=== PATIENT | female | born 1995 | race Caucasian/White ===

== ENCOUNTER 2017-03-03 12:48 | Emergency (ER) | payer MEDICAID, OTHER ==
[~2017-03-03] VITALS: Ht 162.6 cm; Wt 66.7 kg
[2017-03-03] MEDS ORDERED: DOXY1TAB3 PO (13:20)
--- NOTE | 2017-03-03 13:27 | ED GU-Female ---
General Chief Complaint: -Female Stated Complaint: DECREASED BABY HEART RATE 16 WKS PREG Nursing Triage Note: pt reports she was [facility]/v and told her fht were 110. pt reports at her previous ob visits they always ran 140-150. pt reports she felt anxious and worried about it today and decided to have it checked out. pt reports she is inbetween ob drs currently and has an appointment with dr guevara tomorrow. Nursing Sepsis Screen: No Definite Risk Source: patient Exam Limitations: no limitations History of Present Illness Time seen by provider: 13:00 Initial Comments This 21-year-old young lady presents to the emergency room at approximately 16 weeks gestational age with concerns about decreased heart tones. She has been treated intermittently throughout her at [facility] for hyperemesis gravidarum. She had just been treated there prior to her visit here. She reports at that visit heart tones were noted to be 110 and difficult to locate at [facility]. They were eventually located by ultrasound. She has become quite concerned about this and would like to be reevaluated. She has not yet felt movement during this . She has been seeing Dr. Barker for her care but has an appointment to change care to Dr. Guevara tomorrow. Allergies and Home Medications Allergies Coded Allergies: No Known Drug Allergies (Unverified , 03/03/17) Home Medications Doxylamine/Pyridoxine HCl 1 Each Tablet., 1 EACH PO, (Reported) Constitutional: no symptoms reported EENTM: no symptoms reported Respiratory: no symptoms reported Cardiovascular: no symptoms reported Gastrointestinal: see HPI Genitourinary: see HPI : Yes Musculoskeletal: no symptoms reported Skin: no symptoms reported Psychiatric/Neurological: No Symptoms Reported Endocrine: No Symptoms Reported Hematologic/Lymphatic: No Symptoms Reported Past Taftuph-Yyvnet-Khrlin Hx Patient Social History Alcohol Use: Denies Use Recreational Drug Use: No Smoking Status: Never a Smoker Recent Foreign Travel: No Contact w/Someone Who Travel: No Recent Infectious Disease Expo: No Recent Hopitalizations: No Physical Abuse: No Sexual Abuse: No Mistreated: No Fear: No Surgeries History of Surgeries: No Respiratory History of Respiratory Disorde: No Cardiovascular History of Cardiac Disorders: No Neurological History of Neurological Disord: No Reproductive System : Yes Hx : 3 Hx Para: 2 Genitourinary History of Genitourinary Disor: No Gastrointestinal History of Gastrointestinal Di: Yes (hyperemesis gravidarum) Musculoskeletal History of Musculoskeletal Dis: No Endocrine History of Endocrine Disorders: No HEENT History of HEENT Disorders: No Cancer History of Cancer: No Psychosocial History of Psychiatric Problem: No Suicide Risk Score: 0 Integumentary History of Skin or Integumenta: No Blood Transfusions History of Blood Disorders: No Physical Exam Vital Signs Vital Sign - Last 12Hours 03/03/17 13:10 Temp 96.8 Pulse 86 Resp 18 B/P (MAP) 115/69 Pulse Ox 100 Capillary Refill : Less Than 3 Seconds General Appearance: WD/WN, no apparent distress HEENT: PERRL/EOMI, normal ENT inspection Neck: normal inspection Cardiovascular: regular rate, rhythm, no edema, no murmur Respiratory: lungs clear, normal breath sounds, no respiratory distress, no accessory muscle use Gastrointestinal: normal bowel sounds, non tender, soft, other ( heart tones 130s to 140s) 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 By my evaluation Doppler heart tones were consistently in the 130s and 140s. Patient was provided reassurance and dismissed. Departure Impression Impression: Primary Impression: Abnormal heart rate Disposition: 01 HOME, SELF-CARE Condition: Stable Departure-Patient Inst. Decision time for Depature: 13:15 Referrals: NO,LOCAL PHYSICIAN (PCP/Family) Primary Care Physician Patient Instructions: NO INSTRUCTIONS GIVEN Add. Discharge Instructions: Your heart tones in the emergency room ranged from the 130s to 140s. This is a very reassuring heart rate. heart rates may vary greatly depending on activity. Keep your appointment with Dr. Guevara tomorrow. Return to care if you have any further concerns. You may continue taking Diclegis for nausea and vomiting. All discharge instructions reviewed with patient and/or family. Voiced understanding. GENNARO FELIX MD Mar 03, 2017 1:27 pm
[2017-03-03 13:30] VITALS: BP 126/70
== END 2017-03-03 13:30 | disposition home or self-care (01) ==
LOC: ER 12:53
DX: O76 Abnormality in fetal heart rate and rhythm complicating labor and delivery (principal); Z3A.16 16 weeks gestation of pregnancy; Z87.19 Personal history of other diseases of the digestive system
CPT/HCPCS: 99283

== ENCOUNTER 2017-03-23 01:11 | Outpatient (CLI) | payer MEDICAID ==
[~2017-03-23] VITALS: Ht 162.6 cm; Wt 69.6 kg
[~2017-03-23 01:11] MED LIST: DOXY1TAB3 PO
[2017-03-23 01:30] VITALS: BP 107/58
[2017-03-23 02:04] VITALS: BP 107/58
--- NOTE | 2017-03-24 14:40 | Physician Query-Final Dx ---
NICK GRIMALDO 03/24/17 1440: Clinic Account Progress/Dx Physician Query: Please give diagnosis Date of Service Mar 23, 2017 at 01:11 SPENCER STARKEY MD 03/24/17 1746: Clinic Account Progress/Dx DIAGNOSIS: Diagnosis false labor NICK GRIMALDO Mar 24, 2017 14:40 SPENCER STARKEY MD Mar 24, 2017 17:46
== END 2017-03-23 02:00 | disposition home or self-care (01) ==
LOC: WSo 01:11 → LDRP 01:11 → WSo 02:00
PROVIDERS: ATTEND Obstetrics & Gynecology
DX: O47.02 False labor before 37 completed weeks of gestation, second trimester (principal); Z3A.18 18 weeks gestation of pregnancy
CPT/HCPCS: 99213

== ENCOUNTER 2017-03-29 05:50 | Emergency (ER) | payer MEDICAID ==
[~2017-03-29] VITALS: Ht 162.6 cm; Wt 69.6 kg
[2017-03-29] MEDS ORDERED: NITR100C10 (06:05)
[2017-03-29] MEDS ORDERED: ONDA8TAB13 (06:05)
[2017-03-29 06:27] LABS: BILIRUBIN,URINE NEGATIVE (NEGATIVE); KETONES,URINE NEGATIVE (NEGATIVE); LEUKOCYTE ESTERASE ,URINE 3+ (NEGATIVE); NITRITE,URINE NEGATIVE (NEGATIVE); PH,URINE 8 (5-9); PROTEIN,URINE NEGATIVE (NEGATIVE); UROBILINOGEN,URINE NORMAL (NORMAL)
[2017-03-29] MEDS ORDERED: NS IV 1000 ML 1,000 ML IV ONE (06:57)
[2017-03-29 07:12] LABS: BASOPHILS % (AUTO) 0 % (0-10); EOSINOPHILS # (AUTO) 0.2 10^3/uL (0.0-0.3); EOSINOPHILS % (AUTO) 2 % (0-10); LYMPHOCYTES # (AUTO) 2.3 X 10^3 (1.0-4.0); LYMPHOCYTES % (AUTO) 19 % (12-44); MEAN CORPUSCULAR HEMOGLOBIN 29 PG (25-34); MEAN CORPUSCULAR HGB CONC 34 G/DL (32-36); MEAN CORPUSCULAR VOLUME 85 FL (80-99); MEAN PLATELET VOLUME 11.1 FL (7.4-10.4); MONOCYTES # (AUTO) 0.9 X 10^3 (0.0-1.0); MONOCYTES % (AUTO) 7 % (0-12); NEUTROPHILS # (AUTO) 8.8 X 10^3 (1.8-7.8); NEUTROPHILS % (AUTO) 72 % (42-75); PLATELET COUNT 201 10^3/uL (130-400); RED BLOOD COUNT 3.54 10^6/uL (4.35-5.85); WHITE BLOOD COUNT 12.2 10^3/uL (4.3-11.0)
[2017-03-29 07:30] LABS: ALANINE AMINOTRANSFERASE 10 U/L (0-55); ALBUMIN 3.2 GM/DL (3.2-4.5); ANION GAP 7 MMOL/L (5-14); ASPARTATE AMINO TRANSFERASE 15 U/L (5-34); BILIRUBIN,TOTAL 0.2 MG/DL (0.1-1.0); BLOOD UREA NITROGEN 5 MG/DL (7-18); BUN/CREATININE RATIO 8; CALCIUM 8.5 MG/DL (8.5-10.1); CARBON DIOXIDE 22 MMOL/L (21-32); CHLORIDE 109 MMOL/L (98-107); CREATININE SERUM 0.65 MG/DL (0.60-1.30); GFR ESTIMATED > 60; GLUCOSE 83 MG/DL (70-105); LIPASE 13 U/L (8-78); POTASSIUM 3.6 MMOL/L (3.6-5.0); SODIUM 138 MMOL/L (135-145); TOTAL PROTEIN 6.1 GM/DL (6.4-8.2)
--- NOTE | 2017-03-29 07:33 | ED GU-Female ---
General Chief Complaint: -Female Stated Complaint: CRAMPING,CONTRACTIONS,UTI,ABD & BACK PAIN,19 WKS P Nursing Triage Note: 19 WEEKS , ABDOMINAL CRAMPING Nursing Sepsis Screen: No Definite Risk Source: patient Exam Limitations: no limitations History of Present Illness Time seen by provider: 06:20 Initial Comments Here with report of overall abdominal cramping. She reports that she is 19 weeks . She has been seen earlier this week for abdominal cramping with a diagnosis of fall slaver and urinary tract infection. She was apparently initiated on nitrofurantoin she has been on that since Friday. States symptoms are getting better in fact are getting worse. Overall feels bad with continued cramping. She has some right upper quadrant abdominal pain that radiates to her back as well. Has had some nausea. Overall not affected by food per report and states nothing really makes it better or worse. She has tried to increase her fluids. This is her third . Timing/Duration: week, getting worse Severity/Quality: moderate, cramping Location: generalized flank, other (right upper quadrant) Radiation: back, other (right shoulder) Activities at Onset: none Sexual Ramsay History: less than 2 months ago, single partner Modifying Factors: Improves With Other (known) Associated Symptoms: abdominal pain, No diaphoresis, dysuria, No fever/chills, No urinary frequency Allergies and Home Medications Allergies Coded Allergies: No Known Drug Allergies (Unverified , 03/03/17) Home Medications Doxylamine/Pyridoxine HCl 1 Each Tablet.dr, 1 EACH PO, (Reported) Nitrofurantoin Monohyd/M-Cryst 100 Mg Capsule, (Reported) Ondansetron 8 Mg Tab.rapdis, (Reported) Constitutional: see HPI, No chills, No fever EENTM: no symptoms reported Respiratory: no symptoms reported Cardiovascular: No chest pain, palpitations Gastrointestinal: abdominal pain, No diarrhea, nausea Genitourinary: see HPI Expected Date of Delivery: Aug 21, 2017 Musculoskeletal: see HPI, back pain Skin: no symptoms reported All Other Systemes Reviewed Negative Unless Noted: Yes Past Mqbppyr-Qebhvp-Qqohzh Hx Patient Social History Alcohol Use: Denies Use Recreational Drug Use: No Smoking Status: Never a Smoker 2nd Hand Smoke Exposure: No Recent Foreign Travel: No Contact w/Someone Who Travel: No Recent Infectious Disease Expo: No Recent Hopitalizations: No Immunizations Up To Date Tetanus Booster (TDap): Unknown Seasonal Allergies Seasonal Allergies: No Surgeries History of Surgeries: No Respiratory History of Respiratory Disorde: No Cardiovascular History of Cardiac Disorders: No Neurological History of Neurological Disord: No Reproductive System : Yes Expected Date of Delivery: Aug 21, 2017 Last Menstrual Period: November 14, 2016 Hx : 1 Hx Para: 0 Genitourinary History of Genitourinary Disor: No Gastrointestinal History of Gastrointestinal Di: Yes (hyperemesis gravidarum) Musculoskeletal History of Musculoskeletal Dis: No Endocrine History of Endocrine Disorders: No HEENT History of HEENT Disorders: No Cancer History of Cancer: No Psychosocial History of Psychiatric Problem: No Integumentary History of Skin or Integumenta: No Blood Transfusions History of Blood Disorders: No Reviewed Nursing Assessment Reviewed/Agree w Nursing PMH: Yes Family Medical History Significant Family History: No Pertinent Family Hx Physical Exam Vital Signs Vital Sign - Last 12Hours 03/29/17 06:05 Temp 96.9 Pulse 80 Resp 16 B/P (MAP) 107/79 Pulse Ox 98 O2 Delivery Room Air Capillary Refill : Less Than 3 Seconds General Appearance: WD/WN, no apparent distress HEENT: PERRL/EOMI, pharynx normal Neck: full range of motion, supple Cardiovascular: regular rate, rhythm, no murmur Respiratory: lungs clear, normal breath sounds Gastrointestinal: soft, tenderness (mild diffuse and right upper quadrant tenderness noted.) Back: normal inspection, no CVA tenderness, no vertebral tenderness Extremities: non-tender, normal inspection Neurologic/Psychiatric: alert, oriented x 3 Skin: normal color, warm/dry Progress/Results/Core Measures Results/Orders Lab Results Laboratory Tests Test 03/29/17 06:10 03/29/17 07:05 Range/Units Urine Color YELLOW Urine Clarity CLEAR Urine pH 8 5-9 Urine Specific [place] 1.015 L 1.016-1.022 Urine Protein NEGATIVE NEGATIVE Urine Glucose (UA) NEGATIVE NEGATIVE Urine Ketones NEGATIVE NEGATIVE Urine Nitrite NEGATIVE NEGATIVE Urine Bilirubin NEGATIVE NEGATIVE Urine Urobilinogen NORMAL NORMAL MG/DL Urine Leukocyte Esterase 3+ H NEGATIVE Urine RBC (Auto) NEGATIVE NEGATIVE Urine RBC NONE /HPF Urine WBC 5-10 H /HPF Urine Squamous Epithelial Cells 10-25 H /HPF Urine Crystals NONE /LPF Urine Bacteria FEW H /HPF Urine Casts NONE /LPF Urine Mucus NEGATIVE /LPF Urine Culture Indicated YES White Blood Count 12.2 H 4.3-11.0 10^3/uL Red Blood Count 3.54 L 4.35-5.85 10^6/uL Hemoglobin 10.1 L 11.5-16.0 G/DL Hematocrit 30 L 35-52 % Mean Corpuscular Volume 85 80-99 FL Mean Corpuscular Hemoglobin 29 25-34 PG Mean Corpuscular Hemoglobin Concent 34 32-36 G/DL Red Cell Distribution Width 14.0 10.0-14.5 % Platelet Count 201 130-400 10^3/uL Mean Platelet Volume 11.1 H 7.4-10.4 FL Neutrophils (%) (Auto) 72 42-75 % Lymphocytes (%) (Auto) 19 12-44 % Monocytes (%) (Auto) 7 0-12 % Eosinophils (%) (Auto) 2 0-10 % Basophils (%) (Auto) 0 0-10 % Neutrophils # (Auto) 8.8 H 1.8-7.8 X 10^3 Lymphocytes # (Auto) 2.3 1.0-4.0 X 10^3 Monocytes # (Auto) 0.9 0.0-1.0 X 10^3 Eosinophils # (Auto) 0.2 0.0-0.3 10^3/uL Basophils # (Auto) 0.0 0.0-0.1 10^3/uL Sodium Level 138 135-145 MMOL/L Potassium Level 3.6 3.6-5.0 MMOL/L Chloride Level 109 H 98-107 MMOL/L Carbon Dioxide Level 22 21-32 MMOL/L Anion Gap 7 5-14 MMOL/L Blood Urea Nitrogen 5 L 7-18 MG/DL Creatinine 0.65 0.60-1.30 MG/DL Estimat Glomerular Filtration Rate > 60 BUN/Creatinine Ratio 8 Glucose Level 83 70-105 MG/DL Calcium Level 8.5 8.5-10.1 MG/DL Total Bilirubin 0.2 0.1-1.0 MG/DL Aspartate Amino Transf (AST/SGOT) 15 5-34 U/L Alanine Aminotransferase (ALT/SGPT) 10 0-55 U/L Alkaline Phosphatase 61 40-136 U/L Total Protein 6.1 L 6.4-8.2 GM/DL Albumin 3.2 3.2-4.5 GM/DL Lipase 13 8-78 U/L My Orders Orders - DWAYNE EDGAR MD Cbc With Automated Diff (03/29/17 06:57) Comprehensive Metabolic Panel (03/29/17 06:57) Lipase (03/29/17 06:57) Saline Lock/Iv-Start (03/29/17 06:57) Ns Iv 1000 Ml (Sodium Chloride 0.9%) (03/29/17 06:57) Us Gallbladder [id number] (03/29/17 06:57) Ceftriaxone Injection (Rocephin Injectio (03/29/17 07:45) Medications Given in ED Current Medications Medications Dose Ordered Sig/Gayla Route Start Time Stop Time Status Last Admin Dose Admin Ceftriaxone Sodium 1000 mg/ Sodium Chloride 50 ml @ 100 mls/hr ONCE ONCE IV 03/29/17 07:45 03/29/17 08:14 DC 03/29/17 07:42 100 MLS/HR Sodium Chloride 1,000 ml @ 0 mls/hr Q0M ONCE IV 03/29/17 06:57 03/29/17 06:59 DC 03/29/17 07:17 0 MLS/HR Vital Signs/I&O Vital Sign - Last 12Hours 03/29/17 06:05 Temp 96.9 Pulse 80 Resp 16 B/P (MAP) 107/79 Pulse Ox 98 O2 Delivery Room Air Blood Pressure Mean: 88 Progress Note : Progress Note Seen and evaluated. Bedside ultrasound done. Heart rate noted to be 135 by ultrasound. Positive movement. Femur length at 21 weeks by measurement. 19-2/7 by last menstrual period. Right upper quadrant ultrasound at bedside shows patient has some mild pain in that area. There was a question of stone but appears to be artifact. She does appear to have sludge. Formal ultrasound ordered. 0715: UA positive for UTI. Patient appears to be not improving on outpatient antibiotics. No culture available from previous UA. Will likely need to change antibiotics. Labs and normal saline 1 L bolus ordered. Monitor patient. Rocephin 1 g IV ordered. 0830: Formal ultrasound for gallbladder ordered and completed. No concerning findings noted on preliminary read. I did discuss the case with Dr. Dowling. 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 This was discussed with Dr. Dowling. Findings of UTI noted but may be contamination from vaginal discharge. We will change antibiotic to Keflex this point and she will follow-up with him for further evaluation. Cultures will help identify vaginal contaminant versus urinary tract infection. All of this was explained to the patient and family who agreed. Discharged home with return precautions. Patient verbalize understanding instructions and agreement with plan. Diagnostic Imaging Diagonstic Imaging: Ultrasound Plain Films/CT/US/NM/MRI: abdomen Comments Gallbladder ultrasound does not show any stones or sludge on preliminary read. Departure Impression Impression: Primary Impression: Urinary tract infection Qualified Codes: N30.00 - Acute cystitis without hematuria Disposition: HOME, SELF-CARE Condition: Improved Departure-Patient Inst. Referrals: NO,LOCAL PHYSICIAN (PCP/Family) Primary Care Physician Patient Instructions: Urinary Tract Infection, Adult (DC) Add. Discharge Instructions: All discharge instructions reviewed with patient and/or family. Voiced understanding. Take medications as directed. You may stop the nitrofurantoin. He may take Tylenol 1000 mg every 6 or 8 hours as needed for pain. Drink plenty of fluids. Follow-up with Dr. Dowling earlier this week for recheck and further evaluation including possible pelvic exam as indicated. Return for worse pain, fever, vomiting, weakness, breathing problems or other concerns as needed. Scripts Cephalexin (Cephalexin) 500 Mg Tablet 500 MG PO BID, #12 TAB 0 Refills Prov: DWAYNE EDGAR MD 03/29/17 Copy Copies To 1: SPENCER DOWLING MD, TIMOTHY D MD Mar 29, 2017 07:32
[2017-03-29] MEDS ORDERED: cefTRIAXone INJECTION 1,000 MG in NS (IVPB) 50 ML IV ONE (07:45)
[2017-03-29] MEDS ORDERED: CEPH500T PO (08:36)
[2017-03-29 08:40] VITALS: BP 111/82
--- NOTE | 2017-03-29 08:48 | Diagnostic Imaging Report ---
PROCEDURE: US Gallbladder. TECHNIQUE: Multiple real-time grayscale images were obtained over the right upper quadrant in various projections. INDICATION: Right upper quadrant pain. 20 weeks . FINDINGS: The liver demonstrates no evidence of a focal intrahepatic abnormality. There is no evidence of intrahepatic biliary dilatation. The gallbladder is nondistended. There is no sonographic demonstration of gallstones. No gallbladder wall thickening or pericholecystic fluid. The common bile duct is normal in caliber at 3 mm. Visualized portion of the pancreas is normal. The right kidney demonstrates a mild degree of prominence of the right renal pelvis and calyces. There is no perinephric fluid. There is no ascites evident. IMPRESSION: 1. There appears to be mild right-sided hydronephrosis. This may relate to a current gestation. The possibility of a ureteral calculus cannot be completely excluded based on this exam. Consider correlation with urinalysis. 2. Right upper quadrant sonogram, otherwise is unremarkable. Dictated by: Dictated on workstation # [id number]
[2017-05-06] MEDS ORDERED: NITR-65 PO (18:02)
== END 2017-03-29 08:40 | disposition home or self-care (01) ==
LOC: EDUNIT# 05:50 → ER 05:53
DX: O23.42 Unspecified infection of urinary tract in pregnancy, second trimester (principal); Z87.19 Personal history of other diseases of the digestive system; Z3A.19 19 weeks gestation of pregnancy
CPT/HCPCS: 36415; 76705; 80053; 81000; 83690; 85025; 87088; 96361; 96365

== ENCOUNTER 2017-05-05 22:06 | Outpatient (CLI) | payer MEDICAID ==
[~2017-05-05] VITALS: Ht 162.6 cm; Wt 72.7 kg
[~2017-05-05 22:06] MED LIST changes: +CEPH500T PO; +NITR100C10; +ONDA8TAB13
[2017-05-05 22:27] VITALS: BP 105/55
[2017-05-05] MEDS ORDERED: MULT1TAB69 PO (22:40)
--- NOTE | 2017-05-06 09:26 | Physician Query-Final Dx ---
NICK GRIMALDO 05/06/17 0926: Clinic Account Progress/Dx Physician Query: Please give diagnosis Date of Service May 05, 2017 at 22:06 SPENCER STARKEY MD 05/08/17 0740: Clinic Account Progress/Dx DIAGNOSIS: Diagnosis false LABOR NICK GRIMALDO May 06, 2017 09:26 SPENCER STARKEY MD May 08, 2017 07:40
[2017-05-06] MEDS ORDERED: NITR-65 PO ×2 (18:02)
== END 2017-05-05 22:53 | disposition home or self-care (01) ==
LOC: LDRP 22:06 → WSo 22:06
PROVIDERS: ATTEND Obstetrics & Gynecology
DX: O47.02 False labor before 37 completed weeks of gestation, second trimester (principal); Z3A.24 24 weeks gestation of pregnancy
CPT/HCPCS: 99212

== ENCOUNTER 2017-05-06 15:43 | Outpatient (CLI) | payer MEDICAID ==
[~2017-05-06] VITALS: Ht 162.6 cm; Wt 71.2 kg
[~2017-05-06 15:43] MED LIST changes: +MULT1TAB69 PO
[2017-05-06] MEDS ORDERED: INFLUENZA TRIvalent 2017-2018 0.5 ML/45 MCG SYR IM ONE (16:30)
[2017-05-06 17:26] LABS: MEAN CORPUSCULAR HEMOGLOBIN 29 PG (25-34); MEAN CORPUSCULAR HGB CONC 33 G/DL (32-36); MEAN CORPUSCULAR VOLUME 85 FL (80-99); MEAN PLATELET VOLUME 10.6 FL (7.4-10.4); PLATELET COUNT 211 10^3/uL (130-400); RED BLOOD COUNT 3.65 10^6/uL (4.35-5.85); RED CELL DISTRIBUTION WIDTH 13.2 % (10.0-14.5); WHITE BLOOD COUNT 14.5 10^3/uL (4.3-11.0)
[2017-05-06 17:27] LABS: BASOPHILS % (AUTO) 0 % (0-10); EOSINOPHILS # (AUTO) 0.2 10^3/uL (0.0-0.3); EOSINOPHILS % (AUTO) 1 % (0-10); LYMPHOCYTES # (AUTO) 1.8 X 10^3 (1.0-4.0); LYMPHOCYTES % (AUTO) 12 % (12-44); MONOCYTES % (AUTO) 7 % (0-12); NEUTROPHILS # (AUTO) 11.5 X 10^3 (1.8-7.8); NEUTROPHILS % (AUTO) 80 % (42-75)
[2017-05-06 17:31] LABS: BILIRUBIN,URINE NEGATIVE (NEGATIVE); KETONES,URINE 3+ (NEGATIVE); LEUKOCYTE ESTERASE ,URINE NEGATIVE (NEGATIVE); NITRITE,URINE NEGATIVE (NEGATIVE); PH,URINE 6 (5-9); PROTEIN,URINE NEGATIVE (NEGATIVE); UROBILINOGEN,URINE NORMAL (NORMAL)
[2017-05-06 17:54] LABS: BAND NEUTROPHILS 2 %; BASOPHILS % (MANUAL) 0 %; EOSINOPHILS % (MANUAL) 1 %; LYMPHOCYTES % (MANUAL) 9 %; NEUTROPHILS % (MANUAL) 83 %
[2017-05-06] MEDS ORDERED: NITR-65 PO ×2 (18:02)
--- NOTE | 2017-05-07 13:49 | Physician Query-Final Dx ---
NICK GRIMALDO 05/07/17 1349: Clinic Account Progress/Dx Physician Query: Please give diagnosis Date of Service May 06, 2017 at 15:43 SPENCER STARKEY MD 05/08/17 0741: Clinic Account Progress/Dx DIAGNOSIS: Diagnosis recurrent false labor NICK GRIMALDO May 07, 2017 13:49 SPENCER STARKEY MD May 08, 2017 07:41
== END 2017-05-06 18:15 | disposition home or self-care (01) ==
LOC: WSo 15:43 → LDRP 15:43 → WSo 18:15
PROVIDERS: ATTEND Obstetrics & Gynecology
DX: O47.02 False labor before 37 completed weeks of gestation, second trimester (principal); Z3A.24 24 weeks gestation of pregnancy
CPT/HCPCS: 36415; 81000; 85007; 85027; 87088; 87210; 90471; 99214

== ENCOUNTER 2017-05-14 12:52 | Observation (INO) | payer MEDICAID ==
[~2017-05-14] VITALS: Ht 162.6 cm; Wt 73.1 kg
[~2017-05-14 12:52] MED LIST changes: +NITR-65 PO
[2017-05-14 13:15] VITALS: BP 120/72
[2017-05-14 13:43] LABS: BILIRUBIN,URINE NEGATIVE (NEGATIVE); KETONES,URINE NEGATIVE (NEGATIVE); LEUKOCYTE ESTERASE ,URINE 1+ (NEGATIVE); NITRITE,URINE NEGATIVE (NEGATIVE); PH,URINE 7 (5-9); PROTEIN,URINE NEGATIVE (NEGATIVE); UROBILINOGEN,URINE 1 MG/DL (NORMAL)
[2017-05-14 14:08] LABS: SQUAMOUS EPITHELIAL CELL,UR 0-2 /HPF; WBC,URINE 0-2 /HPF
[2017-05-14 14:15] VITALS: BP 103/62
[2017-05-14] MEDS ORDERED: ONDANSETRON 4 MG/2 ML (SDV) Z0FRAN IVP ONE ×2 (14:30→18:15)
[2017-05-14] MEDS ORDERED: D5 LR IV SOLUTION 1,000 ML IV ONE ×2 (14:30→16:15)
[2017-05-14] MEDS ORDERED: INDOMETHACIN 25 MG (INDOCIN) CAP PO NR (16:15)
[2017-05-14 17:20] VITALS: BP 109/65
[2017-05-14] MEDS ORDERED: ONDANSETRON 4 MG/2 ML (SDV) Z0FRAN ONE (18:01)
[2017-05-14] MEDS ORDERED: BETAMETHASONE ACE/NA PHOS 6 MG/ML (CELESTONE SOLUSPAN) ONE (18:01)
--- NOTE | 2017-05-14 18:05 | History & Physical ---
History and Physical Date Seen by Provider: May 14, 2017 Time Seen by Provider: 18:02 this patient is a 21-year-old white female currently at 25 weeks gestation. She has had persistent contractions for the last several weeks. Today they have increased in intensity. She is also suffering persistent nausea and vomiting dizziness or lightheadedness. She denies rupture membranes or bleeding she denies diarrhea or constipation. She has not eaten since 5 p.m. yesterday due to the nausea. She feels only minimally better with the hydration and antiemetic she received today. Allergies are none Medications are vitamins Medical history, past surgical history, obstetric history, family history, social histories are per the antepartum record HEENT exam is normal although the patient does appear ill Neck is supple with no lymphadenopathy no thyromegaly abdomen is gravid soft nontender nondistended Extreme show no clubbing cyanosis. There is no Homans sign. Pelvic exam per the labor and delivery nurse shows a long closed cervix with no change on serial exams monitor shows contractions about every 12-16 minutes persistently. Heart rate pattern is normal and reassuring. Laboratory Tests Test 05/14/17 13:00 Range/Units Urine Color YELLOW Urine Clarity CLEAR Urine pH 7 5-9 Urine Specific [place] 1.010 L 1.016-1.022 Urine Protein NEGATIVE NEGATIVE Urine Glucose (UA) NEGATIVE NEGATIVE Urine Ketones NEGATIVE NEGATIVE Urine Nitrite NEGATIVE NEGATIVE Urine Bilirubin NEGATIVE NEGATIVE Urine Urobilinogen 1 NORMAL MG/DL Urine Leukocyte Esterase 1+ H NEGATIVE Urine RBC (Auto) NEGATIVE NEGATIVE Urine RBC NONE /HPF Urine WBC 0-2 /HPF Urine Squamous Epithelial Cells 0-2 /HPF Urine Crystals NONE /LPF Urine Amorphous Sediment MOD HERMINIA URATES H /LPF Urine Bacteria NEGATIVE /HPF Urine Casts NONE /LPF Urine Mucus NEGATIVE /LPF Urine Culture Indicated NO Urine is essentially normal Vital Signs Date Time Temp Pulse Resp B/P (MAP) Pulse Ox O2 Delivery O2 Flow Rate FiO2 05/14/17 14:15 97 18 103/62 Room Air 05/14/17 13:15 98.5 100 18 120/72 Room Air I & O 05/15/17 07:00 Intake Total 1000 ml Balance 1000 ml patient is afebrile. Assessment and plan hospital day 1 the patient at 25 weeks gestation likely has a viral syndrome contributing to her causing her hyperemesis gravidarum. We 'll continue her IV fluids were had with antiemetics and plan give the first injection of betamethasone. Continue supportive care until she improves and is ready for discharge. hyperemesis gravidarum/viral gastroenteritis Allergies and Home Medications Allergies Coded Allergies: No Known Drug Allergies (Unverified , 03/03/17) Home Medications Multivitamin 1 Each Tablet, 1 EACH PO DAILY, (Reported) SPENCER STARKEY MD May 14, 2017 6:05 pm
[2017-05-14] MEDS: BETAMETHASONE ACE/NA PHOS 6 MG/ML (CELESTONE SOLUSPAN) IM SCH (18:14)
[2017-05-14 18:15] VITALS: BP 112/68
[2017-05-14] MEDS ORDERED: ONDANSETRON 4 MG/2 ML (SDV) Z0FRAN IVP PRN (18:15)
[2017-05-14 18:25] LABS: BASOPHILS % (AUTO) 0 % (0-10); EOSINOPHILS % (AUTO) 0 % (0-10); LYMPHOCYTES # (AUTO) 1.9 X 10^3 (1.0-4.0); LYMPHOCYTES % (AUTO) 16 % (12-44); MEAN CORPUSCULAR HEMOGLOBIN 28 PG (25-34); MEAN CORPUSCULAR HGB CONC 33 G/DL (32-36); MEAN CORPUSCULAR VOLUME 85 FL (80-99); MEAN PLATELET VOLUME 10.4 FL (7.4-10.4); MONOCYTES % (AUTO) 8 % (0-12); NEUTROPHILS # (AUTO) 9.1 X 10^3 (1.8-7.8); NEUTROPHILS % (AUTO) 76 % (42-75); PLATELET COUNT 198 10^3/uL (130-400); RED BLOOD COUNT 3.29 10^6/uL (4.35-5.85); RED CELL DISTRIBUTION WIDTH 12.8 % (10.0-14.5)
[2017-05-14] MEDS: D5 LR IV SOLUTION 1,000 ML IV SCH (19:00)
[2017-05-14 19:38] VITALS: BP 114/56
[2017-05-15 02:31] VITALS: BP 93/40
[2017-05-15] MEDS: D5 LR IV SOLUTION 1,000 ML IV SCH (02:31)
--- NOTE | 2017-05-15 06:38 | Progress Note-Standard ---
Standard Progress Note Progress Notes/Assess & Plan Date Seen by Provider: May 15, 2017 Time Seen by Provider: 06:36 Progress/Assessment & Plan patient complains of persistent contractions although they seem to have lessened some. They had not progressed any at all. The cervix is shown no change on serial exams. Patient's nausea has improved to the point where she is tolerating oral intake now. She is voiding well. She feel baby moving. She denies rupture membranes or bleeding. Laboratory Tests Test 05/14/17 13:00 05/14/17 18:15 Range/Units Urine Color YELLOW Urine Clarity CLEAR Urine pH 7 5-9 Urine Specific [place] 1.010 L 1.016-1.022 Urine Protein NEGATIVE NEGATIVE Urine Glucose (UA) NEGATIVE NEGATIVE Urine Ketones NEGATIVE NEGATIVE Urine Nitrite NEGATIVE NEGATIVE Urine Bilirubin NEGATIVE NEGATIVE Urine Urobilinogen 1 NORMAL MG/DL Urine Leukocyte Esterase 1+ H NEGATIVE Urine RBC (Auto) NEGATIVE NEGATIVE Urine RBC NONE /HPF Urine WBC 0-2 /HPF Urine Squamous Epithelial Cells 0-2 /HPF Urine Crystals NONE /LPF Urine Amorphous Sediment MOD HERMINIA URATES H /LPF Urine Bacteria NEGATIVE /HPF Urine Casts NONE /LPF Urine Mucus NEGATIVE /LPF Urine Culture Indicated NO White Blood Count 12.0 H 4.3-11.0 10^3/uL Red Blood Count 3.29 L 4.35-5.85 10^6/uL Hemoglobin 9.2 L 11.5-16.0 G/DL Hematocrit 28 L 35-52 % Mean Corpuscular Volume 85 80-99 FL Mean Corpuscular Hemoglobin 28 25-34 PG Mean Corpuscular Hemoglobin Concent 33 32-36 G/DL Red Cell Distribution Width 12.8 10.0-14.5 % Platelet Count 198 130-400 10^3/uL Mean Platelet Volume 10.4 7.4-10.4 FL Neutrophils (%) (Auto) 76 H 42-75 % Lymphocytes (%) (Auto) 16 12-44 % Monocytes (%) (Auto) 8 0-12 % Eosinophils (%) (Auto) 0 0-10 % Basophils (%) (Auto) 0 0-10 % Neutrophils # (Auto) 9.1 H 1.8-7.8 X 10^3 Lymphocytes # (Auto) 1.9 1.0-4.0 X 10^3 Monocytes # (Auto) 1.0 0.0-1.0 X 10^3 Eosinophils # (Auto) 0.0 0.0-0.3 10^3/uL Basophils # (Auto) 0.0 0.0-0.1 10^3/uL Vital Signs Date Time Temp Pulse Resp B/P (MAP) Pulse Ox O2 Delivery O2 Flow Rate FiO2 05/15/17 02:31 98.5 85 18 93/40 97 Room Air 05/14/17 19:38 98.7 84 18 114/56 Room Air 05/14/17 18:15 97.9 89 18 112/68 Room Air 05/14/17 17:20 93 18 109/65 Room Air 05/14/17 14:15 97 18 103/62 Room Air 05/14/17 13:15 98.5 100 18 120/72 Room Air vital signs are stable. Patient is afebrile. Her lab work shows a mildly elevated white count otherwise is normal. The abdomen is gravid and nontender.fundus is appropriate for gestational age and nontender. Extremities show no clubbing cyanosis. There is no Homans sign. Assessment and plan hospital day 2 with hyperemesis gravidarum likely associated with a viral syndrome. Patient has had contractions/ labor but does not really appear to be threatening to deliver. Plan is for continued observation until she is tolerating oral intake well and then allowed discharge home with follow-up in clinic next week Final Diagnosis hyperemesis gravidarum/ labor SPENCER STARKEY MD May 15, 2017 6:38 am
[2017-05-15] MEDS ORDERED: ONDA8TAB9 PO (06:40)
--- NOTE | 2017-05-15 06:42 | Discharge Instructions ---
Discharge Instructions Discharge Medications New, Converted or Re-Newed RX: Other Patient Instructions Patient Instructions: as directed Return to The Hospital For: as directed Activity & Diet Discharge Diet: No Restrictions Activity as Tolerated: Yes Orders-Post D/C & Referrals Call to make follow up appt. for ALEKSEY patient in 1 weeks. Please call in rx to patient pharmacy return to clinic promptly for any signs symptoms and indications of labor Return to clinic for persistent recurrent nausea vomiting SPENCER STARKEY MD May 15, 2017 6:42 am
[2017-05-15 07:30] VITALS: BP 110/69
[2017-05-15] MEDS ORDERED: METOCLOPRAMIDE INJ 10 MG/2 ML (REGLAN) IVP NR (08:00)
[2017-05-15] MEDS ORDERED: ONDANSETRON 8 MG (ZOFRAN) ORAL DISSOLVE TAB PO NR (08:00)
[2017-05-15] MEDS ORDERED: FAMOTIDINE 20MG/2ML IV (PEPCID) IVP SCH (09:00)
[2017-05-15 12:50] VITALS: BP 90/46
[2017-05-15] MEDS: BETAMETHASONE ACE/NA PHOS 6 MG/ML (CELESTONE SOLUSPAN) IM SCH (15:15)
== END 2017-05-15 18:46 | disposition home or self-care (01) ==
LOC: WSo 12:52 → LDRP 12:53 → WSo 17:54 → LDRP 17:54
PROVIDERS: ADMIT Obstetrics & Gynecology; ATTEND Obstetrics & Gynecology
DX: O60.02 Preterm labor without delivery, second trimester (principal); O21.8 Other vomiting complicating pregnancy; Z3A.25 25 weeks gestation of pregnancy
CPT/HCPCS: 36415; 81000; 85025; 87088; 96361; 96372; 96374; 96375; 96376; 99211; G0378

== ENCOUNTER 2017-05-17 22:59 | Outpatient (CLI) | payer MEDICAID ==
[~2017-05-17] VITALS: Ht 162.6 cm; Wt 73.9 kg
[~2017-05-17 22:59] MED LIST changes: +ONDA8TAB9 PO
[2017-05-17 23:20] VITALS: BP 108/58
[2017-05-17 23:28] LABS: BILIRUBIN,URINE NEGATIVE (NEGATIVE); KETONES,URINE NEGATIVE (NEGATIVE); LEUKOCYTE ESTERASE ,URINE NEGATIVE (NEGATIVE); NITRITE,URINE NEGATIVE (NEGATIVE); PH,URINE 8 (5-9); PROTEIN,URINE NEGATIVE (NEGATIVE); UROBILINOGEN,URINE NORMAL (NORMAL)
[2017-05-17 23:39] LABS: SQUAMOUS EPITHELIAL CELL,UR 0-2 /HPF
[2017-05-18] MEDS ORDERED: PROMETHAZINE 25 MG (PHENERGAN) TAB PO ONE (00:45)
--- NOTE | 2017-05-19 08:12 | Physician Query-Final Dx ---
ANGIE WISDOM 05/19/17 0812: Clinic Account Progress/Dx Physician Query: Please give diagnosis Date of Service May 17, 2017 at 22:59 BETTINA IRWIN DO 06/03/17 1101: Clinic Account Progress/Dx DIAGNOSIS: Diagnosis emesis , 26 weeks ANGIE WISDOM May 19, 2017 08:12 BETTINA IRWIN DO Jun 03, 2017 11:01
== END 2017-05-18 00:53 | disposition home or self-care (01) ==
LOC: WSo 22:59 → LDRP 23:00 → WSo 05-18 00:53
PROVIDERS: ATTEND Obstetrics & Gynecology
DX: O21.2 Late vomiting of pregnancy (principal); Z3A.26 26 weeks gestation of pregnancy
CPT/HCPCS: 81000; 99212

== ENCOUNTER 2017-06-10 09:51 | Observation (INO) | payer MEDICAID ==
[~2017-06-10] VITALS: Ht 162.6 cm; Wt 74.4 kg
[2017-06-10 10:08] VITALS: BP 101/62
[2017-06-10 10:46] LABS: BASOPHILS # (AUTO) 0.1 10^3/uL (0.0-0.1); BASOPHILS % (AUTO) 0 % (0-10); BILIRUBIN,URINE NEGATIVE (NEGATIVE); EOSINOPHILS # (AUTO) 0.2 10^3/uL (0.0-0.3); EOSINOPHILS % (AUTO) 1 % (0-10); KETONES,URINE NEGATIVE (NEGATIVE); LEUKOCYTE ESTERASE ,URINE NEGATIVE (NEGATIVE); LYMPHOCYTES # (AUTO) 1.9 X 10^3 (1.0-4.0); LYMPHOCYTES % (AUTO) 11 % (12-44); MEAN CORPUSCULAR HEMOGLOBIN 26 PG (25-34); MEAN CORPUSCULAR HGB CONC 32 G/DL (32-36); MEAN CORPUSCULAR VOLUME 82 FL (80-99); MEAN PLATELET VOLUME 10.2 FL (7.4-10.4); MONOCYTES # (AUTO) 1.4 X 10^3 (0.0-1.0); MONOCYTES % (AUTO) 8 % (0-12); NEUTROPHILS # (AUTO) 13.5 X 10^3 (1.8-7.8); NEUTROPHILS % (AUTO) 79 % (42-75); NITRITE,URINE NEGATIVE (NEGATIVE); PH,URINE 8 (5-9); PLATELET COUNT 208 10^3/uL (130-400); PROTEIN,URINE NEGATIVE (NEGATIVE); RED BLOOD COUNT 3.52 10^6/uL (4.35-5.85); RED CELL DISTRIBUTION WIDTH 13.1 % (10.0-14.5); UROBILINOGEN,URINE NORMAL (NORMAL); WHITE BLOOD COUNT 17.1 10^3/uL (4.3-11.0)
[2017-06-10] MEDS: ceFAZolin INJECTION 1,000 MG in NS (IVPB) 50 ML IV SCH ×3 (10:50→22:42)
[2017-06-10] MEDS: D5 LR IV SOLUTION 1,000 ML IV SCH ×3 (10:50→21:17)
[2017-06-10] MEDS ORDERED: FERR-84 PO (10:53)
[2017-06-10 11:09] LABS: BAND NEUTROPHILS 2 %; BASOPHILS % (MANUAL) 0 %; EOSINOPHILS % (MANUAL) 2 %; LYMPHOCYTES % (MANUAL) 11 %; METAMYELOCYTES % 3 %; NEUTROPHILS % (MANUAL) 76 %
[2017-06-10] MEDS ORDERED: BUTORPHANOL INJ 2 MG/ML (STADOL) VIAL ONE (13:42)
[2017-06-10] MEDS ORDERED: BUTORPHANOL INJ 2 MG/ML (STADOL) VIAL IV ONE ×2 (14:00→17:45)
[2017-06-10 14:01] VITALS: BP 101/56
--- NOTE | 2017-06-10 14:32 | Diagnostic Imaging Report ---
EXAMINATION: Ultrasound appendix. INDICATION: Abdominal pain. Findings: The right lower quadrant demonstrate no definite fluid collection or abnormality. The appendix however is not seen. The patient is . IMPRESSION: The appendix is not seen. Correlate clinically. Dictated by: Dictated on workstation # [id number]
--- NOTE | 2017-06-10 14:34 | Diagnostic Imaging Report ---
PROCEDURE: US abdomen complete. TECHNIQUE: Multiple real-time grayscale images were obtained over the abdomen in various projections. INDICATION: Abdominal pain. The patient is 30 weeks FINDINGS: The pancreas appears unremarkable. The liver is fairly homogeneous with no focal lesion seen. Hepatopetal flow in the portal vein is noted. The gallbladder demonstrates no stones or wall thickening. Sonographic Mcdermott sign is reportedly negative. The CBD is 4 mm in caliber. The spleen is 11.9 CM in length. The right kidney is 11.9 and the left kidney is 11.2 CM. No hydronephrosis. The visualized portions of the IVC and abdominal aorta appear unremarkable. The urinary bladder appears unremarkable. At the time of the exam the left ureteric jet is seen. The right ureteric jet is not identified. No fluid collection is seen. IMPRESSION: No definite abnormality. Dictated by: Dictated on workstation # [id number]
[2017-06-10] MEDS ORDERED: ONDANSETRON 4 MG/2 ML (SDV) Z0FRAN IVP ONE (16:00)
[2017-06-10 17:56] VITALS: BP 99/57
[2017-06-10 20:00] VITALS: BP 106/63
[2017-06-10] MEDS ORDERED: RX-OSELTAMIVIR 75 MG (TAMIFLU) BOX OF 10 PO ONE (20:29)
--- NOTE | 2017-06-10 20:37 | History & Physical ---
History and Physical Date Seen by Provider: Jun 10, 2017 Time Seen by Provider: 10:00 this patient is a 19-year-old white female with a due date of August 21, 2017. She is now just short of 30 weeks gestation. Her has been complicated by fairly diffuse abdominal low pelvic and back pain. Uterus itself is nontender. Patient denies rupture membranes or bleeding. Patient has been afebrile. Did not have pain or symptoms similar to this in any manner her prior pregnancies. Her reports that numerous family members have been ill over the last 2-3 weeks. Patient is experiencing intermittent nausea. She had a cough for the first part of this week that seemed to be better now. She does feel baby moving and has only a rare contraction. It is of concern that her white blood cell count has been elevated to 17 to 18, 000 over the last several days. she was sent to labor and delivery for my clinic on this day 1 her white count was found to be persistently elevated. Appeared acutely ill, although was not obtunded or incapacitated.. Patient has been treated through the day with IV hydration and IV antiemetics with good effect. she has also been treated with IV analgesics for pain also to good effect. an ultrasound of the abdomen and noted the pelvis including the appendix has been negative. There was note of not noticing specifically the ureteral jet on the right. However there was no sign of hydronephrosis or hydroureter noted. Through the day the patient reports that she does feel minimally improved. He looks less acutely ill to me this evening. He has tolerated some oral intake. She is voiding well. Allergies are none Medications prior to admission with likely just Zofran and vitamins as she could tolerate obstetric history and past medical history, past surgical history, family history, and social histories are per the antepartum record lab work is as follows Laboratory Tests Test 06/10/17 10:32 Range/Units White Blood Count 17.1 H 4.3-11.0 10^3/uL Red Blood Count 3.52 L 4.35-5.85 10^6/uL Hemoglobin 9.3 L 11.5-16.0 G/DL Hematocrit 29 L 35-52 % Mean Corpuscular Volume 82 80-99 FL Mean Corpuscular Hemoglobin 26 25-34 PG Mean Corpuscular Hemoglobin Concent 32 32-36 G/DL Red Cell Distribution Width 13.1 10.0-14.5 % Platelet Count 208 130-400 10^3/uL Mean Platelet Volume 10.2 7.4-10.4 FL Neutrophils (%) (Auto) 79 H 42-75 % Lymphocytes (%) (Auto) 11 L 12-44 % Monocytes (%) (Auto) 8 0-12 % Eosinophils (%) (Auto) 1 0-10 % Basophils (%) (Auto) 0 0-10 % Neutrophils # (Auto) 13.5 H 1.8-7.8 X 10^3 Lymphocytes # (Auto) 1.9 1.0-4.0 X 10^3 Monocytes # (Auto) 1.4 H 0.0-1.0 X 10^3 Eosinophils # (Auto) 0.2 0.0-0.3 10^3/uL Basophils # (Auto) 0.1 0.0-0.1 10^3/uL Neutrophils % (Manual) 76 % Lymphocytes % (Manual) 11 % Monocytes % (Manual) 6 % Eosinophils % (Manual) 2 % Basophils % (Manual) 0 % Metamyelocytes % 3 % Band Neutrophils 2 % Blood Morphology Comment NORMAL Urine Color YELLOW Urine Clarity CLEAR Urine pH 8 5-9 Urine Specific [place] 1.015 L 1.016-1.022 Urine Protein NEGATIVE NEGATIVE Urine Glucose (UA) NEGATIVE NEGATIVE Urine Ketones NEGATIVE NEGATIVE Urine Nitrite NEGATIVE NEGATIVE Urine Bilirubin NEGATIVE NEGATIVE Urine Urobilinogen NORMAL NORMAL MG/DL Urine Leukocyte Esterase NEGATIVE NEGATIVE Urine RBC (Auto) NEGATIVE NEGATIVE Urine RBC NONE /HPF Urine WBC NONE /HPF Urine Squamous Epithelial Cells NONE /HPF Urine Crystals NONE /LPF Urine Amorphous Sediment LARGE HERMINIA PHOSPHATE H /LPF Urine Bacteria NEGATIVE /HPF Urine Casts NONE /LPF Urine Mucus NEGATIVE /LPF Urine Culture Indicated NO vital signs are as follows Vital Signs Date Time Temp Pulse Resp B/P (MAP) Pulse Ox O2 Delivery O2 Flow Rate FiO2 06/10/17 17:56 98.5 81 16 99/57 Room Air 06/10/17 14:01 97.8 100 16 101/56 Room Air 06/10/17 10:08 98.0 109 18 101/62 Room Air ultrasound report is on the chart and has been reviewed - there were no specific abnormal findings noted Gen. the patient is a tired generally ill appearing white female. She currently is in no evidence distress but she does not appear well. HEENT exam is normal. Patient is slightly pale Neck is supple with no lymphadenopathy no thyromegaly Heart has regular rhythm and no murmur Chest is clear to auscultation bilaterally with occasional rhonchi. Abdomen is gravid soft nontender nondistended except for the right side to clinic and the right anterior superior iliac crest area. Patient is nontender at the suprapubic pubis There is very mild right CVA tenderness. There is no paraspinal rigidity. There is no clubbing cyanosis or edema Pelvic exam is deferred monitor shows a reactive NST with no contractions and noted D cells Assessment and plan near 30 week with leukocytosis diffuse mid body pain exposure to likely respiratory influenza and possibly viral gastroenteritis. With the patient's white blood cell count persistently elevated and a notable left shift she has been started empirically on Ancef IV and that will continue for the time being. We will recheck a white count in the morning. We'll ahead and start Tamiflu this evening. We'll obtain an OB ultrasound tomorrow. Should she show significant improvement then we will entertain discharge home on oral antibiotics with follow-up in clinic Should she show deterioration of her condition and/or a persistently elevating white blood cell count in spite of antibiotics and supportive care and we will consider further evaluation which could include amniocentesis, further evaluation of her appendix, consideration for transfer to the care of a high- risk OB. acute pain of unsure etiology a notable leukocytosis Allergies and Home Medications Allergies Coded Allergies: No Known Drug Allergies (Unverified , 03/03/17) Home Medications Ferrous Sulfate 325 Mg Tablet, 325 MG PO DAILY, (Reported) Multivitamin 1 Each Tablet, 1 EACH PO DAILY, (Reported) SPENCER STARKEY MD Jun 10, 2017 8:37 pm
[2017-06-10] MEDS: OSELTAMIVIR 75 MG (TAMIFLU) BOX OF 10 PO SCH (21:15)
[2017-06-10] MEDS: BUTORPHANOL INJ 2 MG/ML (STADOL) VIAL IV PRN (21:49)
[2017-06-11] VITALS (7 sets, daily range): BP systolic 92–109; BP diastolic 53–63
[2017-06-11] MEDS: ceFAZolin INJECTION 1,000 MG in NS (IVPB) 50 ML IV SCH ×4 (04:42→20:06)
[2017-06-11] MEDS: BUTORPHANOL INJ 2 MG/ML (STADOL) VIAL IV PRN ×3 (05:00→13:12)
[2017-06-11 06:19] LABS: BASOPHILS % (AUTO) 0 % (0-10); EOSINOPHILS # (AUTO) 0.2 10^3/uL (0.0-0.3); EOSINOPHILS % (AUTO) 1 % (0-10); LYMPHOCYTES # (AUTO) 2.5 X 10^3 (1.0-4.0); LYMPHOCYTES % (AUTO) 16 % (12-44); MEAN CORPUSCULAR HEMOGLOBIN 26 PG (25-34); MEAN CORPUSCULAR HGB CONC 31 G/DL (32-36); MEAN CORPUSCULAR VOLUME 83 FL (80-99); MEAN PLATELET VOLUME 10.6 FL (7.4-10.4); MONOCYTES # (AUTO) 1.3 X 10^3 (0.0-1.0); MONOCYTES % (AUTO) 8 % (0-12); NEUTROPHILS # (AUTO) 11.5 X 10^3 (1.8-7.8); NEUTROPHILS % (AUTO) 74 % (42-75); PLATELET COUNT 201 10^3/uL (130-400); RED BLOOD COUNT 3.19 10^6/uL (4.35-5.85); WHITE BLOOD COUNT 15.4 10^3/uL (4.3-11.0)
--- NOTE | 2017-06-11 08:05 | Progress Note-Standard ---
Standard Progress Note Progress Notes/Assess & Plan Date Seen by Provider: Jun 11, 2017 Time Seen by Provider: 08:02 Progress/Assessment & Plan patient reports feeling somewhat better. She denies ruptured membranes or bleeding. She has only a rare contraction. She does feel baby moving. Her appetite is suppressed but she has tolerated some oral intake. She is voiding well. Pain is generally tolerable I'll O she has received IV analgesic several times through the night. Patient currently denies nausea. The pain has become somewhat more episodically when it is present is more right side and right lower quadrant. Laboratory Tests Test 06/10/17 10:32 06/11/17 05:35 Range/Units White Blood Count 17.1 H 15.4 H 4.3-11.0 10^3/uL Red Blood Count 3.52 L 3.19 L 4.35-5.85 10^6/uL Hemoglobin 9.3 L 8.3 L 11.5-16.0 G/DL Hematocrit 29 L 27 L 35-52 % Mean Corpuscular Volume 82 83 80-99 FL Mean Corpuscular Hemoglobin 26 26 25-34 PG Mean Corpuscular Hemoglobin Concent 32 31 L 32-36 G/DL Red Cell Distribution Width 13.1 13.0 10.0-14.5 % Platelet Count 208 201 130-400 10^3/uL Mean Platelet Volume 10.2 10.6 H 7.4-10.4 FL Neutrophils (%) (Auto) 79 H 74 42-75 % Lymphocytes (%) (Auto) 11 L 16 12-44 % Monocytes (%) (Auto) 8 8 0-12 % Eosinophils (%) (Auto) 1 1 0-10 % Basophils (%) (Auto) 0 0 0-10 % Neutrophils # (Auto) 13.5 H 11.5 H 1.8-7.8 X 10^3 Lymphocytes # (Auto) 1.9 2.5 1.0-4.0 X 10^3 Monocytes # (Auto) 1.4 H 1.3 H 0.0-1.0 X 10^3 Eosinophils # (Auto) 0.2 0.2 0.0-0.3 10^3/uL Basophils # (Auto) 0.1 0.0 0.0-0.1 10^3/uL Neutrophils % (Manual) 76 % Lymphocytes % (Manual) 11 % Monocytes % (Manual) 6 % Eosinophils % (Manual) 2 % Basophils % (Manual) 0 % Metamyelocytes % 3 % Band Neutrophils 2 % Blood Morphology Comment NORMAL Urine Color YELLOW Urine Clarity CLEAR Urine pH 8 5-9 Urine Specific [place] 1.015 L 1.016-1.022 Urine Protein NEGATIVE NEGATIVE Urine Glucose (UA) NEGATIVE NEGATIVE Urine Ketones NEGATIVE NEGATIVE Urine Nitrite NEGATIVE NEGATIVE Urine Bilirubin NEGATIVE NEGATIVE Urine Urobilinogen NORMAL NORMAL MG/DL Urine Leukocyte Esterase NEGATIVE NEGATIVE Urine RBC (Auto) NEGATIVE NEGATIVE Urine RBC NONE /HPF Urine WBC NONE /HPF Urine Squamous Epithelial Cells NONE /HPF Urine Crystals NONE /LPF Urine Amorphous Sediment LARGE HERMINIA PHOSPHATE H /LPF Urine Bacteria NEGATIVE /HPF Urine Casts NONE /LPF Urine Mucus NEGATIVE /LPF Urine Culture Indicated NO Blood cell count has decrease slightly. Hemoglobin likewise has decreased this is a dilutional effect rather than a legitimate anemia The abdomen is gravid nontender and benign. Extremities show clubbing cyanosis there is no Homans sign. assessment and plan hospital day 2 for patient at 30 weeks' gestation with leukocytosis and diffuse pain of unclear etiology. It is quite light this patient does have an occult infection that is responding to the Ancef. We will continue that through the day continue her supportive care. Obstetric ultrasound is to be performed today we'll reevaluate this evening. SPENCER STARKEY MD Jun 11, 2017 8:05 am
[2017-06-11] MEDS: OSELTAMIVIR 75 MG (TAMIFLU) BOX OF 10 PO SCH ×2 (09:04→20:57)
[2017-06-11] MEDS ORDERED: ONDANSETRON 4 MG/2 ML (SDV) Z0FRAN ONE (11:26)
[2017-06-11] MEDS ORDERED: ONDANSETRON 4 MG/2 ML (SDV) Z0FRAN IVP ONE (11:45)
--- NOTE | 2017-06-11 11:55 | Diagnostic Imaging Report ---
INDICATION: IUGR, assess amniotic fluid volume. TECHNIQUE: Multiple real-time grayscale images were obtained over the gravid uterus. COMPARISON: None. FINDINGS: A elias gestation is in cephalic position. The amniotic fluid index is 9.7, the largest vertical pocket of fluid 4.2 cm. The placenta is anterior and eccentric to the left with no abruption or previa. The biometrical measurements are congruent and overall correlate with an average age 30 weeks 3 days. IMPRESSION: Elias gestation measuring 30 weeks 3 days today with WIN of 9.7. Cephalic position. Anterior placenta is normal. Biometrical measurements are as follows: Biparietal 7.6 cm, age 30 weeks 3 days. Head circumference 27.1 cm, age 29 weeks 4 days. Abdominal circumference 27.7 cm, age 31 weeks 6 days. Femur length 5.7 cm, age 29 weeks 6 days. Sonographic estimate age: 30 weeks 3 days. Sonographic estimated date of delivery: 08/17/17. Estimated Weight: 1647 gm (+/- 240 gm). LMP percentile: 72%. heart rate: 139 beats per minute. number: 1 of 1. Dictated by: Dictated on workstation # [id number]
[2017-06-11] MEDS: D5 LR IV SOLUTION 1,000 ML IV SCH (14:18)
--- NOTE | 2017-06-11 16:21 | Progress Note-Standard ---
Standard Progress Note Progress Notes/Assess & Plan Date Seen by Provider: Jun 11, 2017 Time Seen by Provider: 16:20 Progress/Assessment & Plan patient reports feeling somewhat better. She denies ruptured membranes or bleeding. She has only a rare contraction. She does feel baby moving. Her appetite is suppressed but she has tolerated some oral intake. She is voiding well. Pain is generally tolerable I'll O she has received IV analgesic several times through the night. Patient currently denies nausea. The pain has become somewhat more episodically when it is present is more right side and right lower quadrant. Laboratory Tests Test 06/10/17 10:32 06/11/17 05:35 Range/Units White Blood Count 17.1 H 15.4 H 4.3-11.0 10^3/uL Red Blood Count 3.52 L 3.19 L 4.35-5.85 10^6/uL Hemoglobin 9.3 L 8.3 L 11.5-16.0 G/DL Hematocrit 29 L 27 L 35-52 % Mean Corpuscular Volume 82 83 80-99 FL Mean Corpuscular Hemoglobin 26 26 25-34 PG Mean Corpuscular Hemoglobin Concent 32 31 L 32-36 G/DL Red Cell Distribution Width 13.1 13.0 10.0-14.5 % Platelet Count 208 201 130-400 10^3/uL Mean Platelet Volume 10.2 10.6 H 7.4-10.4 FL Neutrophils (%) (Auto) 79 H 74 42-75 % Lymphocytes (%) (Auto) 11 L 16 12-44 % Monocytes (%) (Auto) 8 8 0-12 % Eosinophils (%) (Auto) 1 1 0-10 % Basophils (%) (Auto) 0 0 0-10 % Neutrophils # (Auto) 13.5 H 11.5 H 1.8-7.8 X 10^3 Lymphocytes # (Auto) 1.9 2.5 1.0-4.0 X 10^3 Monocytes # (Auto) 1.4 H 1.3 H 0.0-1.0 X 10^3 Eosinophils # (Auto) 0.2 0.2 0.0-0.3 10^3/uL Basophils # (Auto) 0.1 0.0 0.0-0.1 10^3/uL Neutrophils % (Manual) 76 % Lymphocytes % (Manual) 11 % Monocytes % (Manual) 6 % Eosinophils % (Manual) 2 % Basophils % (Manual) 0 % Metamyelocytes % 3 % Band Neutrophils 2 % Blood Morphology Comment NORMAL Urine Color YELLOW Urine Clarity CLEAR Urine pH 8 5-9 Urine Specific [place] 1.015 L 1.016-1.022 Urine Protein NEGATIVE NEGATIVE Urine Glucose (UA) NEGATIVE NEGATIVE Urine Ketones NEGATIVE NEGATIVE Urine Nitrite NEGATIVE NEGATIVE Urine Bilirubin NEGATIVE NEGATIVE Urine Urobilinogen NORMAL NORMAL MG/DL Urine Leukocyte Esterase NEGATIVE NEGATIVE Urine RBC (Auto) NEGATIVE NEGATIVE Urine RBC NONE /HPF Urine WBC NONE /HPF Urine Squamous Epithelial Cells NONE /HPF Urine Crystals NONE /LPF Urine Amorphous Sediment LARGE HERMINIA PHOSPHATE H /LPF Urine Bacteria NEGATIVE /HPF Urine Casts NONE /LPF Urine Mucus NEGATIVE /LPF Urine Culture Indicated NO Blood cell count has decrease slightly. Hemoglobin likewise has decreased this is a dilutional effect rather than a legitimate anemia The abdomen is gravid nontender and benign. Extremities show clubbing cyanosis there is no Homans sign. assessment and plan hospital day 2 for patient at 30 weeks' gestation with leukocytosis and diffuse pain of unclear etiology. It is quite light this patient does have an occult infection that is responding to the Ancef. We will continue that through the day continue her supportive care. Obstetric ultrasound is to be performed today we'll reevaluate this evening. June 11, 2017 at 1620 Patient reports feeling somewhat better. He has had pain medication on occasion through the day. She denies ruptured membranes or bleeding and does feel baby moving. She denies contractions. Her nausea has improved. She has tolerated some oral intake. She has remained afebrile. Vital Signs Date Time Temp Pulse Resp B/P (MAP) Pulse Ox O2 Delivery O2 Flow Rate FiO2 06/11/17 13:10 97.8 77 18 97/53 Room Air 06/11/17 04:47 99.0 88 18 102/54 98 Room Air 06/11/17 00:00 96.6 78 18 92/61 98 Room Air 06/10/17 20:00 97.5 81 18 106/63 98 Room Air 06/10/17 17:56 98.5 81 16 99/57 Room Air the abdomen is benign. The extremity exam is unchanged. Pelvic exam is deferred. Assessment and plan as above patient has improved somewhat we will continue the current management and recheck her white count in the morning if her condition is stable or improving and her white count is decreasing we will change to oral antibiotics and discharged home with follow-up in clinic. SPENCER STARKEY MD Jun 11, 2017 4:21 pm
[2017-06-11] MEDS ORDERED: oxyCODONE/APAP 5/325MG (PERCOCET 5) TABLET PO PRN (18:00)
[2017-06-12 04:00] VITALS: BP 86/46
[2017-06-12] MEDS: ceFAZolin INJECTION 1,000 MG in NS (IVPB) 50 ML IV SCH (04:54)
[2017-06-12 06:13] LABS: BASOPHILS % (AUTO) 0 % (0-10); EOSINOPHILS # (AUTO) 0.2 10^3/uL (0.0-0.3); EOSINOPHILS % (AUTO) 1 % (0-10); LYMPHOCYTES # (AUTO) 2.4 X 10^3 (1.0-4.0); LYMPHOCYTES % (AUTO) 16 % (12-44); MEAN CORPUSCULAR HEMOGLOBIN 26 PG (25-34); MEAN CORPUSCULAR HGB CONC 32 G/DL (32-36); MEAN CORPUSCULAR VOLUME 83 FL (80-99); MEAN PLATELET VOLUME 10.1 FL (7.4-10.4); MONOCYTES # (AUTO) 1.3 X 10^3 (0.0-1.0); MONOCYTES % (AUTO) 9 % (0-12); NEUTROPHILS # (AUTO) 11.2 X 10^3 (1.8-7.8); NEUTROPHILS % (AUTO) 74 % (42-75); PLATELET COUNT 190 10^3/uL (130-400); RED BLOOD COUNT 3.07 10^6/uL (4.35-5.85); RED CELL DISTRIBUTION WIDTH 12.9 % (10.0-14.5); WHITE BLOOD COUNT 15.2 10^3/uL (4.3-11.0)
--- NOTE | 2017-06-12 07:44 | Progress Note-Standard ---
Standard Progress Note Progress Notes/Assess & Plan Date Seen by Provider: Jun 12, 2017 Time Seen by Provider: 07:40 Progress/Assessment & Plan patient reports feeling somewhat better. She denies ruptured membranes or bleeding. She has only a rare contraction. She does feel baby moving. Her appetite is suppressed but she has tolerated some oral intake. She is voiding well. Pain is generally tolerable I'll O she has received IV analgesic several times through the night. Patient currently denies nausea. The pain has become somewhat more episodically when it is present is more right side and right lower quadrant. Laboratory Tests Test 06/10/17 10:32 06/11/17 05:35 Range/Units White Blood Count 17.1 H 15.4 H 4.3-11.0 10^3/uL Red Blood Count 3.52 L 3.19 L 4.35-5.85 10^6/uL Hemoglobin 9.3 L 8.3 L 11.5-16.0 G/DL Hematocrit 29 L 27 L 35-52 % Mean Corpuscular Volume 82 83 80-99 FL Mean Corpuscular Hemoglobin 26 26 25-34 PG Mean Corpuscular Hemoglobin Concent 32 31 L 32-36 G/DL Red Cell Distribution Width 13.1 13.0 10.0-14.5 % Platelet Count 208 201 130-400 10^3/uL Mean Platelet Volume 10.2 10.6 H 7.4-10.4 FL Neutrophils (%) (Auto) 79 H 74 42-75 % Lymphocytes (%) (Auto) 11 L 16 12-44 % Monocytes (%) (Auto) 8 8 0-12 % Eosinophils (%) (Auto) 1 1 0-10 % Basophils (%) (Auto) 0 0 0-10 % Neutrophils # (Auto) 13.5 H 11.5 H 1.8-7.8 X 10^3 Lymphocytes # (Auto) 1.9 2.5 1.0-4.0 X 10^3 Monocytes # (Auto) 1.4 H 1.3 H 0.0-1.0 X 10^3 Eosinophils # (Auto) 0.2 0.2 0.0-0.3 10^3/uL Basophils # (Auto) 0.1 0.0 0.0-0.1 10^3/uL Neutrophils % (Manual) 76 % Lymphocytes % (Manual) 11 % Monocytes % (Manual) 6 % Eosinophils % (Manual) 2 % Basophils % (Manual) 0 % Metamyelocytes % 3 % Band Neutrophils 2 % Blood Morphology Comment NORMAL Urine Color YELLOW Urine Clarity CLEAR Urine pH 8 5-9 Urine Specific [place] 1.015 L 1.016-1.022 Urine Protein NEGATIVE NEGATIVE Urine Glucose (UA) NEGATIVE NEGATIVE Urine Ketones NEGATIVE NEGATIVE Urine Nitrite NEGATIVE NEGATIVE Urine Bilirubin NEGATIVE NEGATIVE Urine Urobilinogen NORMAL NORMAL MG/DL Urine Leukocyte Esterase NEGATIVE NEGATIVE Urine RBC (Auto) NEGATIVE NEGATIVE Urine RBC NONE /HPF Urine WBC NONE /HPF Urine Squamous Epithelial Cells NONE /HPF Urine Crystals NONE /LPF Urine Amorphous Sediment LARGE HERMINIA PHOSPHATE H /LPF Urine Bacteria NEGATIVE /HPF Urine Casts NONE /LPF Urine Mucus NEGATIVE /LPF Urine Culture Indicated NO Blood cell count has decrease slightly. Hemoglobin likewise has decreased this is a dilutional effect rather than a legitimate anemia The abdomen is gravid nontender and benign. Extremities show clubbing cyanosis there is no Homans sign. assessment and plan hospital day 2 for patient at 30 weeks' gestation with leukocytosis and diffuse pain of unclear etiology. It is quite light this patient does have an occult infection that is responding to the Ancef. We will continue that through the day continue her supportive care. Obstetric ultrasound is to be performed today we'll reevaluate this evening. June 11, 2017 at 1620 Patient reports feeling somewhat better. He has had pain medication on occasion through the day. She denies ruptured membranes or bleeding and does feel baby moving. She denies contractions. Her nausea has improved. She has tolerated some oral intake. She has remained afebrile. Vital Signs Date Time Temp Pulse Resp B/P (MAP) Pulse Ox O2 Delivery O2 Flow Rate FiO2 06/11/17 13:10 97.8 77 18 97/53 Room Air 06/11/17 04:47 99.0 88 18 102/54 98 Room Air 06/11/17 00:00 96.6 78 18 92/61 98 Room Air 06/10/17 20:00 97.5 81 18 106/63 98 Room Air 06/10/17 17:56 98.5 81 16 99/57 Room Air the abdomen is benign. The extremity exam is unchanged. Pelvic exam is deferred. Assessment and plan as above patient has improved somewhat we will continue the current management and recheck her white count in the morning if her condition is stable or improving and her white count is decreasing we will change to oral antibiotics and discharged home with follow-up in clinic. June 12, 2017 Patient is without complaint this morning. She reports continuing to feel improvement. Her aches and pains have decreased although still wax and wane to some extent. She denies nausea and is able to tolerate by mouth area she does occasionally require pain medication for her right lower quadrant and back pain. She denies rupture membranes or bleeding. Patient denies contraction. She does feel baby moving. Vital Signs Date Time Temp Pulse Resp B/P (MAP) Pulse Ox O2 Delivery O2 Flow Rate FiO2 06/12/17 04:00 97.3 68 16 86/46 06/11/17 21:10 86 18 99/63 06/11/17 21:00 98.1 90 18 109/54 06/11/17 14:18 99.2 86 18 99/63 98 Room Air 06/11/17 13:10 97.8 77 18 97/53 Room Air 06/11/17 08:15 98.6 77 18 99/54 Room Air Vital signs are stable. Patient is afebrile and has remained so. Laboratory Tests 06/12/17 05:55 Blood cell count is essentially stable. Her hemoglobin has decreased some of this suspect this is primarily due to dilutional effect The abdomen is gravid nontender. There is minimal right lower quadrant tenderness on palpation. Extremities show no clubbing cyanosis. There is no Homans sign. Back is nontender. There is no CVA tenderness. assessment and plan 30 week with leukocytosis of undetermined etiology. I do suspect this patient has an occult infection. We will continue close attention to her signs and symptoms if the process progresses and eventually will declare itself. If it resolves than the exact etiology may never be known. we will convert to an oral antibiotic and continue empiric coverage. We will use Percocet sparingly for pain control and plan follow-up in clinic in a week. Final Diagnosis leukocytosis, myalgia SPENCER STARKEY MD Jun 12, 2017 7:44 am
[2017-06-12] MEDS ORDERED: CEPH-507 PO (07:46)
[2017-06-12] MEDS ORDERED: OXYC-471 PO (07:46)
--- NOTE | 2017-06-12 07:47 | Discharge Instructions ---
Discharge Instructions Discharge Medications New, Converted or Re-Newed RX: RX on Chart Patient Instructions Patient Instructions: as directed Return to The Hospital For: as directed Activity & Diet Discharge Diet: No Restrictions Activity as Tolerated: Yes Orders-Post D/C & Referrals return to clinic as scheduled return to clinic promptly for any signs symptoms and indications of labor, unrelenting nausea or vomiting, temperature about 101 or higher, progressive persistent pain Please call in rx to patient pharmacy SPENCER STARKEY MD Jun 12, 2017 7:47 am
[2017-06-12 07:50] VITALS: BP 101/52
[2017-06-12 08:13] VITALS: BP 101/52
[2017-06-12 09:00] VITALS: BP 101/52
[2017-06-12] MEDS: OSELTAMIVIR 75 MG (TAMIFLU) BOX OF 10 PO SCH (09:00)
== END 2017-06-12 07:46 | disposition home or self-care (01) ==
LOC: WSo 09:51 → LDRP 09:52 → WSo 09:52 → LDRP 09:55 → UNDOADMOB 09:55 → LDRP 17:39 → UNDODISOB 06-12 09:00 → LDRP 06-12 09:00 → WSo 06-12 09:00 → EDSTATUS 06-12 13:05
PROVIDERS: ADMIT Obstetrics & Gynecology; ATTEND Obstetrics & Gynecology
DX: O99.89 Other specified diseases and conditions complicating pregnancy, childbirth and the puerperium (principal); D72.829 Elevated white blood cell count, unspecified; M79.1 Myalgia; Z3A.30 30 weeks gestation of pregnancy
CPT/HCPCS: 36415; 76700; 76705; 76805; 81000; 85007; 85025; 85027; 87088; 96361; 96374; 96375; 96376; 99211; G0378

== ENCOUNTER 2017-06-20 09:22 | Outpatient (CLI) | payer MEDICAID ==
[~2017-06-20] VITALS: Ht 162.6 cm; Wt 74.4 kg
[~2017-06-20 09:22] MED LIST changes: +CEPH-507 PO; +FERR-84 PO; +OXYC-471 PO
[2017-06-20 09:50] VITALS: BP 102/55
--- NOTE | 2017-06-23 07:43 | Physician Query-Final Dx ---
ANGIE WISDOM 06/23/17 0743: Clinic Account Progress/Dx Physician Query: Please give diagnosis Date of Service Jun 20, 2017 at 09:22 SPENCER STARKEY MD 06/23/17 2223: Clinic Account Progress/Dx DIAGNOSIS: Diagnosis threatened labor ANGIE WISDOM Jun 23, 2017 07:43 SPENCER STARKEY MD Jun 23, 2017 22:23
== END 2017-06-20 12:44 | disposition home or self-care (01) ==
LOC: WSo 09:22 → LDRP 09:23 → WSo 12:44
PROVIDERS: ATTEND Obstetrics & Gynecology
DX: O47.03 False labor before 37 completed weeks of gestation, third trimester (principal); Z3A.31 31 weeks gestation of pregnancy
CPT/HCPCS: 99213

== ENCOUNTER 2017-07-01 10:52 | Outpatient (CLI) | payer MEDICAID ==
[~2017-07-01] VITALS: Ht 162.6 cm; Wt 74.4 kg
[2017-07-01 11:13] VITALS: BP 103/59
--- NOTE | 2017-07-03 11:45 | Physician Query-Final Dx ---
ANGIE WISDOM 07/03/17 1145: Clinic Account Progress/Dx Physician Query: Please give diagnosis Date of Service Jul 01, 2017 at 10:52 SPENCER STARKEY MD 07/03/17 2015: Clinic Account Progress/Dx DIAGNOSIS: Diagnosis false labor ALYX,ANGIE Jul 03, 2017 11:45 SPENCER STARKEY MD Jul 03, 2017 20:15
[2017-07-04] MEDS ORDERED: Hydrocodone Bit/Acetaminophen PO (16:25)
[2017-07-04] MEDS ORDERED: ACET-789 PO (16:25)
[2017-07-04] MEDS ORDERED: ONDA8TAB9 PO (16:25)
== END 2017-07-01 12:15 | disposition home or self-care (01) ==
LOC: WSo 10:52 → LDRP 10:52 → WSo 12:15
PROVIDERS: ATTEND Obstetrics & Gynecology
DX: O47.03 False labor before 37 completed weeks of gestation, third trimester (principal); Z3A.32 32 weeks gestation of pregnancy
CPT/HCPCS: 99213

== ENCOUNTER 2017-07-13 20:41 | Outpatient (CLI) | payer MEDICAID ==
[~2017-07-13] VITALS: Ht 162.6 cm; Wt 75.4 kg
[~2017-07-13 20:41] MED LIST changes: +ACET-789 PO; +Hydrocodone Bit/Acetaminophen PO
[2017-07-13 21:20] VITALS: BP 119/60
[2017-07-13 21:28] VITALS: BP 119/71
[2017-07-13] MEDS ORDERED: D5 LR IV SOLUTION 1,000 ML IV ONE (21:34)
[2017-07-13] MEDS: D5 LR IV SOLUTION 1,000 ML IV SCH (22:00)
[2017-07-13 22:19] VITALS: BP 99/55
[2017-07-13 22:19] LABS: BASOPHILS % (AUTO) 0 % (0-10); EOSINOPHILS # (AUTO) 0.2 10^3/uL (0.0-0.3); EOSINOPHILS % (AUTO) 1 % (0-10); HEMATOCRIT 28 % (35-52); HEMOGLOBIN 8.9 G/DL (11.5-16.0); LYMPHOCYTES # (AUTO) 2.7 X 10^3 (1.0-4.0); LYMPHOCYTES % (AUTO) 16 % (12-44); MEAN CORPUSCULAR HEMOGLOBIN 25 PG (25-34); MEAN CORPUSCULAR HGB CONC 31 G/DL (32-36); MEAN CORPUSCULAR VOLUME 78 FL (80-99); MONOCYTES # (AUTO) 1.5 X 10^3 (0.0-1.0); MONOCYTES % (AUTO) 9 % (0-12); NEUTROPHILS # (AUTO) 12.7 X 10^3 (1.8-7.8); NEUTROPHILS % (AUTO) 74 % (42-75); PLATELET COUNT 246 10^3/uL (130-400); RED BLOOD COUNT 3.62 10^6/uL (4.35-5.85); RED CELL DISTRIBUTION WIDTH 14.4 % (10.0-14.5); WHITE BLOOD COUNT 17.2 10^3/uL (4.3-11.0)
[2017-07-13 22:34] LABS: BILIRUBIN,URINE NEGATIVE (NEGATIVE); CLARITY,URINE CLEAR; COLOR,URINE YELLOW; GLUCOSE, URINE (UA) NEGATIVE (NEGATIVE); KETONES,URINE 2+ (NEGATIVE); LEUKOCYTE ESTERASE ,URINE NEGATIVE (NEGATIVE); NITRITE,URINE NEGATIVE (NEGATIVE); PH,URINE 7 (5-9); PROTEIN,URINE NEGATIVE (NEGATIVE); UROBILINOGEN,URINE NORMAL (NORMAL)
[2017-07-13 22:39] LABS: ALANINE AMINOTRANSFERASE 10 U/L (0-55); ALBUMIN 3.4 GM/DL (3.2-4.5); ALKALINE PHOSPHATASE 119 U/L (40-136); BILIRUBIN,TOTAL 0.5 MG/DL (0.1-1.0); BUN/CREATININE RATIO 9; CALCIUM 8.9 MG/DL (8.5-10.1); CARBON DIOXIDE 19 MMOL/L (21-32); CHLORIDE 106 MMOL/L (98-107); CREATININE SERUM 0.57 MG/DL (0.60-1.30); GFR ESTIMATED > 60; GLUCOSE 87 MG/DL (70-105); POTASSIUM 3.6 MMOL/L (3.6-5.0); SODIUM 136 MMOL/L (135-145); TOTAL PROTEIN 6.7 GM/DL (6.4-8.2)
[2017-07-13 22:40] LABS: BACTERIA,URINE TRACE /HPF; CALCIUM OXALATE CRYSTALS,UR MODERATE /LPF; SQUAMOUS EPITHELIAL CELL,UR 0-2 /HPF; WBC,URINE RARE /HPF
[2017-07-13 22:45] LABS: BAND NEUTROPHILS 3 %; NEUTROPHILS % (MANUAL) 70 %
[2017-07-13 22:46] LABS: BASOPHILS % (MANUAL) 0 %; ELLIPT/OVALOCYTES SLIGHT; EOSINOPHILS % (MANUAL) 0 %; LYMPHOCYTES % (MANUAL) 23 %; MICROCYTOSIS SLIGHT; MONOCYTES % (MANUAL) 4 %
--- NOTE | 2017-07-13 22:51 | History & Physical ---
History and Physical Date Seen by Provider: Jul 13, 2017 Time Seen by Provider: 22:47 this patient is a 21-year-old white female with a due date of August 21, 2017. She presented with complaint of contractions 3-4 minutes. She denies rupture membranes or bleeding. She also complains of shortness of breath. She has had frequent episodes of the same complaints. She has been georgina with some regularity for the last several weeks at the very least and potentially for over 2 months. She is not making cervical car changer this period of time. She complains also constipation. Allergies are none Medications are vitamins, Lorcet when necessary Medical social and surgical obstetric histories are per the antepartum record HEENT exam is normal. The patient does appear short of breath. Neck is supple no lymphadenopathy Abdomen is gravid soft nontender nondistended Extreme show no clubbing or cyanosis. There is no Homans sign. Pelvic exam per the nurse shows a cervix 1 cm dilated and very long the sinus she has been for the past several months monitor shows irregular sporadic contractions. There is a normal heart rate pattern. Laboratory Tests Test 07/13/17 21:00 07/13/17 22:00 Range/Units Urine Color YELLOW Urine Clarity CLEAR Urine pH 7 5-9 Urine Specific [place] 1.015 L 1.016-1.022 Urine Protein NEGATIVE NEGATIVE Urine Glucose (UA) NEGATIVE NEGATIVE Urine Ketones 2+ H NEGATIVE Urine Nitrite NEGATIVE NEGATIVE Urine Bilirubin NEGATIVE NEGATIVE Urine Urobilinogen NORMAL NORMAL MG/DL Urine Leukocyte Esterase NEGATIVE NEGATIVE Urine RBC (Auto) NEGATIVE NEGATIVE Urine RBC NONE /HPF Urine WBC RARE /HPF Urine Squamous Epithelial Cells 0-2 /HPF Urine Crystals PRESENT H /LPF Urine Calcium Oxalate Crystals MODERATE H /LPF Urine Bacteria TRACE /HPF Urine Casts NONE /LPF Urine Mucus MODERATE H /LPF Urine Culture Indicated NO White Blood Count 17.2 H 4.3-11.0 10^3/uL Red Blood Count 3.62 L 4.35-5.85 10^6/uL Hemoglobin 8.9 L 11.5-16.0 G/DL Hematocrit 28 L 35-52 % Mean Corpuscular Volume 78 L 80-99 FL Mean Corpuscular Hemoglobin 25 25-34 PG Mean Corpuscular Hemoglobin Concent 31 L 32-36 G/DL Red Cell Distribution Width 14.4 10.0-14.5 % Platelet Count 246 130-400 10^3/uL Mean Platelet Volume 11.0 H 7.4-10.4 FL Neutrophils (%) (Auto) 74 42-75 % Lymphocytes (%) (Auto) 16 12-44 % Monocytes (%) (Auto) 9 0-12 % Eosinophils (%) (Auto) 1 0-10 % Basophils (%) (Auto) 0 0-10 % Neutrophils # (Auto) 12.7 H 1.8-7.8 X 10^3 Lymphocytes # (Auto) 2.7 1.0-4.0 X 10^3 Monocytes # (Auto) 1.5 H 0.0-1.0 X 10^3 Eosinophils # (Auto) 0.2 0.0-0.3 10^3/uL Basophils # (Auto) 0.0 0.0-0.1 10^3/uL Neutrophils % (Manual) 70 % Lymphocytes % (Manual) 23 % Monocytes % (Manual) 4 % Eosinophils % (Manual) 0 % Basophils % (Manual) 0 % Band Neutrophils 3 % Microcytosis SLIGHT Elliptocytes SLIGHT Sodium Level 136 135-145 MMOL/L Potassium Level 3.6 3.6-5.0 MMOL/L Chloride Level 106 98-107 MMOL/L Carbon Dioxide Level 19 L 21-32 MMOL/L Anion Gap 11 5-14 MMOL/L Blood Urea Nitrogen 5 L 7-18 MG/DL Creatinine 0.57 L 0.60-1.30 MG/DL Estimat Glomerular Filtration Rate > 60 BUN/Creatinine Ratio 9 Glucose Level 87 70-105 MG/DL Calcium Level 8.9 8.5-10.1 MG/DL Total Bilirubin 0.5 0.1-1.0 MG/DL Aspartate Amino Transf (AST/SGOT) 16 5-34 U/L Alanine Aminotransferase (ALT/SGPT) 10 0-55 U/L Alkaline Phosphatase 119 40-136 U/L Total Protein 6.7 6.4-8.2 GM/DL Albumin 3.4 3.2-4.5 GM/DL patient's white blood cell count is mildly elevated. Urine is mildly concentrated.patient does demonstrate ketonuria O2 sats on room air 100 percent Assessment and plan labor in a patient with chronic pain at least partially due to intolerance of . Symptoms might be worsening now by her use of narcotics over the period of time causing constipation. We will give cathartics until her bowels moved. Pain medication and IV fluids and supportive care otherwise. Plan for discharge home and patient has improved her last she labors. As she is now past 34 weeks we will not plan tocolyse's for labor. labor Allergies and Home Medications Allergies Coded Allergies: No Known Drug Allergies (Unverified , 03/03/17) Home Medications Acetaminophen with Codeine 1 Each Tablet, 1 EACH PO every 4 hours, #30 Prescribed by: SPENCER MTZ on 07/04/17 1625 Ferrous Sulfate 325 Mg Tablet, 325 MG PO DAILY, (Reported) Multivitamin 1 Each Tablet, 1 EACH PO DAILY, (Reported) Ondansetron 8 Mg Tab.rapdis, 8 MG PO every 6 hours PRN for when necessary nausea , #20 Prescribed by: SPENCER MTZ on 07/04/17 1625 [Hydrocodone Bit/Acetaminophen] 1 EA TABLET, 1-2 EA PO Q4H PRN for PAIN-MODERATE , #30 Prescribed by: SPENCER MTZ on 07/04/17 1625 SPENCER STARKEY MD Jul 13, 2017 10:51 pm
[2017-07-13] MEDS: BUTORPHANOL INJ 2 MG/ML (STADOL) VIAL IV PRN (22:54)
[2017-07-13] MEDS: POLYETHYLENE GLYCOL 17 GM (MIRALAX) PACK PO SCH (23:08)
[2017-07-14] MEDS: POLYETHYLENE GLYCOL 17 GM (MIRALAX) PACK PO SCH ×9 (00:06→06:34)
[2017-07-14] MEDS: D5 LR IV SOLUTION 1,000 ML IV SCH ×2 (01:07→05:09)
[2017-07-14 04:42] VITALS: BP 95/48
[2017-07-14] MEDS: BUTORPHANOL INJ 2 MG/ML (STADOL) VIAL IV PRN (04:59)
[2017-07-14] MEDS ORDERED: hydrOXYzine (VISTARIL) 25 MG CAP PO ONE (05:00)
[2017-07-14 08:15] VITALS: BP 90/52
[2017-07-14] MEDS ORDERED: BISACODYL 10 MG SUPP (DULCOLAX) PR ONE (08:15)
[2017-07-14] MEDS ORDERED: ACETAMINOPHEN 500 MG TAB (TYLENOL) PO PRN (09:00)
[2017-07-14] MEDS ORDERED: oxyCODONE/APAP 5/325MG (PERCOCET 5) TABLET PO PRN (09:15)
[2017-07-14] MEDS ORDERED: HYDROcodone/APAP 5 MG/325 MG (LORTAB) TAB PO PRN (09:30)
[2017-07-14 09:38] LABS: BASOPHILS % (AUTO) 0 % (0-10); EOSINOPHILS # (AUTO) 0.1 10^3/uL (0.0-0.3); EOSINOPHILS % (AUTO) 1 % (0-10); HEMATOCRIT 27 % (35-52); HEMOGLOBIN 8.2 G/DL (11.5-16.0); LYMPHOCYTES # (AUTO) 2.5 X 10^3 (1.0-4.0); LYMPHOCYTES % (AUTO) 17 % (12-44); MEAN CORPUSCULAR HEMOGLOBIN 24 PG (25-34); MEAN CORPUSCULAR HGB CONC 31 G/DL (32-36); MEAN CORPUSCULAR VOLUME 80 FL (80-99); MEAN PLATELET VOLUME 10.4 FL (7.4-10.4); MONOCYTES # (AUTO) 1.4 X 10^3 (0.0-1.0); MONOCYTES % (AUTO) 10 % (0-12); NEUTROPHILS # (AUTO) 10.2 X 10^3 (1.8-7.8); NEUTROPHILS % (AUTO) 72 % (42-75); PLATELET COUNT 231 10^3/uL (130-400); RED BLOOD COUNT 3.36 10^6/uL (4.35-5.85); RED CELL DISTRIBUTION WIDTH 14.4 % (10.0-14.5); WHITE BLOOD COUNT 14.3 10^3/uL (4.3-11.0)
--- NOTE | 2017-07-14 09:43 | Progress Note-Standard ---
Standard Progress Note Progress Notes/Assess & Plan Date Seen by Provider: Jul 14, 2017 Time Seen by Provider: 09:37 Progress/Assessment & Plan patient status is essentially unchanged. her contractions have essentially resolved. Her constipation has resolved with narcotics through the night. He continues to complain of pain in her pelvis in her back and her sides. This pain as been present for several months now and essentially is unchanged. She sometimes gets relief with hydrocodone. She does feel baby moving. She feels occasional contractions. She does indicate that she feels like she is in labor however monitor does not support that and her cervix is unchanged over the last 6 or 8 weeks or more there is no evidence of rupture of the membranes and there has been no bleeding. Monitoring has been reassuring. Lab work has been essentially stable. Patient feels that her only relief. Her history is delivery she understands that at 34+ weeks that is not an option. We will entertain induction of labor promote delivery when she obtains 37 weeks gestation. Should she experience labor we will not employed tocolytics. on presentation last evening patient complained of dyspnea and shortness of breath. That has resolved Vital Signs Date Time Temp Pulse Resp B/P (MAP) Pulse Ox O2 Delivery O2 Flow Rate FiO2 07/14/17 04:42 97.6 78 18 95/48 (64) 100 Room Air 07/13/17 22:19 90 18 99/55 (70) Room Air 07/13/17 21:37 109 18 99 Room Air 07/13/17 21:28 110 18 119/71 (87) 100 Room Air 07/13/17 21:20 98.0 104 18 119/60 (79) Room Air I & O 07/14/17 07:00 Intake Total 2000 ml Balance 2000 ml Vital signs are stable. Patient is afebrile. Laboratory Tests Test 07/13/17 21:00 07/13/17 22:00 07/14/17 09:30 Range/Units Urine Color YELLOW Urine Clarity CLEAR Urine pH 7 5-9 Urine Specific [place] 1.015 L 1.016-1.022 Urine Protein NEGATIVE NEGATIVE Urine Glucose (UA) NEGATIVE NEGATIVE Urine Ketones 2+ H NEGATIVE Urine Nitrite NEGATIVE NEGATIVE Urine Bilirubin NEGATIVE NEGATIVE Urine Urobilinogen NORMAL NORMAL MG/DL Urine Leukocyte Esterase NEGATIVE NEGATIVE Urine RBC (Auto) NEGATIVE NEGATIVE Urine RBC NONE /HPF Urine WBC RARE /HPF Urine Squamous Epithelial Cells 0-2 /HPF Urine Crystals PRESENT H /LPF Urine Calcium Oxalate Crystals MODERATE H /LPF Urine Bacteria TRACE /HPF Urine Casts NONE /LPF Urine Mucus MODERATE H /LPF Urine Culture Indicated NO White Blood Count 17.2 H 4.3-11.0 10^3/uL Red Blood Count 3.62 L 4.35-5.85 10^6/uL Hemoglobin 8.9 L 11.5-16.0 G/DL Hematocrit 28 L 35-52 % Mean Corpuscular Volume 78 L 80-99 FL Mean Corpuscular Hemoglobin 25 25-34 PG Mean Corpuscular Hemoglobin Concent 31 L 32-36 G/DL Red Cell Distribution Width 14.4 10.0-14.5 % Platelet Count 246 130-400 10^3/uL Mean Platelet Volume 11.0 H 7.4-10.4 FL Neutrophils (%) (Auto) 74 42-75 % Lymphocytes (%) (Auto) 16 12-44 % Monocytes (%) (Auto) 9 0-12 % Eosinophils (%) (Auto) 1 0-10 % Basophils (%) (Auto) 0 0-10 % Neutrophils # (Auto) 12.7 H 1.8-7.8 X 10^3 Lymphocytes # (Auto) 2.7 1.0-4.0 X 10^3 Monocytes # (Auto) 1.5 H 0.0-1.0 X 10^3 Eosinophils # (Auto) 0.2 0.0-0.3 10^3/uL Basophils # (Auto) 0.0 0.0-0.1 10^3/uL Neutrophils % (Manual) 70 % Lymphocytes % (Manual) 23 % Monocytes % (Manual) 4 % Eosinophils % (Manual) 0 % Basophils % (Manual) 0 % Band Neutrophils 3 % Microcytosis SLIGHT Elliptocytes SLIGHT Sodium Level 136 135-145 MMOL/L Potassium Level 3.6 3.6-5.0 MMOL/L Chloride Level 106 98-107 MMOL/L Carbon Dioxide Level 19 L 21-32 MMOL/L Anion Gap 11 5-14 MMOL/L Blood Urea Nitrogen 5 L 7-18 MG/DL Creatinine 0.57 L 0.60-1.30 MG/DL Estimat Glomerular Filtration Rate > 60 BUN/Creatinine Ratio 9 Glucose Level 87 70-105 MG/DL Calcium Level 8.9 8.5-10.1 MG/DL Total Bilirubin 0.5 0.1-1.0 MG/DL Aspartate Amino Transf (AST/SGOT) 16 5-34 U/L Alanine Aminotransferase (ALT/SGPT) 10 0-55 U/L Alkaline Phosphatase 119 40-136 U/L Total Protein 6.7 6.4-8.2 GM/DL Albumin 3.4 3.2-4.5 GM/DL repeat CBC is pending the abdomen is gravid. There is no guarding rebound or rigidity.. Bowel sounds are present. extremities show no clubbing or cyanosis. There is no Homans sign. Pelvic exam shows no cervical change she is 1 cm dilated and thick. Assessment and plan labor resolved, intolerance of persists we have been using narcotics sparingly we will continue that with the Lorcet. We will add a low-dose Xanax primarily for the muscle relaxation benefit and try to get this patient through the next 2-1/2 weeks until she can be induced at 37 weeks gestation Final Diagnosis labor/intolerance of SPENCER STARKEY MD Jul 14, 2017 9:42 am
[2017-07-14] MEDS ORDERED: ALPRAZolam 0.25 MG (XANAX) TAB PO PRN (09:45)
[2017-07-14] MEDS ORDERED: ALPR0.25 PO (09:47)
--- NOTE | 2017-07-14 09:48 | Discharge Instructions ---
Discharge Instructions Discharge Medications New, Converted or Re-Newed RX: RX on Chart Patient Instructions Patient Instructions: as directed Return to The Hospital For: as instructed Activity & Diet Discharge Diet: No Restrictions Activity as Tolerated: Yes Orders-Post D/C & Referrals return to clinic as scheduled Return to clinic promptly for any signs symptoms and indications of labor SPENCER STARKEY MD Jul 14, 2017 9:48 am
[2017-07-14] MEDS ORDERED: ALPRAZolam 0.25 MG (XANAX) TAB ONE (09:54)
== END 2017-07-14 10:30 | disposition home or self-care (01) ==
LOC: LDRP 20:41 → WSo 20:41
PROVIDERS: ATTEND Obstetrics & Gynecology
DX: O60.03 Preterm labor without delivery, third trimester (principal); O26.893 Other specified pregnancy related conditions, third trimester; Z3A.34 34 weeks gestation of pregnancy
CPT/HCPCS: 36415; 80053; 81000; 85007; 85025; 85027; 96361; 96374; 96376; 99213

== ENCOUNTER 2017-07-22 22:30 | Outpatient (CLI) | payer MEDICAID ==
[~2017-07-22] VITALS: Ht 162.6 cm; Wt 74.9 kg
[~2017-07-22 22:30] MED LIST changes: +ALPR0.25 PO
[2017-07-22 22:45] VITALS: BP 118/60
[2017-07-22 23:10] LABS: BILIRUBIN,URINE NEGATIVE (NEGATIVE); CLARITY,URINE CLEAR; COLOR,URINE YELLOW; GLUCOSE, URINE (UA) NEGATIVE (NEGATIVE); KETONES,URINE NEGATIVE (NEGATIVE); LEUKOCYTE ESTERASE ,URINE 1+ (NEGATIVE); NITRITE,URINE NEGATIVE (NEGATIVE); PH,URINE 7 (5-9); PROTEIN,URINE NEGATIVE (NEGATIVE); UROBILINOGEN,URINE NORMAL (NORMAL)
[2017-07-22 23:23] LABS: BASOPHILS % (AUTO) 0 % (0-10); EOSINOPHILS # (AUTO) 0.2 10^3/uL (0.0-0.3); EOSINOPHILS % (AUTO) 1 % (0-10); HEMATOCRIT 27 % (35-52); HEMOGLOBIN 8.3 G/DL (11.5-16.0); LYMPHOCYTES # (AUTO) 3.1 X 10^3 (1.0-4.0); LYMPHOCYTES % (AUTO) 16 % (12-44); MEAN CORPUSCULAR HEMOGLOBIN 24 PG (25-34); MEAN CORPUSCULAR HGB CONC 31 G/DL (32-36); MEAN CORPUSCULAR VOLUME 78 FL (80-99); MEAN PLATELET VOLUME 10.7 FL (7.4-10.4); MONOCYTES # (AUTO) 2.2 X 10^3 (0.0-1.0); MONOCYTES % (AUTO) 12 % (0-12); NEUTROPHILS # (AUTO) 13.3 X 10^3 (1.8-7.8); NEUTROPHILS % (AUTO) 71 % (42-75); PLATELET COUNT 284 10^3/uL (130-400); RED BLOOD COUNT 3.44 10^6/uL (4.35-5.85); RED CELL DISTRIBUTION WIDTH 14.5 % (10.0-14.5); WHITE BLOOD COUNT 18.8 10^3/uL (4.3-11.0)
[2017-07-22 23:32] LABS: BAND NEUTROPHILS 7 %; BASOPHILS % (MANUAL) 0 %; EOSINOPHILS % (MANUAL) 0 %; LYMPHOCYTES % (MANUAL) 25 %; MONOCYTES % (MANUAL) 3 %; NEUTROPHILS % (MANUAL) 65 %; RBC MORPH NORMAL
[2017-07-22] MEDS ORDERED: APAP 300 MG/CODEINE 30 MG (TYLENOL #3) TAB PO ONE (23:50)
[2017-07-23] MEDS ORDERED: APAP 300 MG/CODEINE 30 MG (TYLENOL #3) TAB PO ONE
[2017-07-23 00:44] VITALS: BP 97/57
--- NOTE | 2017-07-23 09:40 | Physician Query-Final Dx ---
ANGIE WISDOM 07/23/17 0940: Clinic Account Progress/Dx Physician Query: Please give diagnosis Date of Service Jul 22, 2017 at 22:30 SPENCER STARKEY MD 07/24/17 0738: Clinic Account Progress/Dx DIAGNOSIS: Diagnosis false labor ANGIE WISDOM Jul 23, 2017 09:40 SPENCER STARKEY MD Jul 24, 2017 07:38
== END 2017-07-23 01:07 | disposition home or self-care (01) ==
LOC: WSo 22:30 → LDRP 22:30 → WSo 07-23 01:07
PROVIDERS: ATTEND Obstetrics & Gynecology
DX: O47.03 False labor before 37 completed weeks of gestation, third trimester (principal); Z3A.35 35 weeks gestation of pregnancy
CPT/HCPCS: 36415; 81000; 85007; 85027; 99213

== ENCOUNTER 2017-07-26 15:45 | Outpatient (CLI) | payer MEDICAID ==
[~2017-07-26] VITALS: Ht 162.6 cm; Wt 73.5 kg
[2017-07-26 16:09] VITALS: BP 108/58
--- NOTE | 2017-07-28 15:35 | Physician Query-Final Dx ---
ANGIE WISDOM 07/28/17 1535: Clinic Account Progress/Dx Physician Query: Please give diagnosis Date of Service Jul 26, 2017 at 15:45 SPENCER STARKEY MD 07/30/17 0812: Clinic Account Progress/Dx DIAGNOSIS: Diagnosis false labor ANGIE WISDOM Jul 28, 2017 15:35 SPENCER STARKEY MD Jul 30, 2017 08:12
== END 2017-07-26 16:40 | disposition home or self-care (01) ==
LOC: WSo 15:45 → LDRP 15:47 → WSo 16:40
PROVIDERS: ATTEND Obstetrics & Gynecology
DX: O47.03 False labor before 37 completed weeks of gestation, third trimester (principal); Z3A.36 36 weeks gestation of pregnancy
CPT/HCPCS: 99213

== ENCOUNTER 2017-07-30 19:48 | Inpatient (IN) | payer MEDICAID ==
[~2017-07-30] VITALS: Ht 162.6 cm; Wt 74.1 kg
[2017-07-30 20:00] VITALS: BP 100/60
[2017-07-30] MEDS ORDERED: MINERAL OIL CONCENTRATE 99.9% 15 ML UDC TOP PRN (20:45)
[2017-07-30 21:19] LABS: BASOPHILS # (AUTO) 0.1 10^3/uL (0.0-0.1); BASOPHILS % (AUTO) 0 % (0-10); EOSINOPHILS # (AUTO) 0.2 10^3/uL (0.0-0.3); EOSINOPHILS % (AUTO) 1 % (0-10); HEMATOCRIT 28 % (35-52); HEMOGLOBIN 8.6 G/DL (11.5-16.0); LYMPHOCYTES # (AUTO) 2.9 X 10^3 (1.0-4.0); LYMPHOCYTES % (AUTO) 13 % (12-44); MEAN CORPUSCULAR HEMOGLOBIN 24 PG (25-34); MEAN CORPUSCULAR HGB CONC 31 G/DL (32-36); MEAN CORPUSCULAR VOLUME 77 FL (80-99); MEAN PLATELET VOLUME 10.3 FL (7.4-10.4); MONOCYTES # (AUTO) 1.8 X 10^3 (0.0-1.0); MONOCYTES % (AUTO) 8 % (0-12); NEUTROPHILS # (AUTO) 18.5 X 10^3 (1.8-7.8); NEUTROPHILS % (AUTO) 79 % (42-75); PLATELET COUNT 309 10^3/uL (130-400); RED BLOOD COUNT 3.63 10^6/uL (4.35-5.85); RED CELL DISTRIBUTION WIDTH 15.1 % (10.0-14.5); WHITE BLOOD COUNT 23.5 10^3/uL (4.3-11.0)
[2017-07-30 21:45] VITALS: BP 95/55
[2017-07-30 21:46] LABS: BILIRUBIN,URINE NEGATIVE (NEGATIVE); CLARITY,URINE CLEAR; COLOR,URINE YELLOW; GLUCOSE, URINE (UA) NEGATIVE (NEGATIVE); KETONES,URINE 3+ (NEGATIVE); LEUKOCYTE ESTERASE ,URINE 1+ (NEGATIVE); NITRITE,URINE NEGATIVE (NEGATIVE); PH,URINE 6.5 (5-9); PROTEIN,URINE NEGATIVE (NEGATIVE); UROBILINOGEN,URINE NORMAL (NORMAL)
[2017-07-30 21:50] LABS: BAND NEUTROPHILS 8 %; BASOPHILS % (MANUAL) 0 %; EOSINOPHILS % (MANUAL) 2 %; LYMPHOCYTES % (MANUAL) 10 %; METAMYELOCYTES % 1 %; MONOCYTES % (MANUAL) 1 %; NEUTROPHILS % (MANUAL) 78 %; RBC MORPH NORMAL
[2017-07-30 21:52] LABS: SQUAMOUS EPITHELIAL CELL,UR 0-2 /HPF; WBC,URINE 0-2 /HPF
[2017-07-30] MEDS: D5 LR IV SOLUTION 1,000 ML IV SCH (22:00)
[2017-07-30] MEDS: CATHETER FLUSH 10 ML SYR IV SCH (22:09)
[2017-07-30] MEDS ORDERED: BUTORPHANOL INJ 2 MG/ML (STADOL) VIAL IV ONE (22:45)
[2017-07-31] VITALS (72 sets, daily range): BP systolic 70–126; BP diastolic 34–85
[2017-07-31] MEDS: D5 LR IV SOLUTION 1,000 ML IV SCH ×2 (05:34→14:34)
[2017-07-31] MEDS ORDERED: AMPICILLIN INJECTION 2,000 MG in NS (IVPB) 50 ML IV SCH (06:00)
[2017-07-31] MEDS: CATHETER FLUSH 10 ML SYR IV SCH (06:05)
--- NOTE | 2017-07-31 07:48 | History & Physical ---
History and Physical Date Seen by Provider: Jul 31, 2017 Time Seen by Provider: 07:42 this patient is a 21-year-old white female with a due date of August 21, 2017 patient was admitted last evening after having fallen on the ice was having an occasional contraction. Her management plan had included admission on this date for induction of labor secondary to oligohydramnios. further complicated by persistent leukocytosis of unknown etiology. White blood cell count had been anywhere from 17-23 thousand. No specific etiology for her leukocytosis has been determined patient denies rupture membranes or bleeding. She does feel baby moving. is further complicated by a positive GBS culture of the urine during this patient has been observed through the night and had only an irregular contraction. heart rate was normal and reassuring. Allergies are none Medications are likely olayinka and Danny Past medical history, past surgical history, obstetric history, family history, social histories are per the antepartum record HEENT exam is normal Neck supple no lymphadenopathy no thyromegaly Abdomen is gravid soft and minimally tender nondistended Back shows no CVA tenderness. There is no paraspinal rigidity. Pelvic exam is pending monitor shows heart rate normal variability, and reactive pattern. There are irregular occasional contraction Lab work is as follows Laboratory Tests Test 07/30/17 20:10 07/30/17 21:05 Range/Units Urine Color YELLOW Urine Clarity CLEAR Urine pH 6.5 5-9 Urine Specific [place] 1.015 L 1.016-1.022 Urine Protein NEGATIVE NEGATIVE Urine Glucose (UA) NEGATIVE NEGATIVE Urine Ketones 3+ H NEGATIVE Urine Nitrite NEGATIVE NEGATIVE Urine Bilirubin NEGATIVE NEGATIVE Urine Urobilinogen NORMAL NORMAL MG/DL Urine Leukocyte Esterase 1+ H NEGATIVE Urine RBC (Auto) NEGATIVE NEGATIVE Urine RBC NONE /HPF Urine WBC 0-2 /HPF Urine Squamous Epithelial Cells 0-2 /HPF Urine Crystals NONE /LPF Urine Bacteria NONE /HPF Urine Casts NONE /LPF Urine Mucus NEGATIVE /LPF Urine Culture Indicated NO White Blood Count 23.5 H 4.3-11.0 10^3/uL Red Blood Count 3.63 L 4.35-5.85 10^6/uL Hemoglobin 8.6 L 11.5-16.0 G/DL Hematocrit 28 L 35-52 % Mean Corpuscular Volume 77 L 80-99 FL Mean Corpuscular Hemoglobin 24 L 25-34 PG Mean Corpuscular Hemoglobin Concent 31 L 32-36 G/DL Red Cell Distribution Width 15.1 H 10.0-14.5 % Platelet Count 309 130-400 10^3/uL Mean Platelet Volume 10.3 7.4-10.4 FL Neutrophils (%) (Auto) 79 H 42-75 % Lymphocytes (%) (Auto) 13 12-44 % Monocytes (%) (Auto) 8 0-12 % Eosinophils (%) (Auto) 1 0-10 % Basophils (%) (Auto) 0 0-10 % Neutrophils # (Auto) 18.5 H 1.8-7.8 X 10^3 Lymphocytes # (Auto) 2.9 1.0-4.0 X 10^3 Monocytes # (Auto) 1.8 H 0.0-1.0 X 10^3 Eosinophils # (Auto) 0.2 0.0-0.3 10^3/uL Basophils # (Auto) 0.1 0.0-0.1 10^3/uL Neutrophils % (Manual) 78 % Lymphocytes % (Manual) 10 % Monocytes % (Manual) 1 % Eosinophils % (Manual) 2 % Basophils % (Manual) 0 % Metamyelocytes % 1 % Band Neutrophils 8 % Blood Morphology Comment NORMAL assessment and plan hospital day 2 patient at 37 weeks gestation with oligohydramnios and persistent leukocytosis. Plan is for induction of labor with Pitocin today cover of Abx for GBS prophylaxis. anticipation is for vaginal delivery. term with oligohydramnios and leukocytosis Allergies and Home Medications Allergies Coded Allergies: No Known Drug Allergies (Unverified , 03/03/17) Home Medications Acetaminophen with Codeine 1 Each Tablet, 1 EACH PO every 4 hours, #30 Prescribed by: SPENCER MTZ on 07/04/17 1625 Multivitamin 1 Each Tablet, 1 EACH PO DAILY, (Reported) Ondansetron 8 Mg Tab.rapdis, 8 MG PO every 6 hours PRN for when necessary nausea , #20 Prescribed by: SPENCER MTZ on 07/04/17 1625 Clinical Quality Measures DVT/VTE Risk/Contraindication: Risk Factor Score Per Nursin RFS Level Per Nursing on Admit: 1=Low/No VTE PPX SPENCER STARKEY MD Jul 31, 2017 7:47 am
[2017-07-31 08:09] LABS: BASOPHILS % (AUTO) 0 % (0-10); EOSINOPHILS # (AUTO) 0.2 10^3/uL (0.0-0.3); EOSINOPHILS % (AUTO) 1 % (0-10); HEMATOCRIT 25 % (35-52); HEMOGLOBIN 7.6 G/DL (11.5-16.0); LYMPHOCYTES # (AUTO) 2.5 X 10^3 (1.0-4.0); LYMPHOCYTES % (AUTO) 16 % (12-44); MEAN CORPUSCULAR HEMOGLOBIN 23 PG (25-34); MEAN CORPUSCULAR HGB CONC 30 G/DL (32-36); MEAN CORPUSCULAR VOLUME 77 FL (80-99); MEAN PLATELET VOLUME 10.5 FL (7.4-10.4); MONOCYTES # (AUTO) 1.5 X 10^3 (0.0-1.0); MONOCYTES % (AUTO) 9 % (0-12); NEUTROPHILS # (AUTO) 11.7 X 10^3 (1.8-7.8); NEUTROPHILS % (AUTO) 74 % (42-75); PLATELET COUNT 277 10^3/uL (130-400); RED BLOOD COUNT 3.27 10^6/uL (4.35-5.85); RED CELL DISTRIBUTION WIDTH 14.9 % (10.0-14.5); WHITE BLOOD COUNT 15.9 10^3/uL (4.3-11.0)
[2017-07-31] MEDS ORDERED: SUFENTA 0.6MCG/ML BUPIVA 0.125 100 ML ONE (08:19)
[2017-07-31] MEDS ORDERED: fentaNYL INJECTION 100 MCG/2 ML AMP ONE (09:00)
[2017-07-31] MEDS: OXYTOCIN/NORMAL SALINE 500 ML IV SCH (09:28)
[2017-07-31] MEDS: AMPICILLIN INJECTION 1,000 MG in NS (IVPB) 50 ML IV SCH ×2 (10:09→13:56)
[2017-07-31] MEDS ORDERED: LACTATED RINGERS 1,000 ML IV SCH (10:39)
[2017-07-31] MEDS ORDERED: ONDANSETRON 4 MG/2 ML (SDV) Z0FRAN IV PRN (10:45)
[2017-07-31] MEDS ORDERED: EPIDURAL (SUFENTA 0.6MCG/ML BUPIVA 0.125%) 100 ML BAG EPI PRN (10:45)
[2017-07-31] MEDS ORDERED: METOCLOPRAMIDE INJ 10 MG/2 ML (REGLAN) IV PRN (10:45)
[2017-07-31] MEDS ORDERED: diphenhydrAMINE 50 MG/ML INJ (BENADRYL) IV PRN (10:45)
[2017-07-31] MEDS ORDERED: NALOXONE 0.4 MG/ML 1 ML (NARCAN) VIAL IV PRN ×2 (10:45)
[2017-07-31] MEDS ORDERED: LIDOCAINE/EPI 2% 1:200,00 (XYLOCAINE) 10 ML VIAL ONE (17:33)
[2017-07-31] MEDS ORDERED: OXYTOCIN/NORMAL SALINE 500 ML IV SCH (18:11)
[2017-07-31] MEDS ORDERED: MEASLES,MUMPS,RUBELLA 1 EA INJ SC ONE (18:15)
[2017-07-31] MEDS ORDERED: ONDANSETRON 4 MG/2 ML (SDV) Z0FRAN IVP PRN (18:15)
[2017-07-31] MEDS ORDERED: TETANUS,DIPTH,PERTUSS P/F (BOOSTRIX) 0.5 ML VIAL IM ONE (18:15)
[2017-07-31] MEDS ORDERED: BENZOCAINE/MENTHOL (DERMOPLAST) 56 ML CAN TP PRN (18:15)
[2017-07-31] MEDS: DOCUSATE SODIUM 100 MG (COLACE) CAP PO SCH (23:15)
[2017-07-31] MEDS: KETOROLAC 30 MG/ML VIAL IV SCH (23:15)
--- NOTE | 2017-08-01 01:29 | OPERATIVE REPORT ---
DATE OF SERVICE: 07/31/2017 DELIVERY NOTE The patient delivered by term spontaneous vaginal delivery of a viable female with Apgars of 8 and 9 at 1 and 5 minutes respectively, a weight of 6 pounds and 13 ounces, a time of 17:51 and a cord blood gas that was definitively drawn from an umbilical artery with a pH of 7.47. OPERATIVE DESCRIPTION: With the patient in the supine position on the labor and delivery bed, she delivered by term spontaneous vaginal delivery a viable female . Parameters are noted above. The patient delivered over an intact perineum under epidural analgesia. She delivered with fewer than 4 pushes quite easily. There was a nuchal cord x1 that was easily released. The infant was bulb suctioned on delivery of the head and again the delivery was completed spontaneously without the mom pushing under the force of a contraction. The was bulb suctioned again on delivery and stimulated and dried. When the cord was pulseless, the father cut the cord and the baby was passed to mom's abdomen. Cord bloods were obtained. The placenta delivered spontaneously Gomez. It appeared normal; however, there was a 5% to 10% adherent clot consistent with some mild degree of abruption. The placenta, umbilical cord and membranes were otherwise unremarkable. The cervix, vagina, rectum and perineum were examined and found intact, except for a very small superficial laceration on the perineum from the skin stretching and the superficial layer of the skin just . There was no bleeding at that site and no repair was required. Sponge and needle counts were correct on completion of the delivery and the assessment. Estimated blood loss was around 200 mL. The patient tolerated the delivery well and remained in the LDR for recovery. The baby remained with the mom. Job ID: [id number] DocumentID: [id number] Dictated Date: 07/31/2017 18:16:46 Asset Coordinator Date: 08/01/2017 01:28:33 Dictated By: SPENCER STARKEY MD
[2017-08-01] MEDS: oxyCODONE/APAP 10/325MG (PERCOCET 10) TABLET PO PRN ×2 (03:30→16:48)
[2017-08-01 03:35] VITALS: BP 103/59
[2017-08-01] MEDS: KETOROLAC 30 MG/ML VIAL IV SCH ×2 (05:23→20:37)
[2017-08-01 05:42] LABS: BASOPHILS % (AUTO) 0 % (0-10); EOSINOPHILS # (AUTO) 0.2 10^3/uL (0.0-0.3); EOSINOPHILS % (AUTO) 1 % (0-10); HEMATOCRIT 24 % (35-52); HEMOGLOBIN 7.5 G/DL (11.5-16.0); LYMPHOCYTES % (AUTO) 15 % (12-44); MEAN CORPUSCULAR HEMOGLOBIN 24 PG (25-34); MEAN CORPUSCULAR HGB CONC 31 G/DL (32-36); MEAN CORPUSCULAR VOLUME 77 FL (80-99); MEAN PLATELET VOLUME 10.7 FL (7.4-10.4); MONOCYTES # (AUTO) 2.2 X 10^3 (0.0-1.0); MONOCYTES % (AUTO) 11 % (0-12); NEUTROPHILS # (AUTO) 14.2 X 10^3 (1.8-7.8); NEUTROPHILS % (AUTO) 73 % (42-75); PLATELET COUNT 258 10^3/uL (130-400); RED BLOOD COUNT 3.16 10^6/uL (4.35-5.85); RED CELL DISTRIBUTION WIDTH 14.8 % (10.0-14.5); WHITE BLOOD COUNT 19.5 10^3/uL (4.3-11.0)
--- NOTE | 2017-08-01 07:59 | Progress Note-Standard ---
Standard Progress Note Progress Notes/Assess & Plan Date Seen by Provider: Aug 01, 2017 Time Seen by Provider: 07:55 Progress/Assessment & Plan this patient is without complaint. She is ambulating,voiding, tolerating by mouth well, has good pain control. Patient denies chest pain, denies shortness breath, denies headache, denies nausea vomiting, denies dizziness or lightheadedness. The pain that she had endured for the last third of her is essentially resolved. Vital Signs Date Time Temp Pulse Resp B/P (MAP) Pulse Ox O2 Delivery O2 Flow Rate FiO2 08/01/17 03:35 98.2 85 18 103/59 (74) Room Air 07/31/17 23:55 98.5 82 16 101/55 (70) Room Air 07/31/17 21:30 98.8 90 18 103/76 (85) Room Air 07/31/17 21:15 99 18 97/71 (80) Room Air 07/31/17 21:00 83 18 114/68 (83) Room Air 07/31/17 20:45 99.0 89 16 104/57 (73) Room Air 07/31/17 20:15 75 18 121/63 (82) Room Air 07/31/17 20:00 89 18 116/57 (76) Room Air 07/31/17 19:45 75 16 113/65 (81) Room Air 07/31/17 19:30 73 16 105/57 (73) Room Air 07/31/17 18:59 94 18 108/54 (72) Room Air 07/31/17 18:44 71 18 111/69 (83) Room Air 07/31/17 18:29 94 18 107/62 (77) Room Air 07/31/17 18:14 74 18 109/62 (78) Room Air 07/31/17 18:00 113/57 (75) 07/31/17 17:45 98.2 83 18 109/61 (77) Room Air 07/31/17 17:30 103 18 122/61 (81) Room Air 07/31/17 17:15 83 18 104/68 (80) Room Air 07/31/17 17:00 95 18 101/55 (70) Room Air 07/31/17 16:45 80 18 113/60 (77) Room Air 1/18/18 16:30 73 18 101/62 (75) Room Air 07/31/17 16:15 98.0 86 18 101/62 (75) Room Air 07/31/17 16:03 78 18 92/50 (64) Room Air 07/31/17 15:45 81 18 96/52 (67) Room Air 07/31/17 15:32 93 18 94/51 (65) Room Air 07/31/17 15:15 97.9 87 18 91/51 (64) Room Air 07/31/17 15:00 76 18 91/54 (66) Room Air 07/31/17 14:45 73 18 91/51 (64) Room Air 07/31/17 14:17 95 18 95/52 (66) Room Air 07/31/17 14:00 97.7 77 18 92/56 (68) 100 Room Air 07/31/17 13:47 90 18 91/59 (70) 100 Room Air 07/31/17 13:31 101 18 126/85 (99) 100 Room Air 07/31/17 13:16 106 18 96/56 (69) 100 Room Air 07/31/17 13:02 91 18 101/66 (78) 100 Room Air 07/31/17 12:45 97.2 97 20 108/58 (75) 100 Room Air 07/31/17 12:30 104 20 107/60 (76) 100 Non Rebreather 10.00 07/31/17 12:15 72 20 101/57 (72) 100 Non Rebreather 10.00 07/31/17 12:05 91 20 107/62 (77) 100 Non Rebreather 10.00 07/31/17 12:00 93 20 108/56 (73) 99 Room Air 07/31/17 11:45 88 20 109/57 (74) 99 Room Air 07/31/17 11:30 87 20 106/55 (72) 99 Room Air 07/31/17 11:15 98.8 84 18 105/60 (75) 100 Room Air 07/31/17 11:00 108 18 91/56 (68) 100 Room Air 07/31/17 10:45 90 18 108/65 (79) 99 Room Air 07/31/17 10:30 114 18 102/64 (77) 100 Room Air 07/31/17 10:25 98 18 108/71 (83) 98 Room Air 07/31/17 10:20 96 18 114/70 (85) 98 Room Air 07/31/17 10:14 117 18 87/47 (60) 99 Room Air 07/31/17 10:11 103 18 86/48 (61) 99 Room Air 07/31/17 10:08 102 18 88/52 (64) 98 Room Air 07/31/17 10:05 93 18 105/55 (72) 98 Room Air 07/31/17 10:02 98 18 99/57 (71) 99 Room Air 07/31/17 09:56 97 18 100/69 (79) 99 Room Air 07/31/17 09:53 93 18 101/58 (72) Room Air 07/31/17 09:50 100 18 103/55 (71) 98 Room Air 07/31/17 09:47 123 18 105/53 (70) 100 Room Air 07/31/17 09:44 84 18 100/53 (69) 100 Room Air 07/31/17 09:41 86 18 92/55 (67) 100 Room Air 07/31/17 09:38 99 18 105/55 (72) Room Air 07/31/17 09:35 87 18 104/51 (68) 99 Room Air 07/31/17 09:32 90 18 102/55 (71) 100 Room Air 07/31/17 09:29 96 18 116/57 (76) 100 Room Air 07/31/17 09:26 76 18 113/57 (75) Room Air 07/31/17 09:23 67 18 115/57 (76) Room Air 07/31/17 09:20 99.1 89 18 70/40 (50) 100 Room Air 07/31/17 09:16 97 18 84/47 (59) 100 Room Air 07/31/17 09:10 83 18 70/34 (46) 100 Room Air 07/31/17 09:00 83 18 108/56 (73) 100 Room Air 07/31/17 08:58 88 18 77/47 (57) 07/31/17 08:44 84 18 97/59 (72) I & O 08/01/17 07:00 Intake Total 2100 ml Balance 2100 ml vital signs are stable. Patient is afebrile. Pulse was less than 100. Laboratory Tests 07/31/17 07:59 08/01/17 05:25 hemoglobin is essentially stable. The abdomen is benign. Fundus is firm below the umbilicus and nontender. Extremities show no clubbing cyanosis. There is no Homans sign. Assessment and plan day number 1 status post term spontaneous vaginal delivery doing well. Patient's chronic pain has essentially resolved she is feeling markedly better. She has essentially asymptomatic from her anemia and we will continue her iron supplementation orally and treatment of this chronic -induced anemia with the expectation of a resolving spontaneously. Plan for routine convalescence care today and likely discharge home tomorrow SPENCER STARKEY MD Aug 01, 2017 7:58 am
[2017-08-01 08:22] VITALS: BP 105/70
[2017-08-01] MEDS: DOCUSATE SODIUM 100 MG (COLACE) CAP PO SCH ×2 (08:29→21:07)
--- NOTE | 2017-08-01 13:27 | Anesthesia-Regional Post-Op ---
Regional Patient Condition Mental Status: Alert, Oriented x3 Circulation: Same as Pre-Op Headache: Absent Sensation: Full Recovery Motor Block: Absent Post Op Complications Complications None Follow Up Care/Instructions Patient Instructions None needed. Anesthesia/Patient Condition Patient is doing well, no complaints, stable vital signs, no apparent adverse anesthesia problems. INESSA TAPIA DO Aug 01, 2017 13:27
[2017-08-01 14:45] VITALS: BP 116/59
[2017-08-01] MEDS: IBUPROFEN 800 MG (MOTRIN) TAB PO SCH ×2 (14:46→21:07)
[2017-08-01] MEDS: CATHETER FLUSH 10 ML SYR IV SCH (20:37)
[2017-08-01] MEDS: AMPICILLIN INJECTION 1,000 MG in NS (IVPB) 50 ML IV SCH (20:37)
[2017-08-01] MEDS: D5 LR IV SOLUTION 1,000 ML IV SCH (20:37)
[2017-08-01] MEDS: OXYTOCIN/NORMAL SALINE 500 ML IV SCH (20:38)
[2017-08-01 20:40] VITALS: BP 116/74
[2017-08-02] MEDS: IBUPROFEN 800 MG (MOTRIN) TAB PO SCH ×2 (02:37→08:32)
[2017-08-02 03:08] VITALS: BP 133/85
[2017-08-02] MEDS: DOCUSATE SODIUM 100 MG (COLACE) CAP PO SCH (08:32)
[2017-08-02 09:00] VITALS: BP 120/75
--- NOTE | 2017-08-02 09:39 | Discharge Summary ---
Discharge Summary this patient is a 21-year-old white female who was admitted on July secondary to having fallen on the ice. She was found to be georgina occasionally. Her has been complicated by oligohydramnios. She is also had chronic right side right flank back and pelvic pain during the last half of the . her pain has been episodically severe and she has had frequent outpatient admissions and evaluations seeking an etiology for her pain. No definite etiology was discovered. On the date of admission she was 36 -6/7 weeks' gestation. Plan had been to admit her at 37 weeks for induction of labor she was observed overnight secondary to the fall and did contract occasionally. She did have a urine culture that was positive for group B strep during the and she was started on prophylactic ampicillin in the morning of July 29, 2017. On that date she was also started on Pitocin to induce and/or augment her labor. She was allowed an epidural. She labored adequately and subsequently had a term spontaneous vaginal delivery. That delivery was uncomplicated. She recovered uneventfully. Her chronic pain has decreased to a basal level that the patient reported she had even prior to the secondary to some trauma to her right side. On post day number 1 which was July 30, 2017. Patient reported that her pain was essentially resolved. She was ambulating, voiding, tolerating by mouth well, and had good pain control. Her hemoglobin was stable at 7.5 was 7.6 on admission and had been running in the very low eights throughout her she had routine care through the day On day number 2/July 31, 2017 she again is without complaint. She denies pain. She denies nausea vomiting. She denies headache. She is ambulating and voiding well and has good pain control and is requesting discharge home Principal diagnoses this hospitalization is term spontaneous vaginal delivery Secondary diagnoses are chronic right side right flank pelvic and back pain, anemia of chronic disease and iron deficiency, Operations and procedures include monitoring, Pitocin induction/ augmentation of labor, IV antibiotics for GBS prophylaxis, epidural analgesia, amniotomy, IV fluids. Patient was given appropriate discharge instructions verbally and in writing and a copy those are in the chart. Discharge medications are Percocet and Motrin and Colace. Patient is continue her vitamins and her iron term spontaneous vaginal delivery Clinical Quality Measures DVT/VTE Risk/Contraindication: Risk Factor Score Per Nursin RFS Level Per Nursing on Admit: 1=Low/No VTE PPX SPENCER STARKEY MD Aug 02, 2017 09:39
[2017-08-02] MEDS ORDERED: IBUP-1780 PO (09:41)
[2017-08-02] MEDS ORDERED: ACET-789 PO (09:41)
[2017-08-02] MEDS ORDERED: DOCU100C37 PO (09:41)
[2017-08-02] MEDS ORDERED: OXYC-465 PO (09:41)
--- NOTE | 2017-08-02 09:43 | Discharge Instructions ---
Discharge Instructions Discharge Medications New, Converted or Re-Newed RX: RX on Chart Patient Instructions Patient Instructions: as directed Return to The Hospital For: as directed Activity & Diet Discharge Diet: No Restrictions Activity as Tolerated: No Orders-Post D/C & Referrals Follow Up Appt: Call to make follow up appt. for patient in 4 weeks. Activity Per routine post vaginal delivery instructions. Please call in RX to patient pharmacy. Diet as tolerated Patient may shower or tub bathe as desired. SPENCER STARKEY MD Aug 02, 2017 09:43
[2017-08-02] MEDS ORDERED: FERR-23 PO (09:44)
[2017-08-02] MEDS: KETOROLAC 30 MG/ML VIAL IV SCH (10:06)
[2017-08-02] MEDS ORDERED: TETANUS,DIPTH,PERTUSS P/F (BOOSTRIX) 0.5 ML VIAL IM ONE (10:07)
== END 2017-08-02 15:47 | disposition home or self-care (01) | DRG 774 ==
LOC: WSo 19:48 → LDRP 19:49 → WSo 20:33 → LDRP 20:33
PROVIDERS: ADMIT Obstetrics & Gynecology; ATTEND Obstetrics & Gynecology
PROC: 10E0XZZ Delivery of Products of Conception, External Approach (ICD-10-PCS; principal; 2017-07-31)
DX: O41.03X0 Oligohydramnios, third trimester, not applicable or unspecified (principal); O45.93 Premature separation of placenta, unspecified, third trimester; O99.113 Other diseases of the blood and blood-forming organs and certain disorders involving the immune mechanism complicating pregnancy, third trimester; D72.829 Elevated white blood cell count, unspecified; O69.81X0 Labor and delivery complicated by cord around neck, without compression, not applicable or unspecified; O99.820 Streptococcus B carrier state complicating pregnancy; O99.013 Anemia complicating pregnancy, third trimester; D50.9 Iron deficiency anemia, unspecified; D63.8 Anemia in other chronic diseases classified elsewhere; O26.893 Other specified pregnancy related conditions, third trimester; M54.9 Dorsalgia, unspecified; R10.84 Generalized abdominal pain; O99.353 Diseases of the nervous system complicating pregnancy, third trimester; G89.29 Other chronic pain; W00.0XXA Fall on same level due to ice and snow, initial encounter; Z3A.37 37 weeks gestation of pregnancy; Z37.0 Single live birth; Z23 Encounter for immunization
CPT/HCPCS: 36415; 81000; 85007; 85025; 85027; 86850; 86900; 86901; 90715; 99212

== ENCOUNTER 2017-11-12 18:40 | Observation (INO) | payer MEDICAID ==
[~2017-11-12] VITALS: Ht 162.6 cm; Wt 71.7 kg
[~2017-11-12 18:40] MED LIST changes: +DOCU100C37 PO; +FERR-23 PO; +IBUP-1780 PO; +OXYC-465 PO
[2017-11-12 19:36] LABS: HEMATOCRIT 35 % (35-52); LYMPHOCYTES % (AUTO) 33 % (12-44); MEAN CORPUSCULAR HEMOGLOBIN 23 PG (25-34); MEAN CORPUSCULAR HGB CONC 31 G/DL (32-36); MEAN CORPUSCULAR VOLUME 74 FL (80-99); MEAN PLATELET VOLUME 10.7 FL (7.4-10.4); MONOCYTES % (AUTO) 8 % (0-12); NEUTROPHILS % (AUTO) 56 % (42-75); PLATELET COUNT 363 10^3/uL (130-400); RED BLOOD COUNT 4.75 10^6/uL (4.35-5.85); RED CELL DISTRIBUTION WIDTH 16.7 % (10.0-14.5); WHITE BLOOD COUNT 7.7 10^3/uL (4.3-11.0)
[2017-11-12 19:37] LABS: BASOPHILS % (AUTO) 0 % (0-10); EOSINOPHILS # (AUTO) 0.2 10^3/uL (0.0-0.3); EOSINOPHILS % (AUTO) 3 % (0-10); LYMPHOCYTES # (AUTO) 2.5 X 10^3 (1.0-4.0); MONOCYTES # (AUTO) 0.6 X 10^3 (0.0-1.0); NEUTROPHILS # (AUTO) 4.3 X 10^3 (1.8-7.8)
[2017-11-12] MEDS ORDERED: CATHETER FLUSH 10 ML SYR IV PRN (19:45)
[2017-11-12] MEDS ORDERED: PIPERACILLIN SODIUM/TAZOBACTAM 4.5 GM in NS (IVPB) 100 ML IV ONE (19:45)
[2017-11-12 20:50] VITALS: BP 106/66
[2017-11-12] MEDS: D5 LR IV SOLUTION 1,000 ML IV SCH (21:00)
[2017-11-12] MEDS: BUTORPHANOL INJ 2 MG/ML (STADOL) VIAL IV PRN (21:00)
[2017-11-12] MEDS: KETOROLAC 30 MG/ML VIAL IVP SCH (21:00)
[2017-11-13 00:10] VITALS: BP 104/64
[2017-11-13] MEDS: BUTORPHANOL INJ 2 MG/ML (STADOL) VIAL IV PRN (00:11)
[2017-11-13 03:10] VITALS: BP 96/57
[2017-11-13] MEDS: KETOROLAC 30 MG/ML VIAL IVP SCH ×2 (03:17→08:30)
[2017-11-13] MEDS: D5 LR IV SOLUTION 1,000 ML IV SCH (05:47)
--- NOTE | 2017-11-13 08:10 | Progress Note-Standard ---
Standard Progress Note Progress Notes/Assess & Plan Date Seen by Provider: November 13, 2017 Time Seen by Provider: 08:08 Progress/Assessment & Plan Patient complains of persistent crampy pain and some bleeding. Her bleeding has dramatically improved and her pain has been controlled with medication denies headache, denies shortness of breath, denies nausea vomiting. Vital Signs Date Time Temp Pulse Resp B/P (MAP) Pulse Ox O2 Delivery O2 Flow Rate FiO2 11/13/17 03:10 96.8 54 18 96/57 (70) 99 Room Air 11/13/17 00:10 97.2 83 18 104/64 (77) 98 Room Air 11/12/17 20:50 97.9 84 18 106/66 (79) 99 Room Air I & O 11/13/17 07:00 Intake Total 600 ml Output Total 500 ml Balance 100 ml Vital signs are stable. Patient is afebrile. Laboratory Tests Test 11/12/17 19:20 Range/Units White Blood Count 7.7 4.3-11.0 10^3/uL Red Blood Count 4.75 4.35-5.85 10^6/uL Hemoglobin 11.0 L 11.5-16.0 G/DL Hematocrit 35 35-52 % Mean Corpuscular Volume 74 L 80-99 FL Mean Corpuscular Hemoglobin 23 L 25-34 PG Mean Corpuscular Hemoglobin Concent 31 L 32-36 G/DL Red Cell Distribution Width 16.7 H 10.0-14.5 % Platelet Count 363 130-400 10^3/uL Mean Platelet Volume 10.7 H 7.4-10.4 FL Neutrophils (%) (Auto) 56 42-75 % Lymphocytes (%) (Auto) 33 12-44 % Monocytes (%) (Auto) 8 0-12 % Eosinophils (%) (Auto) 3 0-10 % Basophils (%) (Auto) 0 0-10 % Neutrophils # (Auto) 4.3 1.8-7.8 X 10^3 Lymphocytes # (Auto) 2.5 1.0-4.0 X 10^3 Monocytes # (Auto) 0.6 0.0-1.0 X 10^3 Eosinophils # (Auto) 0.2 0.0-0.3 10^3/uL Basophils # (Auto) 0.0 0.0-0.1 10^3/uL Patient white blood cell count is normal. Her hemoglobin is slightly low. The red blood cell indices are consistent with some degree of iron deficiency anemia Abdomen is benign. There is some tenderness suprapubically. Extremities show no clubbing cyanosis. There is no Homans sign. Assessment and plan hospital day number 2. Patient has been on observation overnight with IV fluids and pain medication. Her symptoms have improved. We will follow cultures that were obtained yesterday prior to admission and then consider discharge home this afternoon providing the cultures do not warrant a longer term IV antibiotics. SPENCER STARKEY MD November 13, 2017 8:10 am
--- NOTE | 2017-11-13 08:11 | History & Physical ---
History and Physical Date Seen by Provider: November 12, 2017 Time Seen by Provider: 18:00 This is a late entry dictation for Madalyn Joseph. Patient was admitted last evening. I had seen the patient at about 6 p.m. last evening evaluation and physical exam were performed and we discussed the plan of management for this observation admission. I dictate her H&P now. This patient is a white female who is 3 months status post her most recent term spontaneous vaginal delivery. Her prior deliveries had been complicated by uterine infections one of which required admission for IV antibiotics. This patient was scheduled for exam at 4 weeks however she failed to present for that appointment. She was seen yesterday in clinic at about 3 months plus due to complaint of heavy vaginal bleeding and severe pelvic pain primarily with menses. Evaluation was consistent with a uterine infection. There were numerous white blood cells on a wet prep of vaginal discharge and her uterus was quite tender on palpation. She was started empirically on Cipro and Flagyl awaiting results of cultures that were taken from the uterus. She was given instructions to call if her symptoms worsen. She did call later the same day when she experiences heavy persistent vaginal bleeding and severe pelvic pain. Patient was set up for direct admission to labor and delivery for pain management and IV antibiotics and further evaluation. Since admission her pain is being controlled first with IV medication now with oral medication. She has remained afebrile and has a normal white blood cell count. Culture obtained in my clinic yesterday is not final but did show a gram -negative earle present from the intrauterine specimen. Final aerobic and anaerobic results are pending as well as a Gen-Probe. Currently the patient reports feeling markedly better. We have discussed discharge home with follow-up in clinic and continue on her antibiotics with the addition of adequate analgesics. Allergies are none Occasions at the time of admission was when necessary Advil Past medical history is negative Past surgical history is negative Past obstetric history includes 3 spontaneous vaginal deliveries at term. As noted she experienced uterine infections with one of those requiring inpatient admission for IV antibiotics to clear the infection Her [employer] history is otherwise negative Family history is noncontributory - there is no history of breast cancer or [employer] cancers is no diabetes in her family her mother's side does have some hypertension Social history is patient is she is unemployed she denies tobacco drug or alcohol use she has no history of STDs Review of systems is significant for some degree of fatigue the pelvic pain as noted above. Review of systems otherwise negative. Vital signs present in the electronic medical record and were reviewed and were stable and appropriate for this patient Lab work is as follows Laboratory Tests Test 11/12/17 19:20 Range/Units White Blood Count 7.7 4.3-11.0 10^3/uL Red Blood Count 4.75 4.35-5.85 10^6/uL Hemoglobin 11.0 L 11.5-16.0 G/DL Hematocrit 35 35-52 % Mean Corpuscular Volume 74 L 80-99 FL Mean Corpuscular Hemoglobin 23 L 25-34 PG Mean Corpuscular Hemoglobin Concent 31 L 32-36 G/DL Red Cell Distribution Width 16.7 H 10.0-14.5 % Platelet Count 363 130-400 10^3/uL Mean Platelet Volume 10.7 H 7.4-10.4 FL Neutrophils (%) (Auto) 56 42-75 % Lymphocytes (%) (Auto) 33 12-44 % Monocytes (%) (Auto) 8 0-12 % Eosinophils (%) (Auto) 3 0-10 % Basophils (%) (Auto) 0 0-10 % Neutrophils # (Auto) 4.3 1.8-7.8 X 10^3 Lymphocytes # (Auto) 2.5 1.0-4.0 X 10^3 Monocytes # (Auto) 0.6 0.0-1.0 X 10^3 Eosinophils # (Auto) 0.2 0.0-0.3 10^3/uL Basophils # (Auto) 0.0 0.0-0.1 10^3/uL In addition there is an anaerobic and aerobic culture pending from the uterine cavity was obtained in my clinic, Gynprobe is pending also The time of admission general the patient wasn't well-developed well-nourished white female who appeared uncomfortable HEENT exam is normal Neck supple no lymphadenopathy no thyromegaly Abdomen is scaphoid there is no guarding rebound or rigidity. There is fairly significant tenderness suprapubically over the fundus of her uterus lesions Extremities show no clubbing or cyanosis. There is no Homans sign. Pelvic exam performed in my clinic prior to this admission showed a uterus that was anteverted quite sensitive and tender on palpation was the site of the pain patient was experiencing. Adnexal exam was unremarkable except for some mild tenderness on the right Assessment and plan multi-gravid patient now 3 months status post her most recent term spontaneous vaginal delivery with very likely endomyometritis. She was started empirically outpatient on Flagyl and Cipro her condition worsened and she began to experience heavy bleeding. Lab work rules out definitely notable and anemia although she does have some iron deficiency show also has a normal white blood cell count and is afebrile. This started empirically on Zosyn and will be observed through the night and reevaluated in the morning. Severe pelvic pain and excessively heavy vaginal bleeding 1 week status post menses and with clinical evidence of endomyometritis Allergies and Home Medications Allergies Coded Allergies: No Known Drug Allergies (Unverified , 03/03/17) Home Medications Acetaminophen with Codeine 1 Each Tablet, 1 EACH PO every 4 hours Prescribed by: SPENCER MTZ on 08/02/17 0941 Docusate Sodium 100 Mg Capsule, 100 MG PO BID Prescribed by: SPENCER MTZ on 08/02/17 0941 Ferrous Sulfate 325 Mg Tablet, 325 MG PO DAILY Prescribed by: SPENCER MTZ on 08/02/17 0944 Ibuprofen 800 Mg Tablet, 800 MG PO Q6H Prescribed by: SPENCER MTZ on 08/02/17 0941 Multivitamin 1 Each Tablet, 1 EACH PO DAILY, (Reported) Ondansetron 8 Mg Tab.rapdis, 8 MG PO every 6 hours PRN for when necessary nausea Prescribed by: SPENCER MTZ on 07/04/17 1625 Oxycodone HCl/Acetaminophen 1 Each Tablet, 1-2 TAB PO Q4HR PRN for PAIN- MODERATE TO SEVERE Prescribed by: SPENCER MTZ on 08/02/17 0941 Patient Home Medication List Home Medication List Reviewed: Yes SPENCER STARKEY MD November 13, 2017 8:11 am
[2017-11-13 08:40] VITALS: BP 102/69
[2017-11-13] MEDS ORDERED: ONDANSETRON 4 MG/2 ML (SDV) Z0FRAN ONE (08:52)
[2017-11-13] MEDS ORDERED: ONDANSETRON 4 MG/2 ML (SDV) Z0FRAN IVP ONE (09:00)
--- NOTE | 2017-11-13 12:05 | Progress Note-Standard ---
Standard Progress Note Progress Notes/Assess & Plan Date Seen by Provider: November 13, 2017 Time Seen by Provider: 12:03 Progress/Assessment & Plan Patient complains of persistent crampy pain and some bleeding. Her bleeding has dramatically improved and her pain has been controlled with medication denies headache, denies shortness of breath, denies nausea vomiting. Vital Signs Date Time Temp Pulse Resp B/P (MAP) Pulse Ox O2 Delivery O2 Flow Rate FiO2 11/13/17 03:10 96.8 54 18 96/57 (70) 99 Room Air 11/13/17 00:10 97.2 83 18 104/64 (77) 98 Room Air 11/12/17 20:50 97.9 84 18 106/66 (79) 99 Room Air I & O 11/13/17 07:00 Intake Total 600 ml Output Total 500 ml Balance 100 ml Vital signs are stable. Patient is afebrile. Laboratory Tests Test 11/12/17 19:20 Range/Units White Blood Count 7.7 4.3-11.0 10^3/uL Red Blood Count 4.75 4.35-5.85 10^6/uL Hemoglobin 11.0 L 11.5-16.0 G/DL Hematocrit 35 35-52 % Mean Corpuscular Volume 74 L 80-99 FL Mean Corpuscular Hemoglobin 23 L 25-34 PG Mean Corpuscular Hemoglobin Concent 31 L 32-36 G/DL Red Cell Distribution Width 16.7 H 10.0-14.5 % Platelet Count 363 130-400 10^3/uL Mean Platelet Volume 10.7 H 7.4-10.4 FL Neutrophils (%) (Auto) 56 42-75 % Lymphocytes (%) (Auto) 33 12-44 % Monocytes (%) (Auto) 8 0-12 % Eosinophils (%) (Auto) 3 0-10 % Basophils (%) (Auto) 0 0-10 % Neutrophils # (Auto) 4.3 1.8-7.8 X 10^3 Lymphocytes # (Auto) 2.5 1.0-4.0 X 10^3 Monocytes # (Auto) 0.6 0.0-1.0 X 10^3 Eosinophils # (Auto) 0.2 0.0-0.3 10^3/uL Basophils # (Auto) 0.0 0.0-0.1 10^3/uL Patient white blood cell count is normal. Her hemoglobin is slightly low. The red blood cell indices are consistent with some degree of iron deficiency anemia Abdomen is benign. There is some tenderness suprapubically. Extremities show no clubbing cyanosis. There is no Homans sign. Assessment and plan hospital day number 2. Patient has been on observation overnight with IV fluids and pain medication. Her symptoms have improved. We will follow cultures that were obtained yesterday prior to admission and then consider discharge home this afternoon providing the cultures do not warrant a longer term IV antibiotics. November 13, 2017 at 1203 Patient reports feeling better. Her pain is controlled with oral medication. Her bleeding has decreased it still persists. She is able to tolerate oral intake. Her culture results preliminary is discussed with her she does feel ready for discharge home. She is contemplating follow-up in clinic for surgical intervention in regard to the pain and bleeding and options were discussed including D&C versus endometrial ablation versus hysterectomy versus oral contraceptives versus other management formation was given regarding surgical interventions. Patient will call or return to clinic for follow-up Patient will be discharged home with attenuation of her Cipro and Flagyl and with Percocet and Ultram f.or pain Final Diagnosis Endomyometritis SPENCER STARKEY MD November 13, 2017 12:04 pm
[2017-11-13] MEDS ORDERED: TRAM50TA2 PO (12:06)
[2017-11-13] MEDS ORDERED: OXYC-465 PO (12:06)
--- NOTE | 2017-11-13 12:07 | Discharge Instructions ---
Discharge Instructions Discharge Medications New, Converted or Re-Newed RX: RX on Chart Patient Instructions Patient Instructions: As directed Return to The Hospital For: As directed Activity & Diet Discharge Diet: No Restrictions Activity as Tolerated: Yes Orders-Post D/C & Referrals Follow Up Appt: Call or return to clinic when necessary. Activity: Rest for 24 hours, than as tolerated. Diet: As tolerated-Clear Liquids only if nauseated. Patient to return to the clinic as soon as possible for: Temperature greater than 101F, Severe Pain, Foul discharge from vagina, Excessive Bleeding (more than a period). SPENCER STARKEY MD November 13, 2017 12:07 pm
[2017-11-13] MEDS ORDERED: METR500T PO (12:54)
[2017-11-13] MEDS ORDERED: antibiotic PO (12:54)
[2017-11-24] MEDS ORDERED: ACET-789 PO (13:08)
[2017-11-24] MEDS ORDERED: TRAM-42 PO (13:08)
== END 2017-11-13 12:05 | disposition home or self-care (01) ==
LOC: WS 18:40 → WSo 18:46 → WS 18:48 → WSo 18:48 → WS 11-13 13:15 → WSo 11-13 13:15 → EDSTATUS 11-20 10:02
PROVIDERS: ADMIT Obstetrics & Gynecology; ATTEND Obstetrics & Gynecology
DX: O86.12 Endometritis following delivery (principal)
CPT/HCPCS: 36415; 85025; 86850; 86900; 86901; 96361; 96374; 96375; 96376; 99211; G0378

== ENCOUNTER 2017-11-20 05:38 | Outpatient (CLI) | payer MEDICAID ==
[~2017-11-20] VITALS: Ht 162.6 cm; Wt 71.7 kg
[~2017-11-20 05:38] MED LIST changes: +METR500T PO; +TRAM50TA2 PO; +antibiotic PO
== END 2017-11-20 15:23 ==
LOC: PREOP 05:38
PROVIDERS: ATTEND Obstetrics & Gynecology
DX: Z01.818 Encounter for other preprocedural examination (principal)

== ENCOUNTER 2017-11-24 10:49 | Day surgery (SDC) | payer MEDICAID ==
--- NOTE | 2017-11-20 12:15 | HISTORY AND PHYSICAL ---
DATE OF SERVICE: ADMIT PREOPERATIVE HISTORY AND PHYSICAL DIAGNOSES: Dysmenorrhea, menorrhagia and pelvic pain. HISTORY OF PRESENT ILLNESS: The patient is a 22-year-old G3, P3 white female who has a long history of severe pelvic pain primarily the right side, but also now is experiencing exceedingly heavy menses with large clots and heavy cramping. She has tried the oral contraceptives in the past without any impact on her bleeding. Ultrasound shows significant adenomyosis and bilateral follicular cysts. The right ovary is exceedingly tender/painful on palpation with the ultrasound transducer. The patient has the presumptive diagnosis of endometriosis in addition to ovarian cyst. The patient has expressed concern for her lifetime risk for pelvic cancer including ovarian cancer or particularly ovarian cancer. We have discussed treatment options for her constellation of complaints. As she no longer desires childbearing, plan is for an endometrial ablation to decrease her menstrual blood loss and menstrual symptoms. We will also plan laparoscopy for evaluation and treatment of endometriosis with likely plan to remove her right ovary as that seems to be the source of the bulk of her pain. It is not certain that her appendix is not involved and plan is to remove the appendix at the same time. The patient has requested risk reducing salpingectomy concurrent with the balance of the procedures. We have had a lengthy discussion regarding surgical risks, complications, recovery and followup. The patient understands that laparoscopic treatment for endometriosis is not definitive and is not necessarily curative, although we do expect to improve her symptoms. She understands that endometriosis could recur. She also understands that there are risks with removing the appendix and that the appendix may very well be normal. In spite of that she asked that the appendix specifically be removed concurrent with her surgery. The patient understands that with removing her fallopian tubes, her lifetime risk for pelvic cancer, particularly a cancer that could resemble ovarian cancer would be decreased. She understands that she would not be able to conceive without her fallopian tubes and she is willing to accept that undesired side effect in order to gain the benefit of the risk reducing salpingectomy. All of her questions have been answered and she is prepared to proceed with the surgery on Friday 11/24. ALLERGIES: No medications. MEDICATIONS: P.r.n. Advil. PAST MEDICAL HISTORY: Negative. PAST SURGICAL HISTORY: Negative. GYNECOLOGIC HISTORY: Includes a menstrual formula of . She currently has no formal contraception. Her last Pap smear was 2017 and was normal. FAMILY HISTORY: Negative for breast or [employer] cancers. There is no diabetes in the family. There are some hypertension on the mother side of the family. 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 She denies tobacco, drug or alcohol use and has no history of STDs. REVIEW OF SYSTEMS: As per the HPI. PHYSICAL EXAMINATION: HEENT: Normal. NECK: Supple, no lymphadenopathy, no thyromegaly. ABDOMEN: Soft, nontender, nondistended. There is some palpation tenderness deep on the right side, much-much less so on the left. There is no guarding, rebound or rigidity. EXTREMITIES: Show no clubbing or cyanosis. There is no Homans sign. PELVIC EXAM: Deferred to the operating room. DIAGNOSTIC DATA: Ultrasound performed on 11/12/2017 showed extensive adenomyosis of the uterus. The uterus was quite tender on palpation. There were follicles noted on both ovaries. There was no free fluid. The right ovary was exquisitely sensitive on palpation. ASSESSMENT AND PLAN: Severe dysmenorrhea with severe menorrhagia and chronic pelvic pain in a patient who plans no more future pregnancies and who is requesting specifically treatment to lessen her menstrual cycles just short of proceeding with hysterectomy. Toward that end, we have discussed endometrial ablation in association with a D and C to rule out abnormal pathology. We also planned a laparoscopy for evaluation of pelvic structures for endometriosis or other etiologies for pain with a plan to treat as warranted. Plan may very well include removing the right ovary and removing the appendix. The patient has request for risk reducing salpingectomy and has been counseled extensively for all the surgical risks, complications, recovery and follow up including the benefits and side effects and unintended the consequences of a risk reducing salpingectomy. The patient is planning to have the surgery on . Job ID: [id number] DocumentID: [id number] Dictated Date: 11/20/2017 11:04:34 Fashion Designer Date: 11/20/2017 12:14:48 Dictated By: SPENCER STARKEY MD
[~2017-11-24] VITALS: Ht 162.6 cm; Wt 71.7 kg
[2017-11-24] MEDS ORDERED: ceFAZolin INJECTION 1,000 MG in NS (IVPB) 50 ML IV ONE (11:00)
[2017-11-24] MEDS: LACTATED RINGERS 1,000 ML IV PRN ×3 (11:23→14:54)
[2017-11-24 11:26] VITALS: BP 108/67
[2017-11-24 11:29] LABS: BASOPHILS % (AUTO) 0 % (0-10); EOSINOPHILS # (AUTO) 0.1 10^3/uL (0.0-0.3); EOSINOPHILS % (AUTO) 2 % (0-10); HEMATOCRIT 33 % (35-52); HEMOGLOBIN 10.5 G/DL (11.5-16.0); LYMPHOCYTES # (AUTO) 2.1 X 10^3 (1.0-4.0); LYMPHOCYTES % (AUTO) 33 % (12-44); MEAN CORPUSCULAR HEMOGLOBIN 23 PG (25-34); MEAN CORPUSCULAR HGB CONC 32 G/DL (32-36); MEAN CORPUSCULAR VOLUME 74 FL (80-99); MEAN PLATELET VOLUME 10.4 FL (7.4-10.4); MONOCYTES # (AUTO) 0.7 X 10^3 (0.0-1.0); MONOCYTES % (AUTO) 11 % (0-12); NEUTROPHILS # (AUTO) 3.4 X 10^3 (1.8-7.8); NEUTROPHILS % (AUTO) 54 % (42-75); PLATELET COUNT 350 10^3/uL (130-400); RED BLOOD COUNT 4.52 10^6/uL (4.35-5.85); RED CELL DISTRIBUTION WIDTH 15.8 % (10.0-14.5); WHITE BLOOD COUNT 6.3 10^3/uL (4.3-11.0)
[2017-11-24] MEDS ORDERED: BUP/EPI 0.5% 1:200,000 (SENSORCAINE) 30 ML VIAL ONE (12:04)
[2017-11-24] MEDS ORDERED: MIDAZOLAM 2 MG/2 ML (VERSED) VIAL ONE (12:37)
[2017-11-24] MEDS ORDERED: fentaNYL INJECTION 100 MCG/2 ML AMP ONE (12:37)
--- NOTE | 2017-11-24 13:02 | Progress Note-Pre Operative ---
Pre-Operative Progress Note H&P Reviewed The H&P was reviewed, patient examined and no changes noted. Date Seen by Provider: November 24, 2017 Time Seen by Provider: 13:02 Date H&P Reviewed: November 24, 2017 Time H&P Reviewed: 13:02 Pre-Operative Diagnosis: Chronic pelvic pain/chronic right lower quadrant pain/ dysfunctional uterine SPENCER STARKEY MD November 24, 2017 1:02 pm
[2017-11-24] MEDS ORDERED: D5 LR IV SOLUTION 1,000 ML IV SCH (13:03)
--- NOTE | 2017-11-24 13:03 | Progress Note-Post Operative ---
Post-Operative Progess Note Surgeon (s)/Hand Welt Butter (s) Surgeon SPENCER STARKEY MD Hand Welt Butter: Elvira Shah Pre-Operative Diagnosis Chronic pelvic pain/chronic right lower quadrant pain/DUB Post-Operative Diagnosis Same with pathology pending Procedure & Operative Findings Date of Procedure 11/24/17 Procedure Performed/Findings RSO/LS/appendectomy/GEA/hysteroscopy with D&C Anesthesia Type GETA Estimated Blood Loss Estimated blood loss (mL): Minimal Specimens/Packing Specimens Removed Right fallopian tube, left fallopian tube, and right ovary, appendix, and endometrial curettings Packing: None SPENCER STARKEY MD November 24, 2017 13:03
[2017-11-24] MEDS ORDERED: ACET-789 PO (13:08)
[2017-11-24] MEDS ORDERED: TRAM-42 PO (13:08)
--- NOTE | 2017-11-24 13:10 | Discharge Instructions ---
Discharge Instructions Discharge Medications New, Converted or Re-Newed RX: RX on Chart Patient Instructions Patient Instructions: As directed Return to The Hospital For: As directed Activity & Diet Discharge Diet: No Restrictions Activity as Tolerated: No Orders-Post D/C & Referrals Follow Up Appt: Return to clinic in 1 week for suture removal Call to make follow up appt. for patient in 4 weeks. Activity: Rest for 24 hours, than as tolerated. Wound Care: May remove Band-Aid tomorrow. Replace as desired. Keep incisions clean and dry. Wash daily with soap and water. Diet: As tolerated-Clear Liquids only if nauseated. May shower or tub bathe as desired. No driving for 24 hours, no alcoholic beverages for 24 hours, and nothing per vagina (no tampons, douching, or intercourse) for 2 weeks. Patient to return to the clinic as soon as possible for: Temperature greater than 101F, Severe Pain, Foul discharge from incision or vagina, Excessive Bleeding (more than a period). SPENCER STARKEY MD November 24, 2017 1:10 pm
[2017-11-24] MEDS ORDERED: ROCURONIUM 10 MG/ML 5 ML SYRINGE IV ONE ×2 (13:12→14:21)
[2017-11-24] MEDS ORDERED: MEPERIDINE (DEMEROL) INJ 100 MG/ML IM ONE (13:15)
[2017-11-24] MEDS ORDERED: PROMETHAZINE INJ 25 MG/ML (PHENERGAN) AMP IM ONE (13:15)
[2017-11-24] MEDS ORDERED: ONDANSETRON 4 MG/2 ML (SDV) Z0FRAN IVP PRN ×2 (13:15→15:30)
[2017-11-24] MEDS ORDERED: APAP 300 MG/CODEINE 30 MG (TYLENOL #3) TAB PO PRN (13:15)
[2017-11-24] MEDS ORDERED: KETOROLAC 30 MG/ML VIAL IVP ONE (13:15)
[2017-11-24] MEDS ORDERED: KETOROLAC 30 MG/ML VIAL ONE (14:18)
[2017-11-24] MEDS ORDERED: morphine INJ 10 MG/ML 1ML (SYR OR VIAL) ONE ×2 (14:19→14:22)
[2017-11-24] MEDS ORDERED: SEVOFLURANE (ULTANE) 15 ML INHAL SOLN ONE ×6 (14:21→15:05)
[2017-11-24] MEDS ORDERED: ONDANSETRON 4 MG/2 ML (SDV) Z0FRAN ONE (14:21)
[2017-11-24] MEDS ORDERED: LIDOCAINE JELLY 2% (XYLOCAINE) 5 ML TUBE ONE (14:21)
[2017-11-24] MEDS ORDERED: proPOfol 200 MG/20 ML (DIPRIVAN) VIAL IV ONE (14:21)
[2017-11-24] MEDS ORDERED: LIDOCAINE PF 2% 5 ML (XYLOCAINE) VIAL ONE (14:21)
[2017-11-24] MEDS ORDERED: HYDROmorphone 1 MG/ML (DILAUDID) 1 ML SYRINGE IV PRN (15:30)
[2017-11-24] MEDS: morphine INJ 10 MG/ML 1ML (SYR OR VIAL) IVP PRN ×2 (15:30→15:35)
[2017-11-24 16:10] VITALS: BP 104/59
[2017-11-24] MEDS ORDERED: APAP 300 MG/CODEINE 30 MG (TYLENOL #3) TAB PO ONE (16:35)
[2017-11-24 16:40] VITALS: BP 109/56
--- NOTE | 2017-11-24 16:56 | Anesthesia-General Post-Op ---
General Patient Condition Mental Status/LOC: Same as Preop Cardiovascular: Satisfactory Nausea/Vomiting: Absent Respiratory: Satisfactory Pain: Controlled Complications: Absent Post Op Complications Complications None Follow Up Care/Instructions Patient Instructions None needed. Anesthesia/Patient Condition Patient Condition Patient is doing well, no complaints, stable vital signs, no apparent adverse anesthesia problems. No complications reported per nursing. ALVARO MCMAHAN CRNA November 24, 2017 16:56
[2017-11-24 17:15] VITALS: BP 103/58
[2017-11-24 17:37] VITALS: BP 103/58
--- NOTE | 2017-11-24 23:39 | OPERATIVE REPORT ---
DATE OF SERVICE: 11/24/2017 PREOPERATIVE DIAGNOSES: Chronic pelvic pain primarily in the right lower quadrant as well as menorrhagia and dysmenorrhea. POSTOPERATIVE DIAGNOSES: Chronic pelvic pain primarily in the right lower quadrant as well as menorrhagia and dysmenorrhea with endometriosis with pelvic adhesions involving the right ovary and the appendix as well as adenomyosis. OPERATIVE PROCEDURE: Hysteroscopy with D and C and GEA using the rollerball as well as laparoscopic RSO, laparoscopic left salpingectomy, laparoscopic destruction of endometriosis and laparoscopic appendectomy. OPERATIVE DESCRIPTION: With the patient in the supine position under satisfactory general anesthesia, she was repositioned in dorsal lithotomy position in the [facility] and prepped and draped in the usual fashion for abdominal and vaginal surgery. Urinary bladder was drained via William catheter. A weighted speculum was placed in posterior fornix of vagina, cervix exposed and grasped anteriorly with single-tooth tenaculum. Uterus was sounded to 11 cm with uterine sound. Cervix then serially dilated with Brandon dilators to accommodate a resectoscope, which was introduced and the endometrial cavity was examined. It was quite hyperplastic appearing. The endometrial cavity was sharply curettaged with removal of large amount of endometrial appearing tissue and some polypoid-appearing tissue as well. The endometrial cavity was then reexamined and endometrial ablation was performed destroying the entire endometrial cavity lining up to both tubal ostia and down to the internal cervical os. The distending medium was glycine; total of 3700 mL of glycine was used; 3000 mL was recovered. The balance mostly was lost on the drapes and the floor, possibly several 100 mL retained in the patient. The blood loss was pretty minimal for that portion of the procedure. The hysteroscope was removed after completion of endometrial ablation and confirmation of a good thermal artifact. The tenaculum was removed. It was noted there was a laceration on the anterior lip of the cervix from the tenaculum. This was repaired with a running lock suture of 3-0 Vicryl Rapide. HUMI manipulator was now placed; the bulb was filled with 4 mL of air. The patient was brought in low dorsal lithotomy position. A 5 mm incision was made in the patient's left upper quadrant, 12 mm incision in the inferior margin of the umbilicus and then a 5 mm incision suprapubically. All incision sites were infiltrated with 0.25% Marcaine with epinephrine prior to incision. Veress needle was placed in the left upper quadrant incision. Correct placement confirmed with water drop test. The abdomen was insufflated with 2.4 liters of carbon dioxide. Then, the Veress needle was removed and a 5 mm Optiview laparoscopic port was placed under direct vision through the left upper quadrant incision. The patient was placed in Trendelenburg. The abdominal wall was transilluminated and a 12 mm port was placed in the umbilical incision and a 5 mm port suprapubically. The pelvis was first examined. The uterus was quite mottled in appearance consistent with adenomyosis. The right ovary was densely adherent to the ovarian fossae with obvious endometriosis implants in the ovarian fossae. Both fallopian tubes were somewhat tortuous and Fibrotic appearance consistent with possible endometriosis. The left ovary had several cysts, otherwise appeared normal, although there were endometriosis implants in the left ovarian fossae and in the cul-de-sac. Laparoscope was rotated. The appendix was identified, it was a vermiform appendix that was tortuous and indurated and distorted in shape and appearance and adherent to the terminus of the right paracolic gutter. The laparoscope was brought back to the pelvis. First, the right ovary was freed from its adhesions and then Endo-CAR was placed across the IP ligament and mesovarium and fired a second firing across the balance of the mesovarium to allow for removal of the fallopian tube and the ovary. Once an Endoloop had been placed across the base of the fallopian tube and the base of the utero-ovarian pedicle when that was secured and the specimen was resected sharply. The left fallopian tube was elevated. The Endo-CAR was fired across the mesosalpinx and then cautery was used to free the base of the balance of the mesosalpinx and then an Endoloop was placed across the base of the fallopian tube and then the fallopian tube was resected sharply as well. Left fallopian tube was brought out through the 12 mm port. The right tube and ovary were left in the cul-de-sac awaiting removal at the same time. The appendix was now grasped and elevated. The mesoappendix was divided over to the base of the appendix. There were adhesions of the small bowel to the mesoappendix. These were taken down with very careful dissection freeing the bowel. The adhesions of the appendix itself to the pericolic gutter were free and then an Endo GI was placed across the base of the appendix and fired severing the appendix from its attachments. The appendix and the right tube and ovary were placed in an Endobag and brought out through the umbilical incision and sent to pathology labeled separately and appropriately. The stump of the appendix was copiously irrigated and treated with several drops of Betadine solution. The pelvis was examined for hemostasis. There was some bleeding along the staple lines. These were touched with electrocautery to effect complete hemostasis. The endometriosis in both ovarian fossae and in the cul-de-sac were touched with electrocautery to destroy them. Both ureters were seemed to peristalse and were well away from the areas of dissection and cauterization. With all of the abnormal pathology dealt with except for an adhesion of the sigmoid in the left lower quadrant, which was taken down with careful dissection with electrocautery and sharp dissection. The entire surgical area was examined for hemostasis. There was no remaining abnormal pathology at this point. Sponge and needle counts were correct and the procedure was terminated. The operative instruments were removed under direct vision as were the ports. The abdomen was evacuated and insufflating gas in the process of removing the ports. Sponge and needle counts were correct. Estimated blood loss was minimal for the entire procedure. Sponge and needle counts were correct at the end of the procedure. The skin incisions were closed with 3-0 nylon sutures. The fascia at the umbilical incision was closed with [id number] suture of 2-0 Vicryl. The uterine manipulator bulb was drained. The instruments were removed from the uterus and from the vagina. Speculum was replaced in the vagina and the cervix was exposed for hemostasis, which was complete. There was no bleeding from the cervical os and no bleeding from the repair on the anterior cervix. Again, now with sponge and needle counts correct, hemostasis assured. The patient was uneventfully awakened from general anesthesia and transferred to the recovery room in stable condition. Job ID: [id number] DocumentID: [id number] Dictated Date: 11/24/2017 15:12:13 Solar Installer Date: 11/24/2017 23:38:07 Dictated By: SPENCER STARKEY MD MTDD
== END 2017-11-24 17:30 | disposition home or self-care (01) ==
LOC: SDC 10:49
PROVIDERS: ATTEND Obstetrics & Gynecology
DX: N83.01 Follicular cyst of right ovary (principal); N73.6 Female pelvic peritoneal adhesions (postinfective); N80.1 Endometriosis of ovary; N80.5 Endometriosis of intestine; N80.0 Endometriosis of uterus; K37 Unspecified appendicitis; F41.9 Anxiety disorder, unspecified
CPT/HCPCS: 36415; 84703; 85025; 87081; 88304; 88305

== ENCOUNTER 2018-10-02 22:26 | Emergency (ER) | payer MEDICAID ==
[~2018-10-02] VITALS: Ht 165.1 cm; Wt 72.6 kg
[~2018-10-02 22:26] MED LIST changes: +TRAM-42 PO
--- NOTE | 2018-10-03 01:13 | ED Headache ---
General Chief Complaint: Head/Cervical Problems Stated Complaint: MIGRAINE, NAUSEA Nursing Sepsis Screen: No Definite Risk Source: patient History of Present Illness Date Seen by Provider: Oct 03, 2018 Time Seen by Provider: 01:13 Initial Comments 23-year-old female presenting with headache and nausea. She states that since starting a new medicine to try and help with her endometriosis pain she has been feeling anxious as well as having recurrent headaches. She feels that she' s been having a lot of side effects from the medicine and plans to speak with Dr. Starkey about it. However with this being Friday afternoon and evening she was unable to do anything other than come to the emergency department when home medication was not working. She states that she does not usually get migraine headaches. She has tried taking some home medicine as well as over-the- counter medicine with no effect. She primarily has the headache on the right side of her head and face. She did have some dizziness especially affecting her right eye. She denies having the endometrial pain currently. This migraine headache has been going on since noon today. Allergies and Home Medications Allergies Coded Allergies: metoclopramide (Verified Allergy, Unknown, 10/02/18) Home Medications Acetaminophen with Codeine 1 Each Tablet, 1-2 EACH PO Q4H Prescribed by: SPENCER MTZ on 11/24/17 1308 Tramadol HCl 50 Mg Tablet, 50 MG PO Q6H Prescribed by: SPENCER MTZ on 11/24/17 1308 Patient Home Medication List Home Medication List Reviewed: Yes Review of Systems Review of Systems Constitutional: see HPI, dizziness, malaise Eyes: Photophobia (especially with the right eye) Ears, Nose, Mouth, Throat: denies nose pain, denies nose discharge, denies epistaxis Respiratory: No cough, No short of breath Cardiovascular: No chest pain Gastrointestinal: nausea; No vomiting Genitourinary: No dysuria, No frequency : No (had an ablation December 2017) Musculoskeletal: no symptoms reported Skin: no symptoms reported Psychiatric/Neurological: Anxiety (associated with taking this new medicine) Past Pqutpzw-Obhdlq-Eqwoeu Hx Past Med/Social Hx: Reviewed Nursing Past Med/Soc Hx Patient Social History 2nd Hand Smoke Exposure: No Recent Foreign Travel: No Contact w/Someone Who Travel: No Recent Infectious Disease Expo: No Recent Hopitalizations: No Physical Abuse: No Sexual Abuse: No Mistreated: No Fear: No Immunizations Up To Date Tetanus Booster (TDap): Unknown Date of Influenza Vaccine: May 06, 2017 Seasonal Allergies Seasonal Allergies: No Past Medical History Surgeries: No Respiratory: No Cardiac: No Neurological: No Reproductive Disorders: Yes (CPP,DUB) Female Reproductive Disorders: Menstrual Problems, Endometriosis 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 Sexually Transmitted Disease: No HIV/AIDS: No Genitourinary: No Gastrointestinal: Yes (hyperemesis gravidarum) Musculoskeletal: No Endocrine: No HEENT: No Loss of Vision: Bilateral Hearing Impairment: Denies Cancer: No Psychosocial: No Anxiety, Depression Integumentary: No Blood Disorders: No Adverse Reaction/Blood Tranf: No (N/A) Family Medical History Hypertension 19 MOTHER No Pertinent Family Hx Physical Exam Vital Signs Vital Signs - First Documented 10/02/18 23:15 Temp 98.0 Pulse 84 Resp 16 B/P (MAP) 113/85 (94) Pulse Ox 100 O2 Delivery Room Air Capillary Refill : Less Than 3 Seconds Height, Weight, BMI Height: 5'5.00" Weight: 160lbs. 0.0oz. [id number]; 27.1 BMI Method:Stated General Appearance: WD/WN, mild distress HEENT: PERRL/EOMI, normal ENT inspection, TMs normal, pharynx normal Neck: non-tender, full range of motion, supple, normal inspection Cardiovascular: normal peripheral pulses, regular rate, rhythm Respiratory: chest non-tender, lungs clear, normal breath sounds, no respiratory distress, no accessory muscle use Gastrointestinal: normal bowel sounds, non tender, soft, no pulsatile mass Back: normal inspection, no CVA tenderness Extremities: normal range of motion, normal inspection, no pedal edema Psychiatric: alert, oriented x 3 Crainal Nerves: PERRL Motor/Sensory: no motor deficit, no sensory deficit Skin: normal color, warm/dry Progress/Results/Core Measures Results/Orders My Orders Orders - ELIZABETH MUNSON MD Iv Heplock-Insert (Order) (10/03/18 01:29) Ns Iv 1000 Ml (Sodium Chloride 0.9%) (10/03/18 01:30) Ketorolac Injection (Toradol Injection) (10/03/18 01:30) Diphenhydramine Injection (Benadryl Inje (10/03/18 01:30) Ondansetron Injection (Zofran Injectio (10/03/18 01:30) Medications Given in ED Current Medications Medications Dose Ordered Sig/Gayla Route Start Time Stop Time Status Last Admin Dose Admin Diphenhydramine HCl 25 mg ONCE ONCE IVP 10/03/18 01:30 10/03/18 01:32 DC 10/03/18 01:43 25 MG Ketorolac Tromethamine 30 mg ONCE ONCE IVP 10/03/18 01:30 10/03/18 01:32 DC 10/03/18 01:41 30 MG Ondansetron HCl 4 mg ONCE ONCE IVP 10/03/18 01:30 10/03/18 01:32 DC 10/03/18 01:41 4 MG Vital Signs/I&O 10/02/18 23:15 Temp 98.0 Pulse 84 Resp 16 B/P (MAP) 113/85 (94) Pulse Ox 100 O2 Delivery Room Air Blood Pressure Mean: 94 Progress Progress Note #1: Time: 01:30 Progress Note Will try IV fluids with Toradol, Benadryl, Zofran and see how she responds. Encouraged patient to check back with her Link Trainer Mechanic about a different alternative medicine for her endometrial pain Progress Note #2: Time: 02:15 Progress Note Medicines infused and fluids are done. Pt reports symptoms much better and headache essentially resolved. Will have her check back with clinic and Dr. Starkey about med and alternatives and how to stop the med if it has to be tapered or not. Departure Impression Primary Impression: Migraine Qualified Codes: G43.019 - Migraine without aura, intractable, without status migrainosus Disposition: HOME, SELF-CARE Condition: Improved Departure-Patient Inst. Referrals: SPENCER STARKEY MD (PCP/Family) Primary Care Physician Patient Instructions: Migraine Headache (DC) Add. Discharge Instructions: Check back with Dr. Starkey about the medicine and what alternatives you could have for the endometriosis pain. Also see what he says about stopping the medicine and if you need to taper off of the medicine or if you can just stop it. All discharge instructions reviewed with patient and/or family. Voiced understanding. ELIZABETH MUNSON MD Oct 03, 2018 01:13
--- NOTE | 2018-10-03 01:29 | NUR ---
DOCTOR MUNSON WITH THE PATIENT.
[2018-10-03] MEDS ORDERED: NS IV 1000 ML 1,000 ML IV SCH (01:30)
[2018-10-03] MEDS ORDERED: ONDANSETRON 4 MG/2 ML (SDV) Z0FRAN IVP ONE (01:30)
[2018-10-03] MEDS ORDERED: diphenhydrAMINE 50 MG/ML INJ (BENADRYL) IVP ONE (01:30)
[2018-10-03] MEDS ORDERED: KETOROLAC 30 MG/ML VIAL IVP ONE (01:30)
[2018-10-03 02:22] VITALS: BP 110/74
== END 2018-10-03 02:24 | disposition home or self-care (01) ==
LOC: EDUNIT# 22:26 → ER FS 22:27
DX: G43.909 Migraine, unspecified, not intractable, without status migrainosus (principal); F41.9 Anxiety disorder, unspecified; F32.9 Major depressive disorder, single episode, unspecified; Z88.8 Allergy status to other drugs, medicaments and biological substances; Z87.448 Personal history of other diseases of urinary system

== ENCOUNTER 2018-10-08 08:50 | Outpatient (CLI) | payer MEDICAID ==
[~2018-10-08] VITALS: Ht 165.1 cm; Wt 73.6 kg
[2018-10-08 09:13] VITALS: BP 107/67
[2018-10-08 09:45] LABS: BASOPHILS % (AUTO) 0 % (0-10); EOSINOPHILS # (AUTO) 0.1 10^3/uL (0.0-0.3); EOSINOPHILS % (AUTO) 2 % (0-10); HEMATOCRIT 37 % (35-52); HEMOGLOBIN 12.3 G/DL (11.5-16.0); LYMPHOCYTES # (AUTO) 1.6 X 10^3 (1.0-4.0); LYMPHOCYTES % (AUTO) 26 % (12-44); MEAN CORPUSCULAR HEMOGLOBIN 28 PG (25-34); MEAN CORPUSCULAR HGB CONC 34 G/DL (32-36); MEAN CORPUSCULAR VOLUME 83 FL (80-99); MEAN PLATELET VOLUME 10.8 FL (7.4-10.4); MONOCYTES # (AUTO) 0.6 X 10^3 (0.0-1.0); MONOCYTES % (AUTO) 10 % (0-12); NEUTROPHILS # (AUTO) 3.9 X 10^3 (1.8-7.8); NEUTROPHILS % (AUTO) 62 % (42-75); PLATELET COUNT 263 10^3/uL (130-400); RED CELL DISTRIBUTION WIDTH 13.6 % (10.0-14.5); WHITE BLOOD COUNT 6.3 10^3/uL (4.3-11.0)
== END 2018-10-08 11:07 | disposition home or self-care (01) ==
LOC: PREOP 08:50
PROVIDERS: ATTEND Obstetrics & Gynecology
DX: Z01.812 Encounter for preprocedural laboratory examination (principal); N80.0 Endometriosis of uterus; N81.2 Incomplete uterovaginal prolapse; D64.9 Anemia, unspecified; Z11.2 Encounter for screening for other bacterial diseases
CPT/HCPCS: 36415; 85025; 86850; 86900; 86901; 87081

== ENCOUNTER 2018-10-14 11:10 | Day surgery (SDC) | payer MEDICAID ==
[~2018-10-14] VITALS: Ht 165.1 cm; Wt 73.6 kg
[2018-10-14 11:25] VITALS: BP 103/67
[2018-10-14] MEDS ORDERED: ceFAZolin INJECTION 1,000 MG ONE ×2 (11:27→13:54)
[2018-10-14] MEDS ORDERED: ceFAZolin INJECTION 1,000 MG in WATER (STERILE) FOR INJECTION 10 ML IV ONE ×2 (11:30→14:30)
[2018-10-14] MEDS ORDERED: BUP/EPI 0.25% 1:200,000 (MARCAINE) 10 ML VIAL IJ ONE ×2 (11:56→11:58)
[2018-10-14] MEDS ORDERED: BUP/EPI 0.5% 1:200,000 (SENSORCAINE) 30 ML VIAL ONE (11:57)
[2018-10-14] MEDS ORDERED: MIDAZOLAM 2 MG/2 ML (VERSED) VIAL ONE (12:03)
[2018-10-14] MEDS ORDERED: LIDOCAINE PF 2% 5 ML (XYLOCAINE) VIAL ONE (12:03)
[2018-10-14] MEDS ORDERED: fentaNYL INJECTION 100 MCG/2 ML AMP ONE (12:03)
[2018-10-14] MEDS ORDERED: SEVOFLURANE (ULTANE) 15 ML INHAL SOLN ONE ×4 (12:03→13:54)
[2018-10-14] MEDS ORDERED: proPOfol 200 MG/20 ML (DIPRIVAN) VIAL IV ONE (12:03)
[2018-10-14] MEDS ORDERED: ONDANSETRON 4 MG/2 ML (SDV) Z0FRAN ONE ×2 (12:03→14:19)
[2018-10-14] MEDS ORDERED: DEXAMETHASONE 10 MG/ML (DECADRON) 1 ML VIAL ONE (12:03)
[2018-10-14] MEDS ORDERED: ROCURONIUM 10 MG/ML 5 ML SYRINGE IV ONE (12:03)
[2018-10-14] MEDS: LACTATED RINGERS 1,000 ML IV PRN ×2 (12:15→12:26)
[2018-10-14] MEDS ORDERED: D5 LR IV SOLUTION 1,000 ML IV SCH (12:31)
--- NOTE | 2018-10-14 12:34 | Progress Note-Pre Operative ---
Pre-Operative Progress Note H&P Reviewed The H&P was reviewed, patient examined and no changes noted. Date Seen by Provider: Oct 14, 2018 Time Seen by Provider: 12:34 Date H&P Reviewed: Oct 14, 2018 Time H&P Reviewed: 12:34 Pre-Operative Diagnosis: cpp/ ENDOMETRIOSIS SPENCER STARKEY MD Oct 14, 2018 12:34
--- NOTE | 2018-10-14 12:35 | Progress Note-Post Operative ---
Post-Operative Progess Note Surgeon (s)/Prop Sawyer (s) Surgeon SPENCER STARKEY MD Prop Sawyer: Pablo SIEGEL Pre-Operative Diagnosis cpp/ ENDOMETRIOSIS Post-Operative Diagnosis same with recurrent endometriosis and pelvic adhesions and with path pending Procedure & Operative Findings Date of Procedure 10/14/18 Procedure Performed/Findings TLH/LO Anesthesia Type GETA Estimated Blood Loss Estimated blood loss (mL): Minimal Specimens/Packing Specimens Removed Uterus and left ovary Packing: None SPENCER STARKEY MD Oct 14, 2018 12:35
[2018-10-14] MEDS ORDERED: MEPERIDINE (DEMEROL) INJ 100 MG/ML IM PRN (12:45)
[2018-10-14] MEDS ORDERED: PROMETHAZINE INJ 25 MG/ML (PHENERGAN) AMP IM PRN (12:45)
[2018-10-14] MEDS ORDERED: WATER (STERILE) FOR INJ 10 ML BTL INJ ONE (12:45)
[2018-10-14] MEDS ORDERED: ONDANSETRON 4 MG/2 ML (SDV) Z0FRAN IVP PRN ×2 (12:45→14:30)
[2018-10-14] MEDS ORDERED: oxyCODONE/APAP 5/325MG (PERCOCET 5) TABLET PO PRN (12:45)
[2018-10-14] MEDS ORDERED: ESTROGENS CONJ IV 25 MG/5 ML (PREMARIN) VIAL IVP ONE (12:45)
[2018-10-14] MEDS ORDERED: GLYCOPYRROLATE 0.2 MG/ML (ROBINUL) 2 ML VIAL ONE (13:54)
[2018-10-14] MEDS ORDERED: NEOSTIGMINE 1 MG/ML 5 ML SYRINGE ONE (13:54)
[2018-10-14] MEDS ORDERED: MEPERIDINE (DEMEROL) INJ 50 MG/ML ONE (14:19)
[2018-10-14] MEDS ORDERED: morphine INJ 10 MG/ML 1ML (SYR OR VIAL) ONE (14:19)
[2018-10-14] MEDS ORDERED: ORTHO EVRA (14:30)
[2018-10-14] MEDS ORDERED: MEPERIDINE (DEMEROL) INJ 50 MG/ML IVP ONE (14:30)
[2018-10-14] MEDS ORDERED: morphine INJ 10 MG/ML 1ML (SYR OR VIAL) IVP ONE (14:30)
[2018-10-14] MEDS ORDERED: DOCU100C37 PO (14:30)
[2018-10-14] MEDS ORDERED: OXYC1TAB87 PO (14:30)
[2018-10-14] MEDS ORDERED: HYDROmorphone 2 MG/ML VIAL (DILAUDID) IV ONE (14:30)
[2018-10-14] MEDS ORDERED: IBUP-1780 PO (14:30)
--- NOTE | 2018-10-14 14:32 | Discharge Instructions ---
Discharge Instructions Discharge Medications New, Converted or Re-Newed RX: RX on Chart Patient Instructions Patient Instructions: As directed Return to The Hospital For: As directed Activity & Diet Discharge Diet: No Restrictions Activity as Tolerated: No Orders-Post D/C & Referrals Follow Up Appt: Return to clinic on Friday, October 16, 2018 at 930 a.m. for staple removal Call to make follow up appt. for patient in 4 weeks. Activity: Rest for 24 hours, than as tolerated. Wound Care: May remove Band-Aid tomorrow. Replace as desired. Keep incisions clean and dry. Wash daily with soap and water. Please call in RX to patient pharmacy. Diet: As tolerated-Clear Liquids only if nauseated. shower or tub bathe as desired. No driving for 24 hours, no alcoholic beverages for 24 hours, and nothing per vagina (no tampons, douching, or intercourse) for 8 weeks. Patient to return to the clinic as soon as possible for: Temperature greater than 101F, Severe Pain, Foul discharge from incision or vagina, Excessive Bleeding (more than a period). SPENCER STARKEY MD Oct 14, 2018 14:32
[2018-10-14] MEDS ORDERED: KETOROLAC 30 MG/ML VIAL ONE (14:37)
[2018-10-14] MEDS ORDERED: CATHETER FLUSH 10 ML SYR IV PRN (15:00)
--- NOTE | 2018-10-14 15:20 | NUR ---
Pt to room 305 via bed accompanied by PACU staff. Report rec'd from Judie Bal RN. To room, introduced self to pt and s.o. Pt writhing in pain, c/o pain 04/22. Oriented x4. Assessment completed, VS taken, SCD's on and activated. William patent and draining clear yellow urine to dependent drainage. S.o. at bedside. Will return for pain medication admin.
[2018-10-14 15:35] VITALS: BP 109/58
--- NOTE | 2018-10-14 16:00 | NUR ---
S.O. called RN to pt room. Continuous pulse ox monitoring on from demerol and phenergan admin. Pt Spo2 73% upon RN entering room. Pt breathing shallow and slow, appearing dusky. Pulse noted to be low 100's, confirmed by palpation. Pt groaned upon sternal rub. RN called for assistance and nasal cannula and mask obtained. NC rec'd first and applied at 10L, instant increase in Spo2 to 100%. FIO2 quickly weaned to 2L with Spo2 remaining at 100% throughout. Pt noted to be breathing around 14times/min. Continuous monitoring remains on. S.O. instructed to call RN with any changes, verbalizes understanding. RT notified of need for end tidal CO2 monitoring. 1617 Dr. Dowling called and notified of event. No new orders rec'd at this time.
[2018-10-14 16:05] VITALS: BP 112/69
[2018-10-14 16:45] VITALS: BP 108/66
--- NOTE | 2018-10-14 16:45 | NUR ---
Pt weaned to 1L at this time, Spo2 remains at 100%, end tidal Co2 45
[2018-10-14 17:29] VITALS: BP 119/74
--- NOTE | 2018-10-14 17:29 | NUR ---
Spo2 remains 100%, supplemental O2 off, pt on RA at this time. Spo2 remains 99% and above, end tidal co2 42, will continue to monitor.
--- NOTE | 2018-10-14 17:54 | OPERATIVE REPORT ---
DATE OF SERVICE: 10/14/2018 PREOPERATIVE DIAGNOSES: Chronic pelvic pain, history of endometriosis. POSTOPERATIVE DIAGNOSES: Chronic pelvic pain, history of endometriosis with recurrent endometriosis and pelvic adhesions. OPERATIVE PROCEDURE: Total laparoscopic hysterectomy with left oophorectomy, adhesiolysis and destruction of endometriosis implants. OPERATIVE DESCRIPTION: With the patient in the supine position under satisfactory general anesthesia, she was prepped and draped in the usual fashion for abdominal and vaginal surgery using robotic assistance after being repositioned in dorsal lithotomy position in the [facility]. A weighted speculum was placed in the posterior fornix of vagina, cervix exposed and grasped anteriorly with single tooth tenaculum. Uterus was sounded to 9 cm with uterine sound. The uterus then was felt to have perforated. There was no significant bleeding noted at this point. The cervix was dilated to accommodate a Geeta II manipulator and that instrument was placed carefully and the bulb filled with 8 mL of water. Sutures of #1 Vicryl placed at 3 and 9 o'clock position of the cervix to affix it to the Geeta II manipulator, which was then placed with a 6 mm x 8 cm uterine probe and a 30 mm colpotomy ring. William catheter was placed in the urinary bladder and left to dependent drainage. The patient was brought in low dorsal lithotomy position after removing the tenaculum and the speculum. A 12 mm incision was made just superior to the umbilicus, 8 mm incision was made 8 cm lateral to the umbilicus. Veress needle was placed in the midline incision, correct placement confirmed with water drop test. The abdomen was insufflated with 2.4 liters of carbon dioxide and then Veress needle was removed and a 12 mm Optiview laparoscopic port was placed. 8 mm ports were placed through the lateral incisions. All the incision sites were infiltrated with 0.25% Marcaine with epinephrine prior to incision. The patient was now placed in Trendelenburg allowing the bowel to spill out of the pelvis and then the da Sonia column was advanced on the patient and docked. I retired to the da Sonia console after placing operative instruments in the right and left lateral ports. On the console, the pelvis was first examined. The left ovary was present and did show evidence of endometriosis. The uterus was quite mottled in appearance consistent with adenomyosis. There was endometriosis implants in both ovarian fossae and in the cul-de-sac and on the bladder dome. There were adhesions to the left ovary and to the pelvic side wall. There were adhesions of the sigmoid to the left pelvic brim over the IP ligament. Laparoscope was rotated. The appendix was surgically absent. The upper abdomen appeared normal. Laparoscope was brought back to the pelvis. It was evident that there was a small perforation in the center line at the apex of the uterus. This had bled just a few milliliters of blood, but nothing significant and no other organs have been disturbed when that occurred. Using a vessel sealer on the right and a bipolar fenestrated grasper on the left, the right broad ligament was grasped and elevated and resected close to the sides of the pelvis to remove the tissue that contained the jared from her RSO that had been done remotely as well as the remaining endometriosis implants on these broad ligament leaves. That was continued down across the round ligament and across the pelvic broad ligament to the side of the uterus and then down on to the cardinal ligament. The right ureter was seemed to peristalse well away from the area of dissection. Same procedure was performed on the left after first identifying the left ureter and then taking down the adhesions of the sigmoid to the left pelvic brim. The left tube and ovary were elevated. The IP ligament was clamped, cauterized and divided that was continued across the mesovarium to the round ligament, across the broad ligament to try to include all of the damaged endometriosis containing tissue as was feasible. The broad ligament was resected across to the side of the uterus and then down on the cardinal ligament. The vessel sealer was now replaced with a monopolar shear and the uterus was retroverted to expose the anterior lower uterine segment. The peritoneum was divided across the lower uterine segment and the bladder was carefully dissected down off the uterine segment. Colpotomy incision was started at the 12 o'clock position onto the colpotomy ring. That incision was continued circumferentially until the entire colpotomy was exposed ensuring sealing with cautery of any vessels encountered along the way. With the uterus freed, it was extracted through the vagina with the left ovary still attached. The vaginal cuff was closed with two sutures of V-Loc barbed suture starting first on the right angle and continuing almost to the left angle and then starting from the left angle and continued to bring the peritoneum back down on the cuff with the second suture. Both ureters were identified peristalsing before, during and at this point in the procedure well. The uterine vessels were secured with the initial suture placement on each side to ensure hemostasis. The pelvis was now examined. There were endometrial implants as previously noted. This was above the ovarian fossae and cul-de-sac and on the left pelvic brim and the bladder dome and anterior parietal peritoneum. These were all touched with electrocautery using the monopolar shear to destroy the endometriosis implants. With that done, both ureters were identified peristalsing and normal in caliber. No evidence of obstruction or injury there too and no bleeding and no remaining abnormal pathology. The procedure was terminated. The operative instruments were removed under direct vision as were the ports. The abdomen was evacuated of the insufflating gas in the process of removing the ports. The skin incisions were stapled after closing the fascia at the supraumbilical incision with [id number] suture of 2-0 Vicryl. Speculum was replaced in the vagina. The vaginal cuff was examined and it was completely hemostatic and completely reapproximated. Good support was evident. It is noted that the light handle right or the upper light had been removed due to contamination during the case being aware that I had grasped the light handle and then used that to handle the suture, that suture was that I used in the fascia at the supraumbilical incision, that suture was removed before being tied and clean gloves were applied and cleaned suture and instruments were used to close the fascia. The patient was given another dose of Ancef secondary to the potential for some contamination. The patient tolerated the procedure well. Sponge and needle counts were correct. Estimated blood loss was minimal. The patient was uneventfully awakened from general anesthesia and transferred to recovery room in stable condition. Job ID: [id number] DocumentID: [id number] Dictated Date: 10/14/2018 14:02:39 Internet Merchant Date: 10/14/2018 17:54:31 Dictated By: SPENCER STARKEY MD
--- NOTE | 2018-10-14 20:15 | NUR ---
to bedside, pt c/o of pain, rn to room 10min prior and pt would alert to voice but was difficult to keep awake, breathing on own, co2 monitor shows 41, spo2 97% on RA, heart rate ranges from 102-108. Currently pt can carry conversation with physician, orders for tordol iv now, see emar. Physician cautions use of narcotics with her current state of being rested, further poc reviewed, understanding voiced by pt. Will cont to monitor. Physician gives verbal orders for fentanyl 25mcg q1hr prn for pain. Orders updated.
[2018-10-14] MEDS: KETOROLAC 30 MG/ML VIAL IVP SCH (20:25)
[2018-10-14 21:51] VITALS: BP 101/57
[2018-10-14] MEDS: fentaNYL INJECTION 100 MCG/2 ML AMP IVP PRN (21:52)
--- NOTE | 2018-10-14 22:11 | NUR ---
Upon rounding to f/u with pain medication administration, pt opens eyes, when asked how pain is pt falls back asleep. S/O at bedside states shes been asleep the entire time. Spo2 97%, co2 38, heart rate 100, respiratory rate 16. Will cont to monitor.
[2018-10-15 01:20] VITALS: BP 103/60
[2018-10-15] MEDS: fentaNYL INJECTION 100 MCG/2 ML AMP IVP PRN ×2 (01:25→04:04)
[2018-10-15] MEDS: KETOROLAC 30 MG/ML VIAL IVP SCH (03:18)
[2018-10-15] MEDS ORDERED: SIMETHICONE 80 MG (MYLICON) CHEW ONE (03:47)
--- NOTE | 2018-10-15 03:56 | NUR ---
pt requesting demerol inj, rn reviewed care plan and fentanyl administration, plan to have warehouse technician bring food and attempt Percocet. 5 min pass, pt rings tearful asking rn to call doctor, rn palpates soft tender abd, when questioning pt, pt reports sharp pain in ruq below R breast, gas pain explained to pt, hips offset using pillow, pt reports mild relief, mylicon chew admin, see emar. Plan to admin fentanyl and assist pt with ambulating in halls.
[2018-10-15 04:13] VITALS: BP 93/54
--- NOTE | 2018-10-15 04:20 | NUR ---
Pt ambulates standby assist x1 lap around pp unit, tolerated well, pt back to bed, pt to eat food for percocet admin as iv is to be d/c'd approx 0600. Pt pain tolerable at this time.
--- NOTE | 2018-10-15 04:45 | NUR ---
Pt eats cold tray of sandwich, apple sauce and chips, tolerates well. Requesting percocet at this time, rn reviewed poc to try and time po narcotic pain management closer to time of iv removal for continued pain control, pt voiced understanding.
--- NOTE | 2018-10-15 06:30 | NUR ---
cath and iv removal, see int. Pt reports pain better managed with percocet than fentanyl.
--- NOTE | 2018-10-15 07:39 | Progress Note-Standard ---
Standard Progress Note Progress Notes/Assess & Plan Date Seen by a Provider: Oct 15, 2018 Time Seen by a Provider: 07:38 Progress/Assessment & Plan Patient without complaint. She is ablating, voiding, tolerating oral intake. Patient has adequate pain control but does complain of feeling uncomfortable long. Chest pain, denies shortness breath, denies nausea vomiting and denies headache. Vital Signs Date Time Temp Pulse Resp B/P (MAP) Pulse Ox O2 Delivery O2 Flow Rate FiO2 10/15/18 04:13 98.4 63 18 93/54 (67) 100 Room Air 10/15/18 02:22 98 Room Air 10/15/18 01:20 98.5 83 18 103/60 (74) 97 Room Air 10/14/18 22:40 98 Room Air 10/14/18 21:51 107 18 101/57 (72) 95 Room Air 10/14/18 18:19 96 Room Air 10/14/18 17:29 120 18 119/74 (89) 100 Room Air 10/14/18 16:45 95 18 108/66 (80) 100 Nasal Cannula 1.00 10/14/18 16:18 100 Nasal Cannula 2.00 10/14/18 16:05 101 18 112/69 (83) 100 Nasal Cannula 2.00 10/14/18 15:35 98.4 88 18 109/58 (75) 97 10/14/18 15:00 13 99 Room Air 10/14/18 14:50 10 100 Room Air 10/14/18 14:40 20 99 OxyMask 8 10/14/18 14:30 16 100 OxyMask 8 10/14/18 14:20 12 100 OxyMask 8 10/14/18 14:17 13 100 OxyMask 8 10/14/18 11:25 97.8 67 18 103/67 (79) 98 Room Air I & O 10/15/18 07:00 Intake Total 1060 ml Output Total 1250 ml Balance -190 ml Vital signs are stable. Patient afebrile. The abdomen is benign. Extreme show no clubbing cyanosis. There is no Homans sign. Assessment and plan postoperative day number 1 doing well. Plan is for discharge home with follow-up in clinic Final Diagnosis CPP/Endometriosis SPENCER STARKEY MD Oct 15, 2018 07:39
[2018-10-15] MEDS ORDERED: OXYC1TAB16 PO (07:40)
[2018-10-15] MEDS ORDERED: oxyCODONE/APAP 7.5-325 MG (PERCOCET 7.5) TABLET PO PRN (07:45)
--- NOTE | 2018-10-15 08:00 | NUR ---
here. dismissal orders received.
[2018-10-15 08:15] VITALS: BP 96/50
--- NOTE | 2018-10-15 08:15 | NUR ---
initial shift assessment completed, see interventions for further. lap sites x3, d/I. middle lapsite dressing noted with small amount dressing. pt voices c/o's pain, requesting Percocet. reviewed pain medication administration schedule.
[2018-10-15] MEDS ORDERED: IBUPROFEN 800 MG (MOTRIN) TAB PO ONE (08:34)
[2018-10-15] MEDS ORDERED: DOCUSATE SODIUM 100 MG (COLACE) CAP PO SCH (09:00)
--- NOTE | 2018-10-15 11:45 | NUR ---
pt up to shower.
--- NOTE | 2018-10-15 12:00 | NUR ---
called into pt's room requesting pain medication. reviewed medication administration schedule.
--- NOTE | 2018-10-15 12:26 | NUR ---
was given update on pt's cont c/o pain. new orders received for Oxycodone and Ultram.
[2018-10-15 12:45] VITALS: BP 95/53
[2018-10-15] MEDS ORDERED: oxyCODONE ER 10 MG (OxyCONTIN CR) TAB PO PRN (12:45)
--- NOTE | 2018-10-15 12:48 | NUR ---
Andrea and Uyen Rx's called into [facility] [place] per pt's request.
--- NOTE | 2018-10-15 13:04 | NUR ---
dismissal instructions given, reviewed medication administration schedule and follow up appointments. signature page signed, placed in chart.
--- NOTE | 2018-10-15 13:22 | NUR ---
oxycodone 10mg p.o. and Ultram 50mg p.o. given prior to car ride home per pt's request.
--- NOTE | 2018-10-15 13:30 | NUR ---
pt ambulated to private vehicle with [facility] students @ side. pt stable with @ side.
--- NOTE | 2018-10-15 13:51 | Anesthesia-General Post-Op ---
General Patient Condition Mental Status/LOC: Same as Preop Cardiovascular: Satisfactory Nausea/Vomiting: Absent Respiratory: Satisfactory Pain: Controlled Complications: Absent Post Op Complications Complications None Follow Up Care/Instructions Patient Instructions None needed. Anesthesia/Patient Condition Patient Condition Patient was seen this morning during post-op rounds and she was doing well, no complaints, stable vital signs, no apparent adverse anesthesia problems. She is now discharged to home. INESSA TAPIA DO Oct 15, 2018 13:51
[2018-10-15] MEDS ORDERED: IBUPROFEN 800 MG (MOTRIN) TAB PO SCH (15:00)
== END 2018-10-15 13:30 | disposition home or self-care (01) ==
LOC: SDC 11:10 → WS 14:25 → SDC 10-15 13:30
PROVIDERS: ATTEND Obstetrics & Gynecology
DX: N80.3 Endometriosis of pelvic peritoneum (principal); N80.1 Endometriosis of ovary; N72 Inflammatory disease of cervix uteri; N83.12 Corpus luteum cyst of left ovary; N94.10 Unspecified dyspareunia
CPT/HCPCS: 84703; 86850; 86900; 86901; 88307; 94664; 94760

== ENCOUNTER 2018-10-19 11:09 | Emergency (ER) | payer MEDICAID ==
[~2018-10-19] VITALS: Ht 162.6 cm; Wt 72.6 kg
[~2018-10-19 11:09] MED LIST changes: +ORTHO EVRA; +OXYC1TAB16 PO; +OXYC1TAB87 PO
[2018-10-19] MEDS ORDERED: NS IV 1000 ML 1,000 ML IV SCH (11:30)
[2018-10-19] MEDS ORDERED: PROMETHAZINE INJ 25 MG/ML (PHENERGAN) AMP IVP ONE (11:30)
[2018-10-19 11:41] LABS: BASOPHILS % (AUTO) 0 % (0-10); EOSINOPHILS # (AUTO) 0.1 10^3/uL (0.0-0.3); EOSINOPHILS % (AUTO) 1 % (0-10); HEMATOCRIT 41 % (35-52); LYMPHOCYTES # (AUTO) 1.3 X 10^3 (1.0-4.0); LYMPHOCYTES % (AUTO) 15 % (12-44); MEAN CORPUSCULAR HEMOGLOBIN 28 PG (25-34); MEAN CORPUSCULAR HGB CONC 34 G/DL (32-36); MEAN CORPUSCULAR VOLUME 82 FL (80-99); MONOCYTES # (AUTO) 0.5 X 10^3 (0.0-1.0); MONOCYTES % (AUTO) 7 % (0-12); NEUTROPHILS # (AUTO) 6.4 X 10^3 (1.8-7.8); NEUTROPHILS % (AUTO) 77 % (42-75); PLATELET COUNT 304 10^3/uL (130-400); RED CELL DISTRIBUTION WIDTH 13.4 % (10.0-14.5); WHITE BLOOD COUNT 8.3 10^3/uL (4.3-11.0)
[2018-10-19 11:43] LABS: BILIRUBIN,URINE NEGATIVE (NEGATIVE); CLARITY,URINE SLIGHTLY CLOUDY; COLOR,URINE YELLOW; GLUCOSE, URINE (UA) NEGATIVE (NEGATIVE); KETONES,URINE 2+ (NEGATIVE); LEUKOCYTE ESTERASE ,URINE 1+ (NEGATIVE); NITRITE,URINE NEGATIVE (NEGATIVE); PH,URINE 8 (5-9); PROTEIN,URINE NEGATIVE (NEGATIVE); UROBILINOGEN,URINE 1 MG/DL (NORMAL)
--- NOTE | 2018-10-19 11:43 | ED Abdominal Pain ---
General Chief Complaint: Abdominal/GI Problems Stated Complaint: N/V Source of Information: Patient Exam Limitations: No Limitations History of Present Illness Date Seen by Provider: Oct 19, 2018 Time Seen by Provider: 11:15 Initial Comments 23-year-old female who was sent to the emergency room by Dr. Dowling's office for complaints of increased nausea and vomiting that is unresolved by Danny. The patient reports that on 10/14/18 she had a total hysterectomy by Dr. Dowling. She reports that she's had nausea and vomiting that started on 10/16. She reports that she is unable to keep anything down. She denies fevers or pain from the procedure. Timing/Duration: 3-4 Days Associated Symptoms: Nausea/Vomiting Allergies and Home Medications Allergies Coded Allergies: metoclopramide (Verified Allergy, Mild, JITTERY, 10/08/18) Home Medications Docusate Sodium 100 Mg Capsule, 100 MG PO BID Prescribed by: SPENCER MTZ on 10/14/18 1430 Ibuprofen 800 Mg Tablet, 800 MG PO Q6HR Prescribed by: SPENCER MTZ on 10/14/18 1430 Oxycodone HCl/Acetaminophen 1 Each Tablet, 1 TAB PO Q4H PRN for PAIN-MODERATE Prescribed by: SPENCER MTZ on 10/15/18 0740 Tramadol HCl 50 Mg Tablet, 50 MG PO Q6H Prescribed by: SPENCER MTZ on 11/24/17 1308 Patient Home Medication List Home Medication List Reviewed: Yes Review of Systems Review of Systems Constitutional: see HPI; No chills, No fever Gastrointestinal: See HPI, Nausea, Vomiting All Other Systems Reviewed Negative Unless Noted: Yes Past [id number]-Evgaag-Vxmzsq Hx Past Med/Social Hx: Reviewed Nursing Past Med/Soc Hx Patient Social History 2nd Hand Smoke Exposure: No Recent Hopitalizations: No Immunizations Up To Date Tetanus Booster (TDap): Unknown Date of Influenza Vaccine: Apr 18, 2017 Seasonal Allergies Seasonal Allergies: No Past Medical History Surgeries: Yes (ENDOMETRIAL ABLATION) Respiratory: No Cardiac: No Neurological: Yes Headaches /Migraines Reproductive Disorders: Yes (CPP,DUB) Female Reproductive Disorders: Menstrual Problems, Endometriosis 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: Tubal Ligation Sexually Transmitted Disease: No HIV/AIDS: No Genitourinary: No Gastrointestinal: No (hyperemesis gravidarum) Musculoskeletal: No Endocrine: No HEENT: Yes (GLASSES) Loss of Vision: Bilateral Hearing Impairment: Denies Cancer: No Psychosocial: Yes Anxiety, Depression Integumentary: Yes Eczema Blood Disorders: Yes (ANEMIA) Adverse Reaction/Blood Tranf: No (N/A) Family Medical History Reviewed Nursing Family Hx Hypertension 19 MOTHER No Pertinent Family Hx Physical Exam Vital Signs Vital Signs - First Documented 10/19/18 11:15 Temp 96.6 Pulse 82 Resp 18 B/P (MAP) 104/95 (98) Pulse Ox 98 Capillary Refill : Height/Weight/BMI Height: 5'5.00" Weight: 162lbs. 3.0oz. [id number]; 27.0 BMI Method:Stated General Appearance: WD/WN, no apparent distress Respiratory: chest non-tender, lungs clear, normal breath sounds, no respiratory distress, no accessory muscle use Cardiovascular: normal peripheral pulses, regular rate, rhythm, no edema, no gallop, no JVD, no murmur Gastrointestinal: normal bowel sounds, non tender, soft, no organomegaly, no pulsatile mass Extremities: normal capillary refill Neurologic/Psychiatric: alert, normal mood/affect, oriented x 3 Skin: normal color, warm/dry Progress/Results/Core Measures Results/Orders Lab Results Laboratory Tests Test 10/19/18 11:30 Range/Units White Blood Count 8.3 4.3-11.0 10^3/uL Red Blood Count 5.00 4.35-5.85 10^6/uL Hemoglobin 14.0 11.5-16.0 G/DL Hematocrit 41 35-52 % Mean Corpuscular Volume 82 80-99 FL Mean Corpuscular Hemoglobin 28 25-34 PG Mean Corpuscular Hemoglobin Concent 34 32-36 G/DL Red Cell Distribution Width 13.4 10.0-14.5 % Platelet Count 304 130-400 10^3/uL Mean Platelet Volume 11.0 H 7.4-10.4 FL Neutrophils (%) (Auto) 77 H 42-75 % Lymphocytes (%) (Auto) 15 12-44 % Monocytes (%) (Auto) 7 0-12 % Eosinophils (%) (Auto) 1 0-10 % Basophils (%) (Auto) 0 0-10 % Neutrophils # (Auto) 6.4 1.8-7.8 X 10^3 Lymphocytes # (Auto) 1.3 1.0-4.0 X 10^3 Monocytes # (Auto) 0.5 0.0-1.0 X 10^3 Eosinophils # (Auto) 0.1 0.0-0.3 10^3/uL Basophils # (Auto) 0.0 0.0-0.1 10^3/uL Urine Color YELLOW Urine Clarity SLIGHTLY CLOUDY Urine pH 8 5-9 Urine Specific [place] 1.010 L 1.016-1.022 Urine Protein NEGATIVE NEGATIVE Urine Glucose (UA) NEGATIVE NEGATIVE Urine Ketones 2+ H NEGATIVE Urine Nitrite NEGATIVE NEGATIVE Urine Bilirubin NEGATIVE NEGATIVE Urine Urobilinogen 1 NORMAL MG/DL Urine Leukocyte Esterase 1+ H NEGATIVE Urine RBC (Auto) 1+ H NEGATIVE Urine RBC RARE /HPF Urine WBC RARE /HPF Urine Squamous Epithelial Cells 25-50 H /HPF Urine Crystals NONE /LPF Urine Bacteria NEGATIVE /HPF Urine Casts NONE /LPF Urine Mucus NEGATIVE /LPF Urine Culture Indicated NO Sodium Level 136 135-145 MMOL/L Potassium Level 4.0 3.6-5.0 MMOL/L Chloride Level 100 98-107 MMOL/L Carbon Dioxide Level 25 21-32 MMOL/L Anion Gap 11 5-14 MMOL/L Blood Urea Nitrogen 9 7-18 MG/DL Creatinine 0.91 0.60-1.30 MG/DL Estimat Glomerular Filtration Rate > 60 BUN/Creatinine Ratio 10 Glucose Level 106 H 70-105 MG/DL Calcium Level 10.9 H 8.5-10.1 MG/DL Corrected Calcium 8.5-10.1 MG/DL Total Bilirubin 0.5 0.1-1.0 MG/DL Aspartate Amino Transf (AST/SGOT) 44 H 5-34 U/L Alanine Aminotransferase (ALT/SGPT) 38 0-55 U/L Alkaline Phosphatase 83 40-136 U/L Total Protein 8.5 H 6.4-8.2 GM/DL Albumin 4.7 H 3.2-4.5 GM/DL Amylase Level 41 25-125 U/L Lipase 11 8-78 U/L My Orders Orders - BILLY CHOW Comprehensive Metabolic Panel (10/19/18 11:21) Lipase (10/19/18 11:21) Amylase (10/19/18 11:21) Ua Culture If Indicated (10/19/18 11:21) Saline Lock/Iv-Start (10/19/18 11:21) Cbc With Automated Diff (10/19/18 11:21) Promethazine Injection (Phenergan Injec (10/19/18 11:30) Ns Iv 1000 Ml (Sodium Chloride 0.9%) (10/19/18 11:30) Fentanyl Injection (Sublimaze Injection (10/19/18 12:00) Medications Given in ED Current Medications Medications Dose Ordered Sig/Gayla Route Start Time Stop Time Status Last Admin Dose Admin Fentanyl Citrate 25 mcg ONCE ONCE IVP 10/19/18 12:00 10/19/18 12:01 DC 10/19/18 12:00 25 MCG Promethazine HCl 12.5 mg ONCE ONCE IVP 10/19/18 11:30 10/19/18 11:31 DC 10/19/18 11:30 12.5 MG Vital Signs/I&O 10/19/18 11:15 Temp 96.6 Pulse 82 Resp 18 B/P (MAP) 104/95 (98) Pulse Ox 98 Progress Progress Note : Time: 12:40 Progress Note I have seen and evaluated the patient. Her pain and nausea has resolved at this time. I have reviewed her laboratory findings with her. I will be prescribing her Phenergan in addition to her Zofran that she has a home. She agrees with plan of care, plans for discharge, return precautions were given. Departure Impression Primary Impression: Nausea and vomiting Disposition: HOME, SELF-CARE Condition: Stable/Unchanged Departure-Patient Inst. Decision time for Depature: 12:41 Referrals: SPENCER DOWLING MD (PCP/Family) Primary Care Physician Patient Instructions: Nausea and Vomiting, Adult Add. Discharge Instructions: Take medications as directed. Continue all previously prescribed home medications. Drink plenty of fluids to stay hydrated. Return back to the emergency room for worsening symptoms or concerns as needed. Follow-up with Dr. Dowling's office within 1 week for recheck. All discharge instructions reviewed with patient and/or family. Voiced understanding. Scripts Promethazine HCl (Promethazine Tablet) 25 Mg Tablet 25 MG PO Q6H PRN for NAUSEA/VOMITING, #20 TAB Prov: BILLY CHOW 10/19/18 BILLY CHOW Oct 19, 2018 11:43
[2018-10-19 11:54] LABS: BACTERIA,URINE NEGATIVE /HPF; RBC,URINE RARE /HPF; SQUAMOUS EPITHELIAL CELL,UR 25-50 /HPF; WBC,URINE RARE /HPF
[2018-10-19] MEDS ORDERED: fentaNYL INJECTION 100 MCG/2 ML AMP IVP ONE (12:00)
[2018-10-19 12:06] LABS: ALANINE AMINOTRANSFERASE 38 U/L (0-55); ALBUMIN 4.7 GM/DL (3.2-4.5); ALKALINE PHOSPHATASE 83 U/L (40-136); AMYLASE 41 U/L (25-125); BILIRUBIN,TOTAL 0.5 MG/DL (0.1-1.0); BUN/CREATININE RATIO 10; CALCIUM 10.9 MG/DL (8.5-10.1); CARBON DIOXIDE 25 MMOL/L (21-32); CHLORIDE 100 MMOL/L (98-107); CREATININE SERUM 0.91 MG/DL (0.60-1.30); GFR ESTIMATED > 60; GLUCOSE 106 MG/DL (70-105); LIPASE 11 U/L (8-78); SODIUM 136 MMOL/L (135-145); TOTAL PROTEIN 8.5 GM/DL (6.4-8.2)
[2018-10-19] MEDS ORDERED: PROM25TA14 PO (12:41)
[2018-10-19 13:00] VITALS: BP 104/95
== END 2018-10-19 13:00 | disposition home or self-care (01) ==
LOC: EDUNIT# 11:09 → ER 11:10
DX: R11.2 Nausea with vomiting, unspecified (principal); G43.909 Migraine, unspecified, not intractable, without status migrainosus; F41.9 Anxiety disorder, unspecified; F32.9 Major depressive disorder, single episode, unspecified; D64.9 Anemia, unspecified; Z87.448 Personal history of other diseases of urinary system; Z98.51 Tubal ligation status; Z90.710 Acquired absence of both cervix and uterus; Z88.8 Allergy status to other drugs, medicaments and biological substances
CPT/HCPCS: 36415; 80053; 81000; 82150; 83690; 85025

== ENCOUNTER 2019-01-04 22:56 | Emergency (ER) | payer MEDICAID ==
[~2019-01-04] VITALS: Ht 165.1 cm; Wt 75.7 kg
[~2019-01-04 22:56] MED LIST changes: +PROM25TA14 PO
--- OUTSIDE RECORDS SUMMARY | 2019-01-04 23:03 | XMS REPORT | Continuity of Care Document ---
Author Organization Unknown Address Unknown Allergies Active Description Code Type Severity Reaction Onset Reported/Identified Relationship to Patient Clinical Status Yes No Known Drug Allergies [id number] Drug Allergy Unknown N/A 11/20/2017 Yes metoclopramide [id number] Drug Allergy Unknown N/A 10/02/2018 Yes metoclopramide [id number] Drug Allergy Mild JITTERY 10/08/2018 Medications There is no data. Problems Date Dx Coded Attending Type Code Diagnosis Diagnosed By 03/03/2017 GENNARO FELIX MD, Ot O76 ABNLT IN HEART RATE AND RHYTHM COM 03/03/2017 GENNARO FELIX MD, Ot Z3A.16 16 WEEKS GESTATION OF 03/03/2017 GENNARO FELIX MD, Ot Z87.19 PERSONAL HISTORY OF OTHER DISEASES OF 03/23/2017 SPENCER STARKEY MD, Ot O47.02 FALSE LABOR BEFORE 37 COMPLETED WEEKS OF 03/23/2017 SPENCER STARKEY MD, Ot Z3A.18 18 WEEKS GESTATION OF 03/25/2017 SPENCER STARKEY MD, Ot O47.02 FALSE LABOR BEFORE 37 COMPLETED WEEKS OF 03/25/2017 SPENCER STARKEY MD, Ot Z3A.18 18 WEEKS GESTATION OF 03/29/2017 DWAYNE EDGAR MD, Ot O23.42 UNSP INFCT OF URINARY TRACT IN 03/29/2017 DWAYNE EDGAR MD, Ot O26.892 OT RELATED CONDITIONS, SECOND 03/29/2017 DWAYNE EDGAR MD, Ot Z3A.19 19 WEEKS GESTATION OF 03/29/2017 DWAYNE EDGAR MD, Ot Z87.19 PERSONAL HISTORY OF OTHER DISEASES OF 05/05/2017 SPENCER STARKEY MD, Ot O47.02 FALSE LABOR BEFORE 37 COMPLETED WEEKS OF 05/05/2017 SPENCER STARKEY MD, Ot Z3A.24 24 WEEKS GESTATION OF 05/06/2017 SPENCER STARKEY MD, Ot O47.02 FALSE LABOR BEFORE 37 COMPLETED WEEKS OF 05/06/2017 SPENCER STARKEY MD, Ot Z3A.24 24 WEEKS GESTATION OF 05/15/2017 SPENCER STARKEY MD, Ot O21.8 OTHER VOMITING COMPLICATING 05/15/2017 SPENCER STARKEY MD, Ot O60.02 LABOR WITHOUT DELIVERY, SECOND T 05/15/2017 SPENCER STARKEY MD, Ot Z3A.25 25 WEEKS GESTATION OF 05/15/2017 SPENCER STARKEY MD, Ot O21.8 OTHER VOMITING COMPLICATING 05/15/2017 SPENCER STARKEY MD, Ot O60.02 LABOR WITHOUT DELIVERY, SECOND T 05/15/2017 SPENCER STARKEY MD, Ot Z3A.25 25 WEEKS GESTATION OF 05/18/2017 BETTINA IRWIN DO Ot O21.2 LATE VOMITING OF 05/18/2017 BETTINA IRWIN DO Ot Z3A.26 26 WEEKS GESTATION OF 06/12/2017 SPENCER STARKEY MD, Ot D72.829 ELEVATED WHITE BLOOD CELL COUNT, UNSPECI 06/12/2017 SPENCER STARKEY MD, Ot M79.1 MYALGIA 06/12/2017 SPENCER STARKEY MD, Ot O99.89 OTH DISEASES AND CONDITIONS COMPL PREG/C 06/12/2017 SPENCER STARKEY MD, Ot Z3A.30 30 WEEKS GESTATION OF 06/20/2017 SPENCER STARKEY MD, Ot O47.03 FALSE LABOR BEFORE 37 COMPLETED WEEKS OF 06/20/2017 SPENCER STARKEY MD, Ot Z3A.31 31 WEEKS GESTATION OF 06/25/2017 SPENCER STARKEY MD, Ot O47.03 FALSE LABOR BEFORE 37 COMPLETED WEEKS OF 06/25/2017 SPENCER STARKEY MD, Ot Z3A.31 31 WEEKS GESTATION OF 07/01/2017 SPENCER STARKEY MD, Ot O47.03 FALSE LABOR BEFORE 37 COMPLETED WEEKS OF 07/01/2017 SPENCER STARKEY MD, Ot Z3A.32 32 WEEKS GESTATION OF 07/04/2017 SPENCER STARKEY MD, Ot D72.829 ELEVATED WHITE BLOOD CELL COUNT, UNSPECI 07/04/2017 SPNECER STARKEY MD, Ot O60.03 LABOR WITHOUT DELIVERY, THIRD TR 07/04/2017 SPENCER STARKEY MD, Ot O99.113 OTH DIS OF BLD/BLD-FORM ORG/IMMUN MECHNS 07/04/2017 SPENCER STARKEY MD, Ot Z3A.33 33 WEEKS GESTATION OF 07/08/2017 SPENCER STARKEY MD, Ot D72.829 ELEVATED WHITE BLOOD CELL COUNT, UNSPECI 07/08/2017 SPENCER STARKEY MD, Ot O60.03 LABOR WITHOUT DELIVERY, THIRD TR 07/08/2017 SPENCER STARKEY MD, Ot O99.113 OTH DIS OF BLD/BLD-FORM ORG/IMMUN MECHNS 07/08/2017 SPENCER STARKEY MD, Ot Z3A.33 33 WEEKS GESTATION OF 07/14/2017 SPENCER STARKEY MD, Ot O26.893 OTH RELATED CONDITIONS, THIRD 07/14/2017 SPENCER STARKEY MD, Ot O60.03 LABOR WITHOUT DELIVERY, THIRD TR 07/14/2017 SPENCER STARKEY MD, Ot Z3A.34 34 WEEKS GESTATION OF 07/23/2017 SPENCER STARKEY MD Ot O47.03 FALSE LABOR BEFORE 37 COMPLETED WEEKS OF 07/23/2017 SPENCER STARKEY MD, Ot Z3A.35 35 WEEKS GESTATION OF 07/25/2017 SPENCER STARKEY MD Ot O47.03 FALSE LABOR BEFORE 37 COMPLETED WEEKS OF 07/25/2017 SPENCER STARKEY MD Ot Z3A.35 35 WEEKS GESTATION OF 07/26/2017 SPENCER STARKEY MD Ot O47.03 FALSE LABOR BEFORE 37 COMPLETED WEEKS OF 07/26/2017 SPENCER STARKEY MD Ot Z3A.36 36 WEEKS GESTATION OF 07/31/2017 SPENCER STARKEY MD, Ot O47.03 FALSE LABOR BEFORE 37 COMPLETED WEEKS OF 07/31/2017 SPENCER STARKEY MD, Ot Z3A.36 36 WEEKS GESTATION OF 08/02/2017 SPENCER STARKEY MD, Ot D50.9 IRON DEFICIENCY ANEMIA, UNSPECIFIED 08/02/2017 SPENCER STARKEY MD, Ot D63.8 ANEMIA IN OTHER CHRONIC DISEASES CLASSIF 08/02/2017 SPENCER STARKEY MD, Ot D72.829 ELEVATED WHITE BLOOD CELL COUNT, UNSPECI 08/02/2017 SPENCER STARKEY MD, Ot G89.29 OTHER CHRONIC PAIN 08/02/2017 SPENCER STARKEY MD, Ot M54.9 DORSALGIA, UNSPECIFIED 08/02/2017 SPENCER STARKEY MD, Ot O26.893 OTH RELATED CONDITIONS, THIRD 08/02/2017 SPENCER STARKEY MD, Ot O41.03X0 OLIGOHYDRAMNIOS, THIRD TRIMESTER, NOT AP 08/02/2017 SPENCER STARKEY MD, Ot O45.93 PREMATURE SEPARATION OF PLACENTA, UNSP, 08/02/2017 SPENCER STARKEY MD, Ot O69.81X0 LABOR AND DEL COMP BY CORD AROUND NECK, 08/02/2017 SPENCER STARKEY MD, Ot O99.013 ANEMIA COMPLICATING , THIRD TRI 08/02/2017 SPENCER STARKEY MD, Ot O99.113 OTH DIS OF BLD/BLD-FORM ORG/IMMUN MECHNS 08/02/2017 SPENCER STARKEY MD, Ot O99.353 DISEASES OF THE NERVOUS SYS COMP PREGNAN 08/02/2017 SPENCER STARKEY MD, Ot O99.820 STREPTOCOCCUS B CARRIER STATE COMPLICATI 08/02/2017 SPENCER STARKEY MD, Ot R10.84 GENERALIZED ABDOMINAL PAIN 08/02/2017 SPENCER STARKEY MD, Ot W00.0XXA FALL ON SAME LEVEL DUE TO ICE AND SNOW, 08/02/2017 SPENCER STARKEY MD, Ot Z23 ENCOUNTER FOR IMMUNIZATION 08/02/2017 SPENCER STARKEY MD, Ot Z37.0 SINGLE LIVE 08/02/2017 SPENCER STARKEY MD, Ot Z3A.37 37 WEEKS GESTATION OF 11/13/2017 SPENCER STARKEY MD, Ot O86.12 ENDOMETRITIS FOLLOWING DELIVERY 11/13/2017 SPENCER STARKEY MD, Ot O86.12 ENDOMETRITIS FOLLOWING DELIVERY 11/19/2017 SPENCER STARKEY MD, Ot O86.12 ENDOMETRITIS FOLLOWING DELIVERY 11/20/2017 SPENCER STARKEY MD, Ot Z01.818 ENCOUNTER FOR OTHER PREPROCEDURAL EXAMIN 11/20/2017 SPENCER STARKEY MD, Ot Z01.818 ENCOUNTER FOR OTHER PREPROCEDURAL EXAMIN 11/24/2017 SPENCER STARKEY MD, Ot F41.9 ANXIETY DISORDER, UNSPECIFIED 11/24/2017 SPENCER STARKEY MD, Ot K37 UNSPECIFIED APPENDICITIS 11/24/2017 SPENCER STARKEY MD, Ot N73.6 FEMALE PELVIC PERITONEAL ADHESIONS (POST 11/24/2017 SPENCER STARKEY MD, Ot N80.0 ENDOMETRIOSIS OF UTERUS 11/24/2017 SPENCER STARKEY MD, Ot N80.1 ENDOMETRIOSIS OF OVARY 11/24/2017 SPENCER STARKEY MD, Ot N80.5 ENDOMETRIOSIS OF INTESTINE 11/24/2017 SPENCER STARKEY MD, Ot N83.01 FOLLICULAR CYST OF RIGHT OVARY 11/27/2017 SPENCER STARKEY MD, Ot F41.9 ANXIETY DISORDER, UNSPECIFIED 11/27/2017 SPENCER STARKEY MD, Ot K37 UNSPECIFIED APPENDICITIS 11/27/2017 SPENCER STARKEY MD, Ot N73.6 FEMALE PELVIC PERITONEAL ADHESIONS (POST 11/27/2017 SPENCER STARKEY MD, Ot N80.0 ENDOMETRIOSIS OF UTERUS 11/27/2017 SPENCER STARKEY MD, Ot N80.1 ENDOMETRIOSIS OF OVARY 11/27/2017 SPENCER STARKEY MD, Ot N80.5 ENDOMETRIOSIS OF INTESTINE 11/27/2017 SPENCER STARKEY MD, Ot N83.01 FOLLICULAR CYST OF RIGHT OVARY 11/30/2017 SPENCER STARKEY MD, Ot F41.9 ANXIETY DISORDER, UNSPECIFIED 11/30/2017 SPENCER STARKEY MD, Ot K37 UNSPECIFIED APPENDICITIS 11/30/2017 SPENCER STARKEY MD Ot N73.6 FEMALE PELVIC PERITONEAL ADHESIONS (POST 11/30/2017 SPENCER STARKEY MD Ot N80.0 ENDOMETRIOSIS OF UTERUS 11/30/2017 SPENCER STARKEY MD Ot N80.1 ENDOMETRIOSIS OF OVARY 11/30/2017 SPENCER STARKEY MD, Ot N80.5 ENDOMETRIOSIS OF INTESTINE 11/30/2017 SPENCER STARKEY MD, Ot N83.01 FOLLICULAR CYST OF RIGHT OVARY 10/03/2018 ELIZABETH MUNSON MD, Ot F32.9 MAJOR DEPRESSIVE DISORDER, SINGLE EPISOD 10/03/2018 ELIZABETH MUNSON MD Ot F41.9 ANXIETY DISORDER, UNSPECIFIED 10/03/2018 ELIZABETH MUNSON MD Ot G43.909 MIGRAINE, UNSP, NOT INTRACTABLE, WITHOUT 10/03/2018 ELIZABETH MUNSON MD Ot R51 HEADACHE 10/03/2018 ELIZABETH MUNSON MD Ot Z87.448 PERSONAL HISTORY OF OTHER DISEASES OF UR 10/03/2018 ELIZABETH MUNSON MD Ot Z88.8 ALLERGY STATUS TO OTH DRUG/MEDS/BIOL SUB 10/05/2018 ELIZABETH MUNSON MD Ot F32.9 MAJOR DEPRESSIVE DISORDER, SINGLE EPISOD 10/05/2018 ELIZABETH MUNSON MD Ot F41.9 ANXIETY DISORDER, UNSPECIFIED 10/05/2018 ELIZABETH MUNSON MD Ot G43.909 MIGRAINE, UNSP, NOT INTRACTABLE, WITHOUT 10/05/2018 ELIZABETH MUNSON MD Ot R51 HEADACHE 10/05/2018 ELIZABETH MUNSON MD Ot Z87.448 PERSONAL HISTORY OF OTHER DISEASES OF UR 10/05/2018 ELIZABETH MUNSON MD Ot Z88.8 ALLERGY STATUS TO OTH DRUG/MEDS/BIOL SUB 10/08/2018 ELIZABETH MUNSON MD Ot F32.9 MAJOR DEPRESSIVE DISORDER, SINGLE EPISOD 10/08/2018 ELIZABETH MUNSON MD Ot F41.9 ANXIETY DISORDER, UNSPECIFIED 10/08/2018 JEIMY DUDLEY, ELIZABETH Hobbs Ot G43.909 MIGRAINE, UNSP, NOT INTRACTABLE, WITHOUT 10/08/2018 JEIMY DUDLEY, ELIZABETH Hobbs Ot R51 HEADACHE 10/08/2018 JEIMY DUDLEY, ELIZABETH Hobbs Ot Z87.448 PERSONAL HISTORY OF OTHER DISEASES OF UR 10/08/2018 JEIMY DUDLEY, ELIZABETH Hobbs Ot Z88.8 ALLERGY STATUS TO OTH DRUG/MEDS/BIOL SUB 10/08/2018 SPENCER STARKEY MD, Ot D64.9 ANEMIA, UNSPECIFIED 10/08/2018 SPENCER STARKEY MD, Ot N80.0 ENDOMETRIOSIS OF UTERUS 10/08/2018 SPENCER STARKEY MD, Ot N81.2 INCOMPLETE UTEROVAGINAL PROLAPSE 10/08/2018 SPENCER STARKEY MD, Ot Z01.812 ENCOUNTER FOR PREPROCEDURAL LABORATORY E 10/08/2018 SPENCER STARKEY MD Ot Z11.2 ENCOUNTER FOR SCREENING FOR OTHER BACTER 10/12/2018 SPENCER STARKEY MD, Ot D64.9 ANEMIA, UNSPECIFIED 10/12/2018 SPENCER STARKEY MD Ot N80.0 ENDOMETRIOSIS OF UTERUS 10/12/2018 SPENCER STARKEY MD, Ot N81.2 INCOMPLETE UTEROVAGINAL PROLAPSE 10/12/2018 SPENCER STARKEY MD Ot Z01.812 ENCOUNTER FOR PREPROCEDURAL LABORATORY E 10/12/2018 SPENCER STARKEY MD, Ot D64.9 ANEMIA, UNSPECIFIED 10/12/2018 SPENCER STARKEY MD, Ot N80.0 ENDOMETRIOSIS OF UTERUS 10/12/2018 SPENCER STARKEY MD, Ot N81.2 INCOMPLETE UTEROVAGINAL PROLAPSE 10/12/2018 SPENCER STARKEY MD, Ot Z01.812 ENCOUNTER FOR PREPROCEDURAL LABORATORY E 10/12/2018 SPENCER STARKEY MD Ot Z11.2 ENCOUNTER FOR SCREENING FOR OTHER BACTER 10/15/2018 SPENCER STARKEY MD Ot N72 INFLAMMATORY DISEASE OF CERVIX UTERI 10/15/2018 SPENCER STARKEY MD, Ot N80.1 ENDOMETRIOSIS OF OVARY 10/15/2018 SPENCER STARKEY MD, Ot N80.3 ENDOMETRIOSIS OF PELVIC PERITONEUM 10/15/2018 SPENCER STARKEY MD, Ot N83.12 CORPUS LUTEUM CYST OF LEFT OVARY 10/15/2018 SPENCER STARKEY MD, Ot N94.10 UNSPECIFIED DYSPAREUNIA 10/23/2018 SPENCER STARKEY MD Ot N72 INFLAMMATORY DISEASE OF CERVIX UTERI 10/23/2018 SPENCER STARKEY MD, Ot N80.1 ENDOMETRIOSIS OF OVARY 10/23/2018 SPENCER STARKEY MD, Ot N80.3 ENDOMETRIOSIS OF PELVIC PERITONEUM 10/23/2018 SPENCER STARKEY MD, Ot N83.12 CORPUS LUTEUM CYST OF LEFT OVARY 10/23/2018 SPENCER STARKEY MD, Ot N94.10 UNSPECIFIED DYSPAREUNIA Procedures Code Description Performed By Performed On [id number] DELIVERY OF PRODUCTS OF CONCEPTION, EXTE 07/31/2017 Results Test Result Range Complete urinalysis with reflex to culture - 03/29/17 06:10 Urine color determination YELLOW NRG Urine clarity determination CLEAR NRG Urine pH measurement by test strip 8 5-9 Specific gravity of urine by test strip 1.015 1.016-1.022 Urine protein assay by test strip, semi-quantitative NEGATIVE NEGATIVE Urine glucose detection by automated test strip NEGATIVE NEGATIVE Erythrocytes detection in urine sediment by light microscopy NEGATIVE NEGATIVE Urine ketones detection by automated test strip NEGATIVE NEGATIVE Urine nitrite detection by test strip NEGATIVE NEGATIVE Urine total bilirubin detection by test strip NEGATIVE NEGATIVE Urine urobilinogen measurement by automated test strip (mass/volume) NORMAL NORMAL Urine leukocyte esterase detection by dipstick 3+ NEGATIVE Automated urine sediment erythrocyte count by microscopy (number/high power field) NONE NRG Automated urine sediment leukocyte count by microscopy (number/high power field) [HPF] NRG Bacteria detection in urine sediment by light microscopy FEW NRG Squamous epithelial cells detection in urine sediment by light microscopy 10-25 NRG Crystals detection in urine sediment by light microscopy NONE NRG Casts detection in urine sediment by light microscopy NONE NRG Mucus detection in urine sediment by light microscopy NEGATIVE NRG Complete urinalysis with reflex to culture YES NRG Bacterial urine culture - 03/29/17 06:10 URINE CULTURE RESULTS <10,000/ML [facility] Complete blood count (CBC) with automated white blood cell (WBC) differential - 03/29/17 07:05 Blood leukocytes automated count (number/volume) 12.2 10*3/uL 4.3-11.0 Blood erythrocytes automated count (number/volume) 3.54 10*6/uL 4.35-5.85 Venous blood hemoglobin measurement (mass/volume) 10.1 g/dL 11.5-16.0 Blood hematocrit (volume fraction) 30 % 35-52 Automated erythrocyte mean corpuscular volume 85 [foz_us] 80-99 Automated erythrocyte mean corpuscular hemoglobin (mass per erythrocyte) 29 pg 25-34 Automated erythrocyte mean corpuscular hemoglobin concentration measurement (mass/volume) 34 g/dL 32-36 Automated erythrocyte distribution width ratio 14.0 % 10.0- 14.5 Automated blood platelet count (count/volume) 201 10*3/uL 130-400 Automated blood platelet mean volume measurement 11.1 [foz_us] 7.4-10.4 Automated blood neutrophils/100 leukocytes 72 % 42-75 Automated blood lymphocytes/100 leukocytes 19 % 12-44 Blood monocytes/100 leukocytes 7 % 0-12 Automated blood eosinophils/100 leukocytes 2 % 0-10 Automated blood basophils/100 leukocytes 0 % 0-10 Blood neutrophils automated count (number/volume) 8.8 10*3 1.8-7.8 Blood lymphocytes automated count (number/volume) 2.3 10*3 1.0-4.0 Blood monocytes automated count (number/volume) 0.9 10*3 0.0- 1.0 Automated eosinophil count 0.2 10*3/uL 0.0-0.3 Automated blood basophil count (count/volume) 0.0 10*3/uL 0.0-0.1 Comprehensive metabolic panel - 03/29/17 07:05 Serum or plasma sodium measurement (moles/volume) 138 mmol/L 135-145 Serum or plasma potassium measurement (moles/volume) 3.6 mmol/L 3.6-5.0 Serum or plasma chloride measurement (moles/volume) 109 mmol/L 98-107 Carbon dioxide 22 mmol/L 21-32 Serum or plasma anion gap determination (moles/volume) 7 mmol/L 5-14 Serum or plasma urea nitrogen measurement (mass/volume) 5 mg/dL 7-18 Serum or plasma creatinine measurement (mass/volume) 0.65 mg/dL 0.60-1.30 Serum or plasma urea nitrogen/creatinine mass ratio 8 NRG Serum or plasma creatinine measurement with calculation of estimated glomerular filtration rate > NRG Serum or plasma glucose measurement (mass/volume) 83 mg/dL 70-105 Serum or plasma calcium measurement (mass/volume) 8.5 mg/dL 8.5-10.1 Serum or plasma total bilirubin measurement (mass/volume) 0.2 mg/dL 0.1-1.0 Serum or plasma alkaline phosphatase measurement (enzymatic activity/volume) 61 U/L 40-136 Serum or plasma aspartate aminotransferase measurement (enzymatic activity/volume) 15 U/L 5-34 Serum or plasma alanine aminotransferase measurement (enzymatic activity/volume) 10 U/L 0-55 Serum or plasma protein measurement (mass/volume) 6.1 g/dL 6.4-8.2 Serum or plasma albumin measurement (mass/volume) 3.2 g/dL 3.2-4.5 Lipase - 03/29/17 07:05 Lipase 13 U/L 8-78 Microscopic examination by wet preparation - 05/06/17 16:45 WET PREP RESULTS NO YEAST OBSERVED, NO TRICHOMONAS OBSERVED NRG Complete urinalysis with reflex to culture - 05/06/17 16:45 Urine color determination YELLOW NRG Urine clarity determination CLEAR NRG Urine pH measurement by test strip 6 5-9 Specific gravity of urine by test strip 1.020 1.016-1.022 Urine protein assay by test strip, semi-quantitative NEGATIVE NEGATIVE Urine glucose detection by automated test strip NEGATIVE NEGATIVE Erythrocytes detection in urine sediment by light microscopy NEGATIVE NEGATIVE Urine ketones detection by automated test strip 3+ NEGATIVE Urine nitrite detection by test strip NEGATIVE NEGATIVE Urine total bilirubin detection by test strip NEGATIVE NEGATIVE Urine urobilinogen measurement by automated test strip (mass/volume) NORMAL NORMAL Urine leukocyte esterase detection by dipstick NEGATIVE NEGATIVE Automated urine sediment erythrocyte count by microscopy (number/high power field) RARE NRG Automated urine sediment leukocyte count by microscopy (number/high power field) [HPF] NRG Bacteria detection in urine sediment by light microscopy TRACE NRG Squamous epithelial cells detection in urine sediment by light microscopy 2-5 NRG Crystals detection in urine sediment by light microscopy NONE NRG Casts detection in urine sediment by light microscopy NONE NRG Mucus detection in urine sediment by light microscopy LARGE NRG Complete urinalysis with reflex to culture NO NRG Bacterial urine culture - 05/06/17 16:45 Bacterial urine culture NG NRG Complete blood count (CBC) with automated white blood cell (WBC) differential - 05/06/17 17:15 Blood leukocytes automated count (number/volume) 14.5 10*3/uL 4.3-11.0 Blood erythrocytes automated count (number/volume) 3.65 10*6/uL 4.35-5.85 Venous blood hemoglobin measurement (mass/volume) 10.4 g/dL 11.5-16.0 Blood hematocrit (volume fraction) 31 % 35-52 Automated erythrocyte mean corpuscular volume 85 [foz_us] 80-99 Automated erythrocyte mean corpuscular hemoglobin (mass per erythrocyte) 29 pg 25-34 Automated erythrocyte mean corpuscular hemoglobin concentration measurement (mass/volume) 33 g/dL 32-36 Automated erythrocyte distribution width ratio 13.2 % 10.0- 14.5 Automated blood platelet count (count/volume) 211 10*3/uL 130-400 Automated blood platelet mean volume measurement 10.6 [foz_us] 7.4-10.4 Automated blood neutrophils/100 leukocytes 80 % 42-75 Automated blood lymphocytes/100 leukocytes 12 % 12-44 Blood monocytes/100 leukocytes 7 % 0-12 Automated blood eosinophils/100 leukocytes 1 % 0-10 Automated blood basophils/100 leukocytes 0 % 0-10 Blood neutrophils automated count (number/volume) 11.5 10*3 1.8-7.8 Blood lymphocytes automated count (number/volume) 1.8 10*3 1.0-4.0 Blood monocytes automated count (number/volume) 1.0 10*3 0.0- 1.0 Automated eosinophil count 0.2 10*3/uL 0.0-0.3 Automated blood basophil count (count/volume) 0.0 10*3/uL 0.0-0.1 Blood manual differential performed detection - 05/06/17 17:15 Blood monocytes/100 leukocytes 5 % NRG Manual blood segmented neutrophils/100 leukocytes 83 % NRG Blood band neutrophils/100 leukocytes 2 % NRG Manual blood lymphocytes/100 leukocytes 9 % NRG Manual eosinophils/100 leukocytes in nose 1 % NRG Manual blood basophils/100 leukocytes 0 % NRG Blood erythrocyte morphology finding identification NORMAL NRG Complete urinalysis with reflex to culture - 05/14/17 13:00 Urine color determination YELLOW NRG Urine clarity determination CLEAR NRG Urine pH measurement by test strip 7 5-9 Specific gravity of urine by test strip 1.010 1.016-1.022 Urine protein assay by test strip, semi-quantitative NEGATIVE NEGATIVE Urine glucose detection by automated test strip NEGATIVE NEGATIVE Erythrocytes detection in urine sediment by light microscopy NEGATIVE NEGATIVE Urine ketones detection by automated test strip NEGATIVE NEGATIVE Urine nitrite detection by test strip NEGATIVE NEGATIVE Urine total bilirubin detection by test strip NEGATIVE NEGATIVE Urine urobilinogen measurement by automated test strip (mass/volume) 1 mg/dL NORMAL Urine leukocyte esterase detection by dipstick 1+ NEGATIVE Automated urine sediment erythrocyte count by microscopy (number/high power field) NONE NRG Automated urine sediment leukocyte count by microscopy (number/high power field) [HPF] NRG Bacteria detection in urine sediment by light microscopy NEGATIVE NRG Squamous epithelial cells detection in urine sediment by light microscopy 0-2 NRG Crystals detection in urine sediment by light microscopy NONE NRG Casts detection in urine sediment by light microscopy NONE NRG Mucus detection in urine sediment by light microscopy NEGATIVE NRG Complete urinalysis with reflex to culture NO NRG Amorphous sediment detection in urine sediment by light microscopy MOD HERMINIA URATES NRG Bacterial urine culture - 05/14/17 13:00 URINE CULTURE RESULTS <10,000/ML NRG Complete blood count (CBC) with automated white blood cell (WBC) differential - 05/14/17 18:15 Blood leukocytes automated count (number/volume) 12.0 10*3/uL 4.3-11.0 Blood erythrocytes automated count (number/volume) 3.29 10*6/uL 4.35-5.85 Venous blood hemoglobin measurement (mass/volume) 9.2 g/dL 11.5-16.0 Blood hematocrit (volume fraction) 28 % 35-52 Automated erythrocyte mean corpuscular volume 85 [foz_us] 80-99 Automated erythrocyte mean corpuscular hemoglobin (mass per erythrocyte) 28 pg 25-34 Automated erythrocyte mean corpuscular hemoglobin concentration measurement (mass/volume) 33 g/dL 32-36 Automated erythrocyte distribution width ratio 12.8 % 10.0- 14.5 Automated blood platelet count (count/volume) 198 10*3/uL 130-400 Automated blood platelet mean volume measurement 10.4 [foz_us] 7.4-10.4 Automated blood neutrophils/100 leukocytes 76 % 42-75 Automated blood lymphocytes/100 leukocytes 16 % 12-44 Blood monocytes/100 leukocytes 8 % 0-12 Automated blood eosinophils/100 leukocytes 0 % 0-10 Automated blood basophils/100 leukocytes 0 % 0-10 Blood neutrophils automated count (number/volume) 9.1 10*3 1.8-7.8 Blood lymphocytes automated count (number/volume) 1.9 10*3 1.0-4.0 Blood monocytes automated count (number/volume) 1.0 10*3 0.0- 1.0 Automated eosinophil count 0.0 10*3/uL 0.0-0.3 Automated blood basophil count (count/volume) 0.0 10*3/uL 0.0-0.1 Complete urinalysis with reflex to culture - 05/17/17 23:15 Urine color determination YELLOW NRG Urine clarity determination CLEAR NRG Urine pH measurement by test strip 8 5-9 Specific gravity of urine by test strip 1.015 1.016-1.022 Urine protein assay by test strip, semi-quantitative NEGATIVE NEGATIVE Urine glucose detection by automated test strip NEGATIVE NEGATIVE Erythrocytes detection in urine sediment by light microscopy NEGATIVE NEGATIVE Urine ketones detection by automated test strip NEGATIVE NEGATIVE Urine nitrite detection by test strip NEGATIVE NEGATIVE Urine total bilirubin detection by test strip NEGATIVE NEGATIVE Urine urobilinogen measurement by automated test strip (mass/volume) NORMAL NORMAL Urine leukocyte esterase detection by dipstick NEGATIVE NEGATIVE Automated urine sediment erythrocyte count by microscopy (number/high power field) NONE NRG Automated urine sediment leukocyte count by microscopy (number/high power field) NONE NRG Bacteria detection in urine sediment by light microscopy NEGATIVE NRG Squamous epithelial cells detection in urine sediment by light microscopy 0-2 NRG Crystals detection in urine sediment by light microscopy NONE NRG Casts detection in urine sediment by light microscopy NONE NRG Mucus detection in urine sediment by light microscopy NEGATIVE NRG Complete urinalysis with reflex to culture NO NRG Complete blood count (CBC) with automated white blood cell (WBC) differential - 06/10/17 10:32 Blood leukocytes automated count (number/volume) 17.1 10*3/uL 4.3-11.0 Blood erythrocytes automated count (number/volume) 3.52 10*6/uL 4.35-5.85 Venous blood hemoglobin measurement (mass/volume) 9.3 g/dL 11.5-16.0 Blood hematocrit (volume fraction) 29 % 35-52 Automated erythrocyte mean corpuscular volume 82 [foz_us] 80-99 Automated erythrocyte mean corpuscular hemoglobin (mass per erythrocyte) 26 pg 25-34 Automated erythrocyte mean corpuscular hemoglobin concentration measurement (mass/volume) 32 g/dL 32-36 Automated erythrocyte distribution width ratio 13.1 % 10.0- 14.5 Automated blood platelet count (count/volume) 208 10*3/uL 130-400 Automated blood platelet mean volume measurement 10.2 [foz_us] 7.4-10.4 Automated blood neutrophils/100 leukocytes 79 % 42-75 Automated blood lymphocytes/100 leukocytes 11 % 12-44 Blood monocytes/100 leukocytes 8 % 0-12 Automated blood eosinophils/100 leukocytes 1 % 0-10 Automated blood basophils/100 leukocytes 0 % 0-10 Blood neutrophils automated count (number/volume) 13.5 10*3 1.8-7.8 Blood lymphocytes automated count (number/volume) 1.9 10*3 1.0-4.0 Blood monocytes automated count (number/volume) 1.4 10*3 0.0- 1.0 Automated eosinophil count 0.2 10*3/uL 0.0-0.3 Automated blood basophil count (count/volume) 0.1 10*3/uL 0.0-0.1 Complete urinalysis with reflex to culture - 06/10/17 10:32 Urine color determination YELLOW NRG Urine clarity determination CLEAR NRG Urine pH measurement by test strip 8 5-9 Specific gravity of urine by test strip 1.015 1.016-1.022 Urine protein assay by test strip, semi-quantitative NEGATIVE NEGATIVE Urine glucose detection by automated test strip NEGATIVE NEGATIVE Erythrocytes detection in urine sediment by light microscopy NEGATIVE NEGATIVE Urine ketones detection by automated test strip NEGATIVE NEGATIVE Urine nitrite detection by test strip NEGATIVE NEGATIVE Urine total bilirubin detection by test strip NEGATIVE NEGATIVE Urine urobilinogen measurement by automated test strip (mass/volume) NORMAL NORMAL Urine leukocyte esterase detection by dipstick NEGATIVE NEGATIVE Automated urine sediment erythrocyte count by microscopy (number/high power field) NONE NRG Automated urine sediment leukocyte count by microscopy (number/high power field) NONE NRG Bacteria detection in urine sediment by light microscopy NEGATIVE NRG Squamous epithelial cells detection in urine sediment by light microscopy NONE NRG Crystals detection in urine sediment by light microscopy NONE NRG Casts detection in urine sediment by light microscopy NONE NRG Mucus detection in urine sediment by light microscopy NEGATIVE NRG Complete urinalysis with reflex to culture NO NRG Amorphous sediment detection in urine sediment by light microscopy LARGE HERMINIA PHOSPHATE NRG Blood manual differential performed detection - 06/10/17 10:32 Blood monocytes/100 leukocytes 6 % NRG Manual blood segmented neutrophils/100 leukocytes 76 % NRG Blood band neutrophils/100 leukocytes 2 % NRG Manual blood lymphocytes/100 leukocytes 11 % NRG Manual eosinophils/100 leukocytes in nose 2 % NRG Manual blood basophils/100 leukocytes 0 % NRG Blood erythrocyte morphology finding identification NORMAL NRG Manual blood metamyelocytes/100 leukocytes 3 % NRG Bacterial urine culture - 06/10/17 10:32 Bacterial urine culture NG NRG Complete blood count (CBC) with automated white blood cell (WBC) differential - 06/11/17 05:35 Blood leukocytes automated count (number/volume) 15.4 10*3/uL 4.3-11.0 Blood erythrocytes automated count (number/volume) 3.19 10*6/uL 4.35-5.85 Venous blood hemoglobin measurement (mass/volume) 8.3 g/dL 11.5-16.0 Blood hematocrit (volume fraction) 27 % 35-52 Automated erythrocyte mean corpuscular volume 83 [foz_us] 80-99 Automated erythrocyte mean corpuscular hemoglobin (mass per erythrocyte) 26 pg 25-34 Automated erythrocyte mean corpuscular hemoglobin concentration measurement (mass/volume) 31 g/dL 32-36 Automated erythrocyte distribution width ratio 13.0 % 10.0- 14.5 Automated blood platelet count (count/volume) 201 10*3/uL 130-400 Automated blood platelet mean volume measurement 10.6 [foz_us] 7.4-10.4 Automated blood neutrophils/100 leukocytes 74 % 42-75 Automated blood lymphocytes/100 leukocytes 16 % 12-44 Blood monocytes/100 leukocytes 8 % 0-12 Automated blood eosinophils/100 leukocytes 1 % 0-10 Automated blood basophils/100 leukocytes 0 % 0-10 Blood neutrophils automated count (number/volume) 11.5 10*3 1.8-7.8 Blood lymphocytes automated count (number/volume) 2.5 10*3 1.0-4.0 Blood monocytes automated count (number/volume) 1.3 10*3 0.0- 1.0 Automated eosinophil count 0.2 10*3/uL 0.0-0.3 Automated blood basophil count (count/volume) 0.0 10*3/uL 0.0-0.1 Complete blood count (CBC) with automated white blood cell (WBC) differential - 06/12/17 05:55 Blood leukocytes automated count (number/volume) 15.2 10*3/uL 4.3-11.0 Blood erythrocytes automated count (number/volume) 3.07 10*6/uL 4.35-5.85 Venous blood hemoglobin measurement (mass/volume) 8.1 g/dL 11.5-16.0 Blood hematocrit (volume fraction) 25 % 35-52 Automated erythrocyte mean corpuscular volume 83 [foz_us] 80-99 Automated erythrocyte mean corpuscular hemoglobin (mass per erythrocyte) 26 pg 25-34 Automated erythrocyte mean corpuscular hemoglobin concentration measurement (mass/volume) 32 g/dL 32-36 Automated erythrocyte distribution width ratio 12.9 % 10.0- 14.5 Automated blood platelet count (count/volume) 190 10*3/uL 130-400 Automated blood platelet mean volume measurement 10.1 [foz_us] 7.4-10.4 Automated blood neutrophils/100 leukocytes 74 % 42-75 Automated blood lymphocytes/100 leukocytes 16 % 12-44 Blood monocytes/100 leukocytes 9 % 0-12 Automated blood eosinophils/100 leukocytes 1 % 0-10 Automated blood basophils/100 leukocytes 0 % 0-10 Blood neutrophils automated count (number/volume) 11.2 10*3 1.8-7.8 Blood lymphocytes automated count (number/volume) 2.4 10*3 1.0-4.0 Blood monocytes automated count (number/volume) 1.3 10*3 0.0- 1.0 Automated eosinophil count 0.2 10*3/uL 0.0-0.3 Automated blood basophil count (count/volume) 0.0 10*3/uL 0.0-0.1 Complete urinalysis with reflex to culture - 07/03/17 14:40 Urine color determination YELLOW NRG Urine clarity determination VERY CLOUDY NRG Urine pH measurement by test strip 8 5-9 Specific gravity of urine by test strip 1.015 1.016-1.022 Urine protein assay by test strip, semi-quantitative NEGATIVE NEGATIVE Urine glucose detection by automated test strip NEGATIVE NEGATIVE Erythrocytes detection in urine sediment by light microscopy NEGATIVE NEGATIVE Urine ketones detection by automated test strip NEGATIVE NEGATIVE Urine nitrite detection by test strip NEGATIVE NEGATIVE Urine total bilirubin detection by test strip NEGATIVE NEGATIVE Urine urobilinogen measurement by automated test strip (mass/volume) 4 mg/dL NORMAL Urine leukocyte esterase detection by dipstick NEGATIVE NEGATIVE Automated urine sediment erythrocyte count by microscopy (number/high power field) NONE NRG Automated urine sediment leukocyte count by microscopy (number/high power field) [HPF] NRG Bacteria detection in urine sediment by light microscopy NEGATIVE NRG Squamous epithelial cells detection in urine sediment by light microscopy 0-2 NRG Crystals detection in urine sediment by light microscopy PRESENT NRG Casts detection in urine sediment by light microscopy NONE NRG Mucus detection in urine sediment by light microscopy SMALL NRG Complete urinalysis with reflex to culture NO NRG Amorphous sediment detection in urine sediment by light microscopy MOD HERMINIA PHOSPHATE NRG Calcium oxalate crystals detection in urine sediment by light microscopy LARGE NRG Bacterial urine culture - 07/03/17 14:40 Bacterial urine culture NG NRG Complete blood count (CBC) with automated white blood cell (WBC) differential - 07/03/17 14:53 Blood leukocytes automated count (number/volume) 20.5 10*3/uL 4.3-11.0 Blood erythrocytes automated count (number/volume) 3.61 10*6/uL 4.35-5.85 Venous blood hemoglobin measurement (mass/volume) 9.1 g/dL 11.5-16.0 Blood hematocrit (volume fraction) 29 % 35-52 Automated erythrocyte mean corpuscular volume 80 [foz_us] 80-99 Automated erythrocyte mean corpuscular hemoglobin (mass per erythrocyte) 25 pg 25-34 Automated erythrocyte mean corpuscular hemoglobin concentration measurement (mass/volume) 32 g/dL 32-36 Automated erythrocyte distribution width ratio 14.0 % 10.0- 14.5 Automated blood platelet count (count/volume) 256 10*3/uL 130-400 Automated blood platelet mean volume measurement 10.7 [foz_us] 7.4-10.4 Automated blood neutrophils/100 leukocytes 79 % 42-75 Automated blood lymphocytes/100 leukocytes 11 % 12-44 Blood monocytes/100 leukocytes 9 % 0-12 Automated blood eosinophils/100 leukocytes 1 % 0-10 Automated blood basophils/100 leukocytes 0 % 0-10 Blood neutrophils automated count (number/volume) 16.2 10*3 1.8-7.8 Blood lymphocytes automated count (number/volume) 2.2 10*3 1.0-4.0 Blood monocytes automated count (number/volume) 1.9 10*3 0.0- 1.0 Automated eosinophil count 0.2 10*3/uL 0.0-0.3 Automated blood basophil count (count/volume) 0.0 10*3/uL 0.0-0.1 Comprehensive metabolic panel - 07/03/17 14:53 Serum or plasma sodium measurement (moles/volume) 136 mmol/L 135-145 Serum or plasma potassium measurement (moles/volume) 3.4 mmol/L 3.6-5.0 Serum or plasma chloride measurement (moles/volume) 104 mmol/L 98-107 Carbon dioxide 23 mmol/L 21-32 Serum or plasma anion gap determination (moles/volume) 9 mmol/L 5-14 Serum or plasma urea nitrogen measurement (mass/volume) 5 mg/dL 7-18 Serum or plasma creatinine measurement (mass/volume) 0.60 mg/dL 0.60-1.30 Serum or plasma urea nitrogen/creatinine mass ratio 8 NRG Serum or plasma creatinine measurement with calculation of estimated glomerular filtration rate > NRG Serum or plasma glucose measurement (mass/volume) 89 mg/dL 70-105 Serum or plasma calcium measurement (mass/volume) 9.2 mg/dL 8.5-10.1 Serum or plasma total bilirubin measurement (mass/volume) 0.4 mg/dL 0.1-1.0 Serum or plasma alkaline phosphatase measurement (enzymatic activity/volume) 105 U/L 40-136 Serum or plasma aspartate aminotransferase measurement (enzymatic activity/volume) 14 U/L 5-34 Serum or plasma alanine aminotransferase measurement (enzymatic activity/volume) 7 U/L 0-55 Serum or plasma protein measurement (mass/volume) 7.1 g/dL 6.4-8.2 Serum or plasma albumin measurement (mass/volume) 3.5 g/dL 3.2-4.5 Blood manual differential performed detection - 07/03/17 14:53 Blood monocytes/100 leukocytes 4 % NRG Manual blood segmented neutrophils/100 leukocytes 78 % NRG Blood band neutrophils/100 leukocytes 3 % NRG Manual blood lymphocytes/100 leukocytes 15 % NRG Manual eosinophils/100 leukocytes in nose 0 % NRG Manual blood basophils/100 leukocytes 0 % NRG Blood anisocytosis detection by light microscopy SLIGHT NRG Blood hypochromia detection by light microscopy SLIGHT NRG Complete blood count (CBC) with automated white blood cell (WBC) differential - 07/04/17 05:25 Blood leukocytes automated count (number/volume) 17.8 10*3/uL 4.3-11.0 Blood erythrocytes automated count (number/volume) 3.09 10*6/uL 4.35-5.85 Venous blood hemoglobin measurement (mass/volume) 7.7 g/dL 11.5-16.0 Blood hematocrit (volume fraction) 25 % 35-52 Automated erythrocyte mean corpuscular volume 81 [foz_us] 80-99 Automated erythrocyte mean corpuscular hemoglobin (mass per erythrocyte) 25 pg 25-34 Automated erythrocyte mean corpuscular hemoglobin concentration measurement (mass/volume) 31 g/dL 32-36 Automated erythrocyte distribution width ratio 13.8 % 10.0- 14.5 Automated blood platelet count (count/volume) 207 10*3/uL 130-400 Automated blood platelet mean volume measurement 10.8 [foz_us] 7.4-10.4 Automated blood neutrophils/100 leukocytes 71 % 42-75 Automated blood lymphocytes/100 leukocytes 18 % 12-44 Blood monocytes/100 leukocytes 9 % 0-12 Automated blood eosinophils/100 leukocytes 1 % 0-10 Automated blood basophils/100 leukocytes 0 % 0-10 Blood neutrophils automated count (number/volume) 12.6 10*3 1.8-7.8 Blood lymphocytes automated count (number/volume) 3.2 10*3 1.0-4.0 Blood monocytes automated count (number/volume) 1.6 10*3 0.0- 1.0 Automated eosinophil count 0.2 10*3/uL 0.0-0.3 Automated blood basophil count (count/volume) 0.0 10*3/uL 0.0-0.1 Complete urinalysis with reflex to culture - 07/13/17 21:00 Urine color determination YELLOW NRG Urine clarity determination CLEAR NRG Urine pH measurement by test strip 7 5-9 Specific gravity of urine by test strip 1.015 1.016-1.022 Urine protein assay by test strip, semi-quantitative NEGATIVE NEGATIVE Urine glucose detection by automated test strip NEGATIVE NEGATIVE Erythrocytes detection in urine sediment by light microscopy NEGATIVE NEGATIVE Urine ketones detection by automated test strip 2+ NEGATIVE Urine nitrite detection by test strip NEGATIVE NEGATIVE Urine total bilirubin detection by test strip NEGATIVE NEGATIVE Urine urobilinogen measurement by automated test strip (mass/volume) NORMAL NORMAL Urine leukocyte esterase detection by dipstick NEGATIVE NEGATIVE Automated urine sediment erythrocyte count by microscopy (number/high power field) NONE NRG Automated urine sediment leukocyte count by microscopy (number/high power field) RARE NRG Bacteria detection in urine sediment by light microscopy TRACE NRG Squamous epithelial cells detection in urine sediment by light microscopy 0-2 NRG Crystals detection in urine sediment by light microscopy PRESENT NRG Casts detection in urine sediment by light microscopy NONE NRG Mucus detection in urine sediment by light microscopy MODERATE NRG Complete urinalysis with reflex to culture NO NRG Calcium oxalate crystals detection in urine sediment by light microscopy MODERATE NRG Complete blood count (CBC) with automated white blood cell (WBC) differential - 07/13/17 22:00 Blood leukocytes automated count (number/volume) 17.2 10*3/uL 4.3-11.0 Blood erythrocytes automated count (number/volume) 3.62 10*6/uL 4.35-5.85 Venous blood hemoglobin measurement (mass/volume) 8.9 g/dL 11.5-16.0 Blood hematocrit (volume fraction) 28 % 35-52 Automated erythrocyte mean corpuscular volume 78 [foz_us] 80-99 Automated erythrocyte mean corpuscular hemoglobin (mass per erythrocyte) 25 pg 25-34 Automated erythrocyte mean corpuscular hemoglobin concentration measurement (mass/volume) 31 g/dL 32-36 Automated erythrocyte distribution width ratio 14.4 % 10.0- 14.5 Automated blood platelet count (count/volume) 246 10*3/uL 130-400 Automated blood platelet mean volume measurement 11.0 [foz_us] 7.4-10.4 Automated blood neutrophils/100 leukocytes 74 % 42-75 Automated blood lymphocytes/100 leukocytes 16 % 12-44 Blood monocytes/100 leukocytes 9 % 0-12 Automated blood eosinophils/100 leukocytes 1 % 0-10 Automated blood basophils/100 leukocytes 0 % 0-10 Blood neutrophils automated count (number/volume) 12.7 10*3 1.8-7.8 Blood lymphocytes automated count (number/volume) 2.7 10*3 1.0-4.0 Blood monocytes automated count (number/volume) 1.5 10*3 0.0- 1.0 Automated eosinophil count 0.2 10*3/uL 0.0-0.3 Automated blood basophil count (count/volume) 0.0 10*3/uL 0.0-0.1 Comprehensive metabolic panel - 07/13/17 22:00 Serum or plasma sodium measurement (moles/volume) 136 mmol/L 135-145 Serum or plasma potassium measurement (moles/volume) 3.6 mmol/L 3.6-5.0 Serum or plasma chloride measurement (moles/volume) 106 mmol/L 98-107 Carbon dioxide 19 mmol/L 21-32 Serum or plasma anion gap determination (moles/volume) 11 mmol/L 5-14 Serum or plasma urea nitrogen measurement (mass/volume) 5 mg/dL 7-18 Serum or plasma creatinine measurement (mass/volume) 0.57 mg/dL 0.60-1.30 Serum or plasma urea nitrogen/creatinine mass ratio 9 NRG Serum or plasma creatinine measurement with calculation of estimated glomerular filtration rate > NRG Serum or plasma glucose measurement (mass/volume) 87 mg/dL 70-105 Serum or plasma calcium measurement (mass/volume) 8.9 mg/dL 8.5-10.1 Serum or plasma total bilirubin measurement (mass/volume) 0.5 mg/dL 0.1-1.0 Serum or plasma alkaline phosphatase measurement (enzymatic activity/volume) 119 U/L 40-136 Serum or plasma aspartate aminotransferase measurement (enzymatic activity/volume) 16 U/L 5-34 Serum or plasma alanine aminotransferase measurement (enzymatic activity/volume) 10 U/L 0-55 Serum or plasma protein measurement (mass/volume) 6.7 g/dL 6.4-8.2 Serum or plasma albumin measurement (mass/volume) 3.4 g/dL 3.2-4.5 Blood manual differential performed detection - 07/13/17 22:00 Blood monocytes/100 leukocytes 4 % NRG Manual blood segmented neutrophils/100 leukocytes 70 % NRG Blood band neutrophils/100 leukocytes 3 % NRG Manual blood lymphocytes/100 leukocytes 23 % NRG Manual eosinophils/100 leukocytes in nose 0 % NRG Manual blood basophils/100 leukocytes 0 % NRG Blood ovalocytes detection by light microscopy SLIGHT NRG Blood microcytes detection by light microscopy SLIGHT NRG [id number] - 07/13/17 22:00 [id number] SPECIMEN AVAILABLE [facility] Complete blood count (CBC) with automated white blood cell (WBC) differential - 07/14/17 09:30 Blood leukocytes automated count (number/volume) 14.3 10*3/uL 4.3-11.0 Blood erythrocytes automated count (number/volume) 3.36 10*6/uL 4.35-5.85 Venous blood hemoglobin measurement (mass/volume) 8.2 g/dL 11.5-16.0 Blood hematocrit (volume fraction) 27 % 35-52 Automated erythrocyte mean corpuscular volume 80 [foz_us] 80-99 Automated erythrocyte mean corpuscular hemoglobin (mass per erythrocyte) 24 pg 25-34 Automated erythrocyte mean corpuscular hemoglobin concentration measurement (mass/volume) 31 g/dL 32-36 Automated erythrocyte distribution width ratio 14.4 % 10.0- 14.5 Automated blood platelet count (count/volume) 231 10*3/uL 130-400 Automated blood platelet mean volume measurement 10.4 [foz_us] 7.4-10.4 Automated blood neutrophils/100 leukocytes 72 % 42-75 Automated blood lymphocytes/100 leukocytes 17 % 12-44 Blood monocytes/100 leukocytes 10 % 0-12 Automated blood eosinophils/100 leukocytes 1 % 0-10 Automated blood basophils/100 leukocytes 0 % 0-10 Blood neutrophils automated count (number/volume) 10.2 10*3 1.8-7.8 Blood lymphocytes automated count (number/volume) 2.5 10*3 1.0-4.0 Blood monocytes automated count (number/volume) 1.4 10*3 0.0- 1.0 Automated eosinophil count 0.1 10*3/uL 0.0-0.3 Automated blood basophil count (count/volume) 0.0 10*3/uL 0.0-0.1 Complete urinalysis with reflex to culture - 07/22/17 22:40 Urine color determination YELLOW [facility] Urine clarity determination CLEAR [facility] Urine pH measurement by test strip 7 5-9 Specific gravity of urine by test strip 1.010 1.016-1.022 Urine protein assay by test strip, semi-quantitative NEGATIVE NEGATIVE Urine glucose detection by automated test strip NEGATIVE NEGATIVE Erythrocytes detection in urine sediment by light microscopy NEGATIVE NEGATIVE Urine ketones detection by automated test strip NEGATIVE NEGATIVE Urine nitrite detection by test strip NEGATIVE NEGATIVE Urine total bilirubin detection by test strip NEGATIVE NEGATIVE Urine urobilinogen measurement by automated test strip (mass/volume) NORMAL NORMAL Urine leukocyte esterase detection by dipstick 1+ NEGATIVE Automated urine sediment erythrocyte count by microscopy (number/high power field) NONE NRG Automated urine sediment leukocyte count by microscopy (number/high power field) [HPF] NRG Bacteria detection in urine sediment by light microscopy NONE NRG Crystals detection in urine sediment by light microscopy NONE NRG Casts detection in urine sediment by light microscopy NONE NRG Mucus detection in urine sediment by light microscopy NEGATIVE NRG Complete urinalysis with reflex to culture NO NRG Complete blood count (CBC) with automated white blood cell (WBC) differential - 07/22/17 23:15 Blood leukocytes automated count (number/volume) 18.8 10*3/uL 4.3-11.0 Blood erythrocytes automated count (number/volume) 3.44 10*6/uL 4.35-5.85 Venous blood hemoglobin measurement (mass/volume) 8.3 g/dL 11.5-16.0 Blood hematocrit (volume fraction) 27 % 35-52 Automated erythrocyte mean corpuscular volume 78 [foz_us] 80-99 Automated erythrocyte mean corpuscular hemoglobin (mass per erythrocyte) 24 pg 25-34 Automated erythrocyte mean corpuscular hemoglobin concentration measurement (mass/volume) 31 g/dL 32-36 Automated erythrocyte distribution width ratio 14.5 % 10.0- 14.5 Automated blood platelet count (count/volume) 284 10*3/uL 130-400 Automated blood platelet mean volume measurement 10.7 [foz_us] 7.4-10.4 Automated blood neutrophils/100 leukocytes 71 % 42-75 Automated blood lymphocytes/100 leukocytes 16 % 12-44 Blood monocytes/100 leukocytes 12 % 0-12 Automated blood eosinophils/100 leukocytes 1 % 0-10 Automated blood basophils/100 leukocytes 0 % 0-10 Blood neutrophils automated count (number/volume) 13.3 10*3 1.8-7.8 Blood lymphocytes automated count (number/volume) 3.1 10*3 1.0-4.0 Blood monocytes automated count (number/volume) 2.2 10*3 0.0- 1.0 Automated eosinophil count 0.2 10*3/uL 0.0-0.3 Automated blood basophil count (count/volume) 0.0 10*3/uL 0.0-0.1 Blood manual differential performed detection - 07/22/17 23:15 Blood monocytes/100 leukocytes 3 % NRG Manual blood segmented neutrophils/100 leukocytes 65 % NRG Blood band neutrophils/100 leukocytes 7 % NRG Manual blood lymphocytes/100 leukocytes 25 % NRG Manual eosinophils/100 leukocytes in nose 0 % NRG Manual blood basophils/100 leukocytes 0 % NRG Blood erythrocyte morphology finding identification NORMAL NRG Complete urinalysis with reflex to culture - 07/30/17 20:10 Urine color determination YELLOW NRG Urine clarity determination CLEAR NRG Urine pH measurement by test strip 6.5 5-9 Specific gravity of urine by test strip 1.015 1.016-1.022 Urine protein assay by test strip, semi-quantitative NEGATIVE NEGATIVE Urine glucose detection by automated test strip NEGATIVE NEGATIVE Erythrocytes detection in urine sediment by light microscopy NEGATIVE NEGATIVE Urine ketones detection by automated test strip 3+ NEGATIVE Urine nitrite detection by test strip NEGATIVE NEGATIVE Urine total bilirubin detection by test strip NEGATIVE NEGATIVE Urine urobilinogen measurement by automated test strip (mass/volume) NORMAL NORMAL Urine leukocyte esterase detection by dipstick 1+ NEGATIVE Automated urine sediment erythrocyte count by microscopy (number/high power field) NONE NRG Automated urine sediment leukocyte count by microscopy (number/high power field) [HPF] NRG Bacteria detection in urine sediment by light microscopy NONE NRG Squamous epithelial cells detection in urine sediment by light microscopy 0-2 NRG Crystals detection in urine sediment by light microscopy NONE NRG Casts detection in urine sediment by light microscopy NONE NRG Mucus detection in urine sediment by light microscopy NEGATIVE NRG Complete urinalysis with reflex to culture NO NRG Complete blood count (CBC) with automated white blood cell (WBC) differential - 07/30/17 21:05 Blood leukocytes automated count (number/volume) 23.5 10*3/uL 4.3-11.0 Blood erythrocytes automated count (number/volume) 3.63 10*6/uL 4.35-5.85 Venous blood hemoglobin measurement (mass/volume) 8.6 g/dL 11.5-16.0 Blood hematocrit (volume fraction) 28 % 35-52 Automated erythrocyte mean corpuscular volume 77 [foz_us] 80-99 Automated erythrocyte mean corpuscular hemoglobin (mass per erythrocyte) 24 pg 25-34 Automated erythrocyte mean corpuscular hemoglobin concentration measurement (mass/volume) 31 g/dL 32-36 Automated erythrocyte distribution width ratio 15.1 % 10.0- 14.5 Automated blood platelet count (count/volume) 309 10*3/uL 130-400 Automated blood platelet mean volume measurement 10.3 [foz_us] 7.4-10.4 Automated blood neutrophils/100 leukocytes 79 % 42-75 Automated blood lymphocytes/100 leukocytes 13 % 12-44 Blood monocytes/100 leukocytes 8 % 0-12 Automated blood eosinophils/100 leukocytes 1 % 0-10 Automated blood basophils/100 leukocytes 0 % 0-10 Blood neutrophils automated count (number/volume) 18.5 10*3 1.8-7.8 Blood lymphocytes automated count (number/volume) 2.9 10*3 1.0-4.0 Blood monocytes automated count (number/volume) 1.8 10*3 0.0- 1.0 Automated eosinophil count 0.2 10*3/uL 0.0-0.3 Automated blood basophil count (count/volume) 0.1 10*3/uL 0.0-0.1 Blood manual differential performed detection - 07/30/17 21:05 Blood monocytes/100 leukocytes 1 % NRG Manual blood segmented neutrophils/100 leukocytes 78 % NRG Blood band neutrophils/100 leukocytes 8 % NRG Manual blood lymphocytes/100 leukocytes 10 % NRG Manual eosinophils/100 leukocytes in nose 2 % NRG Manual blood basophils/100 leukocytes 0 % NRG Blood erythrocyte morphology finding identification NORMAL NRG Manual blood metamyelocytes/100 leukocytes 1 % NRG Blood type T Indirect antibody screen panel - 07/30/17 21:05 ABO+Rh group OP NRG Transfusion band number [id number] NRG Blood group antibody screen NEGATIVE NRG Complete blood count (CBC) with automated white blood cell (WBC) differential - 07/31/17 07:59 Blood leukocytes automated count (number/volume) 15.9 10*3/uL 4.3-11.0 Blood erythrocytes automated count (number/volume) 3.27 10*6/uL 4.35-5.85 Venous blood hemoglobin measurement (mass/volume) 7.6 g/dL 11.5-16.0 Blood hematocrit (volume fraction) 25 % 35-52 Automated erythrocyte mean corpuscular volume 77 [foz_us] 80-99 Automated erythrocyte mean corpuscular hemoglobin (mass per erythrocyte) 23 pg 25-34 Automated erythrocyte mean corpuscular hemoglobin concentration measurement (mass/volume) 30 g/dL 32-36 Automated erythrocyte distribution width ratio 14.9 % 10.0- 14.5 Automated blood platelet count (count/volume) 277 10*3/uL 130-400 Automated blood platelet mean volume measurement 10.5 [foz_us] 7.4-10.4 Automated blood neutrophils/100 leukocytes 74 % 42-75 Automated blood lymphocytes/100 leukocytes 16 % 12-44 Blood monocytes/100 leukocytes 9 % 0-12 Automated blood eosinophils/100 leukocytes 1 % 0-10 Automated blood basophils/100 leukocytes 0 % 0-10 Blood neutrophils automated count (number/volume) 11.7 10*3 1.8-7.8 Blood lymphocytes automated count (number/volume) 2.5 10*3 1.0-4.0 Blood monocytes automated count (number/volume) 1.5 10*3 0.0- 1.0 Automated eosinophil count 0.2 10*3/uL 0.0-0.3 Automated blood basophil count (count/volume) 0.0 10*3/uL 0.0-0.1 Complete blood count (CBC) with automated white blood cell (WBC) differential - 08/01/17 05:25 Blood leukocytes automated count (number/volume) 19.5 10*3/uL 4.3-11.0 Blood erythrocytes automated count (number/volume) 3.16 10*6/uL 4.35-5.85 Venous blood hemoglobin measurement (mass/volume) 7.5 g/dL 11.5-16.0 Blood hematocrit (volume fraction) 24 % 35-52 Automated erythrocyte mean corpuscular volume 77 [foz_us] 80-99 Automated erythrocyte mean corpuscular hemoglobin (mass per erythrocyte) 24 pg 25-34 Automated erythrocyte mean corpuscular hemoglobin concentration measurement (mass/volume) 31 g/dL 32-36 Automated erythrocyte distribution width ratio 14.8 % 10.0- 14.5 Automated blood platelet count (count/volume) 258 10*3/uL 130-400 Automated blood platelet mean volume measurement 10.7 [foz_us] 7.4-10.4 Automated blood neutrophils/100 leukocytes 73 % 42-75 Automated blood lymphocytes/100 leukocytes 15 % 12-44 Blood monocytes/100 leukocytes 11 % 0-12 Automated blood eosinophils/100 leukocytes 1 % 0-10 Automated blood basophils/100 leukocytes 0 % 0-10 Blood neutrophils automated count (number/volume) 14.2 10*3 1.8-7.8 Blood lymphocytes automated count (number/volume) 3.0 10*3 1.0-4.0 Blood monocytes automated count (number/volume) 2.2 10*3 0.0- 1.0 Automated eosinophil count 0.2 10*3/uL 0.0-0.3 Automated blood basophil count (count/volume) 0.0 10*3/uL 0.0-0.1 Complete blood count (CBC) with automated white blood cell (WBC) differential - 11/12/17 19:20 Blood leukocytes automated count (number/volume) 7.7 10*3/uL 4.3-11.0 Blood erythrocytes automated count (number/volume) 4.75 10*6/uL 4.35-5.85 Venous blood hemoglobin measurement (mass/volume) 11.0 g/dL 11.5-16.0 Blood hematocrit (volume fraction) 35 % 35-52 Automated erythrocyte mean corpuscular volume 74 [foz_us] 80-99 Automated erythrocyte mean corpuscular hemoglobin (mass per erythrocyte) 23 pg 25-34 Automated erythrocyte mean corpuscular hemoglobin concentration measurement (mass/volume) 31 g/dL 32-36 Automated erythrocyte distribution width ratio 16.7 % 10.0- 14.5 Automated blood platelet count (count/volume) 363 10*3/uL 130-400 Automated blood platelet mean volume measurement 10.7 [foz_us] 7.4-10.4 Automated blood neutrophils/100 leukocytes 56 % 42-75 Automated blood lymphocytes/100 leukocytes 33 % 12-44 Blood monocytes/100 leukocytes 8 % 0-12 Automated blood eosinophils/100 leukocytes 3 % 0-10 Automated blood basophils/100 leukocytes 0 % 0-10 Blood neutrophils automated count (number/volume) 4.3 10*3 1.8-7.8 Blood lymphocytes automated count (number/volume) 2.5 10*3 1.0-4.0 Blood monocytes automated count (number/volume) 0.6 10*3 0.0- 1.0 Automated eosinophil count 0.2 10*3/uL 0.0-0.3 Automated blood basophil count (count/volume) 0.0 10*3/uL 0.0-0.1 Blood type T Indirect antibody screen panel - 11/12/17 19:20 ABO+Rh group OP NRG Transfusion band number [id number] NRG Blood group antibody screen NEGATIVE NRG Urine beta human chorionic gonadotropin (hCG) measurement - 11/24/17 11:00 Urine beta human chorionic gonadotropin (hCG) measurement NEGATIVE NEGATIVE Methicillin resistant Staphylococcus aureus (MRSA) screening culture - 11/24/17 11:04 Methicillin resistant Staphylococcus aureus (MRSA) screening culture NEG NRG Complete blood count (CBC) with automated white blood cell (WBC) differential - 11/24/17 11:15 Blood leukocytes automated count (number/volume) 6.3 10*3/uL 4.3-11.0 Blood erythrocytes automated count (number/volume) 4.52 10*6/uL 4.35-5.85 Venous blood hemoglobin measurement (mass/volume) 10.5 g/dL 11.5-16.0 Blood hematocrit (volume fraction) 33 % 35-52 Automated erythrocyte mean corpuscular volume 74 [foz_us] 80-99 Automated erythrocyte mean corpuscular hemoglobin (mass per erythrocyte) 23 pg 25-34 Automated erythrocyte mean corpuscular hemoglobin concentration measurement (mass/volume) 32 g/dL 32-36 Automated erythrocyte distribution width ratio 15.8 % 10.0- 14.5 Automated blood platelet count (count/volume) 350 10*3/uL 130-400 Automated blood platelet mean volume measurement 10.4 [foz_us] 7.4-10.4 Automated blood neutrophils/100 leukocytes 54 % 42-75 Automated blood lymphocytes/100 leukocytes 33 % 12-44 Blood monocytes/100 leukocytes 11 % 0-12 Automated blood eosinophils/100 leukocytes 2 % 0-10 Automated blood basophils/100 leukocytes 0 % 0-10 Blood neutrophils automated count (number/volume) 3.4 10*3 1.8-7.8 Blood lymphocytes automated count (number/volume) 2.1 10*3 1.0-4.0 Blood monocytes automated count (number/volume) 0.7 10*3 0.0- 1.0 Automated eosinophil count 0.1 10*3/uL 0.0-0.3 Automated blood basophil count (count/volume) 0.0 10*3/uL 0.0-0.1 Complete blood count (CBC) with automated white blood cell (WBC) differential - 10/08/18 09:20 Blood leukocytes automated count (number/volume) 6.3 10*3/uL 4.3-11.0 Blood erythrocytes automated count (number/volume) 4.43 10*6/uL 4.35-5.85 Venous blood hemoglobin measurement (mass/volume) 12.3 g/dL 11.5-16.0 Blood hematocrit (volume fraction) 37 % 35-52 Automated erythrocyte mean corpuscular volume 83 [foz_us] 80-99 Automated erythrocyte mean corpuscular hemoglobin (mass per erythrocyte) 28 pg 25-34 Automated erythrocyte mean corpuscular hemoglobin concentration measurement (mass/volume) 34 g/dL 32-36 Automated erythrocyte distribution width ratio 13.6 % 10.0- 14.5 Automated blood platelet count (count/volume) 263 10*3/uL 130-400 Automated blood platelet mean volume measurement 10.8 [foz_us] 7.4-10.4 Automated blood neutrophils/100 leukocytes 62 % 42-75 Automated blood lymphocytes/100 leukocytes 26 % 12-44 Blood monocytes/100 leukocytes 10 % 0-12 Automated blood eosinophils/100 leukocytes 2 % 0-10 Automated blood basophils/100 leukocytes 0 % 0-10 Blood neutrophils automated count (number/volume) 3.9 10*3 1.8-7.8 Blood lymphocytes automated count (number/volume) 1.6 10*3 1.0-4.0 Blood monocytes automated count (number/volume) 0.6 10*3 0.0- 1.0 Automated eosinophil count 0.1 10*3/uL 0.0-0.3 Automated blood basophil count (count/volume) 0.0 10*3/uL 0.0-0.1 Blood type T Indirect antibody screen panel - 10/08/18 09:20 ABO+Rh group OP NRG Blood group antibody screen NEGATIVE NRG Methicillin resistant Staphylococcus aureus (MRSA) screening culture - 10/08/18 09:20 Methicillin resistant Staphylococcus aureus (MRSA) screening culture NEG NRG Urine beta human chorionic gonadotropin (hCG) measurement - 10/14/18 11:15 Urine beta human chorionic gonadotropin (hCG) measurement NEGATIVE NEGATIVE Blood type T Indirect antibody screen panel - 10/14/18 11:29 ABO+Rh group OP NRG Transfusion band number [id number] NRG Blood group antibody screen NEGATIVE NRG Complete blood count (CBC) with automated white blood cell (WBC) differential - 10/19/18 11:30 Blood leukocytes automated count (number/volume) 8.3 10*3/uL 4.3-11.0 Blood erythrocytes automated count (number/volume) 5.00 10*6/uL 4.35-5.85 Venous blood hemoglobin measurement (mass/volume) 14.0 g/dL 11.5-16.0 Blood hematocrit (volume fraction) 41 % 35-52 Automated erythrocyte mean corpuscular volume 82 [foz_us] 80-99 Automated erythrocyte mean corpuscular hemoglobin (mass per erythrocyte) 28 pg 25-34 Automated erythrocyte mean corpuscular hemoglobin concentration measurement (mass/volume) 34 g/dL 32-36 Automated erythrocyte distribution width ratio 13.4 % 10.0- 14.5 Automated blood platelet count (count/volume) 304 10*3/uL 130-400 Automated blood platelet mean volume measurement 11.0 [foz_us] 7.4-10.4 Automated blood neutrophils/100 leukocytes 77 % 42-75 Automated blood lymphocytes/100 leukocytes 15 % 12-44 Blood monocytes/100 leukocytes 7 % 0-12 Automated blood eosinophils/100 leukocytes 1 % 0-10 Automated blood basophils/100 leukocytes 0 % 0-10 Blood neutrophils automated count (number/volume) 6.4 10*3 1.8-7.8 Blood lymphocytes automated count (number/volume) 1.3 10*3 1.0-4.0 Blood monocytes automated count (number/volume) 0.5 10*3 0.0- 1.0 Automated eosinophil count 0.1 10*3/uL 0.0-0.3 Automated blood basophil count (count/volume) 0.0 10*3/uL 0.0-0.1 Complete urinalysis with reflex to culture - 10/19/18 11:30 Urine color determination YELLOW NRG Urine clarity determination SLIGHTLY CLOUDY NR Urine pH measurement by test strip 8 5-9 Specific gravity of urine by test strip 1.010 1.016-1.022 Urine protein assay by test strip, semi-quantitative NEGATIVE NEGATIVE Urine glucose detection by automated test strip NEGATIVE NEGATIVE Erythrocytes detection in urine sediment by light microscopy 1+ NEGATIVE Urine ketones detection by automated test strip 2+ NEGATIVE Urine nitrite detection by test strip NEGATIVE NEGATIVE Urine total bilirubin detection by test strip NEGATIVE NEGATIVE Urine urobilinogen measurement by automated test strip (mass/volume) 1 mg/dL NORMAL Urine leukocyte esterase detection by dipstick 1+ NEGATIVE Automated urine sediment erythrocyte count by microscopy (number/high power field) RARE NRG Automated urine sediment leukocyte count by microscopy (number/high power field) RARE NRG Bacteria detection in urine sediment by light microscopy NEGATIVE NRG Squamous epithelial cells detection in urine sediment by light microscopy 25-50 NRG Crystals detection in urine sediment by light microscopy NONE NRG Casts detection in urine sediment by light microscopy NONE NRG Mucus detection in urine sediment by light microscopy NEGATIVE NRG Complete urinalysis with reflex to culture NO NRG Comprehensive metabolic panel - 10/19/18 11:30 Serum or plasma sodium measurement (moles/volume) 136 mmol/L 135-145 Serum or plasma potassium measurement (moles/volume) 4.0 mmol/L 3.6-5.0 Serum or plasma chloride measurement (moles/volume) 100 mmol/L 98-107 Carbon dioxide 25 mmol/L 21-32 Serum or plasma anion gap determination (moles/volume) 11 mmol/L 5-14 Serum or plasma urea nitrogen measurement (mass/volume) 9 mg/dL 7-18 Serum or plasma creatinine measurement (mass/volume) 0.91 mg/dL 0.60-1.30 Serum or plasma urea nitrogen/creatinine mass ratio 10 NRG Serum or plasma creatinine measurement with calculation of estimated glomerular filtration rate > NRG Serum or plasma glucose measurement (mass/volume) 106 mg/dL 70-105 Serum or plasma calcium measurement (mass/volume) 10.9 mg/dL 8.5-10.1 Serum or plasma total bilirubin measurement (mass/volume) 0.5 mg/dL 0.1-1.0 Serum or plasma alkaline phosphatase measurement (enzymatic activity/volume) 83 U/L 40-136 Serum or plasma aspartate aminotransferase measurement (enzymatic activity/volume) 44 U/L 5-34 Serum or plasma alanine aminotransferase measurement (enzymatic activity/volume) 38 U/L 0-55 Serum or plasma protein measurement (mass/volume) 8.5 g/dL 6.4-8.2 Serum or plasma albumin measurement (mass/volume) 4.7 g/dL 3.2-4.5 Serum or plasma amylase measurement (enzymatic activity/volume) - 10/19/18 11:30 Serum or plasma amylase measurement (enzymatic activity/volume) 41 U/L 25-125 Lipase - 10/19/18 11:30 Lipase 11 U/L 8-78 Encounters ACCT No. Visit Date/Time Discharge Status Pt. Type Provider Facility Loc./Unit Complaint [id number] 10/19/2018 11:10:00 10/19/2018 13:00:00 DIS Emergency BILLY CHOW [facility] ER N/V [id number] 10/14/2018 11:10:00 10/15/2018 13:30:00 DIS Outpatient SPENCER STARKEY MD [facility] CHRONIC PELVIC PAIN, ENDOMETRIOSIS [id number] 10/08/2018 08:50:00 10/08/2018 11:07:00 DIS Outpatient SPENCER STARKEY MD [facility] PREOP TOTAL LAP. HYST WITH ROBOT, LEFT OOPHORECTOMY, OIP [id number] 10/02/2018 22:27:00 10/03/2018 02:24:00 DIS Emergency ELIZABETH MUNSON MD [facility] ER FS MIGRAINE, NAUSEA [id number] 11/24/2017 10:49:00 11/24/2017 17:30:00 DIS Outpatient SPENCER STARKEY MD [facility] DYSFUNCTIONAL UTERINE BLEEDING, CHRONIC PELVIC CLARE [id number] 11/20/2017 05:38:00 11/20/2017 15:23:00 DIS Outpatient SPENCER STARKEY MD [facility] PREOP HYSTEROSCOPY WITH E.A., RT. OOPHORECTOMY, RRS, [id number] 11/12/2017 18:40:00 11/13/2017 13:15:00 DIS Inpatient SPENCER STARKEY MD [facility] WS POST ABD PAIN;CRAMPING;BLEEDING [id number] 07/30/2017 20:33:00 08/02/2017 15:47:00 DIS Inpatient SPENCER STARKEY MD [facility] LDRP FALL,LABOR [id number] 07/31/2017 07:00:00 07/31/2017 23:59:59 CLS Preadmit SPENCER STARKEY MD INDUCTION [id number] 07/26/2017 15:45:00 07/26/2017 16:40:00 DIS Outpatient [facility] POSS WATER BROKE [id number] 07/22/2017 22:30:00 07/23/2017 01:07:00 DIS Outpatient SPENCER STARKEY MD [facility] PELVIC PRESSURE [id number] 07/13/2017 20:41:00 07/14/2017 10:30:00 DIS Outpatient SPENCER STARKEY MD [facility] CONTRACTIONS [id number] 07/03/2017 14:20:00 07/04/2017 16:25:00 DIS Inpatient SPENCER STARKEY MD [facility] LDRP UNCONTROLLED PAIN [id number] 07/01/2017 10:52:00 07/01/2017 12:15:00 DIS Outpatient SPENCER STARKEY MD [facility] PASSED BLOOD CLOT [id number] 07/01/2017 10:45:00 07/01/2017 10:45:00 CAN PreadSPENCER Lama MD [facility] LDRP PASSED BLOOD CLOT -32 WEEKS GESTATION [id number] 06/20/2017 09:22:00 06/20/2017 12:44:00 DIS Outpatient SP[facility] STARKEY [facility] LOWER BACK PAIN, LOWER ABD PAIN [id number] 06/10/2017 09:55:00 06/12/2017 07:46:00 DIS Inpatient SPENCER STARKEY MD [facility] LDRP ELEVATED WBC,BACK PAIN [id number] 05/17/2017 22:59:00 05/18/2017 00:53:00 DIS Outpatient BETTINA IRWIN DO [facility] THROWING UP, CONTRACTIONS [id number] 05/14/2017 13:00:00 05/15/2017 13:00:00 DIS Inpatient SPENCER STARKEY MD [facility] LDRP CONTRACTIONS [id number] 05/06/2017 15:43:00 05/06/2017 18:15:00 DIS Outpatient SPENCER STARKEY MD [facility] WSo CONTRACTIONS [id number] 05/05/2017 22:06:00 05/05/2017 22:53:00 DIS Outpatient SPENCER STARKEY MD [facility] WSo CONTRACTIONS [id number] 03/29/2017 05:53:00 03/29/2017 08:40:00 DIS Emergency TALA DUDLEY, DWAYNE Bal [facility] ER CRAMPING,CONTRACTIONS,UTI,ABD BACK PAIN,19 WKS P [id number] 03/23/2017 01:11:00 03/23/2017 02:00:00 DIS Outpatient SPENCER STARKEY MD [facility] WSo CONTRACTIONS [id number] 03/03/2017 12:53:00 03/03/2017 13:30:00 DIS Emergency ELVIRA DUDLEY, GENNARO Montgomery [facility] ER DECREASED BABY HEART RATE 16 WKS PREG
[2019-01-04] MEDS ORDERED: ONDANSETRON 4 MG (ZOFRAN) ORAL DISSOLVE TAB ONE (23:10)
[2019-01-04] MEDS ORDERED: LIDOCAINE 1% INJ 20 ML 20 ML VIAL INJ ONE (23:15)
[2019-01-04 23:30] VITALS: BP 126/78
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
== END 2019-01-04 23:30 | disposition home or self-care (01) ==
LOC: EDUNIT# 22:56 → ER FS 22:58
DX: S51.812A Laceration without foreign body of left forearm, initial encounter (principal); G43.909 Migraine, unspecified, not intractable, without status migrainosus; F41.9 Anxiety disorder, unspecified; F32.9 Major depressive disorder, single episode, unspecified; Z98.51 Tubal ligation status; Z88.8 Allergy status to other drugs, medicaments and biological substances; Z90.710 Acquired absence of both cervix and uterus; Z82.49 Family history of ischemic heart disease and other diseases of the circulatory system; W26.8XXA Contact with other sharp object(s), not elsewhere classified, initial encounter
CPT/HCPCS: 12002

== ENCOUNTER 2019-02-14 22:09 | Emergency (ER) | payer MEDICAID ==
[~2019-02-14] VITALS: Ht 165.1 cm; Wt 72.6 kg
--- OUTSIDE RECORDS SUMMARY | 2019-02-14 22:19 | XMS REPORT | Continuity of Care Document ---
Author Organization Unknown Address Unknown Phone Unavailable Allergies Active Description Code Type Severity Reaction Onset Reported/Identified Relationship to Patient Clinical Status Yes No Known Drug Allergies [id number] Drug Allergy Unknown N/A 11/20/2017 Yes metoclopramide [id number] Drug Allergy Unknown N/A 10/02/2018 Yes metoclopramide [id number] Drug Allergy Mild JITTERY 10/08/2018 Medications There is no data. Problems Date Dx Coded Attending Type Code Diagnosis Diagnosed By 03/03/2017 GENNARO FELIX MD, Ot O76 ABNLT IN HEART RATE AND RHYTHM COM 03/03/2017 GENNARO FELIX MD, Ot3A.16 16 WEEKS GESTATION OF 03/03/2017 GENNARO FELIX MD, Ot Z87.19 PERSONAL HISTORY OF OTHER DISEASES OF 03/23/2017 SPENCER STARKEY MD, Ot O47.02 FALSE LABOR BEFORE 37 COMPLETED WEEKS OF 03/23/2017 SPENCER STARKEY MD, Ot3A.18 18 WEEKS GESTATION OF 03/25/2017 SPENCER STARKEY MD, Ot O47.02 FALSE LABOR BEFORE 37 COMPLETED WEEKS OF 03/25/2017 SPENCER STARKEY MD, Ot3A.18 18 WEEKS GESTATION OF 03/29/2017 DWAYNE EDGAR MD, Ot O23.42 UNSP INFCT OF URINARY TRACT IN 03/29/2017 DWAYNE EDGAR MD, Ot O26.892 OT RELATED CONDITIONS, SECOND 03/29/2017 DWAYNE EDGAR MD, Ot Z3A.19 19 WEEKS GESTATION OF 03/29/2017 DWAYNE EDGAR MD, Ot Z87.19 PERSONAL HISTORY OF OTHER DISEASES OF 05/05/2017 SPENCER STARKEY MD, Ot O47.02 FALSE LABOR BEFORE 37 COMPLETED WEEKS OF 05/05/2017 LALITO MD, SPENCER G Ot Z3A.24 24 WEEKS GESTATION OF 05/06/2017 [...] ELEVATED WHITE BLOOD CELL COUNT, UNSPECI 07/04/2017 SPENCER STARKEY MD, Ot O60.03 LABOR WITHOUT [...] 35 WEEKS GESTATION OF 07/25/2017 SPENCER STARKEY MD, Ot O47.03 FALSE LABOR [...] MD, Ot N80.5 ENDOMETRIOSIS OF INTESTINE 11/27/2017 LALITO MD, SPENCER G Ot N83.01 FOLLICULAR CYST OF RIGHT OVARY 11/30/2017 LALITO DUDLEY, SPENCER May Ot F41.9 ANXIETY DISORDER, UNSPECIFIED 11/30/2017 LALITO DUDLEY, SPENCER May Ot K37 UNSPECIFIED APPENDICITIS 11/30/2017 LALITO DUDLEY, SPENCER May Ot N73.6 FEMALE PELVIC PERITONEAL ADHESIONS (POST 11/30/2017 LALITO DUDLEY, SPENCER May Ot N80.0 ENDOMETRIOSIS OF UTERUS 11/30/2017 LALITO DUDLEY, SPENCER May Ot N80.1 ENDOMETRIOSIS OF OVARY 11/30/2017 LALITO DUDLEY, SPENCER May Ot N80.5 ENDOMETRIOSIS OF INTESTINE 11/30/2017 LALITO DUDLEY, SPENCER May Ot N83.01 FOLLICULAR CYST OF RIGHT OVARY [...] G43.909 MIGRAINE, UNSP, NOT INTRACTABLE, WITHOUT 10/08/2018 ELIZABETH MUNSON MD, Ot R51 HEADACHE 10/08/2018 JEIMY DUDLEY, ELIZABETH [...] FOR PREPROCEDURAL LABORATORY E 10/08/2018 SPENCER STARKEY MD, Ot Z11.2 ENCOUNTER FOR SCREENING FOR OTHER [...] Ot N80.0 ENDOMETRIOSIS OF UTERUS 10/12/2018 SPENCER STRAKEY MD Ot N81.2 INCOMPLETE UTEROVAGINAL PROLAPSE 10/12/2018 SPENCER STARKEY MD Ot Z01.812 ENCOUNTER FOR PREPROCEDURAL LABORATORY E 10/12/2018 SPENCER STARKEY MD Ot Z11.2 ENCOUNTER FOR SCREENING FOR OTHER BACTER 10/15/2018 SPENCER STARKEY MD Ot N72 INFLAMMATORY DISEASE OF CERVIX UTERI 10/15/2018 LALITO MD, SPENCER G Ot N80.1 ENDOMETRIOSIS OF OVARY 10/15/2018 SPENCER STARKEY MD, Ot N80.3 ENDOMETRIOSIS OF PELVIC PERITONEUM 10/15/2018 SPENCER STARKEY MD, Ot N83.12 CORPUS LUTEUM CYST OF LEFT OVARY 10/15/2018 SPENCER STARKEY MD, Ot N94.10 UNSPECIFIED DYSPAREUNIA 10/23/2018 SPENCER STARKEY MD, Ot N72 INFLAMMATORY DISEASE OF CERVIX UTERI 10/23/2018 SPENCER STARKEY MD, Ot N80.1 ENDOMETRIOSIS OF OVARY 10/23/2018 SPENCER STARKEY MD, Ot N80.3 ENDOMETRIOSIS OF PELVIC PERITONEUM 10/23/2018 SPENCER STARKEY MD, Ot N83.12 CORPUS LUTEUM CYST OF LEFT OVARY 10/23/2018 SPENCER STARKEY MD, Ot N94.10 UNSPECIFIED DYSPAREUNIA 01/04/2019 KALANI WISE DO, Ot F32.9 MAJOR DEPRESSIVE DISORDER, SINGLE EPISOD 01/04/2019 KALANI WISE DO, Ot F41.9 ANXIETY DISORDER, UNSPECIFIED 01/04/2019 KALANI WISE DO, Ot G43.909 MIGRAINE, UNSP, NOT INTRACTABLE, WITHOUT 01/04/2019 KALANI WISE DO, Ot S51.812A LACERATION WITHOUT FOREIGN BODY OF LEFT 01/04/2019 KALANI WISE DO, Ot W26.8XXA CONTACT WITH OTHER SHARP OBJECT(S), NEC, 01/04/2019 KALANI WISE DO, Ot Z82.49 FAMILY HX OF ISCHEM HEART DIS AND OTH DI 01/04/2019 KALANI WISE DO, Ot Z88.8 ALLERGY STATUS TO [facility] DRUG/MEDS/BIOL SUB 01/04/2019 KALANI WISE DO, Ot Z90.710 ACQUIRED ABSENCE OF BOTH CERVIX AND UTER 01/04/2019 KALANI WISE DO, Ot Z98.51 TUBAL LIGATION STATUS 01/06/2019 KALANI WISE DO, Ot F32.9 MAJOR DEPRESSIVE DISORDER, SINGLE EPISOD 01/06/2019 KALANI WISE DO, Ot F41.9 ANXIETY DISORDER, UNSPECIFIED 01/06/2019 KALANI WISE DO, Ot G43.909 MIGRAINE, UNSP, NOT INTRACTABLE, WITHOUT 01/06/2019 KALANI WISE DO Ot S51.812A LACERATION WITHOUT FOREIGN BODY OF LEFT 01/06/2019 KALANI WISE DO Ot W26.8XXA CONTACT WITH OTHER SHARP OBJECT(S), NEC, 01/06/2019 KALANI WISE DO Ot Z82.49 FAMILY HX OF ISCHEM HEART DIS AND OTH DI 01/06/2019 KALANI WISE DO Ot Z88.8 ALLERGY STATUS TO [facility] DRUG/MEDS/BIOL SUB 01/06/2019 KALANI WISE DO Ot Z90.710 ACQUIRED ABSENCE OF BOTH CERVIX AND UTER 01/06/2019 KALANI WISE DO Ot Z98.51 TUBAL LIGATION STATUS Procedures Code Description Performed By Performed On [id number] DELIVERY OF PRODUCTS OF CONCEPTION, EXTE 07/31/2017 [...] - 03/29/17 06:10 URINE CULTURE RESULTS <10,000/ML NRG Complete blood [...] microcytes detection by light microscopy SLIGHT NRG [id number] - 07/13/17 22:00 [id number] SPECIMEN AVAILABLE NRG Complete blood count (CBC) with automated [...] - 07/22/17 22:40 Urine color determination YELLOW NRG Urine clarity [...] ABO+Rh group OP NRG Transfusion band number [id number] NRG Blood group antibody screen NEGATIVE NRG [...] ABO+Rh group OP NRG Transfusion band number [id number] NRG Blood group antibody screen NEGATIVE NRG [...] ABO+Rh group OP NRG Transfusion band number [id number] NRG Blood group antibody screen NEGATIVE NRG [...] YELLOW NRG Urine clarity determination SLIGHTLY CLOUDY NRG Urine pH measurement by test [...] - 10/19/18 11:30 Lipase 11 U/L 8-78 TSH w/ FREE T4 - 01/12/19 10:42 TSH 7.56 mIU/L NRG T4, FREE 1.1 ng/dL 0.8-1.8 Encounters ACCT No. Visit Date/Time Discharge Status Pt. Type Provider Facility Loc./Unit Complaint [id number] 01/12/2019 09:40:00 01/12/2019 23:59:59 [facility] Outpatient TOPHER MCKOY [facility] [id number] 01/12/2019 09:40:00 Document Registration [id number] 01/04/2019 22:58:00 01/04/2019 23:30:00 DIS Emergency KALANI WISE DO [facility] ER FS LT ARM LAC [id number] 10/19/2018 11:10:00 10/19/2018 13:00:00 DIS Emergency BILLY CHOW [facility] ER N/V [id number] 10/14/2018 11:10:00 10/15/2018 13:30:00 DIS Out[facility] CHRONIC PELVIC PAIN, ENDOMETRIOSIS [id number] 10/08/2018 08:50:00 10/08/2018 11:07:00 DIS Outpatient SPENCER STARKEY MD [facility] PREOP TOTAL LAP. HYST WITH ROBOT, LEFT OOPHORECTOMY, OIP [id number] 10/02/2018 22:27:00 10/03/2018 02:24:00 DIS Emergency ELIZABETH MUNSON MD [facility] ER FS MIGRAINE, NAUSEA [id number] 11/24/2017 10:49:00 11/24/2017 17:30:00 DIS Outpatient SP[facility] ST[facility] DYSFUNCTIONAL UTERINE BLEEDING, CHRONIC PELVIC CLARE [id number] 11/20/2017 05:38:00 11/20/2017 15:23:00 DIS Outpatient SPENCER STARKEY MD [facility] PREOP HYSTEROSCOPY WITH EMarcos, RT. OOPHORECTOMY, RRS, [id number] 11/12/2017 18:40:00 11/13/2017 13:15:00 DIS Inpatient SPENCER STARKEY MD [facility] WS POST ABD PAIN;CRAMPING;BLEEDING [id number] 07/30/2017 20:33:00 08/02/2017 15:47:00 DIS Inpatient SPENCER STARKEY MD [facility] LDRP FALL,LABOR [id number] 07/31/2017 07:00:00 07/31/2017 23:59:59 CLS SPENCER Eid MD INDUCTION [id number] 07/26/2017 15:45:00 07/26/2017 16:40:00 DIS Outpatient SPENCER STARKEY MD [facility] POSS WATER BROKE [id number] 07/22/2017 22:30:00 07/23/2017 01:07:00 DIS Outpatient SPENCER STARKEY MD [facility] PELVIC PRESSURE [id number] 07/13/2017 20:41:00 07/14/2017 10:30:00 DIS Outpatient [facility] CONTRACTIONS [id number] 07/03/2017 14:20:00 07/04/2017 16:25:00 DIS Inpatient SPENCER STARKEY MD [facility] LDRP UNCONTROLLED PAIN [id number] 07/01/2017 10:52:00 07/01/2017 12:15:00 DIS Outpatient SPENCER STARKEY MD [facility] PASSED BLOOD CLOT [id number] 07/01/2017 10:45:00 07/01/2017 10:45:00 CAN SPENCER Eid MD [facility] LDRP PASSED BLOOD CLOT -32 WEEKS GESTATION [id number] 06/20/2017 09:22:00 06/20/2017 12:44:00 DIS Outpatient SPENCER STARKEY MD [facility] LOWER BACK PAIN, LOWER ABD PAIN [id number] 06/10/2017 09:55:00 06/12/2017 07:46:00 DIS Inpatient SPENCER STARKEY MD [facility] LDRP ELEVATED WBC,BACK PAIN [id number] 05/17/2017 22:59:00 05/18/2017 00:53:00 DIS Outpatient BETTINA IRWIN DO [facility] THROWING UP, CONTRACTIONS [id number] 05/14/2017 13:00:00 05/15/2017 13:00:00 DIS Inpatient SPENCER STARKEY MD [facility] LDRP CONTRACTIONS [id number] 05/06/2017 15:43:00 05/06/2017 18:15:00 DIS Outpatient SPENCER STARKEY MD [facility] CONTRACTIONS [id number] 05/05/2017 22:06:00 05/05/2017 22:53:00 DIS Outpatient SPENCER STARKEY MD [facility] CONTRACTIONS [id number] 03/29/2017 05:53:00 03/29/2017 08:40:00 DIS Emergency TALA DUDLEY, DWAYNE Bal [facility] ER CRAMPING,CONTRACTIONS,UTI,ABD BACK PAIN,19 WKS P [id number] 03/23/2017 01:11:00 03/23/2017 02:00:00 DIS Outpatient SPENCER STARKEY MD [facility] CONTRACTIONS [id number] 03/03/2017 12:53:00 03/03/2017 13:30:00 DIS Emergency ELVIRA DUDLEY, GENNARO [place] [facility] ER DECREASED BABY HEART RATE 16 WKS PREG
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
[2019-02-14 22:49] VITALS: BP 111/83
--- NOTE | 2019-02-15 06:48 | Diagnostic Imaging Report ---
INDICATION: Nasal bone injury COMPARISON: None. FINDINGS: 3 views of the nasal bones demonstrate slight deviation of nasal septum. There is no overt fracture or traumatic malalignment. Paranasal sinuses are unremarkable. IMPRESSION: No nasal bone fracture identified. Dictated by: Dictated on workstation # [id number]
== END 2019-02-14 22:51 | disposition home or self-care (01) ==
LOC: EDUNIT# 22:09 → ER FS 22:11
DX: S02.2XXA Fracture of nasal bones, initial encounter for closed fracture (principal); G43.909 Migraine, unspecified, not intractable, without status migrainosus; D64.9 Anemia, unspecified; F41.9 Anxiety disorder, unspecified; F32.9 Major depressive disorder, single episode, unspecified; H54.7 Unspecified visual loss; Z90.710 Acquired absence of both cervix and uterus; Z98.51 Tubal ligation status; Z88.8 Allergy status to other drugs, medicaments and biological substances; Z82.49 Family history of ischemic heart disease and other diseases of the circulatory system; W50.0XXA Accidental hit or strike by another person, initial encounter
CPT/HCPCS: 70160

== ENCOUNTER 2019-03-27 19:49 | Emergency (ER) | payer SELFPAY ==
[~2019-03-27] VITALS: Ht 165 cm; Wt 74.0 kg
[2019-03-27] MEDS ORDERED: KETOROLAC 30 MG/ML VIAL IVP ONE (20:30)
[2019-03-27] MEDS ORDERED: NS IV 1000 ML 1,000 ML IV SCH (20:30)
[2019-03-27] MEDS ORDERED: PROCHLORPERAZINE 10 MG/2ML INJ (COMPAZINE) IV ONE (20:30)
[2019-03-27] MEDS ORDERED: diphenhydrAMINE 50 MG/ML INJ (BENADRYL) IVP ONE (20:30)
--- NOTE | 2019-03-27 20:36 | ED Headache ---
General Chief Complaint: Head/Cervical Problems Stated Complaint: HEADACHE Nursing Triage Note: PT COMPLAINING OF A MIGRAINE FOR THE PAST 2 DAYS Nursing Sepsis Screen: No Definite Risk Source: patient Exam Limitations: no limitations History of Present Illness Date Seen by Provider: Mar 27, 2019 Time Seen by Provider: 22:00 Initial Comments Patient is a 23-year-old female with history of chronic migraines who presents with typical migraine-like headache starting yesterday. Patient headache is right retro-orbital and radiates in a bandlike pattern around her forehead to her occiput. Headache is described as throbbing and rated moderate. Headache is associated with site light and sound sensitivity along with nausea. No vomiting, neck pain. This is not the worst headache of the patient's life. Patient has had similar migraine headaches, which have required treatment in the emergency department. Patient did take Excedrin Migraine and Benadryl prior to ED without relief. States she is under considerable stress which she feels is likely trigger for headache. No other acute symptoms or complaints. Previous hysterectomy. Timing/Duration: 24 hours, increasing Severity/Quality: moderate Location: frontal Prior Headaches/Recent Trauma: no recent headache/trauma, frequent headaches Associated Symptoms: denies symptoms Allergies and Home Medications Allergies Coded Allergies: metoclopramide (Verified Allergy, Mild, JITTERY, 10/08/18) Home Medications Docusate Sodium 100 Mg Capsule, 100 MG PO BID Prescribed by: SPENCER MTZ on 10/14/18 1430 Ibuprofen 800 Mg Tablet, 800 MG PO Q6HR Prescribed by: SPENCER MTZ on 10/14/18 1430 Oxycodone HCl/Acetaminophen 1 Each Tablet, 1 TAB PO Q4H PRN for PAIN-MODERATE Prescribed by: SPENCER MTZ on 10/15/18 0740 Promethazine HCl 25 Mg Tablet, 25 MG PO Q6H PRN for NAUSEA/VOMITING Prescribed by: BILLY CHOW on 10/19/18 1241 Tramadol HCl 50 Mg Tablet, 50 MG PO Q6H Prescribed by: SPENCER MTZ on 11/24/17 1308 Patient Home Medication List Home Medication List Reviewed: Yes Review of Systems Review of Systems Constitutional: see HPI Eyes: See HPI Ears, Nose, Mouth, Throat: see HPI Respiratory: see HPI Cardiovascular: see HPI Genitourinary: see HPI ( ) Musculoskeletal: see HPI Skin: see HPI Past Socsran-Btigjp-Noifsj Hx Past Med/Social Hx: Reviewed Nursing Past Med/Soc Hx Patient Social History Alcohol Use: Denies Use Recreational Drug Use: No Smoking Status: Never a Smoker 2nd Hand Smoke Exposure: No Recent Foreign Travel: No Contact w/Someone Who Travel: No Recent Infectious Disease Expo: No Recent Hopitalizations: No Physical Abuse: No Sexual Abuse: No Mistreated: No Immunizations Up To Date Tetanus Booster (TDap): Unknown Date of Influenza Vaccine: Apr 18, 2017 Seasonal Allergies Seasonal Allergies: No Past Medical History Surgeries: Yes (ENDOMETRIAL ABLATION) Hysterectomy Respiratory: No Cardiac: No Neurological: Yes Headaches /Migraines Reproductive Disorders: Yes (CPP,DUB) Female Reproductive Disorders: Menstrual Problems, Endometriosis 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 Sexually Transmitted Disease: No HIV/AIDS: No Genitourinary: No Gastrointestinal: No (hyperemesis gravidarum) Musculoskeletal: No Endocrine: No HEENT: Yes (GLASSES) Loss of Vision: Bilateral Hearing Impairment: Denies Cancer: No Psychosocial: Yes Anxiety, Depression Integumentary: Yes Eczema Blood Disorders: Yes (ANEMIA) Adverse Reaction/Blood Tranf: No (N/A) Family Medical History Hypertension 19 MOTHER No Pertinent Family Hx Physical Exam Vital Signs Vital Signs - First Documented 03/27/19 20:00 Temp 36.3 Pulse 89 Resp 18 B/P (MAP) 119/81 (94) Pulse Ox 98 O2 Delivery Room Air Capillary Refill : Less Than 3 Seconds Height, Weight, BMI Height: 5'5.00" Weight: 160lbs. 0oz. 72.913468ay; 27.00 BMI Method:Stated General Appearance: no apparent distress HEENT: PERRL/EOMI, normal ENT inspection Neck: non-tender, supple Cardiovascular: normal peripheral pulses, no edema Respiratory: lungs clear, normal breath sounds Gastrointestinal: soft Psychiatric: alert, oriented x 3 Crainal Nerves: normal speech, PERRL Coordination/Gait: normal gait Motor/Sensory: no motor deficit, no sensory deficit Procedures/Interventions Suture Size: 5-0 Progress/Results/Core Measures Results/Orders My Orders Orders - FRANNIE RIDDLE DO Diphenhydramine Injection (Benadryl Inje (03/27/19 20:30) Prochlorperazine Injection (Compazine In (03/27/19 20:30) Ns Iv 1000 Ml (Sodium Chloride 0.9%) (03/27/19 20:30) Ketorolac Injection (Toradol Injection) (03/27/19 20:30) Lorazepam Injection (Ativan Injection) (03/27/19 21:00) Medications Given in ED Current Medications Medications Dose Ordered Sig/Gayla Route Start Time Stop Time Status Last Admin Dose Admin Diphenhydramine HCl 50 mg ONCE ONCE IVP 03/27/19 20:30 03/27/19 20:31 DC 03/27/19 20:41 50 MG Ketorolac Tromethamine 30 mg ONCE ONCE IVP 03/27/19 20:30 03/27/19 20:31 DC 03/27/19 20:41 30 MG Lorazepam 1 mg ONCE ONCE IVP 03/27/19 21:00 03/27/19 21:01 DC 03/27/19 21:00 1 MG Prochlorperazine Edisylate 10 mg ONCE ONCE IV 03/27/19 20:30 03/27/19 20:31 DC 03/27/19 20:41 10 MG Vital Signs/I&O 03/27/19 20:00 Temp 36.3 Pulse 89 Resp 18 B/P (MAP) 119/81 (94) Pulse Ox 98 O2 Delivery Room Air Blood Pressure Mean: 94 Departure Communication (Admissions) Typical migraine headache. Symptoms fully resolved with treatment. Of note, patient did have restlessness with Compazine. This was updated within the MAR as an adverse drug reaction Impression Primary Impression: Migraine Disposition: 01 HOME, SELF-CARE Condition: Stable Departure-Patient Inst. Referrals: TOPHER MCKOY MD (PCP/Family) Primary Care Physician Patient Instructions: Migraine Headaches in Adults Add. Discharge Instructions: Please go home and rest. Increase fluids and continue Excedrin Migraine if migraine returns. Follow-up with your PCP for further management. All discharge instructions reviewed with patient and/or family. Voiced understanding. FRANNIE RIDDLE DO Mar 27, 2019 20:36
[2019-03-27] MEDS ORDERED: LORazepam INJ 2 MG/ML (ATIVAN) VIAL IVP ONE (21:00)
[2019-03-27 21:35] VITALS: BP 123/72
== END 2019-03-27 21:35 | disposition home or self-care (01) ==
LOC: EDUNIT# 19:49 → ER FS 19:51
DX: G43.909 Migraine, unspecified, not intractable, without status migrainosus (principal); F41.9 Anxiety disorder, unspecified; F32.9 Major depressive disorder, single episode, unspecified; D64.9 Anemia, unspecified; Z90.710 Acquired absence of both cervix and uterus; Z88.8 Allergy status to other drugs, medicaments and biological substances; Z98.51 Tubal ligation status; Z82.49 Family history of ischemic heart disease and other diseases of the circulatory system

== ENCOUNTER 2019-12-07 21:39 | Emergency (ER) | payer MEDICAID ==
[~2019-12-07] VITALS: Ht 162 cm; Wt 89.8 kg
[~2019-12-07 21:39] MED LIST changes: -TRAM50TA2 PO; +TRM50T PO
[2019-12-07] MEDS ORDERED: LIDOCAINE 1% INJ 20 ML 20 ML VIAL ONE (21:48)
[2019-12-07] MEDS ORDERED: LIDOCAINE 1% INJ 20 ML 20 ML VIAL INJ ONE (22:00)
--- NOTE | 2019-12-07 22:13 | ED General ---
General Chief Complaint: Psych/Social Disorder Stated Complaint: UPPER ARM LACERATION/SELF HARM Nursing Triage Note: Pt states she cuts herself when she is stressed out and cut herself too deep tonight. She presents with multiple lacerations to her left upper arm. Nursing Sepsis Screen: No Definite Risk Source of Information: Patient Exam Limitations: No Limitations History of Present Illness Date Seen by Provider: December 07, 2019 Time Seen by Provider: 21:50 Initial Comments This patient is a 24-year-old female that has a long history of anxiety depression and self cutting. Patient was she gets anxious she isn't [place] self for release. Patient has multiple scars to her upper extremities and lower extremities from self-inflicted cuts. Patient states she was very anxious today and that she's used a pocket knife to cut on her arm causing significant laceration. Patient was brought in by her . Patient station only takes Zoloft but has been out of it for about a week and unable to get out of her PCP. Timing/Duration: 1 Hour Severity: Moderate Allergies and Home Medications Allergies Coded Allergies: metoclopramide (Verified Allergy, Mild, JITTERY, 10/08/18) prochlorperazine (Verified Adverse Reaction, Mild, 03/27/19) Home Medications Docusate Sodium 100 Mg Capsule, 100 MG PO BID Prescribed by: SPENCER MTZ on 10/14/18 1430 Ibuprofen 800 Mg Tablet, 800 MG PO Q6HR Prescribed by: SPENCER MTZ on 10/14/18 1430 Oxycodone HCl/Acetaminophen 1 Each Tablet, 1 TAB PO Q4H PRN for PAIN-MODERATE Prescribed by: SPENCER MTZ on 10/15/18 0740 Promethazine HCl 25 Mg Tablet, 25 MG PO Q6H PRN for NAUSEA/VOMITING Prescribed by: BILLY CHOW on 10/19/18 1241 Tramadol HCl 50 Mg Tablet, 50 MG PO Q6H Prescribed by: SPENCER MTZ on 11/24/17 1308 Patient Home Medication List Home Medication List Reviewed: Yes Review of Systems Review of Systems Constitutional: see HPI EENTM: No see HPI, No no symptoms reported, No ear discharge, No hearing loss, No ear pain, No blurred vision, No double vision, No eye pain, No tearing, No vision loss, No dental problems, No hoarseness, No mouth pain, No mouth swelling, No epistaxis, No nose congestion, No nose pain, No throat pain, No throat swelling, No other Respiratory: No no symptoms reported, No see HPI, No cough, No dyspnea on exer tion, No hemoptysis, No orthopnea, No phlegm, No short of breath, No stridor, No wheezing, No other Cardiovascular: No no symptoms reported, No see HPI, No chest pain, No edema, No Hx of Intervention, No palpitations, No syncope, No vascular heart diseas, No other Gastrointestinal: No RUQ, No LUQ, No RLQ, No LLQ, No no symptoms reported, No see HPI, No abdominal pain, No constipation, No diarrhea, No dysphagia, No hematemesis, No heartburn, No jaundice, No loss of appetite, No melena, No nausea, No vomiting, No other Skin: see HPI Psychiatric/Neurological: Anxiety, Depressed Past Gyhayjt-Zinywu-Neylhv Hx Patient Social History Alcohol Use: Occasionally Uses Recreational Drug Use: No 2nd Hand Smoke Exposure: No Recent Foreign Travel: No Contact w/Someone Who Travel: No Recent Infectious Disease Expo: No Recent Hopitalizations: No Physical Abuse: No Sexual Abuse: No Immunizations Up To Date Tetanus Booster (TDap): Unknown Date of Influenza Vaccine: Apr 18, 2017 Seasonal Allergies Seasonal Allergies: No Past Medical History Surgeries: Yes (ENDOMETRIAL ABLATION) Hysterectomy Respiratory: No Cardiac: No Neurological: Yes Headaches /Migraines Reproductive Disorders: Yes (CPP,DUB) Female Reproductive Disorders: Menstrual Problems, Endometriosis [employer] History: Tubal Ligation Sexually Transmitted Disease: No HIV/AIDS: No Genitourinary: No Gastrointestinal: No (hyperemesis gravidarum) Musculoskeletal: No Endocrine: No HEENT: Yes (GLASSES) Loss of Vision: Bilateral Hearing Impairment: Denies Cancer: No Psychosocial: Yes Anxiety, Depression Integumentary: Yes Eczema Blood Disorders: Yes (ANEMIA) Adverse Reaction/Blood Tranf: No (N/A) Family Medical History Hypertension 19 MOTHER No Pertinent Family Hx Physical Exam Vital Signs Vital Signs - First Documented 12/07/19 21:48 Temp 37.0 Pulse 120 Resp 16 B/P (MAP) 131/89 (103) Pulse Ox 99 O2 Delivery Room Air Capillary Refill : Less Than 3 Seconds Height, Weight, BMI Height: 5'5.00" Weight: 160lbs. 0oz. [id number]; 34.00 BMI Method:Stated General Appearance: No Apparent Distress, WD/WN HEENT: PERRL/EOMI, TMs Normal, Normal ENT Inspection, Pharynx Normal Neck: Full Range of Motion, Normal Inspection, Non Tender, Supple, Carotid Bruit Respiratory: Chest Non Tender, Lungs Clear, Normal Breath Sounds, No Accessory Muscle Use, No Respiratory Distress Cardiovascular: Regular Rate, Rhythm, No Edema, No Gallop, No JVD, No Murmur, Normal Peripheral Pulses Gastrointestinal: Normal Bowel Sounds, No Organomegaly, No Pulsatile Mass, Non Tender, Soft Extremity: Normal Capillary Refill, Normal Inspection, Normal Range of Motion, Non Tender, No Calf Tenderness, No Pedal Edema, Other (multiple small lacerations to the left upper extremity patient has 2 lacerations. 1 is 12 cm length with subcutaneous tissue required jared. Second laceration 6 cm in length requiring 8 sutures.) Skin: Other (see above) Procedures/Interventions Wound Location: Upper Extremities Wound Length (cm): 12 Wound's Depth, Shape: linear, sub Q Wound Explored: clean Irrigated w/ Saline (ccs): 250 Betadine Prep?: No Anesthesia: 1% Lidocaine Volume Anesthetic (ccs): 10 Staple Repair: Stapler 35W Suture: Ethlion Suture Size: 4-0, 5-0 Number of Sutures: 8 Sterile Dressing Applied?: Yes Patient had multiple superficial lacerations to the left upper arm self- inflicted with a pocketknife. Most extensive laceration was to the subcutaneous tissue approximately 12 cm in length repaired with 12 jared. Socially and had an adjacent laceration approximate 6 cm in length superficial repaired with 8 sutures. Patient had a couple of other superficial lacerations that did not require stitches. Patient's wound was cleaned and dressed sterile dressing. Triple antibiotic applied Progress/Results/Core Measures Suspected Sepsis Recent Fever Within 48 Hours: No Infection Criteria Present: None New/Unexplained Altered Menta: No Sepsis Screen: No Definite Risk SIRS Temperature: Pulse: 120 Respiratory Rate: 16 Laboratory Tests 12/07/19 22:15: White Blood Count 10.7 Blood Pressure 131 /89 Mean: 103 Laboratory Tests 12/07/19 22:15: Creatinine 0.72, Platelet Count 308, Total Bilirubin 0.2 Results/Orders Lab Results Laboratory Tests Test 12/07/19 22:10 12/07/19 22:15 Range/Units Urine Color YELLOW Urine Clarity CLEAR Urine pH 6.0 5-9 Urine Specific [place] 1.015 L 1.016-1.022 Urine Protein NEGATIVE NEGATIVE Urine Glucose (UA) NEGATIVE NEGATIVE Urine Ketones NEGATIVE NEGATIVE Urine Nitrite NEGATIVE NEGATIVE Urine Bilirubin NEGATIVE NEGATIVE Urine Urobilinogen 0.2 < = 1.0 MG/DL Urine Leukocyte Esterase NEGATIVE NEGATIVE Urine RBC (Auto) NEGATIVE NEGATIVE Urine RBC RARE /HPF Urine WBC RARE /HPF Urine Squamous Epithelial Cells 0-2 /HPF Urine Crystals NONE /LPF Urine Bacteria TRACE /HPF Urine Casts NONE /LPF Urine Mucus NEGATIVE /LPF Urine Culture Indicated NO Urine Opiates Screen NEGATIVE NEGATIVE Urine Oxycodone Screen NEGATIVE NEGATIVE Urine Methadone Screen NEGATIVE NEGATIVE Urine Propoxyphene Screen NEGATIVE NEGATIVE Urine Barbiturates Screen NEGATIVE NEGATIVE Ur Tricyclic Antidepressants Screen NEGATIVE NEGATIVE Urine Phencyclidine Screen NEGATIVE NEGATIVE Urine Amphetamines Screen NEGATIVE NEGATIVE Urine Methamphetamines Screen NEGATIVE NEGATIVE Urine Benzodiazepines Screen NEGATIVE NEGATIVE Urine Cocaine Screen NEGATIVE NEGATIVE Urine Cannabinoids Screen NEGATIVE NEGATIVE White Blood Count 10.7 4.3-11.0 10^3/uL Red Blood Count 4.52 4.35-5.85 10^6/uL Hemoglobin 12.3 11.5-16.0 G/DL Hematocrit 38 35-52 % Mean Corpuscular Volume 83 80-99 FL Mean Corpuscular Hemoglobin 27 25-34 PG Mean Corpuscular Hemoglobin Concent 33 32-36 G/DL Red Cell Distribution Width 13.4 10.0-14.5 % Platelet Count 308 130-400 10^3/uL Mean Platelet Volume 11.0 H 7.4-10.4 FL Neutrophils (%) (Auto) 60 42-75 % Lymphocytes (%) (Auto) 31 12-44 % Monocytes (%) (Auto) 6 0-12 % Eosinophils (%) (Auto) 3 0-10 % Basophils (%) (Auto) 0 0-10 % Neutrophils # (Auto) 6.4 1.8-7.8 X 10^3 Lymphocytes # (Auto) 3.3 1.0-4.0 X 10^3 Monocytes # (Auto) 0.6 0.0-1.0 X 10^3 Eosinophils # (Auto) 0.3 0.0-0.3 10^3/uL Basophils # (Auto) 0.0 0.0-0.1 10^3/uL Sodium Level 139 135-145 MMOL/L Potassium Level 3.5 L 3.6-5.0 MMOL/L Chloride Level 99 98-107 MMOL/L Carbon Dioxide Level 25 21-32 MMOL/L Anion Gap 15 H 5-14 MMOL/L Blood Urea Nitrogen 13 7-18 MG/DL Creatinine 0.72 0.60-1.30 MG/DL Estimat Glomerular Filtration Rate > 60 BUN/Creatinine Ratio 18 Glucose Level 122 H 70-105 MG/DL Calcium Level 9.5 8.5-10.1 MG/DL Corrected Calcium 9.4 8.5-10.1 MG/DL Total Bilirubin 0.2 0.1-1.0 MG/DL Aspartate Amino Transf (AST/SGOT) 23 5-34 U/L Alanine Aminotransferase (ALT/SGPT) 22 0-55 U/L Alkaline Phosphatase 99 40-136 U/L Total Protein 7.4 6.4-8.2 GM/DL Albumin 4.1 3.2-4.5 GM/DL Salicylates Level < 5.0 L 5.0-20.0 MG/DL Acetaminophen Level < 10 L 10-30 UG/ML Serum Alcohol < 10 <10 MG/DL My Orders Orders - YAQUELIN BARAJAS MD Lidocaine 1% Inj 20 Ml (Xylocaine 1% Inj (12/07/19 21:48) Lidocaine 1% Inj 20 Ml (Xylocaine 1% Inj (12/07/19 22:00) Cbc With Automated Diff (12/07/19 22:20) Comprehensive Metabolic Panel (12/07/19 22:20) Alcohol (12/07/19 22:20) Salicylate (12/07/19 22:20) Drug Screen Stat (Urine) (12/07/19 22:20) Urinalysis (12/07/19 22:20) Acetaminophen (12/07/19 22:20) Medications Given in ED Current Medications Medications Dose Ordered Sig/Gayla Route Start Time Stop Time Status Last Admin Dose Admin Lidocaine HCl 20 ml ONCE ONCE INJ 12/07/19 22:00 12/07/19 22:01 DC 12/07/19 22:36 20 ML Vital Signs/I&O 12/07/19 21:48 Temp 37.0 Pulse 120 Resp 16 B/P (MAP) 131/89 (103) Pulse Ox 99 O2 Delivery Room Air Capillary Refill : Less Than 3 Seconds Blood Pressure Mean: 103 Progress Note : Time: 00:57 Progress Note Laceration repair please see procedural note same. Patient evaluated via telemedicine for behavioral health. They agreed with the patient be discharged home and patient is agreeable to a safety plan. Please see chart for full safety plan measures in nurse's notes. Patient be discharged home Patient is instructed to follow up as instructed discuss with her PCP about possible antidepressant medications. Return to their PCP or the emergency department in 7-10 days for suture and staple removal. Departure Impression Primary Impression: Deliberate self-cutting Additional Impressions: Anxiety and depression Multiple lacerations Disposition: 01 HOME, SELF-CARE Condition: Stable Departure-Patient Inst. Decision time for Depature: 00:59 Referrals: TOPHER MCKOY MD (PCP/Family) Primary Care Physician Patient Instructions: Laceration Repair With [place] (DC) Add. Discharge Instructions: Patient is instructed to follow up as instructed discuss with her PCP about possible antidepressant medications. Return to their PCP or the emergency department in 7-10 days for suture and staple removal. All discharge instructions reviewed with patient and/or family. Voiced understanding. YAQUELIN BARAJAS MD December 07, 2019 22:13
[2019-12-07 22:31] LABS: BACTERIA,URINE TRACE /HPF; BILIRUBIN,URINE NEGATIVE (NEGATIVE); CLARITY,URINE CLEAR; COLOR,URINE YELLOW; GLUCOSE, URINE (UA) NEGATIVE (NEGATIVE); KETONES,URINE NEGATIVE (NEGATIVE); LEUKOCYTE ESTERASE ,URINE NEGATIVE (NEGATIVE); NITRITE,URINE NEGATIVE (NEGATIVE); PROTEIN,URINE NEGATIVE (NEGATIVE); RBC,URINE RARE /HPF; SQUAMOUS EPITHELIAL CELL,UR 0-2 /HPF; WBC,URINE RARE /HPF
[2019-12-07 22:32] LABS: BASOPHILS % (AUTO) 0 % (0-10); EOSINOPHILS # (AUTO) 0.3 10^3/uL (0.0-0.3); EOSINOPHILS % (AUTO) 3 % (0-10); HEMATOCRIT 38 % (35-52); HEMOGLOBIN 12.3 G/DL (11.5-16.0); LYMPHOCYTES # (AUTO) 3.3 X 10^3 (1.0-4.0); LYMPHOCYTES % (AUTO) 31 % (12-44); MEAN CORPUSCULAR HEMOGLOBIN 27 PG (25-34); MEAN CORPUSCULAR HGB CONC 33 G/DL (32-36); MEAN CORPUSCULAR VOLUME 83 FL (80-99); MONOCYTES # (AUTO) 0.6 X 10^3 (0.0-1.0); MONOCYTES % (AUTO) 6 % (0-12); NEUTROPHILS # (AUTO) 6.4 X 10^3 (1.8-7.8); NEUTROPHILS % (AUTO) 60 % (42-75); PLATELET COUNT 308 10^3/uL (130-400); RED CELL DISTRIBUTION WIDTH 13.4 % (10.0-14.5); WHITE BLOOD COUNT 10.7 10^3/uL (4.3-11.0)
--- OUTSIDE RECORDS SUMMARY | 2019-12-07 22:38 | XMS REPORT | Continuity of Care Document ---
Author Organization Unknown Address Unknown Phone Unavailable Allergies Active Description Code Type Severity Reaction Onset Reported/Identified Relationship to Patient Clinical Status Yes No Known Drug Allergies [id number] Drug Allergy Unknown N/A 11/20/[id number] rich Allergy Unknown N/A 10/02/[id number] rich Allergy Mild JITTERY 10/08/2018 Yes prochlorperazine [id number] Drug Allergy Mild N/A 03/27/2019 Medications There is no data. 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.03 FALSE LABOR BEFORE 37 COMPLETED WEEKS OF 07/01/2017 SPENCER STARKEY MD, Ot Z3A.32 32 WEEKS GESTATION OF 07/04/2017 SPENCER STARKEY MD, Ot D72.829 ELEVATED WHITE BLOOD CELL COUNT, UNSPECI 07/04/2017 SPENCER STARKEY MD, Ot O60.03 LABOR WITHOUT DELIVERY, THIRD TR 07/04/2017 SPENCER STARKEY MD Ot O99.113 OT DIS OF BLD/BLD-FORM ORG/IMMUN MECHNS 07/04/2017 SPENCER STARKEY MD, Ot Z3A.33 33 WEEKS GESTATION OF 07/08/2017 SPENCER STARKEY MD, Ot D72.829 ELEVATED WHITE BLOOD CELL COUNT, UNSPECI 07/08/2017 SPENCER STARKEY MD, Ot O60.03 LABOR WITHOUT DELIVERY, THIRD TR 07/08/2017 SPENCER STARKEY MD, Ot O99.113 OT DIS OF BLD/BLD-FORM ORG/IMMUN MECHNS 07/08/2017 SPENCER STARKEY MD, Ot Z3A.33 33 WEEKS GESTATION OF 07/14/2017 SPENCER STARKEY MD, Ot O26.893 OT RELATED CONDITIONS, THIRD 07/14/2017 SPENCER STARKEY MD, Ot O60.03 LABOR WITHOUT DELIVERY, THIRD TR 07/14/2017 SPENCER STARKEY MD, Ot Z3A.34 34 WEEKS GESTATION OF 07/23/2017 SPENCER STARKEY MD, Ot O47.03 FALSE LABOR BEFORE 37 COMPLETED WEEKS OF 07/23/2017 SPENCER STARKEY MD, Ot Z3A.35 35 WEEKS GESTATION OF 07/25/2017 SPENCER STARKEY MD Ot O47.03 FALSE LABOR BEFORE 37 COMPLETED WEEKS OF 07/25/2017 SPENCER STARKEY MD Ot Z3A.35 35 WEEKS GESTATION OF 07/26/2017 SPENCER STARKEY MD Ot O47.03 FALSE LABOR BEFORE 37 COMPLETED WEEKS OF 07/26/2017 SPENCER STARKEY MD, Ot Z3A.36 36 WEEKS GESTATION OF 07/31/2017 [...] TRI 08/02/2017 SPENCER STARKEY MD, Ot O99.113 OT DIS OF BLD/BLD-FORM ORG/IMMUN MECHNS 08/02/2017 SPENCER [...] MD, Ot N80.1 ENDOMETRIOSIS OF OVARY 11/27/2017 LALITO MD, SPENCER G Ot N80.5 ENDOMETRIOSIS OF INTESTINE 11/27/2017 SPENCER STARKEY MD Ot N83.01 FOLLICULAR CYST OF RIGHT OVARY 11/30/2017 SPENCER STARKEY MD, Ot F41.9 ANXIETY DISORDER, UNSPECIFIED 11/30/2017 SPENCER STARKEY MD Ot K37 UNSPECIFIED APPENDICITIS 11/30/2017 SPENCER STARKEY MD Ot N73.6 FEMALE PELVIC PERITONEAL ADHESIONS (POST 11/30/2017 SPENCER STARKEY MD Ot N80.0 ENDOMETRIOSIS OF UTERUS 11/30/2017 SPENCER STARKEY MD Ot N80.1 ENDOMETRIOSIS OF OVARY 11/30/2017 SPENCER STARKEY MD, Ot N80.5 ENDOMETRIOSIS OF INTESTINE 11/30/2017 SPENCER STARKEY MD, Ot N83.01 FOLLICULAR CYST OF RIGHT OVARY 10/03/2018 ELIZABETH MUNSON MD Ot F32.9 MAJOR DEPRESSIVE DISORDER, SINGLE EPISOD 10/03/2018 ELIZABETH MUNSON MD, Ot F41.9 ANXIETY DISORDER, UNSPECIFIED 10/03/2018 ELIZABETH MUNSON MD, Ot G43.9 09 MIGRAINE, UNSP, NOT INTRACTABLE, WITHOUT 10/03/2018 ELIZABETH MUNSON MD Ot R51 HEADACHE 10/03/2018 ELIZABETH MUNSON MD, Ot Z87.4 48 PERSONAL HISTORY OF OTHER DISEASES OF UR 10/03/2018 ELIZABETH MUNSON MD Ot Z88.8 ALLERGY STATUS TO OTH DRUG/MEDS/BIOL SUB 10/05/2018 ELIZABETH MUNSON MD Ot F32.9 MAJOR DEPRESSIVE DISORDER, SINGLE EPISOD 10/05/2018 ELIZABETH MUNSON MD, Ot F41.9 ANXIETY DISORDER, UNSPECIFIED 10/05/2018 ELIZABETH MUNSON MD Ot G43.9 09 MIGRAINE, UNSP, NOT INTRACTABLE, WITHOUT 10/05/2018 ELIZABETH MUNSON MD Ot R51 HEADACHE 10/05/2018 ELIZABETH MUNSON MD, Ot Z87.4 48 PERSONAL HISTORY OF OTHER DISEASES OF UR 10/05/2018 ELIZABETH MUNSON MD, Ot Z88.8 ALLERGY STATUS TO OTH DRUG/MEDS/BIOL SUB 10/08/2018 ELIZABETH MUNSON MD, Ot F32.9 MAJOR DEPRESSIVE DISORDER, SINGLE EPISOD 10/08/2018 JEIMY DUDLEY, ELIZABETH Hobbs Ot F41.9 ANXIETY DISORDER, UNSPECIFIED 10/08/2018 JEIMY DUDLEY, ELIZABETH Hobbs Ot G43.9 09 MIGRAINE, UNSP, NOT INTRACTABLE, WITHOUT 10/08/2018 ELIZABETH MUNSON MD, Ot R51 HEADACHE 10/08/2018 JEIMY DUDLEY, ELIZABETH Hobbs Ot Z87.4 48 PERSONAL HISTORY OF OTHER DISEASES OF UR 10/08/2018 JEIMY DUDLEY, ELIZABETH Hobbs Ot Z88.8 ALLERGY STATUS TO OTH DRUG/MEDS/BIOL SUB 10/08/2018 SPENCER STARKEY MD, Ot D64.9 ANEMIA, UNSPECIFIED 10/08/2018 SPENCER STARKEY MD, Ot N80.0 ENDOMETRIOSIS OF UTERUS 10/08/2018 SPENCER STARKEY MD, Ot N81.2 INCOMPLETE UTEROVAGINAL PROLAPSE 10/08/2018 SPENCER STARKEY MD Ot Z01.812 ENCOUNTER FOR [...] N80.0 ENDOMETRIOSIS OF UTERUS 10/12/2018 SPENCER STARKEY MD Ot N81.2 INCOMPLETE UTEROVAGINAL PROLAPSE 10/12/2018 SPENCER STARKEY MD Ot Z01.812 ENCOUNTER FOR PREPROCEDURAL LABORATORY E 10/12/2018 SPENCER STARKEY MD Ot Z11.2 ENCOUNTER FOR SCREENING FOR OTHER BACTER 10/15/2018 SPENCER STARKEY MD, Ot N72 INFLAMMATORY DISEASE OF CERVIX UTERI 10/15/2018 SPENCER STARKEY MD, Ot N80.1 ENDOMETRIOSIS OF OVARY 10/15/2018 SPENCER STARKEY MD, Ot N80.3 ENDOMETRIOSIS OF PELVIC PERITONEUM 10/15/2018 SPENCER STARKEY MD, Ot N83.12 CORPUS LUTEUM CYST OF LEFT OVARY 10/15/2018 SPENCER STARKEY MD, Ot N94.10 UNSPECIFIED DYSPAREUNIA 10/19/2018 BILLY CHOW Ot D64.9 ANEMIA, UNSPECIFIED 10/19/2018 BILLY CHOW Ot F32.9 MAJOR DEPRESSIVE DISORDER, SINGLE EPISOD 10/19/2018 BILLY CHOW Ot F41.9 ANXIETY DISORDER, UNSPECIFIED 10/19/2018 BILLY CHOW Ot G43.909 MIGRAINE, UNSP, NOT INTRACTABLE, WITHOUT 10/19/2018 BILLY CHOW Ot R11.2 NAUSEA WITH VOMITING, UNSPECIFIED 10/19/2018 BILLY CHOW Ot Z87.448 PERSONAL HISTORY OF OTHER DISEASES OF UR 10/19/2018 BILLY CHOW Ot Z88.8 ALLERGY STATUS TO OTH DRUG/MEDS/BIOL SUB 10/19/2018 BILLY CHOW Ot Z90.710 ACQUIRED ABSENCE OF BOTH CERVIX AND UTER 10/19/2018 BILLY CHOW Ot Z98.51 TUBAL LIGATION STATUS 10/23/2018 SPENCER STARKEY MD, Ot N72 INFLAMMATORY DISEASE OF CERVIX UTERI 10/23/2018 SPENCER STARKEY MD, Ot N80.1 ENDOMETRIOSIS OF OVARY 10/23/2018 SPENCER STARKEY MD, Ot N80.3 ENDOMETRIOSIS OF PELVIC PERITONEUM 10/23/2018 SPENCER STARKEY MD, Ot N83.12 CORPUS LUTEUM CYST OF LEFT OVARY 10/23/2018 SPENCER STARKEY MD, Ot N94.10 UNSPECIFIED DYSPAREUNIA 01/04/2019 KALANI WISE DO Ot F32 .9 MAJOR DEPRESSIVE DISORDER, SINGLE EPISOD 01/04/2019 KALANI WISE DO Ot F41 .9 ANXIETY DISORDER, UNSPECIFIED 01/04/2019 KALANI WISE DO Ot G43.909 MIGRAINE, UNSP, NOT INTRACTABLE, WITHOUT 01/04/2019 KALANI WISE DO Ot S51.812A LACERATION WITHOUT FOREIGN BODY OF LEFT 01/04/2019 KALANI WISE DO Ot W26.8XXA CONTACT WITH OTHER SHARP OBJECT(S), NEC, 01/04/2019 KALANI WISE DO Ot Z82.49 FAMILY HX OF ISCHEM HEART DIS AND OTH DI 01/04/2019 KALANI WISE DO Ot Z88 .8 ALLERGY STATUS TO OTH DRUG/MEDS/BIOL SUB 01/04/2019 KALANI WISE DO Ot Z90.710 ACQUIRED ABSENCE OF BOTH CERVIX AND UTER 01/04/2019 KALANI WISE DO Ot Z98.51 TUBAL LIGATION STATUS 01/06/2019 KALANI WISE DO Ot F32 .9 MAJOR DEPRESSIVE DISORDER, SINGLE EPISOD 01/06/2019 KALANI WISE DO Ot F41 .9 ANXIETY DISORDER, UNSPECIFIED 01/06/2019 KALANI WISE DO Ot G43.909 MIGRAINE, UNSP, NOT INTRACTABLE, WITHOUT 01/06/2019 KALANI WISE DO Ot S51.812A LACERATION WITHOUT FOREIGN BODY OF LEFT 01/06/2019 KALANI WISE DO Ot W26.8XXA CONTACT WITH OTHER SHARP OBJECT(S), NEC, 01/06/2019 KALANI WISE DO Ot Z82.49 FAMILY HX OF ISCHEM HEART DIS AND OTH DI 01/06/2019 KALANI WISE DO Ot Z88 .8 ALLERGY STATUS TO OTH DRUG/MEDS/BIOL SUB 01/06/2019 KALANI WISE DO Ot Z90.710 ACQUIRED ABSENCE OF BOTH CERVIX AND UTER 01/06/2019 KALANI WISE DO Ot Z98.51 TUBAL LIGATION STATUS 03/27/2019 FRANNIE RIDDLE DO Ot D64.9 ANEMIA, UNSPECIFIED 03/27/2019 RIDDLE DO FRANNIE Ot F32.9 MAJOR DEPRESSIVE DISORDER, SINGLE EPISOD 03/27/2019 RIDDLE DO FRANNIE Ot F41.9 ANXIETY DISORDER, UNSPECIFIED 03/27/2019 RIDDLE DO FRANNIE Ot G43.909 MIGRAINE, UNSP, NOT INTRACTABLE, WITHOUT 03/27/2019 RIDDLE DO FRANNIE Ot R51 HEADACHE 03/27/2019 RIDDLE DO FRANNIE Ot Z82.49 FAMILY HX OF ISCHEM HEART DIS AND OTH DI 03/27/2019 FRANNIE RIDDLE DO Ot Z88.8 ALLERGY STATUS TO OTH DRUG/MEDS/BIOL SUB 03/27/2019 FRANNIE RIDDLE DO Ot Z90.710 ACQUIRED ABSENCE OF BOTH CERVIX AND UTER 03/27/2019 FRANNIE RIDDLE DO Ot Z98.51 TUBAL LIGATION STATUS Procedures Code Description Performed By Per formed On [id number] [facility], EXTE 07/31/2017 Results Test Result Range Complete urinalysis with reflex to cultu re - 03/29/17 06:10 Urine color determination YELLOW NRG Urine clarity determination CLEAR NR G Urine pH measurement by test strip 8 5-9 Specific gravity of urine by test strip 1.015 1.016-1.022 Urine protein assay by test strip, semi-quantitative NEGATIVE NEGATIVE Urine glucose detection by automated test strip NE GATIVE NEGATIVE Erythrocytes detection in urine sediment by light micr oscopy NEGATIVE NEGATIVE Urine ketones detection by automated test strip NE GATIVE NEGATIVE Urine nitrite detection by test strip NEGATIVE NEGATIVE Urine total bilirubin detection by test strip NEGA TIVE NEGATIVE Urine urobilinogen measurement by automated test strip (mass/volume) NORMAL NORMAL Urine leukocyte esterase detection by dipstick 3+ NEGATIVE Automated urine sediment erythrocyte cou nt by microscopy (number/high power field) NONE NRG Automated urine sediment leukocyte count by microscopy (number/high power field) [HPF] NRG Bacteria detection in urine sediment by light microsco py FEW NRG Squamous epithelial cells detection in u rine sediment by light microscopy 10-25 NRG Crystals detection in urine sediment by light microsco py NONE NRG Casts detection in urine sediment by light microscopy NONE NRG Mucus detection in urine sediment by light microscopy NEGATIVE NRG Complete urinalysis with reflex to culture YES NRG Bacterial urine culture - 03/29/17 06:10 URINE CULTURE RESULTS <10,000/ML NRG Complete blood count (CBC) with automate d white blood cell (WBC) differential - 03/29/17 07:05 Blood leukocytes automated count (number/volume) 12.2 10*3/uL 4.3-11.0 Blood erythrocytes automated count (number/volume) 3.54 10*6/uL 4.35-5.85 Venous blood hemoglobin measurement (mass/volume) 10.1 g/dL 11.5-16.0 Blood hematocrit (volume fraction) 30 % 35-52 Automated erythrocyte mean corpuscular volume 85 [ foz_us] 80-99 Automated erythrocyte mean corpuscular h emoglobin (mass per erythrocyte) 29 pg 25-34 Automated erythrocyte mean corpuscular h emoglobin concentration measurement (mass/volume) 34 g/dL 32-36 Automated erythrocyte distribution width ratio 14. 0 % 10.0- 14.5 Automated blood platelet count [...] 10*3 1.0-4.0 Blood monocytes automated count (number/volume) 0. 9 10*3 0.0-1.0 Automated eosinophil count 0.2 10*3/uL 0 .0-0.3 Automated blood basophil count (count/volume) 0.0 10*3/uL 0.0-0.1 Comprehensive metabolic panel - 03/29/17 07:05 Serum or plasma sodium measurement (moles/volume) 138 mmol/L 135-145 Serum or plasma potassium measurement (moles/volume) 3.6 mmol/L 3.6-5.0 Serum or plasma chloride measurement (moles/volume) 109 mmol/L 98-107 Carbon dioxide 22 mmol/L 21-32 Serum or plasma anion gap determination (moles/volume) 7 mmol/L 5-14 Serum or plasma urea nitrogen measurement (mass/volume ) 5 mg/dL 7-18 Serum or plasma creatinine measurement (mass/volume) 0.65 mg/dL 0.60-1.30 Serum or plasma urea nitrogen/creatinine mass ratio 8 NRG Serum or plasma creatinine measurement w ith calculation of estimated glomerular filtration rate > NRG Serum or plasma glucose measurement (mass/volume) 83 mg/dL 70-105 Serum or plasma calcium measurement (mass/volume) 8.5 mg/dL 8.5-10.1 Serum or plasma total bilirubin measurement (mass/volu me) 0.2 mg/dL 0.1-1.0 Serum or plasma alkaline phosphatase elinor surement (enzymatic activity/volume) 61 U/L 40-136 Serum or plasma aspartate aminotransfera se measurement (enzymatic activity/volume) 15 U/L 5-34 Serum or plasma alanine aminotransferase measurement (enzymatic activity/volume) 10 U/L 0-55 Serum or plasma protein measurement (mass/volume) 6.1 g/dL 6.4-8.2 Serum or plasma albumin measurement (mass/volume) 3.2 g/dL 3.2-4.5 Lipase - 03/29/17 07:05 Lipase 13 U/L 8-78 Microscopic examination by wet preparati on - 05/06/17 16:45 WET PREP RESULTS NO YEAST OBSERVED, NO TRICH OMONAS OBSERVED NRG Complete urinalysis with reflex to cultu re - 05/06/17 16:45 Urine color determination YELLOW NRG Urine clarity determination CLEAR NR G Urine pH measurement by test strip 6 5-9 Specific gravity of urine by test strip 1.020 1.016-1.022 Urine protein assay by test strip, semi-quantitative NEGATIVE NEGATIVE Urine glucose detection by automated test strip NE GATIVE NEGATIVE Erythrocytes detection in urine sediment by light micr oscopy NEGATIVE NEGATIVE Urine ketones detection by automated test strip 3+ NEGATIVE Urine nitrite detection by test strip NEGATIVE NEGATIVE Urine total bilirubin detection by test strip NEGA TIVE NEGATIVE Urine urobilinogen measurement by automated test strip (mass/volume) NORMAL NORMAL Urine leukocyte esterase detection by dipstick NEG ATIVE NEGATIVE Automated urine sediment erythrocyte cou nt by microscopy (number/high power field) RARE NRG Automated urine sediment leukocyte count by microscopy (number/high power field) [HPF] NRG Bacteria detection in urine sediment by light microsco py TRACE NRG Squamous epithelial cells detection in u rine sediment by light microscopy 2-5 NRG Crystals detection in urine sediment by light microsco py NONE NRG Casts detection in urine sediment by light microscopy NONE NRG Mucus detection in urine sediment by light microscopy LARGE NRG Complete urinalysis with reflex to culture NO NRG Bacterial urine culture - 05/06/17 16:45 Bacterial urine culture NG NRG Complete blood count (CBC) with automate d white blood cell (WBC) differential - 05/06/17 17:15 Blood leukocytes automated count (number/volume) 14.5 10*3/uL 4.3-11.0 Blood erythrocytes automated count (number/volume) 3.65 10*6/uL 4.35-5.85 Venous blood hemoglobin measurement (mass/volume) 10.4 g/dL 11.5-16.0 Blood hematocrit (volume fraction) 31 % 35-52 Automated erythrocyte mean corpuscular volume 85 [ foz_us] 80-99 Automated erythrocyte mean corpuscular h emoglobin (mass per erythrocyte) 29 pg 25-34 Automated erythrocyte mean corpuscular h emoglobin concentration measurement (mass/volume) 33 g/dL 32-36 Automated erythrocyte distribution width ratio 13. 2 % 10.0- 14.5 Automated blood platelet count [...] 10*3 1.0-4.0 Blood monocytes automated count (number/volume) 1. 0 10*3 0.0-1.0 Automated eosinophil count 0.2 10*3/uL 0 .0-0.3 Automated blood basophil count (count/volume) 0.0 10*3/uL 0.0-0.1 Blood manual differential performed dete ction - 05/06/17 17:15 Blood monocytes/100 leukocytes 5 % NRG Manual blood segmented neutrophils/100 leukocytes 83 % NRG Blood band neutrophils/100 leukocytes 2 % NRG Manual blood lymphocytes/100 leukocytes 9 % NRG Manual eosinophils/100 leukocytes in nose 1 % NRG Manual blood basophils/100 leukocytes 0 % NRG Blood erythrocyte morphology finding identification NORMAL NRG Complete urinalysis with reflex to cultu re - 05/14/17 13:00 Urine color determination YELLOW NRG Urine clarity determination CLEAR NR G Urine pH measurement by test strip 7 5-9 Specific gravity of urine by test strip 1.010 1.016-1.022 Urine protein assay by test strip, semi-quantitative NEGATIVE NEGATIVE Urine glucose detection by automated test strip NE GATIVE NEGATIVE Erythrocytes detection in urine sediment by light micr oscopy NEGATIVE NEGATIVE Urine ketones detection by automated test strip NE GATIVE NEGATIVE Urine nitrite detection by test strip NEGATIVE NEGATIVE Urine total bilirubin detection by test strip NEGA TIVE NEGATIVE Urine urobilinogen measurement by automated test strip (mass/volume) 1 mg/dL NORMAL Urine leukocyte esterase detection by dipstick 1+ NEGATIVE Automated urine sediment erythrocyte cou nt by microscopy (number/high power field) NONE NRG Automated urine sediment leukocyte count by microscopy (number/high power field) [HPF] NRG Bacteria detection in urine sediment by light microsco py NEGATIVE NRG Squamous epithelial cells detection in u rine sediment by light microscopy 0-2 NRG Crystals detection in urine sediment by light microsco py NONE NRG Casts detection in urine sediment by light microscopy NONE NRG Mucus detection in urine sediment by light microscopy NEGATIVE NRG Complete urinalysis with reflex to culture NO NRG Amorphous sediment detection in urine sediment by ligh t microscopy MOD HERMINIA URATES NRG Bacterial urine culture - 05/14/17 13:00 URINE CULTURE RESULTS <10,000/ML NRG Complete blood count (CBC) with automate d white blood cell (WBC) differential - 05/14/17 18:15 Blood leukocytes automated count (number/volume) 12.0 10*3/uL 4.3-11.0 Blood erythrocytes automated count (number/volume) 3.29 10*6/uL 4.35-5.85 Venous blood hemoglobin measurement (mass/volume) 9.2 g/dL 11.5-16.0 Blood hematocrit (volume fraction) 28 % 35-52 Automated erythrocyte mean corpuscular volume 85 [ foz_us] 80-99 Automated erythrocyte mean corpuscular h emoglobin (mass per erythrocyte) 28 pg 25-34 Automated erythrocyte mean corpuscular h emoglobin concentration measurement (mass/volume) 33 g/dL 32-36 Automated erythrocyte distribution width ratio 12. 8 % 10.0- 14.5 Automated blood platelet count [...] 10*3 1.0-4.0 Blood monocytes automated count (number/volume) 1. 0 10*3 0.0-1.0 Automated eosinophil count 0.0 10*3/uL 0 .0-0.3 Automated blood basophil count (count/volume) 0.0 10*3/uL 0.0-0.1 Complete urinalysis with reflex to cultu re - 05/17/17 23:15 Urine color determination YELLOW NRG Urine clarity determination CLEAR NR G Urine pH measurement by test strip 8 5-9 Specific gravity of urine by test strip 1.015 1.016-1.022 Urine protein assay by test strip, semi-quantitative NEGATIVE NEGATIVE Urine glucose detection by automated test strip NE GATIVE NEGATIVE Erythrocytes detection in urine sediment by light micr oscopy NEGATIVE NEGATIVE Urine ketones detection by automated test strip NE GATIVE NEGATIVE Urine nitrite detection by test strip NEGATIVE NEGATIVE Urine total bilirubin detection by test strip NEGA TIVE NEGATIVE Urine urobilinogen measurement by automated test strip (mass/volume) NORMAL NORMAL Urine leukocyte esterase detection by dipstick NEG ATIVE NEGATIVE Automated urine sediment erythrocyte cou nt by microscopy (number/high power field) NONE NRG Automated urine sediment leukocyte count by microscopy (number/high power field) NONE NRG Bacteria detection in urine sediment by light microsco py NEGATIVE NRG Squamous epithelial cells detection in u rine sediment by light microscopy 0-2 NRG Crystals detection in urine sediment by light microsco py NONE NRG Casts detection in urine sediment by light microscopy NONE NRG Mucus detection in urine sediment by light microscopy NEGATIVE NRG Complete urinalysis with reflex to culture NO NRG Complete blood count (CBC) with automate d white blood cell (WBC) differential - 06/10/17 10:32 Blood leukocytes automated count (number/volume) 17.1 10*3/uL 4.3-11.0 Blood erythrocytes automated count (number/volume) 3.52 10*6/uL 4.35-5.85 Venous blood hemoglobin measurement (mass/volume) 9.3 g/dL 11.5-16.0 Blood hematocrit (volume fraction) 29 % 35-52 Automated erythrocyte mean corpuscular volume 82 [ foz_us] 80-99 Automated erythrocyte mean corpuscular h emoglobin (mass per erythrocyte) 26 pg 25-34 Automated erythrocyte mean corpuscular h emoglobin concentration measurement (mass/volume) 32 g/dL 32-36 Automated erythrocyte distribution width ratio 13. 1 % 10.0- 14.5 Automated blood platelet count [...] 10*3 1.0-4.0 Blood monocytes automated count (number/volume) 1. 4 10*3 0.0-1.0 Automated eosinophil count 0.2 10*3/uL 0 .0-0.3 Automated blood basophil count (count/volume) 0.1 10*3/uL 0.0-0.1 Complete urinalysis with reflex to cultu re - 06/10/17 10:32 Urine color determination YELLOW NRG Urine clarity determination CLEAR NR G Urine pH measurement by test strip 8 5-9 Specific gravity of urine by test strip 1.015 1.016-1.022 Urine protein assay by test strip, semi-quantitative NEGATIVE NEGATIVE Urine glucose detection by automated test strip NE GATIVE NEGATIVE Erythrocytes detection in urine sediment by light micr oscopy NEGATIVE NEGATIVE Urine ketones detection by automated test strip NE GATIVE NEGATIVE Urine nitrite detection by test strip NEGATIVE NEGATIVE Urine total bilirubin detection by test strip NEGA TIVE NEGATIVE Urine urobilinogen measurement by automated test strip (mass/volume) NORMAL NORMAL Urine leukocyte esterase detection by dipstick NEG ATIVE NEGATIVE Automated urine sediment erythrocyte cou nt by microscopy (number/high power field) NONE NRG Automated urine sediment leukocyte count by microscopy (number/high power field) NONE NRG Bacteria detection in urine sediment by light microsco py NEGATIVE NRG Squamous epithelial cells detection in u rine sediment by light microscopy NONE NRG Crystals detection in urine sediment by light microsco py NONE NRG Casts detection in urine sediment by light microscopy NONE NRG Mucus detection in urine sediment by light microscopy NEGATIVE NRG Complete urinalysis with reflex to culture NO NRG Amorphous sediment detection in urine sediment by ligh t microscopy LARGE HERMINIA PHOSPHATE NRG Blood manual differential performed dete ction - 06/10/17 10:32 Blood monocytes/100 leukocytes 6 [...] NG NRG Complete blood count (CBC) with automate d white blood cell (WBC) differential - 06/11/17 05:35 Blood leukocytes automated count (number/volume) 15.4 10*3/uL 4.3-11.0 Blood erythrocytes automated count (number/volume) 3.19 10*6/uL 4.35-5.85 Venous blood hemoglobin measurement (mass/volume) 8.3 g/dL 11.5-16.0 Blood hematocrit (volume fraction) 27 % 35-52 Automated erythrocyte mean corpuscular volume 83 [ foz_us] 80-99 Automated erythrocyte mean corpuscular h emoglobin (mass per erythrocyte) 26 pg 25-34 Automated erythrocyte mean corpuscular h emoglobin concentration measurement (mass/volume) 31 g/dL 32-36 Automated erythrocyte distribution width ratio 13. 0 % 10.0- 14.5 Automated blood platelet count [...] 10*3 1.0-4.0 Blood monocytes automated count (number/volume) 1. 3 10*3 0.0-1.0 Automated eosinophil count 0.2 10*3/uL 0 .0-0.3 Automated blood basophil count (count/volume) 0.0 10*3/uL 0.0-0.1 Complete blood count (CBC) with automate d white blood cell (WBC) differential - 06/12/17 05:55 Blood leukocytes automated count (number/volume) 15.2 10*3/uL 4.3-11.0 Blood erythrocytes automated count (number/volume) 3.07 10*6/uL 4.35-5.85 Venous blood hemoglobin measurement (mass/volume) 8.1 g/dL 11.5-16.0 Blood hematocrit (volume fraction) 25 % 35-52 Automated erythrocyte mean corpuscular volume 83 [ foz_us] 80-99 Automated erythrocyte mean corpuscular h emoglobin (mass per erythrocyte) 26 pg 25-34 Automated erythrocyte mean corpuscular h emoglobin concentration measurement (mass/volume) 32 g/dL 32-36 Automated erythrocyte distribution width ratio 12. 9 % 10.0- 14.5 Automated blood platelet count [...] 10*3 1.0-4.0 Blood monocytes automated count (number/volume) 1. 3 10*3 0.0-1.0 Automated eosinophil count 0.2 10*3/uL 0 .0-0.3 Automated blood basophil count (count/volume) 0.0 10*3/uL 0.0-0.1 Complete urinalysis with reflex to cultu re - 07/03/17 14:40 Urine color determination YELLOW NRG Urine clarity determination VERY CLOUDY NRG Urine pH measurement by test strip 8 5-9 Specific gravity of urine by test strip 1.015 1.016-1.022 Urine protein assay by test strip, semi-quantitative NEGATIVE NEGATIVE Urine glucose detection by automated test strip NE GATIVE NEGATIVE Erythrocytes detection in urine sediment by light micr oscopy NEGATIVE NEGATIVE Urine ketones detection by automated test strip NE GATIVE NEGATIVE Urine nitrite detection by test strip NEGATIVE NEGATIVE Urine total bilirubin detection by test strip NEGA TIVE NEGATIVE Urine urobilinogen measurement by automated test strip (mass/volume) 4 mg/dL NORMAL Urine leukocyte esterase detection by dipstick NEG ATIVE NEGATIVE Automated urine sediment erythrocyte cou nt by microscopy (number/high power field) NONE NRG Automated urine sediment leukocyte count by microscopy (number/high power field) [HPF] NRG Bacteria detection in urine sediment by light microsco py NEGATIVE NRG Squamous epithelial cells detection in u rine sediment by light microscopy 0-2 NRG Crystals detection in urine sediment by light microsco py PRESENT NRG Casts detection in urine sediment by light microscopy NONE NRG Mucus detection in urine sediment by light microscopy SMALL NRG Complete urinalysis with reflex to culture NO NRG Amorphous sediment detection in urine sediment by ligh t microscopy MOD HERMINIA PHOSPHATE NRG Calcium oxalate crystals detection in ur ine sediment by light microscopy LARGE NRG Bacterial urine culture - 07/03/17 14:40 Bacterial urine culture NG NRG Complete blood count (CBC) with automate d white blood cell (WBC) differential - 07/03/17 14:53 Blood leukocytes automated count (number/volume) 20.5 10*3/uL 4.3-11.0 Blood erythrocytes automated count (number/volume) 3.61 10*6/uL 4.35-5.85 Venous blood hemoglobin measurement (mass/volume) 9.1 g/dL 11.5-16.0 Blood hematocrit (volume fraction) 29 % 35-52 Automated erythrocyte mean corpuscular volume 80 [ foz_us] 80-99 Automated erythrocyte mean corpuscular h emoglobin (mass per erythrocyte) 25 pg 25-34 Automated erythrocyte mean corpuscular h emoglobin concentration measurement (mass/volume) 32 g/dL 32-36 Automated erythrocyte distribution width ratio 14. 0 % 10.0- 14.5 Automated blood platelet count [...] 10*3 1.0-4.0 Blood monocytes automated count (number/volume) 1. 9 10*3 0.0-1.0 Automated eosinophil count 0.2 10*3/uL 0 .0-0.3 Automated blood basophil count (count/volume) 0.0 10*3/uL 0.0-0.1 Comprehensive metabolic panel - 07/03/17 14:53 Serum or plasma sodium measurement (moles/volume) 136 mmol/L 135-145 Serum or plasma potassium measurement (moles/volume) 3.4 mmol/L 3.6-5.0 Serum or plasma chloride measurement (moles/volume) 104 mmol/L 98-107 Carbon dioxide 23 mmol/L 21-32 Serum or plasma anion gap determination (moles/volume) 9 mmol/L 5-14 Serum or plasma urea nitrogen measurement (mass/volume ) 5 mg/dL 7-18 Serum or plasma creatinine measurement (mass/volume) 0.60 mg/dL 0.60-1.30 Serum or plasma urea nitrogen/creatinine mass ratio 8 NRG Serum or plasma creatinine measurement w ith calculation of estimated glomerular filtration rate > NRG Serum or plasma glucose measurement (mass/volume) 89 mg/dL 70-105 Serum or plasma calcium measurement (mass/volume) 9.2 mg/dL 8.5-10.1 Serum or plasma total bilirubin measurement (mass/volu me) 0.4 mg/dL 0.1-1.0 Serum or plasma alkaline phosphatase elinor surement (enzymatic activity/volume) 105 U/L 40-136 Serum or plasma aspartate aminotransfera se measurement (enzymatic activity/volume) 14 U/L 5-34 Serum or plasma alanine aminotransferase measurement (enzymatic activity/volume) 7 U/L 0-55 Serum or plasma protein measurement (mass/volume) 7.1 g/dL 6.4-8.2 Serum or plasma albumin measurement (mass/volume) 3.5 g/dL 3.2-4.5 Blood manual differential performed dete ction - 07/03/17 14:53 Blood monocytes/100 leukocytes 4 % NRG Manual blood segmented neutrophils/100 leukocytes 78 % NRG Blood band neutrophils/100 leukocytes 3 % NRG Manual blood lymphocytes/100 leukocytes 15 % NRG Manual eosinophils/100 leukocytes in nose 0 % NRG Manual blood basophils/100 leukocytes 0 % NRG Blood anisocytosis detection by light microscopy S LIGHT NRG Blood hypochromia detection by light microscopy SL IGHT NRG Complete blood count (CBC) with automate d white blood cell (WBC) differential - 07/04/17 05:25 Blood leukocytes automated count (number/volume) 17.8 10*3/uL 4.3-11.0 Blood erythrocytes automated count (number/volume) 3.09 10*6/uL 4.35-5.85 Venous blood hemoglobin measurement (mass/volume) 7.7 g/dL 11.5-16.0 Blood hematocrit (volume fraction) 25 % 35-52 Automated erythrocyte mean corpuscular volume 81 [ foz_us] 80-99 Automated erythrocyte mean corpuscular h emoglobin (mass per erythrocyte) 25 pg 25-34 Automated erythrocyte mean corpuscular h emoglobin concentration measurement (mass/volume) 31 g/dL 32-36 Automated erythrocyte distribution width ratio 13. 8 % 10.0- 14.5 Automated blood platelet count [...] 10*3 1.0-4.0 Blood monocytes automated count (number/volume) 1. 6 10*3 0.0-1.0 Automated eosinophil count 0.2 10*3/uL 0 .0-0.3 Automated blood basophil count (count/volume) 0.0 10*3/uL 0.0-0.1 Complete urinalysis with reflex to cultu re - 07/13/17 21:00 Urine color determination YELLOW NRG Urine clarity determination CLEAR NR G Urine pH measurement by test strip 7 5-9 Specific gravity of urine by test strip 1.015 1.016-1.022 Urine protein assay by test strip, semi-quantitative NEGATIVE NEGATIVE Urine glucose detection by automated test strip NE GATIVE NEGATIVE Erythrocytes detection in urine sediment by light micr oscopy NEGATIVE NEGATIVE Urine ketones detection by automated test strip 2+ NEGATIVE Urine nitrite detection by test strip NEGATIVE NEGATIVE Urine total bilirubin detection by test strip NEGA TIVE NEGATIVE Urine urobilinogen measurement by automated test strip (mass/volume) NORMAL NORMAL Urine leukocyte esterase detection by dipstick NEG ATIVE NEGATIVE Automated urine sediment erythrocyte cou nt by microscopy (number/high power field) NONE NRG Automated urine sediment leukocyte count by microscopy (number/high power field) RARE NRG Bacteria detection in urine sediment by light microsco py TRACE NRG Squamous epithelial cells detection in u rine sediment by light microscopy 0-2 NRG Crystals detection in urine sediment by light microsco py PRESENT NRG Casts detection in urine sediment by light microscopy NONE NRG Mucus detection in urine sediment by light microscopy MODERATE NRG Complete urinalysis with reflex to culture NO NRG Calcium oxalate crystals detection in ur ine sediment by light microscopy MODERATE NRG Complete blood count (CBC) with automate d white blood cell (WBC) differential - 07/13/17 22:00 Blood leukocytes automated count (number/volume) 17.2 10*3/uL 4.3-11.0 Blood erythrocytes automated count (number/volume) 3.62 10*6/uL 4.35-5.85 Venous blood hemoglobin measurement (mass/volume) 8.9 g/dL 11.5-16.0 Blood hematocrit (volume fraction) 28 % 35-52 Automated erythrocyte mean corpuscular volume 78 [ foz_us] 80-99 Automated erythrocyte mean corpuscular h emoglobin (mass per erythrocyte) 25 pg 25-34 Automated erythrocyte mean corpuscular h emoglobin concentration measurement (mass/volume) 31 g/dL 32-36 Automated erythrocyte distribution width ratio 14. 4 % 10.0- 14.5 Automated blood platelet count [...] 10*3 1.0-4.0 Blood monocytes automated count (number/volume) 1. 5 10*3 0.0-1.0 Automated eosinophil count 0.2 10*3/uL 0 .0-0.3 Automated blood basophil count (count/volume) 0.0 10*3/uL 0.0-0.1 Comprehensive metabolic panel - 07/13/17 22:00 Serum or plasma sodium measurement (moles/volume) 136 mmol/L 135-145 Serum or plasma potassium measurement (moles/volume) 3.6 mmol/L 3.6-5.0 Serum or plasma chloride measurement (moles/volume) 106 mmol/L 98-107 Carbon dioxide 19 mmol/L 21-32 Serum or plasma anion gap determination (moles/volume) 11 mmol/L 5-14 Serum or plasma urea nitrogen measurement (mass/volume ) 5 mg/dL 7-18 Serum or plasma creatinine measurement (mass/volume) 0.57 mg/dL 0.60-1.30 Serum or plasma urea nitrogen/creatinine mass ratio 9 NRG Serum or plasma creatinine measurement w ith calculation of estimated glomerular filtration rate > NRG Serum or plasma glucose measurement (mass/volume) 87 mg/dL 70-105 Serum or plasma calcium measurement (mass/volume) 8.9 mg/dL 8.5-10.1 Serum or plasma total bilirubin measurement (mass/volu me) 0.5 mg/dL 0.1-1.0 Serum or plasma alkaline phosphatase elinor surement (enzymatic activity/volume) 119 U/L 40-136 Serum or plasma aspartate aminotransfera se measurement (enzymatic activity/volume) 16 U/L 5-34 Serum or plasma alanine aminotransferase measurement (enzymatic activity/volume) 10 U/L 0-55 Serum or plasma protein measurement (mass/volume) 6.7 g/dL 6.4-8.2 Serum or plasma albumin measurement (mass/volume) 3.4 g/dL 3.2-4.5 Blood manual differential performed dete ction - 07/13/17 22:00 Blood monocytes/100 leukocytes 4 % NRG Manual blood segmented neutrophils/100 leukocytes 70 % NRG Blood band neutrophils/100 leukocytes 3 % NRG Manual blood lymphocytes/100 leukocytes 23 % NRG Manual eosinophils/100 leukocytes in nose 0 % NRG Manual blood basophils/100 leukocytes 0 % NRG Blood ovalocytes detection by light microscopy [facility] NR Blood microcytes detection by light microscopy [facility] [id number] - 07/13/17 22:00 [id number] SPECIMEN AVAILABLE [facility] Complete blood count (CBC) with automate d white blood cell (WBC) differential - 07/14/17 09:30 Blood leukocytes automated count (number/volume) 14.3 10*3/uL 4.3-11.0 Blood erythrocytes automated count (number/volume) 3.36 10*6/uL 4.35-5.85 Venous blood hemoglobin measurement (mass/volume) 8.2 g/dL 11.5-16.0 Blood hematocrit (volume fraction) 27 % 35-52 Automated erythrocyte mean corpuscular volume 80 [ foz_us] 80-99 Automated erythrocyte mean corpuscular h emoglobin (mass per erythrocyte) 24 pg 25-34 Automated erythrocyte mean corpuscular h emoglobin concentration measurement (mass/volume) 31 g/dL 32-36 Automated erythrocyte distribution width ratio 14. 4 % 10.0- 14.5 Automated blood platelet count [...] 10*3 1.0-4.0 Blood monocytes automated count (number/volume) 1. 4 10*3 0.0-1.0 Automated eosinophil count 0.1 10*3/uL 0 .0-0.3 Automated blood basophil count (count/volume) 0.0 10*3/uL 0.0-0.1 Complete urinalysis with reflex to cultu re - 07/22/17 22:40 Urine color determination YELLOW NRG Urine clarity determination CLEAR NR G Urine pH measurement by test strip 7 5-9 Specific gravity of urine by test strip 1.010 1.016-1.022 Urine protein assay by test strip, semi-quantitative NEGATIVE NEGATIVE Urine glucose detection by automated test strip NE GATIVE NEGATIVE Erythrocytes detection in urine sediment by light micr oscopy NEGATIVE NEGATIVE Urine ketones detection by automated test strip NE GATIVE NEGATIVE Urine nitrite detection by test strip NEGATIVE NEGATIVE Urine total bilirubin detection by test strip NEGA TIVE NEGATIVE Urine urobilinogen measurement by automated test strip (mass/volume) NORMAL NORMAL Urine leukocyte esterase detection by dipstick 1+ NEGATIVE Automated urine sediment erythrocyte cou nt by microscopy (number/high power field) NONE NRG Automated urine sediment leukocyte count by microscopy (number/high power field) [HPF] NRG Bacteria detection in urine sediment by light microsco py NONE NRG Crystals detection in urine sediment by light microsco py NONE NRG Casts detection in urine sediment by light microscopy NONE NRG Mucus detection in urine sediment by light microscopy NEGATIVE NRG Complete urinalysis with reflex to culture NO NRG Complete blood count (CBC) with automate d white blood cell (WBC) differential - 07/22/17 23:15 Blood leukocytes automated count (number/volume) 18.8 10*3/uL 4.3-11.0 Blood erythrocytes automated count (number/volume) 3.44 10*6/uL 4.35-5.85 Venous blood hemoglobin measurement (mass/volume) 8.3 g/dL 11.5-16.0 Blood hematocrit (volume fraction) 27 % 35-52 Automated erythrocyte mean corpuscular volume 78 [ foz_us] 80-99 Automated erythrocyte mean corpuscular h emoglobin (mass per erythrocyte) 24 pg 25-34 Automated erythrocyte mean corpuscular h emoglobin concentration measurement (mass/volume) 31 g/dL 32-36 Automated erythrocyte distribution width ratio 14. 5 % 10.0- 14.5 Automated blood platelet count [...] 10*3 1.0-4.0 Blood monocytes automated count (number/volume) 2. 2 10*3 0.0-1.0 Automated eosinophil count 0.2 10*3/uL 0 .0-0.3 Automated blood basophil count (count/volume) 0.0 10*3/uL 0.0-0.1 Blood manual differential performed dete ction - 07/22/17 23:15 Blood monocytes/100 leukocytes 3 % NRG Manual blood segmented neutrophils/100 leukocytes 65 % NRG Blood band neutrophils/100 leukocytes 7 % NRG Manual blood lymphocytes/100 leukocytes 25 % NRG Manual eosinophils/100 leukocytes in nose 0 % NRG Manual blood basophils/100 leukocytes 0 % NRG Blood erythrocyte morphology finding identification NORMAL NRG Complete urinalysis with reflex to cultu re - 07/30/17 20:10 Urine color determination YELLOW NRG Urine clarity determination CLEAR NR G Urine pH measurement by test strip 6.5 5-9 Specific gravity of urine by test strip 1.015 1.016-1.022 Urine protein assay by test strip, semi-quantitative NEGATIVE NEGATIVE Urine glucose detection by automated test strip NE GATIVE NEGATIVE Erythrocytes detection in urine sediment by light micr oscopy NEGATIVE NEGATIVE Urine ketones detection by automated test strip 3+ NEGATIVE Urine nitrite detection by test strip NEGATIVE NEGATIVE Urine total bilirubin detection by test strip NEGA TIVE NEGATIVE Urine urobilinogen measurement by automated test strip (mass/volume) NORMAL NORMAL Urine leukocyte esterase detection by dipstick 1+ NEGATIVE Automated urine sediment erythrocyte cou nt by microscopy (number/high power field) NONE NRG Automated urine sediment leukocyte count by microscopy (number/high power field) [HPF] NRG Bacteria detection in urine sediment by light microsco py NONE NRG Squamous epithelial cells detection in u rine sediment by light microscopy 0-2 NRG Crystals detection in urine sediment by light microsco py NONE NRG Casts detection in urine sediment by light microscopy NONE NRG Mucus detection in urine sediment by light microscopy NEGATIVE NRG Complete urinalysis with reflex to culture NO NRG Complete blood count (CBC) with automate d white blood cell (WBC) differential - 07/30/17 21:05 Blood leukocytes automated count (number/volume) 23.5 10*3/uL 4.3-11.0 Blood erythrocytes automated count (number/volume) 3.63 10*6/uL 4.35-5.85 Venous blood hemoglobin measurement (mass/volume) 8.6 g/dL 11.5-16.0 Blood hematocrit (volume fraction) 28 % 35-52 Automated erythrocyte mean corpuscular volume 77 [ foz_us] 80-99 Automated erythrocyte mean corpuscular h emoglobin (mass per erythrocyte) 24 pg 25-34 Automated erythrocyte mean corpuscular h emoglobin concentration measurement (mass/volume) 31 g/dL 32-36 Automated erythrocyte distribution width ratio 15. 1 % 10.0- 14.5 Automated blood platelet count [...] 10*3 1.0-4.0 Blood monocytes automated count (number/volume) 1. 8 10*3 0.0-1.0 Automated eosinophil count 0.2 10*3/uL 0 .0-0.3 Automated blood basophil count (count/volume) 0.1 10*3/uL 0.0-0.1 Blood manual differential performed dete ction - 07/30/17 21:05 Blood monocytes/100 leukocytes 1 [...] NRG Blood type T Indirect antibody screen pa noah - 07/30/17 21:05 ABO+Rh group OP NRG Transfusion band number [id number] NRG Blood group antibody screen NEGATIVE NR G Complete blood count (CBC) with automate d white blood cell (WBC) differential - 07/31/17 07:59 Blood leukocytes automated count (number/volume) 15.9 10*3/uL 4.3-11.0 Blood erythrocytes automated count (number/volume) 3.27 10*6/uL 4.35-5.85 Venous blood hemoglobin measurement (mass/volume) 7.6 g/dL 11.5-16.0 Blood hematocrit (volume fraction) 25 % 35-52 Automated erythrocyte mean corpuscular volume 77 [ foz_us] 80-99 Automated erythrocyte mean corpuscular h emoglobin (mass per erythrocyte) 23 pg 25-34 Automated erythrocyte mean corpuscular h emoglobin concentration measurement (mass/volume) 30 g/dL 32-36 Automated erythrocyte distribution width ratio 14. 9 % 10.0- 14.5 Automated blood platelet count [...] 10*3 1.0-4.0 Blood monocytes automated count (number/volume) 1. 5 10*3 0.0-1.0 Automated eosinophil count 0.2 10*3/uL 0 .0-0.3 Automated blood basophil count (count/volume) 0.0 10*3/uL 0.0-0.1 Complete blood count (CBC) with automate d white blood cell (WBC) differential - 08/01/17 05:25 Blood leukocytes automated count (number/volume) 19.5 10*3/uL 4.3-11.0 Blood erythrocytes automated count (number/volume) 3.16 10*6/uL 4.35-5.85 Venous blood hemoglobin measurement (mass/volume) 7.5 g/dL 11.5-16.0 Blood hematocrit (volume fraction) 24 % 35-52 Automated erythrocyte mean corpuscular volume 77 [ foz_us] 80-99 Automated erythrocyte mean corpuscular h emoglobin (mass per erythrocyte) 24 pg 25-34 Automated erythrocyte mean corpuscular h emoglobin concentration measurement (mass/volume) 31 g/dL 32-36 Automated erythrocyte distribution width ratio 14. 8 % 10.0- 14.5 Automated blood platelet count [...] 10*3 1.0-4.0 Blood monocytes automated count (number/volume) 2. 2 10*3 0.0-1.0 Automated eosinophil count 0.2 10*3/uL 0 .0-0.3 Automated blood basophil count (count/volume) 0.0 10*3/uL 0.0-0.1 Complete blood count (CBC) with automate d white blood cell (WBC) differential - 11/12/17 19:20 Blood leukocytes automated count (number/volume) 7.7 10*3/uL 4.3-11.0 Blood erythrocytes automated count (number/volume) 4.75 10*6/uL 4.35-5.85 Venous blood hemoglobin measurement (mass/volume) 11.0 g/dL 11.5-16.0 Blood hematocrit (volume fraction) 35 % 35-52 Automated erythrocyte mean corpuscular volume 74 [ foz_us] 80-99 Automated erythrocyte mean corpuscular h emoglobin (mass per erythrocyte) 23 pg 25-34 Automated erythrocyte mean corpuscular h emoglobin concentration measurement (mass/volume) 31 g/dL 32-36 Automated erythrocyte distribution width ratio 16. 7 % 10.0- 14.5 Automated blood platelet count [...] 10*3 1.0-4.0 Blood monocytes automated count (number/volume) 0. 6 10*3 0.0-1.0 Automated eosinophil count 0.2 10*3/uL 0 .0-0.3 Automated blood basophil count (count/volume) 0.0 10*3/uL 0.0-0.1 Blood type T Indirect antibody screen pa noah - 11/12/17 19:20 ABO+Rh group OP NRG Transfusion band number [id number] NRG Blood group antibody screen NEGATIVE NR G Urine beta human chorionic gonadotropin (hCG) measurement - 11/24/17 11:00 Urine beta human chorionic gonadotropin (hCG) measurem ent NEGATIVE NEGATIVE Methicillin resistant Staphylococcus aur eus (MRSA) screening culture - 11/24/17 11:04 Methicillin resistant Staphylococcus aureus (MRSA) scr eening culture NEG NRG Complete blood count (CBC) with automate d white blood cell (WBC) differential - 11/24/17 11:15 Blood leukocytes automated count (number/volume) 6.3 10*3/uL 4.3-11.0 Blood erythrocytes automated count (number/volume) 4.52 10*6/uL 4.35-5.85 Venous blood hemoglobin measurement (mass/volume) 10.5 g/dL 11.5-16.0 Blood hematocrit (volume fraction) 33 % 35-52 Automated erythrocyte mean corpuscular volume 74 [ foz_us] 80-99 Automated erythrocyte mean corpuscular h emoglobin (mass per erythrocyte) 23 pg 25-34 Automated erythrocyte mean corpuscular h emoglobin concentration measurement (mass/volume) 32 g/dL 32-36 Automated erythrocyte distribution width ratio 15. 8 % 10.0- 14.5 Automated blood platelet count [...] 10*3 1.0-4.0 Blood monocytes automated count (number/volume) 0. 7 10*3 0.0-1.0 Automated eosinophil count 0.1 10*3/uL 0 .0-0.3 Automated blood basophil count (count/volume) 0.0 10*3/uL 0.0-0.1 Complete blood count (CBC) with automate d white blood cell (WBC) differential - 10/08/18 09:20 Blood leukocytes automated count (number/volume) 6.3 10*3/uL 4.3-11.0 Blood erythrocytes automated count (number/volume) 4.43 10*6/uL 4.35-5.85 Venous blood hemoglobin measurement (mass/volume) 12.3 g/dL 11.5-16.0 Blood hematocrit (volume fraction) 37 % 35-52 Automated erythrocyte mean corpuscular volume 83 [ foz_us] 80-99 Automated erythrocyte mean corpuscular h emoglobin (mass per erythrocyte) 28 pg 25-34 Automated erythrocyte mean corpuscular h emoglobin concentration measurement (mass/volume) 34 g/dL 32-36 Automated erythrocyte distribution width ratio 13. 6 % 10.0- 14.5 Automated blood platelet count [...] 10*3 1.0-4.0 Blood monocytes automated count (number/volume) 0. 6 10*3 0.0-1.0 Automated eosinophil count 0.1 10*3/uL 0 .0-0.3 Automated blood basophil count (count/volume) 0.0 10*3/uL 0.0-0.1 Blood type T Indirect antibody screen [facility] - 10/08/18 09:20 ABO+Rh group OP NRG Blood group antibody screen NEGATIVE NR G Methicillin resistant Staphylococcus aur eus (MRSA) screening culture - 10/08/18 09:20 Methicillin resistant Staphylococcus aureus (MRSA) scr eening culture NEG NRG Urine beta human chorionic gonadotropin (hCG) measurement - 10/14/18 11:15 Urine beta human chorionic gonadotropin (hCG) measurem ent NEGATIVE NEGATIVE Blood type T Indirect antibody screen [facility] - 10/14/18 11:29 ABO+Rh group OP NRG Transfusion band number [id number] NRG Blood group antibody screen NEGATIVE NR G Complete blood count (CBC) with automate d white blood cell (WBC) differential - 10/19/18 11:30 Blood leukocytes automated count (number/volume) 8.3 10*3/uL 4.3-11.0 Blood erythrocytes automated count (number/volume) 5.00 10*6/uL 4.35-5.85 Venous blood hemoglobin measurement (mass/volume) 14.0 g/dL 11.5-16.0 Blood hematocrit (volume fraction) 41 % 35-52 Automated erythrocyte mean corpuscular volume 82 [ foz_us] 80-99 Automated erythrocyte mean corpuscular h emoglobin (mass per erythrocyte) 28 pg 25-34 Automated erythrocyte mean corpuscular h emoglobin concentration measurement (mass/volume) 34 g/dL 32-36 Automated erythrocyte distribution width ratio 13. 4 % 10.0- 14.5 Automated blood platelet count [...] 10*3 1.0-4.0 Blood monocytes automated count (number/volume) 0. 5 10*3 0.0-1.0 Automated eosinophil count 0.1 10*3/uL 0 .0-0.3 Automated blood basophil count (count/volume) 0.0 10*3/uL 0.0-0.1 Complete urinalysis with reflex to cultu re - 10/19/18 11:30 Urine color determination YELLOW NRG Urine clarity determination SLIGHTLY CLOUDY NRG Urine pH measurement by test strip 8 5-9 Specific gravity of urine by test strip 1.010 1.016-1.022 Urine protein assay by test strip, semi-quantitative NEGATIVE NEGATIVE Urine glucose detection by automated test strip NE GATIVE NEGATIVE Erythrocytes detection in urine sediment by light micr oscopy 1+ NEGATIVE Urine ketones detection by automated test strip 2+ NEGATIVE Urine nitrite detection by test strip NEGATIVE NEGATIVE Urine total bilirubin detection by test strip NEGA TIVE NEGATIVE Urine urobilinogen measurement by automated test strip (mass/volume) 1 mg/dL NORMAL Urine leukocyte esterase detection by dipstick 1+ NEGATIVE Automated urine sediment erythrocyte cou nt by microscopy (number/high power field) RARE NRG Automated urine sediment leukocyte count by microscopy (number/high power field) RARE NRG Bacteria detection in urine sediment by light microsco py NEGATIVE NRG Squamous epithelial cells detection in u rine sediment by light microscopy 25-50 NRG Crystals detection in urine sediment by light microsco py NONE NRG Casts detection in urine sediment [...] 5-14 Serum or plasma urea nitrogen measurement (mass/volume ) 9 mg/dL 7-18 Serum or plasma creatinine measurement (mass/volume) 0.91 mg/dL 0.60-1.30 Serum or plasma urea nitrogen/creatinine mass ratio 10 NRG Serum or plasma creatinine measurement w ith calculation of estimated glomerular filtration rate > NRG Serum or plasma glucose measurement (mass/volume) 106 mg/dL 70-105 Serum or plasma calcium measurement (mass/volume) 10.9 mg/dL 8.5-10.1 Serum or plasma total bilirubin measurement (mass/volu me) 0.5 mg/dL 0.1-1.0 Serum or plasma alkaline phosphatase elinor surement (enzymatic activity/volume) 83 U/L 40-136 Serum or plasma aspartate aminotransfera se measurement (enzymatic activity/volume) 44 U/L 5-34 Serum or plasma alanine aminotransferase measurement (enzymatic activity/volume) 38 U/L 0-55 Serum or plasma protein measurement (mass/volume) 8.5 g/dL 6.4-8.2 Serum or plasma albumin measurement (mass/volume) 4.7 g/dL 3.2-4.5 Serum or plasma amylase measurement (enz ymatic activity/volume) - 10/19/18 11:30 Serum or plasma amylase measurement (enzymatic activit y/volume) 41 U/L 25-125 Lipase - 10/19/18 11:30 Lipase 11 U/L 8-78 Complete urinalysis with reflex to cultu re - 12/07/19 22:10 Urine color determination YELLOW NRG Urine clarity determination CLEAR NR G Urine pH measurement by test strip 6.0 5-9 Specific gravity of urine by test strip 1.015 1.016-1.022 Urine protein assay by test strip, semi-quantitative NEGATIVE NEGATIVE Urine glucose detection by automated test strip NE GATIVE NEGATIVE Erythrocytes detection in urine sediment by light micr oscopy NEGATIVE NEGATIVE Urine ketones detection by automated test strip NE GATIVE NEGATIVE Urine nitrite detection by test strip NEGATIVE NEGATIVE Urine total bilirubin detection by test strip NEGA TIVE NEGATIVE Urine urobilinogen measurement by automated test strip (mass/volume) 0.2 mg/dL < = 1.0 Urine leukocyte esterase detection by dipstick NEG ATIVE NEGATIVE Automated urine sediment erythrocyte cou nt by microscopy (number/high power field) RARE NRG Automated urine sediment leukocyte count by microscopy (number/high power field) RARE NRG Bacteria detection in urine sediment by light microsco py TRACE NRG Squamous epithelial cells detection in u rine sediment by light microscopy 0-2 NRG Crystals detection in urine sediment by light microsco py NONE NRG Casts detection in urine sediment by light microscopy NONE NRG Mucus detection in urine sediment by light microscopy NEGATIVE NRG Complete urinalysis with reflex to culture NO NRG Complete blood count (CBC) with automate d white blood cell (WBC) differential - 12/07/19 22:15 Blood leukocytes automated count (number/volume) 10.7 10*3/uL 4.3-11.0 Blood erythrocytes automated count (number/volume) 4.52 10*6/uL 4.35-5.85 Venous blood hemoglobin measurement (mass/volume) 12.3 g/dL 11.5-16.0 Blood hematocrit (volume fraction) 38 % 35-52 Automated erythrocyte mean corpuscular volume 83 [ foz_us] 80-99 Automated erythrocyte mean corpuscular h emoglobin (mass per erythrocyte) 27 pg 25-34 Automated erythrocyte mean corpuscular h emoglobin concentration measurement (mass/volume) 33 g/dL 32-36 Automated erythrocyte distribution width ratio 13. 4 % 10.0- 14.5 Automated blood platelet count (count/volume) 308 10*3/uL 130-400 Automated blood platelet mean volume measurement 11.0 [foz_us] 7.4-10.4 Automated blood neutrophils/100 leukocytes 60 % 42-75 Automated blood lymphocytes/100 leukocytes 31 % 12-44 Blood monocytes/100 leukocytes 6 % 0-12 Automated blood eosinophils/100 leukocytes 3 % 0-10 Automated blood basophils/100 leukocytes 0 % 0-10 Blood neutrophils automated count (number/volume) 6.4 10*3 1.8-7.8 Blood lymphocytes automated count (number/volume) 3.3 10*3 1.0-4.0 Blood monocytes automated count (number/volume) 0. 6 10*3 0.0-1.0 Automated eosinophil count 0.3 10*3/uL 0 .0-0.3 Automated blood basophil count (count/volume) 0.0 10*3/uL 0.0-0.1 Encounters ACCT No. Visit Date/Time Discharge Status Pt. Type Provider Facility Loc./Unit Complaint [id number] 03/27/2019 19:51:00 21:35:00 DIS Emergency FRANNIE RIDDLE DO [facility] ER FS HEADACHE [id number] 02/14/2019 22:11:00 22:51:00 DIS Emergency JOSE CARLOS DICKENS MD [facility] ER FS POSS BROKEN NOSE [id number] 01/04/2019 22:58:00 23:30:00 DIS Emergency KALANI WISE DO [facility] ER FS LT ARM LAC [id number] 10/19/2018 11:10:00 13:00:00 DIS Emergency BILLY CHOW [facility] ER N/V [id number] 10/14/2018 11:10:00 13:30:00 DIS Outpatient SPENCER STARKEY MD [facility] CHRONIC PELVIC PAIN, ENDOMETRIOSIS [id number] 10/08/2018 08:50:00 11:07:00 DIS Outpatient SPENCER STARKEY MD [facility] PREOP TOTAL LAP. HYST WITH ROBOT, LEFT OOPHORECTOMY, OIP [id number] 10/02/2018 22:27:00 019 02:24:00 DIS Emergency ELIZABETH MUNSON MD [facility] ER FS MIGRAINE, NAUSEA [id number] 11/24/2017 10:49:00 018 17:30:00 DIS Outpatient SPENCER STARKEY MD [facility] DYSFUNCTIONAL U TERINE BLEEDING, CHRONIC PELVIC CLARE [id number] 11/20/2017 05:38:00 018 15:23:00 DIS Outpatient SPENCER STARKEY MD [facility] PREOP HYSTEROSCOPY WI SHERRON Velarde, RT. OOPHORECTOMY, RRS, [id number] 11/12/2017 18:40:00 05/03/2 018 13:15:00 DIS Inpatient SPENCER STARKEY MD [facility] WS POST ABD PAIN;CRAMPING;BLEEDING [id number] 07/30/2017 20:33:00 018 15:47:00 DIS Inpatient SPECNER STARKEY MD [facility] LDRP FALL,LABOR [id number] 07/31/2017 07:00:00 018 23:59:59 CLS Preadmit SPENCER STARKEY MD INDUCTION [id number] 07/26/2017 15:45:00 018 16:40:00 DIS Outpatient SPENCER STARKEY MD [facility] POSS WATER BROK E [id number] 07/22/2017 22:30:00 018 01:07:00 DIS Outpatient SPENCER STARKEY MD [facility] PELVIC PRESSURE [id number] 07/13/2017 20:41:00 018 10:30:00 DIS Outpatient SPENCER STARKEY MD [facility] WSo CONTRACTIONS [id number] 07/03/2017 14:20:00 017 16:25:00 DIS Inpatient SPENCER STARKEY MD [facility] LDRP UNCONTROLLED PA IN [id number] 07/01/2017 10:52:00 017 12:15:00 DIS Outpatient SPENCER STARKEY MD [facility] WSo PASSED BLOOD CL OT [id number] 07/01/2017 10:45:00 017 10:45:00 CAN Jose Antoniomit SPENCER STARKEY MD [facility] LDRP PASSED BLOOD CL OT -32 WEEKS GESTATION [id number] 06/20/2017 09:22:00 017 12:44:00 DIS Outpatient [facility] LOWER BACK PAIN , LOWER ABD PAIN [id number] 06/10/2017 09:55:00 017 07:46:00 DIS Inpatient SPENCER STARKEY MD [facility] LDRP ELEVATED WBC,BA CK PAIN [id number] 05/17/2017 22:59:00 017 00:53:00 DIS Outpatient IRWINCisco RITTER BETTINA C [facility] WSo THROWING UP, CONTRACTIO NS [id number] 05/14/2017 13:00:00 017 13:00:00 DIS Inpatient SPENCER STARKEY MD [facility] LDRP CONTRACTIONS [id number] 05/06/2017 15:43:00 017 18:15:00 DIS Outpatient SPENCER STARKEY MD [facility] WSo CONTRACTIONS [id number] 05/05/2017 22:06:00 017 22:53:00 DIS Outpatient SPENCER STARKEY MD [facility] WSo CONTRACTIONS [id number] 03/29/2017 05:53:00 017 08:40:00 DIS Emergency TALA DUDLEY, DWAYNE Bal [facility] ER CRAMPING,CONTRACTIONS,UTI,ABD BACK PAIN,19 WKS P [id number] 03/23/2017 01:11:00 017 02:00:00 DIS Outpatient SPENCER STARKEY MD [facility] WSo CONTRACTIONS [id number] 03/03/2017 12:53:00 017 13:30:00 DIS Emergency ELVIRA DUDLEY, GENNARO Montgomery [facility] ER DECREASED BABY HEART RATE 16 WKS PREG [id number] 12/07/2019 21:40:[address] Emergency KARL DUDLEY, YAQUELIN Peck [facility] ER FS UPPER ARM LACERATION/SELF DE LEON RM
[2019-12-07 22:43] LABS: AMPHETAMINE SCREEN, URINE NEGATIVE (NEGATIVE); BARBITURATE SCREEN URINE NEGATIVE (NEGATIVE); BENZODIAZEPINES SCREEN URINE NEGATIVE (NEGATIVE); CANNABINOID SCREEN, URINE NEGATIVE (NEGATIVE); COCAINE SCREEN URINE NEGATIVE (NEGATIVE); METHADONE STAT NEGATIVE (NEGATIVE); METHAMPHETAMINE SCREEN URINE S NEGATIVE (NEGATIVE); OPIATE SCREEN URINE NEGATIVE (NEGATIVE); OXYCODONE STAT NEGATIVE (NEGATIVE); PROPOXYPHENE STAT NEGATIVE (NEGATIVE); TRICYCLIC ANTIDEPRESSANTS SCRE NEGATIVE (NEGATIVE)
[2019-12-07 22:44] LABS: ACETAMINOPHEN < 10 UG/ML (10-30); ALANINE AMINOTRANSFERASE 22 U/L (0-55); ALBUMIN 4.1 GM/DL (3.2-4.5); ALKALINE PHOSPHATASE 99 U/L (40-136); BILIRUBIN,TOTAL 0.2 MG/DL (0.1-1.0); BUN/CREATININE RATIO 18; CALCIUM 9.5 MG/DL (8.5-10.1); CARBON DIOXIDE 25 MMOL/L (21-32); CHLORIDE 99 MMOL/L (98-107); CREATININE SERUM 0.72 MG/DL (0.60-1.30); GFR ESTIMATED > 60; GLUCOSE 122 MG/DL (70-105); POTASSIUM 3.5 MMOL/L (3.6-5.0); SALICYLATE < 5.0 MG/DL (5.0-20.0); SODIUM 139 MMOL/L (135-145); TOTAL PROTEIN 7.4 GM/DL (6.4-8.2)
--- NOTE | 2019-12-08 00:40 | NUR ---
TELMA finished screening pt at this time and is going to send pt home with a safety plan.
[2019-12-08 01:04] VITALS: BP 128/78
== END 2019-12-08 01:04 | disposition home or self-care (01) ==
LOC: EDUNIT# 21:39 → ER FS 21:40
DX: S41.112A Laceration without foreign body of left upper arm, initial encounter (principal); F41.9 Anxiety disorder, unspecified; F32.9 Major depressive disorder, single episode, unspecified; G43.909 Migraine, unspecified, not intractable, without status migrainosus; Z88.8 Allergy status to other drugs, medicaments and biological substances; Z82.49 Family history of ischemic heart disease and other diseases of the circulatory system; X78.1XXA Intentional self-harm by knife, initial encounter
CPT/HCPCS: 12002; 36415; 80053; 80306; 80320; 80329; 81000; 85025

== ENCOUNTER 2020-03-19 18:36 | Emergency (ER) | payer MEDICAID ==
[~2020-03-19] VITALS: Ht 162 cm; Wt 98.3 kg
[~2020-03-19 18:36] MED LIST changes: +MULT-567 PO; -MULT1TAB69 PO; -OXYC-465 PO; +OXYC-556 PO
[2020-03-19 19:30] LABS: ALANINE AMINOTRANSFERASE 25 U/L (0-55); ALBUMIN 4.3 GM/DL (3.2-4.5); ALKALINE PHOSPHATASE 130 U/L (40-136); BILIRUBIN,TOTAL 0.2 MG/DL (0.1-1.0); BUN/CREATININE RATIO 14; CALCIUM 9.7 MG/DL (8.5-10.1); CARBON DIOXIDE 24 MMOL/L (21-32); CHLORIDE 103 MMOL/L (98-107); GFR ESTIMATED > 60; GLUCOSE 81 MG/DL (70-105); POTASSIUM 3.9 MMOL/L (3.6-5.0); SODIUM 141 MMOL/L (135-145); TOTAL PROTEIN 7.8 GM/DL (6.4-8.2)
[2020-03-19] MEDS ORDERED: ASPIRIN 81 MG CHEW (CHILDREN'S ASA) PO ONE (19:30)
[2020-03-19 19:31] LABS: HEMATOCRIT 36 % (35-52); HEMOGLOBIN 11.6 G/DL (11.5-16.0); INR 0.9 (0.8-1.4); MEAN CORPUSCULAR HEMOGLOBIN 26 PG (25-34); MEAN CORPUSCULAR VOLUME 82 FL (80-99); PROTHROMBIN TIME PATIENT 12.4 SEC (12.2-14.7); WHITE BLOOD COUNT 11.1 10^3/uL (4.3-11.0)
[2020-03-19 19:32] LABS: BASOPHILS % (AUTO) 0 % (0-10); EOSINOPHILS # (AUTO) 0.6 10^3/uL (0.0-0.3); EOSINOPHILS % (AUTO) 5 % (0-10); LYMPHOCYTES # (AUTO) 2.7 X 10^3 (1.0-4.0); LYMPHOCYTES % (AUTO) 24 % (12-44); MEAN CORPUSCULAR HGB CONC 32 G/DL (32-36); MEAN PLATELET VOLUME 10.7 FL (7.4-10.4); MONOCYTES # (AUTO) 0.9 X 10^3 (0.0-1.0); MONOCYTES % (AUTO) 8 % (0-12); NEUTROPHILS # (AUTO) 6.9 X 10^3 (1.8-7.8); NEUTROPHILS % (AUTO) 62 % (42-75); PLATELET COUNT 304 10^3/uL (130-400)
[2020-03-19 19:40] LABS: FIBRIN DEGRADATION PRODUCTS 0.84 UG/ML (0.00-0.49)
[2020-03-19] MEDS ORDERED: ONDANSETRON 4 MG/2 ML (SDV) Z0FRAN IVP ONE (20:00)
[2020-03-19] MEDS ORDERED: ANTACID SUSP 30 ML UDC (MYLANTA) PO ONE (20:00)
[2020-03-19] MEDS ORDERED: LIDOCAINE 2% VISCOUS 15 ML UDC PO ONE (20:00)
[2020-03-19] MEDS ORDERED: ACETAMINOPHEN 500 MG TAB (TYLENOL) PO ONE (20:00)
[2020-03-19] MEDS ORDERED: FAMOTIDINE 20MG/2ML IV (PEPCID) IVP ONE (20:00)
[2020-03-19] MEDS ORDERED: HOLD METFORMIN - RECEIVED CONTRAST 20 ML VIAL IV SCH (20:15)
[2020-03-19] MEDS ORDERED: IOHEXOL 350 MG/ML 100 ML (OMNIPAQUE 350) VIAL IV ONE (20:15)
[2020-03-19] MEDS ORDERED: NS 100 ML (IVPB) BAG IV ONE (20:15)
--- NOTE | 2020-03-19 20:20 | Diagnostic Imaging Report ---
CHEST 1 VIEW AP/PA ONLY Indication: Chest pain. Comparison: None available. Findings: No focal airspace disease in the visualized lungs. Please note that the posterior lower lobes are poorly evaluated by portable radiography. No pleural effusion or pneumothorax. Normal cardiomediastinal silhouette. Impression: 1. No acute cardiopulmonary process by portable radiography. Dictated by: Dictated on workstation # [id number]
--- NOTE | 2020-03-19 20:56 | Diagnostic Imaging Report ---
PROCEDURE: CT angiography Chest TECHNIQUE: After intravenous administration of contrast, thin section axial CT angiography of the chest was performed. 3D MIP reconstructions were made. All CT scans use one or more of the following dose optimizing techniques: automated exposure control, MA and/or KvP adjustment based on a patient size and exam type, or iterative reconstruction. INDICATION: Chest pain and elevated d-dimer. COMPARISON: None available. FINDINGS: Vasculature: No pulmonary emboli. No CT evidence of pulmonary hypertension or right ventricular strain. Thoracic aorta is normal in caliber. No aortic dissection or pseudoaneurysm. Heart and mediastinum: Visualized thyroid is normal. No supraclavicular, axillary, or intra-thoracic lymphadenopathy. The heart is normal in size without pericardial effusion. Pleura: No pleural effusion or pneumothorax. Lungs and airway: No endoluminal lesion in the trachea or central bronchi. No pulmonary mass, concerning nodule or consolidation. Calcified lingular nodule is due to old granulomatous infection. Upper abdomen: Allowing for the phase of contrast, no acute abnormality in the upper abdomen is seen. Musculoskeletal: No concerning osseous lesion. IMPRESSION: 1. No acute cardiopulmonary process. Specifically, no pulmonary emboli or acute aortic syndrome. Dictated by: Dictated on workstation # [id number]
--- NOTE | 2020-03-19 21:20 | ED Chest Pain ---
General Chief Complaint: Chest Pain Stated Complaint: CHEST PAIN,STOMACH PAIN Nursing Triage Note: Patient here with chest pain that started 4 hours ago. States it is present constantly but is worse with breathing. Had diarrhea and nausea yesterday Nursing Sepsis Screen: No Definite Risk History of Present Illness Date Seen by Provider: Mar 19, 2020 Time Seen by Provider: 18:45 Initial Comments The patient is an otherwise healthy 24-year-old female who presents for evaluation of sharp pleuritic central sternal chest discomfort with onset about 4 hours prior to arrival. Discomfort is stabbing and considerably worse with deep breathing. Severity about 6 out of 10 at present. Discomfort is nonradiating. Patient has not had pain like this before. Symptoms occur in the setting of watery diarrhea yesterday and this morning, 4 episodes yesterday and 3 episodes this morning. Diarrhea has resolved as of this afternoon and this evening. Associated nausea. No associated fevers, vomiting, hematemesis, hematochezia, melena, upper respiratory congestion/rhinorrhea, cough, shortness of breath, abdominal pain of any kind, flank pain, back pain, dysuria or hematuria, recent unusual travel, unusual foods, sick contacts with similar symptoms, recent antibiotic use. Patient is alert and pleasantly and appropriately interactive with appropriate vital signs aside from mild tachycardia upon initial evaluation here in the emergency department. Allergies and Home Medications Allergies Coded Allergies: metoclopramide (Verified Allergy, Mild, JITTERY, 10/08/18) prochlorperazine (Verified Adverse Reaction, Mild, 03/27/19) Home Medications Docusate Sodium 100 Mg Capsule, 100 MG PO BID Prescribed by: SPENCER MTZ on 10/14/18 1430 Ibuprofen 800 Mg Tablet, 800 MG PO Q6HR Prescribed by: SPENCER MTZ on 10/14/18 1430 Oxycodone HCl/Acetaminophen 1 Each Tablet, 1 TAB PO Q4H PRN for PAIN-MODERATE Prescribed by: SPENCER MTZ on 10/15/18 0740 Promethazine HCl 25 Mg Tablet, 25 MG PO Q6H PRN for NAUSEA/VOMITING Prescribed by: BILLY CHOW on 10/19/18 1241 Tramadol HCl 50 Mg Tablet, 50 MG PO Q6H Prescribed by: SPENCER MTZ on 11/24/17 1308 Patient Home Medication List Home Medication List Reviewed: Yes Review of Systems Review of Systems Constitutional: see HPI All Other Systems Reviewed Negative Unless Noted: Yes (Negative excepted noted.) Past Wwghpcy-Osplyi-Vyaexe Hx Past Med/Social Hx: Reviewed Nursing Past Med/Soc Hx Patient Social History Alcohol Use: Denies Use Recreational Drug Use: No Smoking Status: Never a Smoker 2nd Hand Smoke Exposure: No Recent Foreign Travel: No Contact w/Someone Who Travel: No Recent Infectious Disease Expo: No Recent Hopitalizations: No Immunizations Up To Date Tetanus Booster (TDap): Unknown Date of Influenza Vaccine: Apr 18, 2017 Seasonal Allergies Seasonal Allergies: No Past Medical History Surgeries: Yes (ENDOMETRIAL ABLATION) Hysterectomy Respiratory: No Cardiac: No Neurological: Yes Headaches /Migraines Reproductive Disorders: Yes (CPP,DUB) Female Reproductive Disorders: Menstrual Problems, Endometriosis 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 Sexually Transmitted Disease: No HIV/AIDS: No Genitourinary: No Gastrointestinal: No (hyperemesis gravidarum) Musculoskeletal: No Endocrine: No HEENT: Yes (GLASSES) Loss of Vision: Bilateral Hearing Impairment: Denies Cancer: No Psychosocial: Yes Anxiety, Depression Integumentary: Yes Eczema Blood Disorders: Yes (ANEMIA) Adverse Reaction/Blood Tranf: No (N/A) Family Medical History Reviewed Nursing Family Hx Hypertension 19 MOTHER No Pertinent Family Hx Physical Exam Vital Signs Vital Signs - First Documented 03/19/20 18:40 Temp 37.4 Pulse 115 Resp 17 B/P (MAP) 130/83 (99) Pulse Ox 97 Capillary Refill : Less Than 3 Seconds Height, Weight, BMI Height: 5'5.00" Weight: 160lbs. 0oz. 72.196447jo; 37.00 BMI Method:Stated General Appearance: No Apparent Distress Other comments This is a young female appearing nontoxic and in no acute distress. Head is normocephalic and atraumatic. Neck is supple and nontender. Oropharynx is moist. Lungs are clear to auscultation at all stations. There is a normal S1 and S2 without rubs or gallops and capillary refill is appropriate, less than 2 seconds globally. Abdomen is soft, nontender and nondistended. Skin is warm and dry without cyanosis, clubbing or edema. Psychiatrically, the patient demonstrates appropriate mood and affect and is alert. Cavities are neurovascularly intact distally with strength 5 out of 5, sensation intact to light touch in all nerve this Riches, DP and PT pulses 2+, capillary refill less than 2 seconds, feet warm and well-perfused. No calf tenderness or swelling or erythema bilaterally. Procedures/Interventions Suture Size: 4-0, 5-0 Progress/Results/Core Measures Results/Orders Lab Results Laboratory Tests Test 03/19/20 18:40 03/19/20 18:50 Range/Units Urine Test NEGATIVE NEGATIVE White Blood Count 11.1 H 4.3-11.0 10^3/uL Red Blood Count 4.43 4.35-5.85 10^6/uL Hemoglobin 11.6 11.5-16.0 G/DL Hematocrit 36 35-52 % Mean Corpuscular Volume 82 80-99 FL Mean Corpuscular Hemoglobin 26 25-34 PG Mean Corpuscular Hemoglobin Concent 32 32-36 G/DL Red Cell Distribution Width 13.7 10.0-14.5 % Platelet Count 304 130-400 10^3/uL Mean Platelet Volume 10.7 H 7.4-10.4 FL Neutrophils (%) (Auto) 62 42-75 % Lymphocytes (%) (Auto) 24 12-44 % Monocytes (%) (Auto) 8 0-12 % Eosinophils (%) (Auto) 5 0-10 % Basophils (%) (Auto) 0 0-10 % Neutrophils # (Auto) 6.9 1.8-7.8 X 10^3 Lymphocytes # (Auto) 2.7 1.0-4.0 X 10^3 Monocytes # (Auto) 0.9 0.0-1.0 X 10^3 Eosinophils # (Auto) 0.6 H 0.0-0.3 10^3/uL Basophils # (Auto) 0.0 0.0-0.1 10^3/uL Prothrombin Time 12.4 12.2-14.7 SEC INR Comment 0.9 0.8-1.4 Activated Partial Thromboplast Time 27 24-35 SEC D-Dimer 0.84 H 0.00-0.49 UG/ML Sodium Level 141 135-145 MMOL/L Potassium Level 3.9 3.6-5.0 MMOL/L Chloride Level 103 98-107 MMOL/L Carbon Dioxide Level 24 21-32 MMOL/L Anion Gap 14 5-14 MMOL/L Blood Urea Nitrogen 13 7-18 MG/DL Creatinine 0.90 0.60-1.30 MG/DL Estimat Glomerular Filtration Rate > 60 BUN/Creatinine Ratio 14 Glucose Level 81 70-105 MG/DL Calcium Level 9.7 8.5-10.1 MG/DL Corrected Calcium 9.5 8.5-10.1 MG/DL Total Bilirubin 0.2 0.1-1.0 MG/DL Aspartate Amino Transf (AST/SGOT) 19 5-34 U/L Alanine Aminotransferase (ALT/SGPT) 25 0-55 U/L Alkaline Phosphatase 130 40-136 U/L Troponin I < 0.30 <0.30 NG/ML Total Protein 7.8 6.4-8.2 GM/DL Albumin 4.3 3.2-4.5 GM/DL My Orders Orders - LORRI ROMO MD Cbc With Automated Diff (03/19/20 19:24) Comprehensive Metabolic Panel (03/19/20 19:24) Troponin I Fs (03/19/20 19:24) Ekg Tracing (03/19/20:24) Chest 1 View Ap/Pa Only (03/19/20 19:24) Protime With Inr (03/19/20 19:24) Partial Thromboplastin Time (03/19/20:24) Fibrin Degradation Products (03/19/20:24) Hcg,Qualitative Urine (03/19/20 19:24) Aspirin Chewable Tablet (Baby Aspirin Ch (03/19/20 19:30) Ct Angio Chest W (03/19/20 19:46) Famotidine Injection (Pepcid Injection) (03/19/20 20:00) Acetaminophen Tablet (Tylenol Tablet) (03/19/20 20:00) Lidocaine 2% Viscous 15 Ml (Xylocaine Vi (03/19/20 20:00) Antacid Suspension (Mylanta Suspension (03/19/20 20:00) Ondansetron Injection (Zofran Injectio (03/19/20 20:00) Iohexol Injection (Omnipaque 350 Mg/Ml 1 (03/19/20 20:15) Received Contrast (Hold Metformin- Contr (03/19/20 20:15) Ns (Ivpb) (Sodium Chloride 0.9% Ivpb Bag (03/19/20 20:15) Medications Given in ED Current Medications Medications Dose Ordered Sig/Gayla Route Start Time Stop Time Status Last Admin Dose Admin Acetaminophen 1,000 mg ONCE ONCE PO 03/19/20 20:00 03/19/20 20:01 DC 03/19/20 20:06 1,000 MG Al Hydrox/Mg Hydrox/Simethicone 30 ml ONCE ONCE PO 03/19/20 20:00 03/19/20 20:01 DC 03/19/20 20:06 30 ML Aspirin 324 mg ONCE ONCE PO 03/19/20 19:30 03/19/20 19:31 DC 03/19/20 20:04 324 MG Famotidine 20 mg ONCE ONCE IVP 03/19/20 20:00 03/19/20 20:01 DC 03/19/20 20:05 20 MG Iohexol 100 ml ONCE ONCE IV 03/19/20 20:15 03/19/20 20:16 DC 03/19/20 20:25 100 ML Lidocaine HCl 15 ml ONCE ONCE PO 03/19/20 20:00 03/19/20 20:01 DC 03/19/20 20:06 15 ML Ondansetron HCl 4 mg ONCE ONCE IVP 03/19/20 20:00 03/19/20 20:01 DC 03/19/20 20:06 4 MG Sodium Chloride 100 ml ONCE ONCE IV 03/19/20 20:15 03/19/20 20:16 DC 03/19/20 20:24 80 ML Vital Signs/I&O 03/19/20 18:40 Temp 37.4 Pulse 115 Resp 17 B/P (MAP) 130/83 (99) Pulse Ox 97 Blood Pressure Mean: 99 Progress Progress Note : Time: 21:20 Progress Note 24-year-old female with pleuritic chest discomfort over this past several hours in association with watery diarrhea yesterday and today, less than 5 episodes each day. Not reporting any other symptoms aside from intermittent nausea. Low risk by HEART score for ACS with her atypical pleuritic chest discomfort. She is Wells low risk for pulmonary embolism but does not PERC out secondary to tachycardia. Labs, EKG and chest x-ray are unremarkable aside from mildly elevated d-dimer; CT angiography of the chest is negative for evidence of pulmonary embolism or other acute abnormality. After treatment as per nursing flow sheet, patient is feeling much better. Her presenting discomfort is considerably improved. Her nausea is gone. She feels comfortable going home. We will proceed with discharge home at this time with medication for discomfort and nausea as well as some loperamide which she can use should her diarrhea recur. She is to follow-up with her primary care physician on Friday, immediately after the long weekend, in the office. She understands that in the meantime if she feels worse is that of better or develops other new symptoms of concern that she will need to return to the emergency department immediately for reevaluation. All questions are answered. Comment Sinus rhythm, rate 112, no acute ST elevation or depression, MN 140, QRS 83, QTC 451, EP interpretation. Diagnostic Imaging Comments CT ANGIO CHEST W PROCEDURE: CT angiography Chest TECHNIQUE: After intravenous administration of contrast, thin section axial CT angiography of the chest was performed. 3D MIP reconstructions were made. All CT scans use one or more of the following dose optimizing techniques: automated exposure control, MA and/or KvP adjustment based on a patient size and exam type, or iterative reconstruction. INDICATION: Chest pain and elevated d-dimer. COMPARISON: None available. FINDINGS: Vasculature: No pulmonary emboli. No CT evidence of pulmonary hypertension or right ventricular strain. Thoracic aorta is normal in caliber. No aortic dissection or pseudoaneurysm. Heart and mediastinum: Visualized thyroid is normal. No supraclavicular, axillary, or intra-thoracic lymphadenopathy. The heart is normal in size without pericardial effusion. Pleura: No pleural effusion or pneumothorax. Lungs and airway: No endoluminal lesion in the trachea or central bronchi. No pulmonary mass, concerning nodule or consolidation. Calcified lingular nodule is due to old granulomatous infection. Upper abdomen: Allowing for the phase of contrast, no acute abnormality in the upper abdomen is seen. Musculoskeletal: No concerning osseous lesion. IMPRESSION: 1. No acute cardiopulmonary process. Specifically, no pulmonary emboli or acute aortic syndrome. Dictated by: Dictated on workstation # [id number] Departure Impression Primary Impression: Pleuritic chest pain Additional Impression: Acute diarrhea Disposition: HOME, SELF-CARE Condition: Improved Departure-Patient Inst. Referrals: TOPHER MCKOY MD (PCP/Family) Primary Care Physician Patient Instructions: Pleuritic Chest Pain Add. Discharge Instructions: Follow-up very closely with your primary care physician on Friday as discussed for a reevaluation of your symptoms and a discussion of next best steps in care. You may take Zofran every 8 hours as needed for any nausea. You may take Tylenol as needed every 6 hours for any discomfort. You may take loperamide as needed for diarrhea. Return to the emergency department right away with worsening symptoms of any kind or with any other new symptoms of concern. Scripts Loperamide HCl (Loperamide) 2 Mg Tablet 2 MG PO Q6H for Diarrhea, #10 TAB Prov: LORRI ROMO MD 03/19/20 Ondansetron (Ondansetron Odt) 4 Mg Tab.rapdis 4 MG PO Q8H for Nausea, #10 TAB Prov: LORRI ROMO MD 03/19/20 Acetaminophen (Acetaminophen) 500 Mg Tablet 500 MG PO Q6H for Pain, #50 TAB Prov: LORRI ROMO MD 03/19/20 Work/School Note: Family Work Note Patient Received Medical Care In the Emergency Department On: Mar 19, 2020 Patient Will Be Able to Return to Work/School On: Mar 20, 2020 LORRI ROMO MD Mar 19, 2020 21:20
[2020-03-19] MEDS ORDERED: ONDA4TAB11 PO (21:28)
[2020-03-19] MEDS ORDERED: LOPE2TAB34 PO (21:28)
[2020-03-19] MEDS ORDERED: ACET-93 PO (21:28)
[2020-03-19 21:32] VITALS: BP 119/77
== END 2020-03-19 21:32 | disposition home or self-care (01) ==
LOC: EDUNIT# 18:36 → ER FS 18:37
DX: R07.81 Pleurodynia (principal); R19.7 Diarrhea, unspecified; F41.9 Anxiety disorder, unspecified; Z88.8 Allergy status to other drugs, medicaments and biological substances; Z82.49 Family history of ischemic heart disease and other diseases of the circulatory system
CPT/HCPCS: 36415; 71045; 71275; 80053; 84484; 84703; 85025; 85379; 85610; 85730; 93005

== ENCOUNTER 2020-03-26 17:37 | Emergency (ER) | payer MEDICAID ==
[~2020-03-26] VITALS: Ht 162 cm; Wt 105.0 kg
[~2020-03-26 17:37] MED LIST changes: +ACET-93 PO; +LOPE2TAB34 PO; +ONDA4TAB11 PO
[2020-03-26] MEDS ORDERED: ACETAMINOPHEN 500 MG TAB (TYLENOL) PO STA (17:45)
[2020-03-26] MEDS ORDERED: LIDOCAINE 1% INJ 20 ML 20 ML VIAL INJ ONE (17:45)
[2020-03-26] MEDS ORDERED: diphenhydrAMINE 25 MG TAB (BENADRYL) PO STA (17:45)
[2020-03-26 17:50] VITALS: BP 105/67
--- NOTE | 2020-03-26 17:53 | ED Cough/URI ---
General Chief Complaint: Cough/Cold/Flu Symptoms Stated Complaint: FEVER/COUGH/SORE THROAT Source: patient, RN notes reviewed, old records Exam Limitations: no limitations History of Present Illness Date Seen by Provider: Mar 26, 2020 Time Seen by Provider: 17:35 Initial Comments This patient is a 24-year-old female that presents to the [facility] department complaining of a sinus infection that has been going on for about a week that is increased to now sinus pain sinus headache right ear pain and fever. Patient states when she blows her nose is greenish in color. With some red streaks. P atient has sinus tenderness over the right and left maxillary sinuses. And right frontal sinus. Patient states she had taken Excedrin Migraine for headache. Patient denies any use of antihistamines. Patient states had a fever this morning. Patient has long history nasal allergies. Patient was offered full medical screening exam including IV lab and IV fluids. Patient declines patient has no chest symptoms no shortness of breath no cough and has no presentation of difficulty breathing. Patient states everything seems to be in her nasal cavity. Patient declined a medical screening exam as stated above. That was offered. Patient however is agreeable for medications. We'll give patient a gram of Rocephin and 50 of Benadryl and Tylenol for fever or continue to monitor and evaluate. Further as needed. Timing/Duration: week Severity/Quality: mild Prior Episodes/Possible Cause: frequent episodes Associated Symptoms: earache, facial pain, headache, nasal congestion, sinus infection Allergies and Home Medications Allergies Coded Allergies: metoclopramide (Verified Allergy, Mild, JITTERY, 10/08/18) prochlorperazine (Verified Adverse Reaction, Mild, 03/27/19) Home Medications Acetaminophen 500 Mg Tablet, 500 MG PO Q6H Prescribed by: LORRI ROMO on 03/19/202127 Azithromycin 250 Mg Tablet, 250 MG PO UD TAKE 2 TABLETS TODAY, THEN TAKE 1 TABLET DAILY FOR 4 MORE DAYS Prescribed by: YAQUELIN BARAJAS on 03/26/20 175 Docusate Sodium 100 Mg Capsule, 100 MG PO BID Prescribed by: SPENCER MTZ on 10/14/18 1430 Fexofenadine/Pseudoephedrine 1 Each Tab.er.12h, 1 EACH PO BID Prescribed by: YAQUELIN BARAJAS on 03/26/20 175 Ibuprofen 800 Mg Tablet, 800 MG PO Q6HR Prescribed by: SPENCER MTZ on 10/14/18 1430 Loperamide HCl 2 Mg Tablet, 2 MG PO Q6H Prescribed by: LORRI ROMO on 03/19/202127 Ondansetron 4 Mg Tab.rapdis, 4 MG PO Q8H Prescribed by: LORRI ROMO on 03/19/202127 Oxycodone HCl/Acetaminophen 1 Each Tablet, 1 TAB PO Q4H PRN for PAIN-MODERATE Prescribed by: SPENCER MTZ on 10/15/18 0740 Promethazine HCl 25 Mg Tablet, 25 MG PO Q6H PRN for NAUSEA/VOMITING Prescribed by: BILLY CHOW on 10/19/18 1241 Tramadol HCl 50 Mg Tablet, 50 MG PO Q6H Prescribed by: SPENCER MTZ on 11/24/17 1308 Patient Home Medication List Home Medication List Reviewed: Yes Review of Systems Review of Systems Constitutional: No no symptoms reported; see HPI; No chills, No diaphoresis, No dizziness; fever; No malaise, No weakness, No weight gain, No weight loss, No other EENTM: ear pain, nose congestion Respiratory: No no symptoms reported, No see HPI, No cough, No dyspnea on exertion, No hemoptysis, No orthopnea, No phlegm, No short of breath, No stridor, No wheezing, No other Cardiovascular: No no symptoms reported, No see HPI, No chest pain, No edema, No Hx of Intervention, No palpitations, No syncope, No vascular heart diseas, No other Gastrointestinal: No RUQ, No LUQ, No RLQ, No LLQ, No no symptoms reported, No see HPI, No abdominal pain, No constipation, No diarrhea, No dysphagia, No hematemesis, No heartburn, No jaundice, No loss of appetite, No melena, No nausea, No vomiting, No other Musculoskeletal: No no symptoms reported, No see HPI, No back pain, No gout, No joint pain, No joint swelling, No muscle pain, No muscle stiffness, No muscle cramps, No muscle twitching, No muscle weakness, No neck pain, No other Skin: No no symptoms reported, No see HPI, No change in color, No change in hair/nails, No dryness, No hx of skin cancer, No lesions, No lumps, No pruritus, No rash, No other All Other Systems Reviewed Negative Unless Noted: Yes Past Jcemojw-Wibmhy-Zmmlok Hx Patient Social History Alcohol Use: Denies Use Recreational Drug Use: No Smoking Status: Never a Smoker 2nd Hand Smoke Exposure: No Recent Foreign Travel: No Contact w/Someone Who Travel: No Recent Hopitalizations: No Immunizations Up To Date Tetanus Booster (TDap): Unknown Date of Influenza Vaccine: Apr 18, 2017 Seasonal Allergies Seasonal Allergies: No Past Medical History Surgeries: Yes (ENDOMETRIAL ABLATION) Hysterectomy Respiratory: No Cardiac: No Neurological: Yes Headaches /Migraines Reproductive Disorders: Yes (CPP,DUB) Female Reproductive Disorders: Menstrual Problems, Endometriosis 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 Sexually Transmitted Disease: No HIV/AIDS: No Genitourinary: No Gastrointestinal: No (hyperemesis gravidarum) Musculoskeletal: No Endocrine: No HEENT: Yes (GLASSES) Loss of Vision: Bilateral Hearing Impairment: Denies Cancer: No Psychosocial: Yes Anxiety, Depression Integumentary: Yes Eczema Blood Disorders: Yes (ANEMIA) Adverse Reaction/Blood Tranf: No (N/A) Family Medical History Hypertension 19 MOTHER No Pertinent Family Hx Physical Exam Vital Signs - First Documented 03/26/20 03/26/20 17:46 17:50 Temp 39.1 Pulse 150 Resp 16 B/P (MAP) 105/67 (80) Pulse Ox 97 O2 Delivery Room Air O2 Flow Rate 97.00 Capillary Refill : Height: 5'5.00" Weight: 160lbs. 0oz. 72.456898it; 37.00 BMI Method:Stated General Appearance: WD/WN, no apparent distress HEENT: PERRL/EOMI, pharynx normal, TM abnormal (R) Neck: non-tender, full range of motion, supple, normal inspection Respiratory: chest non-tender, lungs clear, normal breath sounds, no respiratory distress, no accessory muscle use Cardiovascular: normal peripheral pulses, regular rate, rhythm, no edema, no gallop, no JVD, no murmur Gastrointestinal: normal bowel sounds, non tender, soft, no organomegaly, no pulsatile mass Skin: normal color, warm/dry Procedures/Interventions Suture Size: 4-0, 5-0 Progress/Results/Core Measures Suspected Sepsis SIRS Temperature: Pulse: Respiratory Rate: Blood Pressure / Mean: Results/Orders My Orders Orders - YAQUELIN BARAJAS MD Acetaminophen Tablet (Tylenol Tablet) (03/26/20 17:45) Ceftriaxone For Im Use (Rocephin For Im (03/27/20 09:00) Lidocaine 1% Inj 20 Ml (Xylocaine 1% Inj (03/26/20 17:45) Diphenhydramine Tablet (Benadryl Tablet) (03/26/20 17:45) Vital Signs/I&O 03/26/20 03/26/20 03/26/20 17:46 17:46 17:50 Temp 39.1 39.1 Pulse 150 150 Resp 16 16 B/P (MAP) 105/67 (80) 105/67 (80) Pulse Ox 97 O2 Delivery Room Air Room Air Room Air O2 Flow Rate 97.00 Capillary Refill : Progress Note : Progress Note Patient was offered full medical screening exam including establishment of an IV and giving IV fluid and medications as needed. Patient was also offered chest x- ray and other testing. Patient declines full medical screening exam. However was agreeable to be given IM injection of Rocephin Benadryl and Tylenol. Patient is to take all medications as instructed. Coolmist humidifier to help with nasal congestion. Benadryl every 6-8 hours for nasal congestion. Drink plenty of fluids. Continue all antibiotics as prescribed. Alternate Tylenol Motrin as needed for fever pain. Follow-up with your PCP in 2-3 days symptoms failed to improve or worsen. May return to the emergency department as needed. Departure Impression Primary Impression: Acute sinus infection Disposition: 01 HOME, SELF-CARE Condition: Stable Departure-Patient Inst. Decision time for Depature: 18:19 Referrals: TOPHER MCKOY MD (PCP/Family) Primary Care Physician Patient Instructions: Sinusitis, Adult (DC), Sinus Headache (DC) Add. Discharge Instructions: Patient is to take all medications as instructed. Coolmist humidifier to help with nasal congestion. Benadryl every 6-8 hours for nasal congestion. Do not take Benadryl if taking Kelley as prescribed. Drink plenty of fluids. Continue all antibiotics as prescribed. Alternate Tylenol Motrin as needed for fever pain. Follow-up with your PCP in 2-3 days symptoms failed to improve or worsen. May return to the emergency department as needed. All discharge instructions reviewed with patient and/or family. Voiced understanding. Scripts Fexofenadine/Pseudoephedrine (Kelley-D 12 Hour Tablet) 1 Each Tab.er.12h 1 EACH PO BID, #10 TAB 0 Refills Prov: YAQUELIN BARAJAS MD 03/26/20 Azithromycin (Zithromax) 250 Mg Tablet 250 MG PO UD, #6 TAB 0 Refills TAKE 2 TABLETS TODAY, THEN TAKE 1 TABLET DAILY FOR 4 MORE DAYS Prov: YAQUELIN BARAJAS MD 03/26/20 YAQUELIN BARAJAS MD Mar 26, 2020 17:53
[2020-03-26] MEDS ORDERED: FEXO1TAB40 PO (17:54)
[2020-03-26] MEDS ORDERED: AZIT250T PO (17:54)
--- NOTE | 2020-03-26 19:23 | NUR ---
This RN went to check on the patient. Patient was waiting on medications that have not been able to bee given due to the [facility] being down. Patient has opted not to wait.
[2020-03-27] MEDS ORDERED: cefTRIAXone 1,000 MG/2.86 ml vial (IM ONLY) IM SCH (09:00)
== END 2020-03-26 19:25 | disposition home or self-care (01) ==
LOC: EDUNIT# 17:37 → ER FS 17:40
DX: J01.00 Acute maxillary sinusitis, unspecified (principal); J01.10 Acute frontal sinusitis, unspecified; Z88.8 Allergy status to other drugs, medicaments and biological substances; Z82.49 Family history of ischemic heart disease and other diseases of the circulatory system
CPT/HCPCS: 99284

== ENCOUNTER 2020-07-19 11:10 | Emergency (ER) | payer MEDICAID ==
[~2020-07-19] VITALS: Ht 162 cm; Wt 85.0 kg
[~2020-07-19 11:10] MED LIST changes: +AZIT250T PO; +FEXO1TAB40 PO
[2020-07-19 11:32] VITALS: BP 108/69
--- NOTE | 2020-07-19 11:38 | ED General ---
General Chief Complaint: Abdominal/GI Problems Stated Complaint: DIARRHEA; HEADACHE; DIZZINESS Source of Information: Patient History of Present Illness Date Seen by Provider: Jul 19, 2020 Time Seen by Provider: 11:20 Initial Comments Patient is a 24-year-old female who presents with dizziness, and watery diarrhea multiple episodes starting yesterday. Patient also reports mild headache. No fever, chills, nausea, vomiting, no body aches. No urinary frequency urgency or dysuria. Reports only mild abdominal pain and cramping. No known GI illness or cold exposures. No other acute symptoms or complaints. 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 Previous hysterectomy. No medications or therapies taken prior to ED arrival. Timing/Duration: 1/2 Hour Severity: Mild Associated Systoms: Malaise, Nausea/Vomiting Allergies and Home Medications Allergies Coded Allergies: metoclopramide (Verified Allergy, Mild, JITTERY, 10/08/18) prochlorperazine (Verified Adverse Reaction, Mild, 03/27/19) Home Medications Acetaminophen 500 Mg Tablet, 500 MG PO Q6H Prescribed by: LORRI ROMO on 03/19/202127 Azithromycin 250 Mg Tablet, 250 MG PO UD TAKE 2 TABLETS TODAY, THEN TAKE 1 TABLET DAILY FOR 4 MORE DAYS Prescribed by: YAQUELIN BARAJAS on 03/26/20 175 Docusate Sodium 100 Mg Capsule, 100 MG PO BID Prescribed by: SPENCER MTZ on 10/14/18 143 Fexofenadine/Pseudoephedrine 1 Each Tab.er.12h, 1 EACH PO BID Prescribed by: YAQUELIN BARAJAS on 03/26/20 175 Ibuprofen 800 Mg Tablet, 800 MG PO Q6HR Prescribed by: SPENCER MTZ on 10/14/18 1430 Loperamide HCl 2 Mg Tablet, 2 MG PO Q6H Prescribed by: LORRI ROMO on 03/19/202127 Ondansetron 4 Mg Tab.rapdis, 4 MG PO Q8H Prescribed by: LORRI ROMO on 03/19/202127 Oxycodone HCl/Acetaminophen 1 Each Tablet, 1 TAB PO Q4H PRN for PAIN-MODERATE Prescribed by: SPENCER MTZ on 10/15/18 0740 Promethazine HCl 25 Mg Tablet, 25 MG PO Q6H PRN for NAUSEA/VOMITING Prescribed by: BILLY CHOW on 10/19/18 1241 Tramadol HCl 50 Mg Tablet, 50 MG PO Q6H Prescribed by: SPENCER MTZ on 11/24/17 1308 Patient Home Medication List Home Medication List Reviewed: Yes Review of Systems Review of Systems Constitutional: see HPI EENTM: see HPI Respiratory: see HPI Cardiovascular: see HPI Gastrointestinal: see HPI Genitourinary: see HPI Musculoskeletal: see HPI Psychiatric/Neurological: See HPI Hematologic/Lymphatic: See HPI Immunological/Allergic: see HPI All Other Systems Reviewed Negative Unless Noted: Yes Past Ydmhsov-Oqirpr-Uwichm Hx Past Med/Social Hx: Reviewed Nursing Past Med/Soc Hx Patient Social History Alcohol Use: Denies Use Recreational Drug Use: No Smoking Status: Never a Smoker 2nd Hand Smoke Exposure: No Recent Foreign Travel: No Contact w/Someone Who Travel: No Recent Hopitalizations: No Physical Abuse: No Sexual Abuse: No Mistreated: No Fear: No Immunizations Up To Date Tetanus Booster (TDap): Unknown Date of Influenza Vaccine: Apr 18, 2017 Seasonal Allergies Seasonal Allergies: No Past Medical History Surgeries: Yes (ENDOMETRIAL ABLATION) Hysterectomy Respiratory: No Cardiac: No Neurological: Yes Headaches /Migraines Reproductive Disorders: Yes (CPP,DUB) Female Reproductive Disorders: Menstrual Problems, Endometriosis 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 0oz. 72.394954pv; 40.00 BMI Method:Stated General Appearance: No Apparent Distress, Anxious Eyes: Bilateral Eye Normal Inspection, Bilateral Eye PERRL, Bilateral Eye EOMI HEENT: PERRL/EOMI Neck: Non Tender, Supple Respiratory: Chest Non Tender, Lungs Clear Cardiovascular: Regular Rate, Rhythm Gastrointestinal: Soft Back: Normal Inspection, No CVA Tenderness Neurologic/Psychiatric: Alert, Oriented x3 Focused Exam Sepsis Stage: Ruled Out Procedures/Interventions Suture Size: 4-0, 5-0 Progress/Results/Core Measures Suspected Sepsis SIRS Temperature: Pulse: Respiratory Rate: Blood Pressure / Mean: Results/Orders My Orders Orders - FRANNIE RIDDLE DO Acetaminophen Tablet (Tylenol Tablet) (07/19/20 11:45) Vital Signs/I&O Capillary Refill : Departure Communication (Admissions) Mild GI illness with headache. Abdomen soft, nontender. This less than 24 hours duration. Potential COVID exposure. Will obtain testing outpatient self or 19. Tolerates oral intake while in the ED. Recommend supportive care watchful waiting and PCP follow-up as needed. Impression Primary Impression: Diarrhea Additional Impression: Headache Disposition: 01 HOME, SELF-CARE Condition: Stable Departure-Patient Inst. Decision time for Depature: 11:38 Referrals: TOPHER MCKOY MD (PCP/Family) Primary Care Physician Patient Instructions: Headache, Adult (DC), Nausea and Vomiting, Adult Add. Discharge Instructions: Please take newly prescribed medications instructed and follow-up with your PCP in 2-3 days for reevaluation. Continue self quarantine pending COVID negative COVID test results. If COVID positive, do not return to work after being symptom free for 3 days. All discharge instructions reviewed with patient and/or family. Voiced understanding. FRANNIE RIDDLE DO Jul 19, 2020 11:38
[2020-07-19] MEDS ORDERED: ACETAMINOPHEN 500 MG TAB (TYLENOL) PO ONE (11:45)
[2020-07-19] MEDS ORDERED: LOPE-175 PO (11:52)
== END 2020-07-19 12:00 | disposition home or self-care (01) ==
LOC: EDUNIT# 11:10 → ER FS 11:12
DX: R51.9 Headache, unspecified (principal); R19.7 Diarrhea, unspecified; R11.2 Nausea with vomiting, unspecified; R53.81 Other malaise; Z20.822 Contact with and (suspected) exposure to COVID-19; Z88.8 Allergy status to other drugs, medicaments and biological substances; Z86.69 Personal history of other diseases of the nervous system and sense organs
CPT/HCPCS: 87635; 99283

== ENCOUNTER 2020-07-28 13:44 | Emergency (ER) | payer MEDICAID ==
[~2020-07-28] VITALS: Ht 162.6 cm; Wt 83.0 kg
[~2020-07-28 13:44] MED LIST changes: +LOPE-175 PO
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
[2020-07-28] MEDS ORDERED: ORPHENADRINE 60 MG/2 ML (NORFLEX) AMP (ED ONLY) IM STA (13:50)
[2020-07-28] MEDS ORDERED: KETOROLAC 30 MG/ML VIAL IM STA (13:50)
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
--- NOTE | 2020-07-28 15:09 | Diagnostic Imaging Report ---
INDICATION: Neck pain. COMPARISON: None. FINDINGS: Frontal, lateral, and odontoid views of the cervical spine were submitted. The cervical spine is visualized up to the C7/T1 level on the lateral projection. There is normal vertebral height and alignment. There is no evidence of fracture or bone destruction. No prevertebral soft tissue swelling is seen. No significant degenerative changes are noted. The open-mouth view demonstrates normal C1/C2 alignment. IMPRESSION: 1. Normal cervical spine series. Dictated by: Dictated on workstation # [id number]
[2020-07-28 15:30] VITALS: BP 133/85
== END 2020-07-28 15:30 | disposition home or self-care (01) ==
LOC: EDUNIT# 13:44 → ER FS 13:46
DX: S39.012A Strain of muscle, fascia and tendon of lower back, initial encounter (principal); F41.9 Anxiety disorder, unspecified; Z88.8 Allergy status to other drugs, medicaments and biological substances; Z82.49 Family history of ischemic heart disease and other diseases of the circulatory system; V89.2XXA Person injured in unspecified motor-vehicle accident, traffic, initial encounter
CPT/HCPCS: 72040; 72100

== ENCOUNTER → 2021-11-21 | Outpatient (CLI) | payer MEDICAID ==
[~2021-11-21] MED LIST changes: -OXYC-471 PO; +OXYC1TAB11 PO
[2021-11-21 12:31] LABS: BASOPHILS % (AUTO) 1 % (0-10); EOSINOPHILS # (AUTO) 0.3 10^3/uL (0.0-0.3); EOSINOPHILS % (AUTO) 3 % (0-10); HEMATOCRIT 37 % (35-52); HEMOGLOBIN 12.6 g/dL (11.5-16.0); LYMPHOCYTES # (AUTO) 1.9 10^3/uL (1.0-4.0); LYMPHOCYTES % (AUTO) 23 % (12-44); MEAN CORPUSCULAR HEMOGLOBIN 28 pg (25-34); MEAN CORPUSCULAR HGB CONC 34 g/dL (32-36); MEAN CORPUSCULAR VOLUME 82 fL (80-99); MEAN PLATELET VOLUME 11.1 fL (9.0-12.2); MONOCYTES # (AUTO) 0.7 10^3/uL (0.0-1.0); MONOCYTES % (AUTO) 9 % (0-12); NEUTROPHILS # (AUTO) 5.4 10^3/uL (1.8-7.8); NEUTROPHILS % (AUTO) 64 % (42-75); PLATELET COUNT 296 10^3/uL (130-400); WHITE BLOOD COUNT 8.5 10^3/uL (4.3-11.0)
--- NOTE | 2021-11-21 12:37 | Diagnostic Imaging Report ---
INDICATION: Left wrist pain AP, oblique and lateral views of left wrist are obtained. There is no previous study available at this time for comparison. No acute fracture or malalignment is identified. Chronic appearing ossific fragment is seen adjacent to the ulnar styloid process. No lytic or sclerotic lesion is identified. IMPRESSION: No acute abnormality identified. There is evidence of old injury to the ulnar styloid process. Dictated by: Dictated on workstation # [id number]
[2021-11-21 13:02] LABS: CHLORIDE 105 MMOL/L (98-107); POTASSIUM 3.8 MMOL/L (3.6-5.0); SODIUM 140 MMOL/L (135-145)
[2021-11-21 13:03] LABS: ALANINE AMINOTRANSFERASE 12 U/L (0-55); ALBUMIN 4.6 GM/DL (3.2-4.5); ALKALINE PHOSPHATASE 125 U/L (40-136); BILIRUBIN,TOTAL 0.4 MG/DL (0.1-1.0); BUN/CREATININE RATIO 18; CALCIUM 9.5 MG/DL (8.5-10.1); CARBON DIOXIDE 23 MMOL/L (21-32); CREATININE SERUM 0.97 MG/DL (0.60-1.30); GFR ESTIMATED 82; GLUCOSE 97 MG/DL (70-105); TOTAL PROTEIN 7.7 GM/DL (6.4-8.2)
[2021-11-21 15:24] LABS: TRIGLYCERIDES 94 MG/DL (<150); VLDL CHOLESTEROL 19 MG/DL (5-40)
[2021-11-21 15:29] LABS: CHOLESTEROL 198 MG/DL (< 200)
[2021-11-21 15:30] LABS: HDL CHOLESTEROL 41 MG/DL (40-60)
[2021-11-21 15:55] LABS: FREE T4 (FREE THYROXINE) 0.92 NG/DL (0.70-1.48)
== END ==
LOC: LAB FS 12:03
PROVIDERS: ATTEND Registered Nurse Emergency
DX: Z00.00 Encounter for general adult medical examination without abnormal findings (principal); Z23 Encounter for immunization; M25.532 Pain in left wrist; F32.9 Major depressive disorder, single episode, unspecified
CPT/HCPCS: 36415; 73110; 80053; 80061; 84439; 84443; 85025

== ENCOUNTER 2022-05-10 22:15 | Emergency (ER) | payer MEDICAID ==
[~2022-05-10] VITALS: Ht 162 cm; Wt 77.0 kg
[2022-05-10 22:24] VITALS: BP 105/73
[2022-05-10] MEDS ORDERED: BUPR300T98 (22:30)
[2022-05-10] MEDS ORDERED: ESCI-2 (22:30)
--- NOTE | 2022-05-10 22:34 | ED Lower Extremity ---
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 Went to [facility] who did x-rays and saw no fracture and gave her a brace. RICE has not helped. She reinjured it today after she tripped over her sons skateboard. Severity: moderate Pain/Injury Location: right knee Method of Injury: twisted Modifying Factors: Worse With Movement Allergies and Home Medications Allergies Coded Allergies: metoclopramide (Verified Allergy, Mild, JITTERY, 10/08/18) prochlorperazine (Verified Adverse Reaction, Mild, 03/27/19) Patient Home Medication List Home Medication List Reviewed: Yes Bupropion HCl (Bupropion Xl) 300 Mg Tab.er.24h, (Reported) Entered as Reported by: TOMI PERRY on 05/10/222229 Last Action: New Order Escitalopram Oxalate (Escitalopram Oxalate) 10 Mg Tablet, (Reported) Entered as Reported by: TOMI PERRY on 05/10/222229 Last Action: New Order Discontinued Medications Acetaminophen (Acetaminophen) 500 Mg Tablet, 500 MG PO Q6H Discontinued Reason: No Longer Taking Prescribed by: LORRI ROMO on 03/19/202127 Last Action: Discontinued Azithromycin (Zithromax) 250 Mg Tablet, 250 MG PO UD Discontinued Reason: No Longer Taking Prescribed by: YAQUELIN BARAJAS on 03/26/201753 Last Action: Discontinued Docusate Sodium (Docusate Sodium) 100 Mg Capsule, 100 MG PO BID Discontinued Reason: No Longer Taking Prescribed by: SPENCER MTZ on 10/14/18 143 Last Action: Discontinued Fexofenadine/Pseudoephedrine (Kelley-D 12 Hour Tablet) 1 Each Tab.er.12h, 1 EACH PO BID Discontinued Reason: No Longer Taking Prescribed by: YAQUELIN BARAJAS on 03/26/201753 Last Action: Discontinued Ibuprofen (Ibuprofen) 800 Mg Tablet, 800 MG PO Q6HR Discontinued Reason: No Longer Taking Prescribed by: SPENCER MTZ on 10/14/18 1430 Last Action: Discontinued Loperamide HCl (Loperamide) 2 Mg Tablet, 2 MG PO Q6H Discontinued Reason: No Longer Taking Prescribed by: LORRI ROMO on 03/19/202127 Last Action: Discontinued Loperamide HCl (Imodium A-D) 2 Mg Capsule, 4 MG PO Q4H Discontinued Reason: No Longer Taking Prescribed by: FRANNIE RIDDLE on 07/19/20 1152 Last Action: Discontinued Ondansetron (Ondansetron Odt) 4 Mg Tab.rapdis, 4 MG PO Q8H Discontinued Reason: No Longer Taking Prescribed by: LORRI ROMO on 03/19/202127 Last Action: Discontinued Oxycodone HCl/Acetaminophen (Percocet 7.5-325 mg Tablet) 1 Each Tablet, 1 TAB PO Q4H PRN for PAIN-MODERATE Discontinued Reason: No Longer Taking Prescribed by: SPENCER MTZ on 10/15/18 0740 Last Action: Discontinued Promethazine HCl (Promethazine Tablet) 25 Mg Tablet, 25 MG PO Q6H PRN for NAUSEA/VOMITING Discontinued Reason: No Longer Taking Prescribed by: BILLY CHOW on 10/19/18 1241 Last Action: Discontinued Tramadol HCl (Ultram) 50 Mg Tablet, 50 MG PO Q6H Discontinued Reason: No Longer Taking Prescribed by: SPENCER MTZ on 11/24/17 1308 Last Action: Discontinued [ortho evra patch] Discontinued Reason: No Longer Taking Prescribed by: SPENCER MTZ on 10/14/18 1430 Last Action: Discontinued Review of Systems Constitutional: see HPI EENTM: see HPI Respiratory: no symptoms reported Cardiovascular: no symptoms reported Genitourinary: no symptoms reported Musculoskeletal: see HPI Skin: no symptoms reported Psychiatric/Neurological: No Symptoms Reported Past Erppdpo-Ovjmgu-Yohweo Hx Immunizations Up To Date Tetanus Booster (TDap): Unknown Seasonal Allergies Seasonal Allergies: No Past Medical History Surgeries: Yes (ENDOMETRIAL ABLATION) Hysterectomy Respiratory: No Cardiac: No Neurological: Yes Headaches /Migraines Reproductive Disorders: Yes (CPP,DUB) Female Reproductive Disorders: Menstrual Problems, Endometriosis 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 Sexually Transmitted Disease: No HIV/AIDS: No Genitourinary: No Gastrointestinal: No (hyperemesis gravidarum) Musculoskeletal: No Endocrine: No HEENT: Yes (GLASSES) Loss of Vision: Bilateral Hearing Impairment: Denies Cancer: No Psychosocial: Yes Anxiety, Depression Integumentary: Yes Eczema Blood Disorders: Yes (ANEMIA) Adverse Reaction/Blood Tranf: No (N/A) Family Medical History Hypertension 19 MOTHER No Pertinent Family Hx Physical Exam Vital Signs Vital Signs - First Documented 05/10/22 22:24 Temp 37.0 Pulse 92 Resp 16 B/P (MAP) 105/73 (84) Pulse Ox 100 O2 Delivery Room Air Capillary Refill : Height, Weight, BMI Height: 5'5.00" Weight: 160lbs. 0oz. [id number]; 31.00 BMI Method:Stated General Appearance: WD/WN, no apparent distress HEENT: PERRL/EOMI, normal ENT inspection Neck: non-tender, full range of motion Cardiovascular: regular rate, rhythm, no murmur Respiratory: no respiratory distress, no accessory muscle use Gastrointestinal: normal bowel sounds, non tender Hips: bilateral hip non-tender, bilateral hip normal inspection, bilateral hip normal range of motion Legs: bilateral leg non-tender, bilateral leg normal inspection, bilateral leg normal range of motion Knees: left knee non-tender; bilateral knee normal inspection, bilateral knee normal range of motion; right knee pain Ankles: bilateral ankle non-tender, bilateral ankle normal inspection, bilatera l ankle normal range of motion Feet: bilateral foot non-tender, bilateral foot normal inspection, bilateral foot normal range of motion Neurologic/Psychiatric: alert, normal mood/affect, oriented x 3 Skin: normal color, warm/dry Procedures/Interventions Suture Size: 4-0, 5-0 Progress/Results/Core Measures Results/Orders My Orders Orders - ARNALDO SOLER APRN Rx-Hydrocodone/Apap 5-325 Mg (Rx-Vicodin (05/10/22 22:45) Vital Signs/I&O 05/10/22 22:24 Temp 37.0 Pulse 92 Resp 16 B/P (MAP) 105/73 (84) Pulse Ox 100 O2 Delivery Room Air Departure Impression Primary Impression: Internal derangement of right knee Disposition: 01 HOME, SELF-CARE Condition: Stable Departure-Patient Inst. Decision time for Depature: 22:32 Referrals: TOPHER MCKOY MD (PCP/Family) Primary Care Physician Patient Instructions: Internal Derangement of the Knee Add. Discharge Instructions: 1. Return to ER for any concerns. Use the crutches as needed. Whenever you are able to bear weight without the use of crutches and pain then you can stop using the crutches. Follow-up with primary care next week for any ongoing pain as you may need an MRI. Tylenol and ibuprofen for pain control in the meantime. All discharge instructions reviewed with patient and/or family. Voiced understanding. Work/School Note: Work Release Form Date Seen in the Emergency Department: May 10, 2022 Return to Work: May 11, 2022 Other Restrictions Listed Below: May use crutches as needed with weightbearing x5 days ARNALDO SOLER APRN May 10, 2022 22:34
== END 2022-05-10 22:42 | disposition home or self-care (01) ==
LOC: EDUNIT# 22:15 → ER 22:18
DX: M23.91 Unspecified internal derangement of right knee (principal); Z28.310 Unvaccinated for COVID-19
CPT/HCPCS: 99283

== ENCOUNTER 2023-03-07 15:17 | Emergency (ER) | payer MEDICAID, OTHER ==
[~2023-03-07] VITALS: Ht 162.5 cm; Wt 79.3 kg
[~2023-03-07 15:17] MED LIST changes: +BUPR300T98; +ESCI-2; +HYDR50CA3 PO
[2023-03-07] MEDS ORDERED: KETOROLAC INJ 15 MG/ML VIAL IVP ONE (15:45)
[2023-03-07] MEDS ORDERED: NS IV 1000 ML 1,000 ML IV SCH ×2 (15:45→16:45)
--- NOTE | 2023-03-07 16:11 | ED Cough/URI ---
General Chief Complaint: COVID19 Suspect/Confirmed Stated Complaint: DIZZINESS/HEADACHE/FEVER/CHILLS/COUGH Nursing Triage Note: PT AMB TO RM 10 WITH CC OF FEVER, CHILLS, DE LEON, AND SOB SINCE YESTERDAY. PT STATES THAT SHE WAS TESTED AT [facility] FOR COVID, FLU, AND STREP AND RESULTS WERE NEGATIVE. Source: patient Exam Limitations: no limitations (TAMARA SHARPE APRN) History of Present Illness Date Seen by Provider: Mar 07, 2023 Time Seen by Provider: 15:26 Initial Comments 27-year-old female presents to the ER with complaint of dizziness, cough, chills, body aches, fever, headache, shortness of air since yesterday. States symptoms became worse today. She works at [employer], and was tested for COVID, flu, strep yesterday. They were all negative. DayQuil approximately 30 minutes prior to arrival. (TAMARA SHARPE APRN) Allergies and Home Medications Allergies Coded Allergies: metoclopramide (Verified Allergy, Mild, JITTERY, 10/08/18) prochlorperazine (Verified Adverse Reaction, Mild, 03/27/19) Patient Home Medication List Home Medication List Reviewed: Yes (TAMARA SHARPE APRN) Bupropion HCl (Bupropion Xl) 300 Mg Tab.er.24h, (Reported) Entered as Reported by: TOMI PERRY on 05/10/222229 Escitalopram Oxalate (Escitalopram Oxalate) 10 Mg Tablet, (Reported) Entered as Reported by: TOMI PERRY on 05/10/222229 Hydroxyzine Pamoate (Hydroxyzine Pamoate) 50 Mg Capsule, 50 MG PO Q6H PRN for ANXIETY Prescribed by: MITCH FREED on 01/30/232204 Review of Systems Review of Systems Constitutional: see HPI (TAMARA SHARPE APRN) Past Qvybvvm-Letwun-Fpdwjd Hx Patient Social History Tobacco Use?: Yes Tobacco type used: Cigarettes Substance use?: No Alcohol Use?: Yes Alcohol Frequency: Once in a while (TAMARA SHARPE APRN) Immunizations Up To Date Tetanus Booster (TDap): Unknown First/Initial COVID19 Vaccinat: na Second COVID19 Vaccination Atilio: na Third COVID19 Vaccination Date: na (TAMARA SHARPE APRN) Seasonal Allergies Seasonal Allergies: No (TAMARA SHARPE APRN) Past Medical History Surgery/Hospitalization HX: hysterectomy 2018, appendectomy, anxiety, depression Surgeries: Yes (ENDOMETRIAL ABLATION) Hysterectomy Respiratory: No Cardiac: No Neurological: Yes Headaches /Migraines Reproductive Disorders: Yes (CPP,DUB) Female Reproductive Disorders: Menstrual Problems, Endometriosis 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 Sexually Transmitted Disease: No HIV/AIDS: No Genitourinary: No Gastrointestinal: No (hyperemesis gravidarum) Musculoskeletal: No Endocrine: No HEENT: Yes (GLASSES) Loss of Vision: Bilateral Hearing Impairment: Denies Cancer: No Psychosocial: Yes Anxiety, Depression Integumentary: Yes Eczema Blood Disorders: Yes (ANEMIA) Adverse Reaction/Blood Tranf: No (N/A) (TAMARA SHARPE APRN) Family Medical History Hypertension 19 MOTHER No Pertinent Family Hx (TAMARA SHARPE APRN) Physical Exam Vital Signs - First Documented 03/07/23 15:23 Temp 37.4 Pulse 117 B/P (MAP) 102/74 (83) Pulse Ox 98 O2 Delivery Room Air (LOURDESMITCH [employer] DO) Capillary Refill : (TAMARA SHARPE APRN) Height: 5'5.00" Weight: 160lbs. 0oz. 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, alert, normal mood/affect Skin: normal color, warm/dry (TAMARA SHARPE APRN) Procedures/Interventions Suture Size: 4-0, 5-0 (TAMARA SHARPE APRN) Progress/Results/Core Measures Suspected Sepsis SIRS Temperature: Pulse: 117 Respiratory Rate: Blood Pressure 102 /74 Mean: 83 (TAMARA SHARPE APRN) Results/Orders Lab Results Laboratory Tests Test 03/07/23 15:30 Range/Units Influenza Type A (RT-PCR) Not Detected Not Detecte Influenza Type B (RT-PCR) Not Detected Not Detecte SARS-CoV-2 RNA (RT-PCR) Detected H Not Detecte (LOURDES,MITCH K DO) Vital Signs/I&O 03/07/23 03/07/23 03/07/23 15:23 15:25 18:00 Temp 37.4 Pulse 117 92 B/P (MAP) 102/74 (83) 111/68 Pulse Ox 98 96 O2 Delivery Room Air Room Air Room Air (MITCH FREED DO) Vital Signs/I&O Capillary Refill : (TAMARA SHARPE APRN) Blood Pressure Mean: 83 Progress Note : Progress Note Patient seen and evaluated, resting in bed, appears that she does not feel well. Based on exam and symptoms, this is likely COVID or flu. COVID and flu swabs ordered. IV fluids, Toradol ordered. Chest x-ray ordered. 1633 COVID test came back positive. Second liter of IV fluids ordered due to continued tachycardia and mildly decreased blood pressure. 174 patient reports she is feeling better. Results discussed with patient. Will discharge after second liter of fluids has infused. Heart rate and blood pressure has improved. Discussed Paxlovid with patient, patient has no comorbidities, she is not at risk of developing serious disease. Informed her that I will not prescribe it to her due to these reasons. Patient instructed to drink plenty water. Instructed to take Tylenol and ibuprofen ttef-int-lyvhxfq as well as vitamin D, vitamin C, and zinc. Discharge instructions and return precautions provided. (TAMARA SHARPE APRN) Departure Impression Primary Impression: COVID-19 Disposition: 01 HOME, SELF-CARE Condition: Stable Departure-Patient Inst. Referrals: NO,LOCAL PHYSICIAN (PCP/Family) Primary Care Physician Patient Instructions: COVID-19 Home Care/Discharge Add. Discharge Instructions: You will need to stay home for at least 5 days since symptoms started and isolate from others. After the first 5 days, isolation may be discontinued if your symptoms are resolving and you are fever free for at least 24 hours without fever reducing medications. If your symptoms are not improving, you need to remain on isolation until your symptoms improve. After the first 5 days, if your symptoms are resolving or gone, you should wear a mask when in public for the following 5 days. You can take Tylenol or ibuprofen as needed for pain and fever. You should take vitamin D, vitamin C, and zinc to help boost your immune system. Sure you are drinking plenty of water, stay away from caffeinated, high sugar beverages because these can be dehydrating. Return for any new, concerning, or worsening symptoms. All discharge instructions reviewed with patient and/or family. Voiced understanding. Work/School Note: Work Release Form Date Seen in the Emergency Department: Mar 07, 2023 Return to Work: Mar 12, 2023 Restrictions: No Restrictions ATTENDING PHYSICIAN NOTE: I WAS PHYSICALLY PRESENT ER PHYSICIAN, BUT I WAS NOT INVOLVED IN ANY DECISION MAKING OR ANY CARE OF THIS PATIENT, AND I AM NOT COLLABORATING PHYSICIAN. (MITCH FREED DO) TAMARA SHARPE APRN Mar 07, 2023 16:11 MITCH FREED DO Mar 09, 2023 06:55
--- NOTE | 2023-03-07 16:20 | Diagnostic Imaging Report ---
EXAMINATION: Chest 1 view HISTORY: Short of breath COMPARISON: 03/19/2020 FINDINGS: The lungs are clear without edema or pneumonia. No pleural effusion or pneumothorax. Heart size is normal. IMPRESSION: 1. Clear lungs. Dictated by: Dictated on workstation # [id number]
[2023-03-07 18:00] VITALS: BP 111/68
== END 2023-03-07 18:00 | disposition home or self-care (01) ==
LOC: EDUNIT# 15:17 → ER 15:19
DX: U07.1 COVID-19 (principal); R50.9 Fever, unspecified; R06.02 Shortness of breath; R05.9 Cough, unspecified; R42 Dizziness and giddiness; R51.9 Headache, unspecified; F17.210 Nicotine dependence, cigarettes, uncomplicated
CPT/HCPCS: 71045; 87636

== ENCOUNTER 2023-03-08 20:09 | Emergency (ER) | payer OTHER ==
[~2023-03-08] VITALS: Ht 162 cm; Wt 79.0 kg
[2023-03-08 20:30] VITALS: BP 114/83
--- NOTE | 2023-03-08 20:48 | ED Cough/URI ---
General Chief Complaint: COVID19 Suspect/Confirmed Stated Complaint: SOA Nursing Triage Note: PT TO ED W/ C/O COVID + DIAGNOSIS YESTERDAY IN THIS ED. PT REPORTS HAS BEEN TAKING OTC MEDS FOR COUGH ET FLU BUT DENIES IMPROVEMENT. 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 NO DISTRESS OR DISCOMFORT NOTED Source: patient Exam Limitations: no limitations (ESE PAYTON) History of Present Illness Date Seen by Provider: Mar 08, 2023 Time Seen by Provider: 20:46 Initial Comments Patient is a 27-year-old female who presents ED with cough short of breath and flulike symptoms. Symptoms started on . She states she was seen here yesterday diagnosed with COVID. It was recommended to get vitamins which she has not. She states she has taken DayQuil and NyQuil without much improvement. This evening she was started to feeling short of breath. She took her vital signs which she had a heart rate in the 120s and oxygen between 92 to 94%. She did use her daughter's albuterol inhaler which seemed to improve some. No history of asthma. History of smoking. No known cardiac history. Denies vomiting or diarrhea. Continue body aches, weakness and fatigue. She denies of any known fevers at home. Denies of any recent travels or surgeries. Denies of any current chest pain or abdominal pain. She states she does feel short of br eath with a cough. (ESE PAYTON) Allergies and Home Medications Allergies Coded Allergies: metoclopramide (Verified Allergy, Mild, JITTERY, 10/08/18) prochlorperazine (Verified Adverse Reaction, Mild, 03/27/19) Patient Home Medication List Home Medication List Reviewed: Yes (ESE PAYTON) Bupropion HCl (Bupropion Xl) 300 Mg Tab.er.24h, (Reported) Entered as Reported by: TOMI PERRY on 05/10/222229 Escitalopram Oxalate (Escitalopram Oxalate) 10 Mg Tablet, (Reported) Entered as Reported by: TOMI PERRY on 05/10/222229 Hydroxyzine Pamoate (Hydroxyzine Pamoate) 50 Mg Capsule, 50 MG PO Q6H PRN for ANXIETY Prescribed by: MITCH FREED on 01/30/232204 Review of Systems Review of Systems Constitutional: chills; No diaphoresis, No fever; malaise, weakness EENTM: No ear pain, No blurred vision, No double vision Respiratory: cough, short of breath Cardiovascular: No chest pain, No edema Gastrointestinal: No abdominal pain, No diarrhea, No nausea, No vomiting Genitourinary: No decreased output, No discharge Musculoskeletal: No back pain, No joint pain Skin: No change in color, No change in hair/nails (ESE PAYTON) All Other Systems Reviewed Negative Unless Noted: Yes (ESE PAYTON) Past Kgqhtnm-Rujhxv-Binxwr Hx Immunizations Up To Date Tetanus Booster (TDap): Unknown First/Initial COVID19 Vaccinat: na Second COVID19 Vaccination Atilio: na Third COVID19 Vaccination Date: na (ESE PAYTON) Seasonal Allergies Seasonal Allergies: No (ESE PAYTON) Past Medical History Surgery/Hospitalization HX: hysterectomy 2018, appendectomy, anxiety, depression Surgeries: Yes (ENDOMETRIAL ABLATION) Hysterectomy Respiratory: No Cardiac: No Neurological: Yes Headaches /Migraines Reproductive Disorders: Yes (CPP,DUB) Female Reproductive Disorders: Menstrual Problems, Endometriosis 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 Sexually Transmitted Disease: No HIV/AIDS: No Genitourinary: No Gastrointestinal: No (hyperemesis gravidarum) Musculoskeletal: No Endocrine: No HEENT: Yes (GLASSES) Loss of Vision: Bilateral Hearing Impairment: Denies Cancer: No Psychosocial: Yes Anxiety, Depression Integumentary: Yes Eczema Blood Disorders: Yes (ANEMIA) Adverse Reaction/Blood Tranf: No (N/A) (ESE PAYTON) Family Medical History Hypertension 19 MOTHER No Pertinent Family Hx (ESE PAYTON) Physical Exam Vital Signs - First Documented 03/08/23 20:30 Temp 36.4 Pulse 96 Resp 18 B/P (MAP) 114/83 (93) Pulse Ox 97 O2 Delivery Room Air (MITCH FREED DO) Capillary Refill : Less Than 3 Seconds (ESE PAYTON) Height: 5'5.00" Weight: 160lbs. 0oz. 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, no motor/sensory deficits, alert, normal mood/affect, oriented x 3 Skin: normal color, warm/dry (ESE PAYTON) Procedures/Interventions Suture Size: 4-0, 5-0 (ESE PAYTON) Progress/Results/Core Measures Suspected Sepsis SIRS Temperature: Pulse: 96 Respiratory Rate: 18 Blood Pressure 114 /83 Mean: 93 (ESE PAYTON) Results/Orders Medications Given in ED Current Medications Medications Dose Ordered Sig/Gayla Route Start Time Stop Time Status Last Admin Dose Admin Dexamethasone Sodium Phosphate 10 mg ONCE ONCE IM 03/08/23 21:00 03/08/23 21:01 DC 03/08/23 21:06 10 MG (MITCH FREED DO) Vital Signs/I&O 03/08/23 20:30 Temp 36.4 Pulse 96 Resp 18 B/P (MAP) 114/83 (93) Pulse Ox 97 O2 Delivery Room Air (MITCH FREED DO) Vital Signs/I&O Capillary Refill : Less Than 3 Seconds (ESE PAYTON) Blood Pressure Mean: 93 Departure Communication (PCP) Reviewed previous ER visits, H&P, lab test. Differential diagnosis, COVID, pneumonia. Diagnosed with COVID yesterday. She continues to have flulike symptoms since . She felt short of breath this evening checked her oxygen level with a pulse ox which read 92 to 94%. She noted her heart rate to be 125. She did use a albuterol inhaler right before she checked her heart rate. No history of asthma history is smoking. She denies history of cancer, diabetes, hypertension. She does not appear in any respiratory distress. No vomiting or diarrhea. Stable vital signs. She does not appear fluid depleted. She is eating and drinking at home. No urinary symptoms. Due to the shortness of breath and cough that she is reports I did add a chest x-ray to rule out po tential pneumonia. Chest x-ray was negative for acute abnormality. There is no appreciation of lower leg swelling. No current chest pain, abdominal pain. She did receive IM Decadron 10 mg. Patient is resting comfortably. Clinically does not appear toxic. She is up-to-date on her COVID-vaccine. I recommend continue rest at home with conservative measures. She is not a candidate for Paxlovid. Provided a work note for additional days. If increased shortness of breath or developing chest pain to return back to ED for further evaluation. Patient has remained asymptomatic at this time. (ESE PAYTON) Impression Primary Impression: COVID-19 Disposition: 01 HOME, SELF-CARE Condition: Stable Departure-Patient Inst. Decision time for Depature: 21:36 (ESE PAYTON) Referrals: [facility],LOCAL PHYSICIAN (PCP) Primary Care Physician Patient Instructions: COVID-19 Home Care/Discharge Add. Discharge Instructions: If increased short of breath or chest pain to return back to ED. Recommend rest at home. All discharge instructions reviewed with patient and/or family. Voiced understanding. Work/School Note: Work Release Form Date Seen in the Emergency Department: Mar 08, 2023 Return to Work: Mar 12, 2023 ATTENDING PHYSICIAN NOTE: I WAS PHYSICALLY PRESENT ER PHYSICIAN, BUT I WAS NOT INVOLVED IN ANY DECISION MAKING OR ANY CARE OF THIS PATIENT, AND I AM NOT COLLABORATING PHYSICIAN. (MITCH FREED DO) ESE PAYTON Mar 08, 2023 20:48 MITCH FREED DO Mar 09, 2023 06:44
[2023-03-08] MEDS ORDERED: dexAMETHasone INJ 10 MG/ML 1 ML VIAL IM ONE (21:00)
--- NOTE | 2023-03-08 21:04 | Diagnostic Imaging Report ---
CHEST 1 VIEW, AP/PA ONLY Indication: Shortness of breath Comparison: 03/07/2023 Findings: No focal airspace disease in the visualized lungs. No pleural effusion or pneumothorax. Normal cardiomediastinal silhouette. Impression: 1. No acute cardiopulmonary process by portable radiography. Dictated by: Dictated on workstation # [id number]
== END 2023-03-08 21:38 | disposition home or self-care (01) ==
LOC: EDUNIT# 20:09 → ER 20:11
DX: U07.1 COVID-19 (principal); R06.02 Shortness of breath; R53.1 Weakness; R53.83 Other fatigue
CPT/HCPCS: 71045; 99283